=== PATIENT | female | born 1935 | race Caucasian/White ===

== ENCOUNTER → 2019-03-06 08:31 | Outpatient (CLI) | payer MEDICARE, SELFPAY ==
[2019-03-06 09:47] LABS: Hematocrit 42.3 % (36-46); Hemoglobin 13.9 g/dL (12.0-16.0); Mean Corpuscular HGB Conc 32.8 % (30-36); Mean Corpuscular Hemoglobin 27.7 PG (26-34); Mean Corpuscular Volume 84.5 fL (80-100); Platelet Count 193 X10^3/uL (150-400); Red Cell Distribution Width 14.2 % (11.6-14.8); White Blood Cell Count 5.6 X10^3/uL (4.5-11.0)
[2019-03-06 10:36] LABS: Alanine Aminotransferase 23 IU/L (9-52); Albumin 3.7 g/dL (3.5-5.0); Albumin Globulin Ratio 1.3 (1.0-2.8); Alkaline Phosphatase 67 U/L (38-126); Aspartate Aminotransferase 25 IU/L (14-36); BUN Creatinine Ratio 27.1 (6-22); Bilirubin Total 0.9 mg/dL (0.2-1.3); Blood Urea Nitrogen 19 mg/dL (7-17); Calcium 9.6 mg/dL (8.4-10.2); Carbon Dioxide 29 mmol/L (22-32); Chloride 108 mmol/L (98-107); Cholesterol 139 mg/dL (140-199); Estimated Glomerular Filt Rate > 60.0 mL/min (>60); Globulin 2.9 g/dL (1.7-4.1); Glucose 102 mg/dL (80-110); HDL Cholesterol 53 mg/dL (40-60); HEMOLYSIS < 15 (0-50); LDL Cholesterol Calculated 71 mg/dL (<100); Potassium 3.8 mmol/L (3.4-5.1); Sodium 144 mmol/L (137-145); Total Protein 6.6 g/dL (6.3-8.2); Triglycerides 74 mg/dL (35-150)
[2019-03-06 11:14] LABS: TSH w/ Reflex to FT4 < 0.02 uIU/mL (0.47-4.68)
[2019-03-06 11:40] LABS: Free T4, Direct Thyroxine 2.08 ng/dL (0.78-2.19)
[2019-03-06 13:49] LABS: Neutrophils Absolute Manual 3696 /uL (3000-5900); Total Cells Counted 100
[2019-03-06 13:51] LABS: RBC Morphology Normal Morphology
== END ==
PROVIDERS: PCP Family Medicine; Visit Provider Family Medicine
DX: E78.5 Hyperlipidemia, unspecified (principal); I10 Essential (primary) hypertension
CPT/HCPCS: 36415; 80053; 80061; 84439; 84443; 84481; 85025

== ENCOUNTER → 2019-03-18 09:17 | Outpatient (CLI) | payer MEDICARE, SELFPAY ==
--- NOTE | 2019-03-18 | DI.NM.S_ITS ---
PROCEDURE: LA UPTAKE AND SCAN RADIOPHARMACEUTICAL: 370 ?Ci I-123 sodium iodide by mouth. INDICATIONS: ABNORMAL THYROID LABS,OSTEOPENIA TECHNIQUE: I-123 sodium iodide was administered orally. Anterior neck images were obtained, and iodine uptake by the thyroid gland calculated using tipple repairer's software. COMPARISON: [facility], CT, CHEST ABDOMEN PELVIS WITH CONTRAST, 10/06/2010, 9:34. [facility], [place], PET/CT SKULL BASE TO MID THIGH, 10/15/2010, 8:32. [facility], US THYROID, 03/18/2019, 14:04. FINDINGS: Morphology: The thyroid gland has a bilobed configuration. The right thyroid lobe is more pronounced uptake in the left thyroid lobe. No definitive hot or cold' thyroid nodules are identified. Uptake: The 6-hour thyroid uptake is 16.1%; normal ranges are from 6-18%. The 24 hour thyroid uptake is 31.2%; normal ranges are from 10-30%. IMPRESSION: 1. More prominent uptake in the right thyroid lobe compared to left thyroid lobe. This asymmetry may be a normal variant due to congenital size difference of the thyroid lobes. No definitive hot or cold thyroid nodules. 2. Mildly elevated 24-hour radioactive uptake. Please correlate with thyroid function tests. Dictated by: Ehsan Ontiveros M.D. on 03/19/2019 at 11:42 Approved by: Ehsan Ontiveros M.D. on 03/19/2019 at 11:51
--- NOTE | 2019-03-18 | DI.US.S_ITS ---
PROCEDURE: US THYROID INDICATIONS: ABNORMAL THYROID LABS TECHNIQUE: Real-time scanning was performed of the thyroid gland, with image documentation. COMPARISON: None. FINDINGS: Right: Thyroid lobe measures 3.7 x 2.3 x 1.5 cm, and is homogeneous in echotexture. Left: Thyroid lobe measures 3.2 x 1.8 x 1 cm, and is homogenous in echotexture. Isthmus: 3 mm thick. Nodule number: #1 Location: Isthmus Size: 6 x 6 x 4 mm. Composition: Predominantly solid Echogenicity: Hypoechoic Shape: Wider than tall Margins: Irregular Echogenic foci: Peripheral calcifications are seen Total points: 8 ACR TI-RADS category: 5 Nodule number: #2 Location: Upper pole right thyroid lobe Size: 6 x 5 x 4 mm. Composition: Predominantly solid Echogenicity: Hypoechoic Shape: Wider than tall Margins: Smooth Echogenic foci: None Total points: 4 ACR TI-RADS category: 4 Nodule number: #3 Location: Mid to lower pole right thyroid lobe Size: 5 x 6 x 5 mm Composition: Solid Echogenicity: Isoechoic Shape: Wider than tall Margins: Smooth Echogenic foci: Peripheral calcifications Total points: 5 ACR TI-RADS category: 4 IMPRESSION: Subcentimeter nodules in isthmus and right thyroid lobe as described above. Followup ultrasound is recommended. ACR TI-RADS definitions and recommendations: TI-RADS 1 (benign): 0 points. FNA not needed. TI-RADS 2 (not suspicious): 2 points. FNA not needed. TI-RADS 3 (mildly suspicious): 3 points. * FNA if 2.5 cm or larger, follow up if 1.5 cm or larger (at 1, 3, and 5 years). TI-RADS 4 (moderately suspicious): 4-6 points. * FNA if 1.5 cm or larger, follow up if 1 cm or larger (at 1, 2, 3, and 5 years). TI-RADS 5 (highly suspicious): 7 points or more. * FNA if 1 cm or larger, follow up if 0.5 cm or larger (every year for 5 years). Dictated by: Fidel Campos M.D. on 03/18/2019 at 15:53 Approved by: Fidel Campos M.D. on 03/18/2019 at 15:58
== END ==
PROVIDERS: PCP Family Medicine; Visit Provider Family Medicine
DX: M81.0 Age-related osteoporosis without current pathological fracture (principal); Z78.0 Asymptomatic menopausal state; E04.2 Nontoxic multinodular goiter; R89.9 Unspecified abnormal finding in specimens from other organs, systems and tissues
CPT/HCPCS: 36415; 76536; 77080; 77081; 78014; 83519; A9516

== ENCOUNTER 2019-04-09 23:34 | Inpatient (IN) | payer MEDICARE, SELFPAY ==
[2019-04-10] VITALS (14 sets, daily range): BP systolic 121–209; BP diastolic 65–107; PULSE 72–93; RESP 14–95; TEMP 36.4–37.1; O2SAT 91–95; BMI 23.2; BMI 24.0
--- NOTE | 2019-04-10 00:33 | DI.CT.S_ITS ---
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 For radiation dose reduction, the following was used: automated exposure control, adjustment of mA and/or kV according to patient size. COMPARISON: [facility], CT, HEAD WITHOUT CONTRAST, 11/29/2013, 9:03. FINDINGS: Image quality: Excellent. CSF spaces: Basal cisterns are patent. No extra-axial fluid collections. The ventricles are symmetric in size and shape. Brain: No intracranial bleeds or masses. There is cerebral volume loss for age, with resultant ventricular and sulcal prominence. There are moderate progressive periventricular and deep white matter chronic small vessel ischemic changes. There is intracranial internal carotid artery atherosclerosis. Skull and face: Calvarium and visualized facial bones appear intact, without suspicious lesions. Sinuses: Visualized sinuses and mastoids are clear. IMPRESSION: 1. Age related volume loss and moderate, progressive small vessel ischemic change. 2. No evidence acute stroke, hemorrhage, or mass. Comment: Final report is concordant with preliminary interpretation provided by [facility]. Dictated by: Jose Elias Lopez M.D. on 04/10/2019 at 8:22 Approved by: Jose Elias Lopez M.D. on 04/10/2019 at 8:26
[2019-04-10 00:40] LABS: Add Manual Diff / Slide Review NO; Basophils Absolute Auto 0 /uL (0-100); Basophils Percent Auto 0.2 % (0-2); Eosinophils Absolute Auto 0 /uL (0-450); Eosinophils Percent Auto 0.1 % (2-4); Hematocrit 44.4 % (36-46); Hemoglobin 14.7 g/dL (12.0-16.0); Lymphocytes Absolute Auto 1300 /uL (1100-4500); Mean Corpuscular Hemoglobin 27.8 PG (26-34); Mean Corpuscular Volume 84.2 fL (80-100); Monocytes Absolute Auto 400 /uL (0-900); Monocytes Percent Auto 4.6 % (3-14); Neutrophils Absolute Auto 7100 /uL (1500-7000); Neutrophils Percent Auto 80.1 % (50-75); Platelet Count 219 X10^3/uL (150-400); Red Blood Cell Count 5.28 X10^6/uL (4.0-5.2); Red Cell Distribution Width 13.7 % (11.6-14.8); White Blood Cell Count 8.9 X10^3/uL (4.5-11.0)
[2019-04-10 00:42] LABS: Prothrombin Time 11.7 SECONDS (10.1-12.7)
[2019-04-10 00:45] LABS: PTT Partial Thromboplastin Tim 33 SECONDS (26.4-36.2)
[2019-04-10 00:47] LABS: Alanine Aminotransferase 20 IU/L (9-52); Albumin Globulin Ratio 1.3 (1.0-2.8); Alkaline Phosphatase 73 U/L (38-126); Aspartate Aminotransferase 23 IU/L (14-36); BUN Creatinine Ratio 24.3 (6-22); Bilirubin Total 1.5 mg/dL (0.2-1.3); Blood Urea Nitrogen 17 mg/dL (7-17); Calcium 9.4 mg/dL (8.4-10.2); Carbon Dioxide 25 mmol/L (22-32); Chloride 105 mmol/L (98-107); Estimated Glomerular Filt Rate > 60.0 mL/min (>60); Globulin 3.2 g/dL (1.7-4.1); Glucose 130 mg/dL (80-110); HEMOLYSIS < 15 (0-50); Potassium 3.5 mmol/L (3.4-5.1); Sodium 138 mmol/L (137-145); Total Protein 7.2 g/dL (6.3-8.2)
[2019-04-10 00:59] LABS: Troponin I < 0.012 ng/mL (0.01-0.034)
[2019-04-10] MEDS: SODIUM CHLORIDE 0.9% 1,000 ML 150 ML IV (01:06)
--- NOTE | 2019-04-10 02:02 | ED_ITS ---
HPI - Headache General Chief Complaint: Headache Stated Complaint: migraines blurred vision dehydration Time Seen by Provider: 04/10/19 00:32 Source: patient Mode of arrival: Ambulatory Limitations: no limitations History of Present Illness HPI Narrative: Patient is an 83-year-old female who presents with it and left hand weakness. She states she has had migraines for her entire life. She said this 1 started this morning. However this morning she went to get the dog food from the refrigerator she was unable to grab the dog food. She consents keep it out. It lasted for about 10 minutes or less. It went away however she persisted to have his headache throughout the day. She then later again will feeding the dog in the evening was unable to grab anything with her all left hand. 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 She continue to have headaches throughout the day and finally her son brought her to the emergency department. Her weakness in her left hand has completely resolved however she continues to have a mild headache. She has no chest pain no facial drooping or slurring of speech. She also states that she has hypertension. Her medication was changed she says about 2 weeks ago she had an additional medication she took it 1 time and had a significant amount of diarrhea she has never taken again. She initially is noted to have a significant elevation of systolic blood pressure over 200. MD Complaint: headache Onset description: sudden Severity: moderate Quality: aching Treatments prior to arrival: none Related Data Home Medications Medication Instructions Recorded Confirmed ibuprofen 200 mg PO PRN #0 02/21/12 03/04/19 Previous Rx's Medication Instructions Recorded Disabled Parking Permit ea #1 04/11/17 hydrochlorothiazide 25 mg tablet 25 mg PO DAILY #90 tab 03/04/19 losartan 50 mg tablet 50 mg PO QDAY #90 tab 03/04/19 Allergies Allergy/AdvReac Type Severity Reaction Status Date / Time aspirin [ASPIRIN] Allergy Mild Flu like Verified 04/10/19 00:18 symptoms Review of Systems Review of Systems ROS Unobtainable: All systems reviewed & are unremarkable except as noted in HPI and below Constitutional Constitutional: Denies chills, Denies fever(s), Reports headache(s), Denies lethargy and Reports weakness Eyes Eyes: Denies change in vision, Denies eye discharge, Denies irritation and Denies loss of vision ENT Ears, Nose, Mouth, and Throat: Denies change in voice, Reports headache(s), Denies neck pain and Denies sore throat Cardiovascular Cardiovascular: Denies chest pain, Denies irregular heart rhythm, Denies lightheadedness, Denies palpitations, Denies dyspnea, Denies dyspnea on exertion and Denies orthopnea Respiratory Respiratory: Denies cough, Denies dyspnea, Denies dyspnea on exertion and Denies wheezing Gastrointestinal Gastrointestinal: Denies abdominal pain, Denies change in bowel habits, Denies diarrhea, Denies nausea and Denies vomiting Genitourinary Genitourinary: Denies hematuria, Denies flank pain, Denies urinary incontinence and Denies urinary urgency Musculoskeletal Musculoskeletal: Denies neck pain and Reports numbness Integumentary/Breasts Skin/Breast: Denies pruritus, Denies erythema, Denies rash and Denies wounds Neurologic Neurologic: Reports as per HPI, Reports headache(s), Denies loss of vision, Reports numbness and Reports weakness Endocrine Endocrine: Denies palpitations Allergic/Immunologic Allergic/Immunologic: Denies wheezing Patient History Medical History Cataracts, bilateral (Resolved) Chicken pox (Resolved) Chronic back pain (Chronic) Foot pain (Chronic) Fractures (Resolved) Headache (Chronic) Hearing loss (Chronic ~2016) Hearing loss (Acute) History of allergy (Chronic) Hyperlipidemia (Chronic) Hypertension (Chronic) Irregular menstrual cycle (Inactive) Measles (Resolved) Mumps (Resolved) Ovarian cyst (Chronic ~1950) Plantar warts (Chronic ~1950) Rubella (Resolved) Tinnitus (Chronic) Vision disorder (Chronic) Surgical History Anesthesia (Resolved) History of cataract removal with insertion of prosthetic lens (~2009) History of foot surgery (Resolved ~2000) Status post appendectomy (~194) Status post tubal ligation Family History Brother Age: 80 Cancer Brother Age: 76 Diabetes mellitus Father Diabetes mellitus Grandmother Diabetes mellitus Grandmother Cancer Mother Cancer Social History marital status: Smoking Status: Never smoker alcohol intake: never substance use type: does not use Family History Brother Age: 80 Cancer Brother Age: 76 Diabetes mellitus Father Diabetes mellitus Grandmother Diabetes mellitus Grandmother Cancer Mother Cancer Social History marital status: Smoking Status: Never smoker alcohol intake: never substance use type: does not use Substance Use Type: does not use Exam Initial Vital Signs Initial Vital Signs: Vital Signs Temperature 98.7 F 04/10/19 00:15 Pulse Rate 93 H 04/10/19 00:15 Respiratory Rate 20 04/10/19 00:15 Blood Pressure 209/77 H 04/10/19 00:15 Pulse Oximetry 92 04/10/19 00:15 GENERAL: Alert pleasant elderly female no acute distress HEENT: Head atraumatic,EOMI, pupils reactive, face symmetric, severe halitosis CARDIOVASCULAR: Regular rate and rhythm without murmurs, rubs or gallops. RESPIRATORY: Breath sounds equal bilaterally, no wheezes rales or rhonchi. ABDOMEN: Soft, nontender. Normoactive bowel sounds all 4 quadrants. No guarding or rebound. EXTREMITIES: Normal range of motion, no clubbing or edema. Neurovascularly intact NEUROLOGICAL: Alert and oriented x4.Normal gait and speech. Cranial nerves II through XII grossly intact. Good [id number], good [id number]-[id number], strength equal bilaterally, no dysarthria or aphasia, sensation in tact to soft touch bilaterally, no visual changes, no facial droop SKIN: Warm, dry, no laceration, no petechiae, no rashes or lesions. Scores NIH Stroke Scale Level of Conciousness: Alert, keenly responsive Ask month/age: Answers both questions correctly. Open/close eyes, close hand: Performs both tasks correctly Best gaze horizontal: Normal Visual saunders: No visual loss Facial palsy: Normal symetrical movement Left arm drift: No drift for full 10 sec Right arm drift: No drift for full 10 sec Left leg drift: No drift for full 10 sec Right leg drift: No drift for full 10 sec Limb ataxia: Absent Sensory on face/arms/legs: Normal, no sensory loss Best language: No aphasia, normal Dysarthria: Normal Extinction or inattention: No abnormality Total NIH Stroke scale score: 0 Course Orders Ordered: ED Orders 04/10/19 00:25 Complete Blood Count AUTO DIFF Stat Comprehensive Metabolic Panel Stat Partial Thromboplastin Time Stat Prothrombin Time INR Stat Troponin I Stat Urine Culture Stat Urine Microscopic Stat 04/10/19 00:33 CT head/brain wo con Stat EKG-12 Lead Stat 04/10/19 02:28 CT cervical spine wo con Stat CT head/brain wo con Stat 04/10/19 04:21 MR stroke Routine Acetaminophen (Tylenol) 650 mg PO Q6HR PRN PRN Reason: As Needed for Fever/Mild Pain Discontinued Medications Aspirin (Aspirin Chew) 324 mg PO NOW ONE Stop: 04/10/19 04:05 Last Admin: 04/10/19 04:07 Dose: 324 mg Documented by: JORDONFARRonna Sodium Chloride (Normal Saline 0.9%) 1,000 mls @ 150 mls/hr IV CONT MARISOL Last Infusion: 04/10/19 01:45 Dose: 150 mls/hr Documented by: Admin: 04/10/19 01:06 Dose: 150 mls/hr Documented by: JULIANA Vital Signs Vital signs: Vital Signs - 8 hr 04/10/19 00:15 04/10/19 01:13 04/10/19 01:57 Temperature 98.7 F Pulse Rate 93 H 85 90 Respiratory Rate 20 Blood Pressure 209/77 H Blood Pressure [Left Arm] 202/87 H 164/107 H Pulse Oximetry 92 94 95 04/10/19 02:04 04/10/19 03:32 Temperature Pulse Rate 93 H 83 Respiratory Rate 95 H Blood Pressure Blood Pressure [Left Arm] 121/92 H 167/65 H Pulse Oximetry 95 91 MDM - Headache Lab Data Attestation: I reviewed the patient's lab results. Result diagrams: 04/10/19 00:25 04/10/19 00:25 Labs: Lab Results 04/10/19 04/10/19 04/10/19 Range/Units 00:25 00:25 00:25 WBC 8.9 (4.5-11.0) X10^3/uL RBC 5.28 H (4.0-5.2) X10^6/uL Hgb 14.7 (12.0-16.0) g/dL Hct 44.4 (36-46) % MCV 84.2 (80-100) fL MCH 27.8 (26-34) PG MCHC 33.0 (30-36) % RDW 13.7 (11.6-14.8) % Plt Count 219 (150-400) X10^3/uL Neut % (Auto) 80.1 H (50-75) % Lymph % (Auto) 15.0 L (25-40) % [place] % (Auto) 4.6 (3-14) % Eos % (Auto) 0.1 L (2-4) % Baso % (Auto) 0.2 (0-2) % Neut # (Auto) 7100 H (4439-4403) /uL Lymph # (Auto) 1300 (8962-3187) /uL [place] # (Auto) 400 (0-900) /uL Eos # (Auto) 0 (0-450) /uL Baso # (Auto) 0 (0-100) /uL PT 11.7 (10.1-12.7) SECONDS INR 1.0 (0.9-1.3) APTT 33 (26.4-36.2) SECONDS Sodium 138 (137-145) mmol/L Potassium 3.5 (3.4-5.1) mmol/L Chloride 105 (98-107) mmol/L Carbon Dioxide 25 (22-32) mmol/L BUN 17 (7-17) mg/dL Creatinine 0.70 (0.52-1.04) mg/dL Estimated GFR > 60.0 (>60) mL/min BUN/Creatinine Ratio 24.3 H (6-22) Glucose 130 H (80-110) mg/dL Calcium 9.4 (8.4-10.2) mg/dL Total Bilirubin 1.5 H (0.2-1.3) mg/dL AST 23 (14-36) IU/L ALT 20 (9-52) IU/L Alkaline Phosphatase 73 (38-126) U/L Troponin I < 0.012 (0.01-0.034) ng/mL Total Protein 7.2 (6.3-8.2) g/dL Albumin 4.0 (3.5-5.0) g/dL Globulin 3.2 (1.7-4.1) g/dL Albumin/Globulin Ratio 1.3 (1.0-2.8) Urine RBC (0-5/HPF) Urine WBC (0-5/HPF) Ur Squamous Epith Cells (0-5/HPF) Urine Bacteria (None) Ur Culture Indicated? 04/10/19 Range/Units 00:25 WBC (4.5-11.0) X10^3/uL RBC (4.0-5.2) X10^6/uL Hgb (12.0-16.0) g/dL Hct (36-46) % MCV (80-100) fL MCH (26-34) PG MCHC (30-36) % RDW (11.6-14.8) % Plt Count (150-400) X10^3/uL Neut % (Auto) (50-75) % Lymph % (Auto) (25-40) % [place] % (Auto) (3-14) % Eos % (Auto) (2-4) % Baso % (Auto) (0-2) % Neut # (Auto) (1299-7329) /uL Lymph # (Auto) (3468-0944) /uL [place] # (Auto) (0-900) /uL Eos # (Auto) (0-450) /uL Baso # (Auto) (0-100) /uL PT (10.1-12.7) SECONDS INR (0.9-1.3) APTT (26.4-36.2) SECONDS Sodium (137-145) mmol/L Potassium (3.4-5.1) mmol/L Chloride (98-107) mmol/L Carbon Dioxide (22-32) mmol/L BUN (7-17) mg/dL Creatinine (0.52-1.04) mg/dL Estimated GFR (>60) mL/min BUN/Creatinine Ratio (6-22) Glucose (80-110) mg/dL Calcium (8.4-10.2) mg/dL Total Bilirubin (0.2-1.3) mg/dL AST (14-36) IU/L ALT (9-52) IU/L Alkaline Phosphatase (38-126) U/L Troponin I (0.01-0.034) ng/mL Total Protein (6.3-8.2) g/dL Albumin (3.5-5.0) g/dL Globulin (1.7-4.1) g/dL Albumin/Globulin Ratio (1.0-2.8) Urine RBC 0-1/hpf (0-5/HPF) Urine WBC 1-5/hpf (0-5/HPF) Ur Squamous Epith Cells 1-5 /hpf (0-5/HPF) Urine Bacteria Few (2-10) H (None) Ur Culture Indicated? Specimen cultured Urine Dip Bedside Urine Glucose Negative Bedside Urine Bilirubin - Negative Bedside Urine Ketone ++ 40 Urine Specific [place] 1.015 Bedside Urine Occult Blood +/- Bedside Urine pH 6.0 Bedside Urine Protein - Negative Bedside Urine Urobilinogen +/- 1mg Bedside Urine Nitrite - Negative Bedside Urine Leukocytes + [address] scan - head: Radiologist's impression: shift mechanic report: No acute findings advanced cerebral atrophy. Chronic white matter ischemic changes. ECG Data Attestation: I personally reviewed and interpreted this ECG as follows: Prior ECG tracings: not available for review Interpretation: Sinus rhythm rate 92 p.r. interval [address] changes no T-wave inversions no priors to compare MDM Narrative Medical decision making narrative: Patient is noncompliant with her hypertension medication. She had 2 episodes today of left hand weakness. Concern for TIA. Patient was ambulatory to the restroom she was sitting on the toilet when she f ell forward hitting her head. It was immediately heard by the ER staff and help was immediately rendered. She does have contusion all on her forehead left side there LOC. She is now also complaining of some neck pain. No weakness numbness or tingling in her extremities. Repeat imaging of head CT and new imaging of neck CT are both negative. I spoke with Dr. Levy, updated patient's symptoms test results agrees with observation Patient is willing to take aspirin, previous reaction to it was vomiting, she was told ever since that she was allergic. Discharge Plan Departure Patient Disposition: Admitted as Observation Clinical Impression: Brain TIA Admit Date/Time: 04/10/19 03:54 Admit Provider: Dahiana Levy
--- NOTE | 2019-04-10 02:22 | PC.NURSE ---
PT was assisted by Aleida LENZ to bathroom, GRACIA Serrato heard pt fall in bathroom. Pt was on floor and assisted to WC by DELFIN Shin, DELFIN Fitzgerald and GRACIA Serrato and returned to stretcher in room with son at bedside. Dr. Ny aware. PT has hematoma to left forehead with icepack applied.
--- NOTE | 2019-04-10 02:28 | DI.CT.S_ITS ---
PROCEDURE: CT HEAD/BRAIN WO CON INDICATIONS: fall in bathroom contusion TECHNIQUE: Noncontrast 4.5 mm thick angled axial sections acquired from the foramen magnum to the vertex, with coronal and sagittal reformats. For radiation dose reduction, the following was used: automated exposure control, adjustment of mA and/or kV according to patient size. COMPARISON: [facility], CT, CT HEAD/BRAIN WO CON, 04/10/2019, 1:23. FINDINGS: Image quality: Excellent. CSF spaces: Basal cisterns are patent. No extra-axial fluid collections. Ventricles are normal in size and shape. Brain: No midline shift. No intracranial masses or hemorrhage. Periventricular hypodensity most compatible with chronic microvascular ischemic change and which has progressed since 2014. The distal intracranial ICA atherosclerotic calcification. Basal ganglia calcification. Age related volume loss. Skull and face: Calvarium and visualized facial bones are intact, without suspicious lesions. Mild swelling over the left forehead which is new compared to the CT one hour prior. Sinuses: Visualized sinuses and mastoids are clear. IMPRESSION: No acute intracranial abnormality. Mild swelling at the left forehead. This report is concordant with the overnight preliminary interpretation. Dictated by: Kalen Hopkins M.D. on 04/10/2019 at 7:50 Approved by: Kalen Hopkins M.D. on 04/10/2019 at 7:58
--- NOTE | 2019-04-10 02:28 | DI.CT.S_ITS ---
PROCEDURE: CT CERVICAL SPINE WO CON INDICATIONS: fall in bathroom, pain TECHNIQUE: Noncontrast 3 mm thick sections acquired from the skull base to the T4 level. Sagittal and coronal reformats were then constructed. For radiation dose reduction, the following was used: automated exposure control, adjustment of mA and/or kV according to patient size. COMPARISON: None. FINDINGS: Image quality: Excellent. Bones: No fractures or dislocations. Visualized superior ribs are intact. Severe degenerative change at C5-C6. Minimal (4 mm) anterolisthesis of C4 on C5. Soft tissues: Prevertebral soft tissues are normal in thickness. No paravertebral hematomas. No apical pneumothoraces. Right ICA at the calcifications. Tonsillar calcifications. IMPRESSION: No acute fracture or dislocation. This report is concordant with the overnight preliminary interpretation. Dictated by: Kalen Hopkins M.D. on 04/10/2019 at 7:58 Approved by: Kalen Hopkins M.D. on 04/10/2019 at 8:03
[2019-04-10 02:55] LABS: Bacteria Urine Few (2-10); Culture Indicated Urine Specimen Cultured; RBC Urine 0-1/HPF (0-5/HPF); Squamous Epithelial Cell Urine 1-5 /HPF (0-5/HPF); WBC Urine 1-5/HPF (0-5/HPF)
[2019-04-10] MEDS: ASPIRIN 81 MG CHEW TAB 324 MG PO (04:07)
--- NOTE | 2019-04-10 04:21 | DI.MRI.S_ITS ---
PROCEDURE: MR STROKE Pre- and post-contrast brain MRI, non-contrast brain MR angiogram, pre- and postcontrast neck MR angiogram INDICATIONS: left hand weaknesss, tia TECHNIQUE: Brain: Noncontrast axial T1 spin echo, axial T2 fast spin echo, sagittal and axial FLAIR, coronal T2 fast spin echo, axial gradient echo, axial diffusion and ADC through the brain. After the administration of contrast, axial 3D VIBE of the cranial vasculature and brain. Brain MRA: Non-contrast 3-D time of flight MR angiogram, with multiple jhlrbxt-fwdszumgr-udhwucvhij (MIP) reformats performed. Neck MRA: Axial and sagittal TruFISP through the neck. Coronal dynamic MR angiogram during administration of contrast in the arterial and venous phases, with 3-dimenstional ydkwidq-pbnorboiu-tblbmlnfkl (MIP) reformats constructed from subtraction images. COMPARISON: [facility], CT, CT HEAD/BRAIN WO CON, 04/10/2019, 2:36. FINDINGS: Image quality: Excellent. BRAIN: CSF spaces: Ventricles are normal in size and shape. Basal cisterns are patent. No extra-axial fluid collections. Brain: No intracranial bleeds or mass effects. Moderate diffuse cerebral volume loss. Moderate degree of patchy high FLAIR signal within the periventricular and subcortical white matter. Rodriguez-white matter interface is normal. Small chronic infarct versus prominent perivascular space within the right inferior basal ganglia. Diffusion weighted images show no acute ischemic insults. Brainstem appears normal. Normal intravascular flow voids are present. No abnormal intracranial enhancement. Skull and face: Calvarial marrow signal is normal. Orbits appear normal. Sinuses: Sinuses and mastoids are clear. BRAIN MR ANGIOGRAM: Anterior circulation: There is a 4 mm diameter region of flow at the anterior aspect of the left proximal supraclinoid internal carotid artery, in the expected vicinity of the ophthalmic artery origin. Intracranial internal carotid arteries are otherwise normal in size and enhancement. The flow within the paired anterior cerebral arteries is normal and symmetric. The flow within the middle cerebral arteries is normal and symmetric. The anterior communicating artery is seen. No stenoses nor occlusions. Posterior circulation: The visualized portions of the vertebral arteries demonstrate normal caliber, and join to form a normal appearing basilar artery. Near origins of the bilateral posterior cerebral arteries. The flow within the posterior cerebral arteries is normal and symmetric. No stenoses, occlusions, or aneurysms. NECK MR ANGIOGRAM: Carotids: Great vessels demonstrate a conventional anatomy as they arise from the aortic arch. The origins of the common carotid arteries appear patent. The calibers and courses of both common carotid arteries are normal. The bifurcation regions appear normal bilaterally. There is a possible 4 mm diameter aneurysm involving the left clinoid internal carotid artery at, or adjacent to the ophthalmic artery origin. The internal carotid arteries demonstrate otherwise normal course and caliber. Posterior circulation: The origins of the vertebral arteries appear patent. More superior portions of both vertebral arteries demonstrate normal course and caliber, and join to form a normal appearing basilar artery. Miscellaneous: Subclavian arteries appear patent. Pre-contrast images through the neck show no soft tissue abnormalities. IMPRESSION: BRAIN MRI: 1. No acute process. No recent infarct. 2. Volume loss and small vessel ischemic disease. BRAIN MR ANGIOGRAM: 1. 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 This could be further assessed via CT angiography of the head, if clinically indicated. 2. Otherwise negative cerebral MR angiography. NECK MR ANGIOGRAM: 1. 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 2. No significant internal carotid artery stenosis. 3. Patent bilateral vertebral arteries. Dictated by: Martin Peterson M.D. on 04/10/2019 at 11:18 Approved by: Martin Peterson M.D. on 04/10/2019 at 11:29
--- NOTE | 2019-04-10 07:49 | DI.ECHO.S_ITS ---
[facility] +---------+ : : [address] : : : : [id number] : : : : Phone: [phone]+ Echocardiogram Report + + :Name: SUZANNE GAUTHIER Study Date: 04/10/2019 Height: 62 in : :[facility] Weight: 131 lb : : Gender: Female BSA: 1.6 m2 : :: 1935 Age: 83 yrs BP: 199/87 mmHg: :Reason For Study: WEAKNESS, CVA : : Performed By: Wyatt Matthews : :Referring: JERROD KRAFT : + + Interpretation Summary Patient was in normal sinus rhythm during the exam but had occasional PVCs. Left ventricular wall thickness is mildly increased. The left ventricular ejection fraction is normal. There are no focal wall motion abnormalities. The right ventricle is normal in size and function. The right ventricular systolic pressure is estimated to be at least 28 mmHg based on an estimated right atrial pressure of 3 mm Hg. The left atrium is moderately dilated. There is mild mitral regurgitation. -Overall this echo shows changes related to hypertensive heart disease without identifiable cardiac source of emboli. Procedure: A two-dimensional transthoracic echocardiogram with color flow and Doppler was performed. The study quality was technically good. There is no prior echocardiogram noted for this patient. The patient was in normal sinus rhythm during the exam. The patient had occasional PVCs during the exam. Left Ventricle: The left ventricle is normal in size. Left ventricular wall thickness is mildly increased. The ejection fraction is estimated to be 60- 65%. The left ventricular ejection fraction is normal. There are no focal wall motion abnormalities. Diastolic parameters suggest a relaxation abnormality of the left ventricle, consistent with probable normal filling pressures. Right Ventricle: The right ventricle is normal in size and function. Atria: The left atrium is moderately dilated. Right atrial size is normal. There is no Doppler evidence for an interatrial shunt. Mitral Valve: The mitral valve leaflets appear mildly thickened, but open well. There is mild mitral regurgitation. Aortic Valve: The aortic valve is trileaflet. The aortic valve is mildly calcified. The aortic valve opens well. There is no aortic valve stenosis. There is trace aortic regurgitation. Tricuspid Valve: The tricuspid valve is normal in structure and function. There is mild tricuspid regurgitation. The right ventricular systolic pressure is estimated to be at least 28 mmHg based on an estimated right atrial pressure of 3 mm Hg. Pulmonic Valve: The pulmonic valve is not well visualized. There is trace pulmonic regurgitation. Great Vessels: The aortic root is normal size. The dimensions of the ascending aorta are normal. The pulmonary artery is normal size. The IVC is of normal diameter and collapses greater than 50% with a sniff. This suggests a low right atrial pressure of 3 mm Hg. Pericardium/ Pleura There is no pericardial effusion. There is no pleural effusion. MMode/2D Measurements & Calculations LVIDd: 4.1 cm LVOT diam: 2.0 cm LVIDs: 2.9 cm Ao root diam: 2.9 cm FS: 29.1 % Aortic Jxn: 2.2 cm EPSS: 0.75 cm asc Aorta Diam: 3.3 cm IVSd: 1.2 cm Ao Arch Diam (Prox Trans): 2.5 cm LVPWd: 1.1 cm LV curtis. diameter/BSA (cm/m^2): 2.6 LV sys. diameter/BSA (cm/m^2): 1.8 LA dimension: 3.9 cm RA long axis: 4.7 cm LA A2 area: 21.4 cm2 RA area: 16.4 cm2 LA A4 area: 21.3 cm2 RA vol: 48.9 ml LA length (vol): 5.2 cm RA : 30.6 ml/m2 LA vol: 73.5 ml IVC diam: 1.9 cm LA vol index: 46.0 ml/m2 RVD1 (basal): 4.0 cm RVD2 (mid): 3.4 cm TAPSE: 2.2 cm Doppler Measurements & Calculations Ao V2 max: 116.6 cm/sec LVOT Max Armando: 95.2 cm/sec Ao V2 mean: 83.8 cm/sec LV V1 max P.6 mmHg Ao max P.4 mmHg LV V1 VTI: 25.1 cm Ao mean P.0 mmHg SONU(I,D): 3.4 cm2 Ao V2 VTI: 24.2 cm SONU(V,D): 2.6 cm2 sev ratio: 1.0 SONU indexed to BSA (cm^2/m^2): 2.1 MV E max armando: 50.6 cm/sec TR max armando: 247.3 cm/sec MV A max armando: 82.6 cm/sec TR max P.5 mmHg MV E/A: 0.61 PA V2 max: 87.6 cm/sec Med Peak E' Armanod: 3.9 cm/sec PA V2 mean: 59.9 cm/sec E/E' med: 12.9 PA mean P.6 mmHg Lat Peak E' Armando: 6.9 cm/sec PA pr(Accel): 56.5 mmHg E/E' lat: 7.3 PA Accel Time: 0.06 sec E/e' average: 10.1 MV dec time: 0.18 sec SV(LVOT): 81.1 ml Electronically signed by: Ernesto Robbins M.D. on Reading Physician:04/10/2019 07:27 PM
[2019-04-10] MEDS: LOSARTAN 50 MG TABLET PO (08:53)
[2019-04-10] MEDS: hydroCHLOROthiazide 25 MG TABLET PO (08:53)
[2019-04-10] MEDS: ASPIRIN 325 MG TABLET PO (08:53)
[2019-04-10] MEDS: ENOXAPARIN 40 MG/0.4 ML SYRINGE SUBCUT (08:54)
--- NOTE | 2019-04-10 08:55 | P.HP_ITS ---
History of Present Illness History of Present Illness Date Patient Seen: 04/10/19 Time Patient Seen: 08:00 Chief complaint: migraines blurred vision dehydration Narrative: 83-year-old female admitted to the hospital with left hand weakness and headache. Patient states she has a long standing history of migraine headaches which she gets a few times a month. She has a prodrome of visual disturbances. Says he had and then gets a headache which last for 24 hours. Patient had a headache 2 days ago. She woke up yesterday morning. Her headache was still present. She went to feed her dog noticed her left hand was not working. She could not reach and grab things. She had do things with her right hand and use right hand move her left hand. This happened for non specified duration yesterday morning. In the gradually improved. It then happened in the afternoon when she was going to feed the dog again and the hand was weak. She called her family who came over noticed that she had left hand weakness and encouraged her to go to the emergency department. Patient has never had these symptoms before. There was no associated leg weakness difficulty with speech. The patient states at that time she had a headache. She also noticed over the last few weeks her blood pressure was elevated but she attributed that to not taking her hydrochlorothiazide that we recently prescribed. Before this episode he was not having any difficulty with chest pain pa lpitations shortness of breath no lower extremity edema. She did have a low- grade headache which is not unusual for her. She was not dizzy. In was not currently having any visual disturbances. She has had normal bowel movement in urination. In the emergency room patient had evaluation including a CT scan EKG and blood work. Those are reviewed further down in the chart. During the hospital stay she was leaving a urine sample and patient then fell in the bathroom sustaining a bruise to her left forehead left hand. Which she has pain and then had a repeat CT scan which showed hematoma in her frontal area from the fall with no acute bleed. Due to her left hand weakness. And symptomatology she was admitted to hospital for further evaluation and workup. On my evaluation this morning. She has bruising to her head. She has a concise historian she is not complaining of headache. She is moving all extremities and has no obvious facial weakness. She has mild complaints of hand and for head pain do the bruise. She also ask questions about her recent testing on her thyroid that we had been working up as an outpatient. Patient History Medical History Cataracts, bilateral (Resolved) Chicken pox (Resolved) Chronic back pain (Chronic) Foot pain (Chronic) Fractures (Resolved) Headache (Chronic) Hearing loss (Chronic ~2016) Hearing loss (Acute) History of allergy (Chronic) Hyperlipidemia (Chronic) Hypertension (Chronic) Irregular menstrual cycle (Inactive) Measles (Resolved) Mumps (Resolved) Ovarian cyst (Chronic ~1949) Plantar warts (Chronic ~1949) Rubella (Resolved) Tinnitus (Chronic) Vision disorder (Chronic) Surgical History Anesthesia (Resolved) History of cataract removal with insertion of prosthetic lens (~2009) History of foot surgery (Resolved ~2000) Status post appendectomy (~1948) Status post tubal ligation Family History Brother Age: 80 Cancer Brother Age: 76 Diabetes mellitus Father Diabetes mellitus Grandmother Diabetes mellitus Grandmother Cancer Mother Cancer Social History marital status: Smoking Status: Never smoker alcohol intake: never substance use type: does not use Family & Social History Family History Brother Age: 80 Cancer Brother Age: 76 Diabetes mellitus Father Diabetes mellitus Grandmother Diabetes mellitus Grandmother Cancer Mother Cancer Social History: household members significant other Prior Living Arrangements House Safety & Behavioral: Feels Safe in Current Yes Environment Been Physically Hurt or No Threatened By a Person Suicidal Ideation Description None Tobacco & Substance use: Smoking Status Never smoker alcohol intake never Substance Use Type does not use Meds Home Medications and Allergies Home Medications Medication Instructions Recorded Confirmed Type ibuprofen 200 mg PO PRN #0 02/21/12 03/04/19 History Disabled Parking Permit ea #1 04/11/17 03/04/19 Rx hydrochlorothiazide 25 mg tablet 25 mg PO DAILY #90 tab 03/04/19 03/04/19 Rx losartan 50 mg tablet 50 mg PO QDAY #90 tab 03/04/19 03/04/19 Rx Allergies Allergy/AdvReac Type Severity Reaction Status Date / Time aspirin [ASPIRIN] Allergy Mild Flu like Verified 04/10/19 00:18 symptoms Exam Vital Signs (past 8 hours): - 04/10/19 01:13 04/10/19 01:57 04/10/19 02:04 Temperature Pulse Rate 85 90 93 H Respiratory Rate 95 H Blood Pressure Blood Pressure [Left Arm] 202/87 H 164/107 H 121/92 H Pulse Oximetry 94 95 95 04/10/19 03:32 04/10/19 04:20 04/10/19 08:00 Temperature 98.7 F 97.9 F Pulse Rate 83 83 72 Respiratory Rate 16 15 Blood Pressure 155/89 H 133/71 Blood Pressure [Left Arm] 167/65 H Pulse Oximetry 91 95 93 Oxygen Delivery Method Room Air Oxygen Flow Rate 0 Narrative Exam Narrative: Gen.: Alert good historian HEENT: Bruising to left frontal area. Pupils equal round and reactive to light. Tympanic membranes are clear nares are patent oral mucosa is moist neck is supple. Cardio: Regular rate and rhythm slight systolic heart murmur heard. Respiratory: Lungs are clear to auscultation no wheezes or crackles normal respiratory effort. Abdomen: Soft nontender no rebound or guarding no liver spleen enlargement no appreciable hernias Extremities: Full range of motion in upper and lower extremities. Mild bruising to her left hand. Good patternmaker plaster strength. Normal reflexes. Neurologic: Grossly intact. Objective Labs Result Diagrams: 04/10/19 00:25 04/10/19 00:25 Labs: Laboratory Results - last 24 hr 04/10/19 04/10/19 04/10/19 00:25 00:25 00:25 WBC 8.9 RBC 5.28 H Hgb 14.7 Hct 44.4 MCV 84.2 MCH 27.8 MCHC 33.0 RDW 13.7 Plt Count 219 Neut % (Auto) 80.1 H Lymph % (Auto) 15.0 L [place] % (Auto) 4.6 Eos % (Auto) 0.1 L Baso % (Auto) 0.2 Neut # (Auto) 7100 H Lymph # (Auto) 1300 [place] # (Auto) 400 Eos # (Auto) 0 Baso # (Auto) 0 PT 11.7 INR 1.0 APTT 33 Sodium 138 Potassium 3.5 Chloride 105 Carbon Dioxide 25 BUN 17 Creatinine 0.70 Estimated GFR > 60.0 BUN/Creatinine Ratio 24.3 H Glucose 130 H Calcium 9.4 Total Bilirubin 1.5 H AST 23 ALT 20 Alkaline Phosphatase 73 Troponin I < 0.012 Total Protein 7.2 Albumin 4.0 Globulin 3.2 Albumin/Globulin Ratio 1.3 Urine RBC Urine WBC Ur Squamous Epith Cells Urine Bacteria Ur Culture Indicated? 04/10/19 00:25 WBC RBC Hgb Hct MCV MCH MCHC RDW Plt Count Neut % (Auto) Lymph % (Auto) [place] % (Auto) Eos % (Auto) Baso % (Auto) Neut # (Auto) Lymph # (Auto) [place] # (Auto) Eos # (Auto) Baso # (Auto) PT INR APTT Sodium Potassium Chloride Carbon Dioxide BUN Creatinine Estimated GFR BUN/Creatinine Ratio Glucose Calcium Total Bilirubin AST ALT Alkaline Phosphatase Troponin I Total Protein Albumin Globulin Albumin/Globulin Ratio Urine RBC 0-1/hpf Urine WBC 1-5/hpf Ur Squamous Epith Cells 1-5 /hpf Urine Bacteria Few (2-10) H Ur Culture Indicated? Specimen cultured Assessment & Plan Assessment & Plan narrative: Transient left hand weakness x2. TIA versus cerebrovascular accident. We will proceed with further workup and evaluation. Initial laboratory testing in the emergency department is fairly unremarkable. Patient had a CT scan in the emergency room which showed no acute cerebral injury such as bleeding or stroke. Patient was given an aspirin although she previously had some stomach upset she has tolerated that well. Her blood pressure was initially quite high on presentation to the emergency room we have added in Cozaar which she was on at home. Will continue to monitor blood pressure and bring that down if need be will add a calcium channel anu. In addition to her aspirin she will be placed on telemetry monitoring. She will have an MRI of her brain today. Will proceed with an echocardiogram as she does have a heart murmur. Her EKG shows she is in normal sinus rhythm. Fall. Patient fell while in the emergency department upon giving a urine sample. She has bruising to her left frontal area of her head as well as her left hand. Repeat CT scan afterwards shows subcutaneous swelling. No acute bleed. She is doing well. Will have her evaluation by physical and occupational therapy. Hypertension. Patient's blood pressure is quite high on initial presentation to the emergency room. Which would be consistent with this intercranial process. Will gradually lower her blood pressure over the ensuing day or 2 restart her Cozaar. If need be start a calcium channel anu. Hyperlipidemia her LDL cholesterol is a little bit elevated. Not significantly but if this is a stroke she will need to be on a statin until we have further i nformation will place her on 1 today. Hyperthyroidism. Patient has autoimmune hyperthyroid disease. Previous has had an outpatient workup. Her TSH is low. She will be need this started on methima zole 5 mg once daily and will continue to track as an outpatient. Quality VTE Deep Vein Thrombosis/Pulmonary Embolism Present on Admission: No
[2019-04-10] MEDS: ATORVASTATIN 20 MG TABLET PO (08:59)
[2019-04-10] MEDS: ACETAMINOPHEN 325 MG TABLET 650 MG PO ×2 (09:00→13:19)
--- NOTE | 2019-04-10 12:15 | CM.DANOTE ---
DCP Assessment: EMR reviewed: patient is an 83 yr old female who was having migraine and blurred vision and fell while in the bathroom in the ED. PCP is Kavita Perez. CM met with patient at bedside and explained CM/ RN role. patient was alert and oriented during visit. Patient lives with her significant other Judit # [phone]. patient also has three sons who live here in [place] who help her as well. Patient does live in a two story house with 12 steps. Patient at base line is I with ADL's. PT/OT evaluations pending. Insurance: 1st: medicare 2nd: AARP Plan: depending on PT/OT evaluations D/C plan is home with help from Significance other and adult children when medically stable. CM to F/U once PT/OT notes placed. Merissa Orellana RN Discharge Planning/Care Management CM Discharge Assessment Start: 04/10/19 12:12 Freq: Status: Active Protocol: Document 04/10/19 12:12 HS (Rec: 04/10/19 12:15 HS [id number]) Discharge Planning Assessment Assigned Consultant Internship Merissa Orellana RN DPOA/Assigned Designee Name Judit (significant other) Contact Information [phone] Advance Directives? No History Provided By Patient,Medical Record Has Patient been admitted in last 30 No days? Prior Living Arrangements RV Household Members significant other Type of transporation used prior to Drives own vehicle admit Independent with ADL's Yes Is patient alert and oriented? Yes Caregiver for Another No Discharge Plan Home Transportation Arrangement Significate other will provide transportation Whiteboard Updated in Patient Room with Yes name and ext. # of Consultant Internship Review Status In Process Next Review Type Continued Stay Review
--- NOTE | 2019-04-10 15:43 | PT.IPTN ---
Physical Therapy Treatment Note M3 PT-IP Subjective Start: 04/10/19 16:07 Freq: NEEDED Status: Active Protocol: Document 04/10/19 15:43 AB (Rec: 04/10/19 16:21 AB [id number]) Subjective Physical Therapy Visit Type Notes obtained home set-up and PLOF. checked pt's BP 3x: first BP 144/90; 2nd: 193/95 3rd: 199/ 87. informed nurse regarding high BP. PT eval not completed due to high BP.
--- NOTE | 2019-04-10 16:23 | OT.IP.TRT ---
Occupational Therapy Treatment Note M3 OT- IP Subjective and Pain Start: 04/10/19 16:20 Freq: Status: Active Protocol: Document 04/10/19 16:20 [facility] (Rec: 04/10/19 16:23 [facility] [id number]) OT- Subjective Occupational Therapy Visit Type Type Administrative Note Notes Pt just admitted this morning. PT informed OT that pt have a high BP of 199/87, therefore to check on pt tomorrow for OT eval.
--- NOTE | 2019-04-10 16:59 | PM.DS.1 ---
History of Present Illness History of Present Illness Chief complaint: migraines blurred vision dehydration Narrative: 83-year-old female admitted to the hospital with left hand weakness and headache. Patient states she has a long standing history of migraine headaches which she gets a few times a month. She has a prodrome of visual disturbances. Says he had and then gets a headache which last for 24 hours. Patient had a headache 2 days ago. She woke up yesterday morning. Her headache was still present. She went to feed her dog noticed her left hand was not working. She could not reach and grab things. She had do things with her right hand and use right hand move her left hand. This happened for non specified duration yesterday morning. In the gradually improved. It then happened in the afternoon when she was going to feed the dog again and the hand was weak. She called her family who came over noticed that she had left hand weakness and encouraged her to go to the emergency department. Patient has never had these symptoms before. There was no associated leg weakness difficulty with speech. The patient states at that time she had a headache. She also noticed over the last few weeks her blood pressure was elevated but she attributed that to not taking her hydrochlorothiazide that we recently prescribed. Before this episode he was not having any difficulty with chest pain palpitations shortness of breath no lower extremity edema. She did have a low-grade headache which is not unusual for her. She was not dizzy. In was not currently having any visual disturbances. She has had normal bowel movement in urination. In the emergency room patient had evaluation including a CT scan EKG and blood work. Those are reviewed further down in the chart. During the hospital stay she was leaving a urine sample and patient then fell in the bathroom sustaining a bruise to her left forehead left hand. Which she has pain and then had a repeat CT scan which showed hematoma in her frontal area from the fall with no acute bleed. Due to her left hand weakness. And symptomatology she was admitted to hospital for further evaluation and workup. On my evaluation this morning. She has bruising to her head. She has a concise historian she is not complaining of headache. She is moving all extremities and has no obvious facial weakness. She has mild complaints of hand and for head pain do the bruise. She also ask questions about her recent testing on her thyroid that we had been working up as an outpatient. Discharge Providers Provider Date of admission: 04/10/19 03:54 Discharge Date: 04/10/19 Primary care physician: Emmanuel Walls MD Consults: 04/10/19 07:45 Consult to Discharge Planning Routine Comment: Consult to Occupational Therapy Evaluate & Treat Comment: Physician Instructions: Evaluate and treat Consult to Physical Therapy Evaluate & Treat Comment: Physician Instructions: Evaluate and Treat Discharge provider: Emmanuel Walls MD Summary Hospital Course Discharge Diagnosis: Transient ischemic attack Essential hypertension Hyperthyroidism autoimmune Hyperlipidemia Migraine headaches Fall with contusion to forehead and left wrist Hospital Course: Patient was admitted the hospital for further workup and evaluation of left hand weakness. During her hospital stay patient did well she was seated. Worked with speech therapy physical therapy. Patient tolerated her diet. During her hospital stay she had no further episodes of left hand weakness. Patient did not have slurring his speech. She did have some visual changes which were consistent with her previous dated migraine condition. During her hospital stay she did fell while in the emergency room. MRI scan showed no acute cerebrovascular disease. MRA shows an abnormal blood vessel versus a variant abnormal artery. They recommended a CT angiogram which will follow up with as an outpatient. During hospital stay patient had some labile blood pressure is normally well controlled than sometimes elevated. She is was previously on hydrochlorothiazide which she says she did not tolerate so she was started on Norvasc. During her hospital stay she was started on an aspirin which she previous that cause stomach upset but she tolerated it well here she is also started on amlodipine and statin. After review of MRI and echocardiogram patient was be to be discharged and follow up with Dr. Walls in 7-10 days. Exam Vital Signs (past 8 hours): - 04/10/19 09:27 04/10/19 14:00 04/10/19 15:20 Temperature 97.5 F L 98.4 F Pulse Rate 75 74 Respiratory Rate 14 18 Blood Pressure 152/81 H 148/80 H Pulse Oximetry 95 95 04/10/19 16:45 Temperature 98.4 F Pulse Rate Respiratory Rate Blood Pressure Pulse Oximetry Oxygen Delivery Method Room Air Oxygen Flow Rate 0 Objective Labs Result Diagrams: 04/10/19 00:25 04/10/19 00:25 Labs: Laboratory Results - last 24 hr 04/10/19 04/10/19 04/10/19 00:25 00:25 00:25 WBC 8.9 RBC 5.28 H Hgb 14.7 Hct 44.4 MCV 84.2 MCH 27.8 MCHC 33.0 RDW 13.7 Plt Count 219 Neut % (Auto) 80.1 H Lymph % (Auto) 15.0 L [place] % (Auto) 4.6 Eos % (Auto) 0.1 L Baso % (Auto) 0.2 Neut # (Auto) 7100 H Lymph # (Auto) 1300 [place] # (Auto) 400 Eos # (Auto) 0 Baso # (Auto) 0 PT 11.7 INR 1.0 APTT 33 Sodium 138 Potassium 3.5 Chloride 105 Carbon Dioxide 25 BUN 17 Creatinine 0.70 Estimated GFR > 60.0 BUN/Creatinine Ratio 24.3 H Glucose 130 H Calcium 9.4 Total Bilirubin 1.5 H AST 23 ALT 20 Alkaline Phosphatase 73 Troponin I < 0.012 Total Protein 7.2 Albumin 4.0 Globulin 3.2 Albumin/Globulin Ratio 1.3 Urine RBC Urine WBC Ur Squamous Epith Cells Urine Bacteria Ur Culture Indicated? 04/10/19 00:25 WBC RBC Hgb Hct MCV MCH MCHC RDW Plt Count Neut % (Auto) Lymph % (Auto) [place] % (Auto) Eos % (Auto) Baso % (Auto) Neut # (Auto) Lymph # (Auto) [place] # (Auto) Eos # (Auto) Baso # (Auto) PT INR APTT Sodium Potassium Chloride Carbon Dioxide BUN Creatinine Estimated GFR BUN/Creatinine Ratio Glucose Calcium Total Bilirubin AST ALT Alkaline Phosphatase Troponin I Total Protein Albumin Globulin Albumin/Globulin Ratio Urine RBC 0-1/hpf Urine WBC 1-5/hpf Ur Squamous Epith Cells 1-5 /hpf Urine Bacteria Few (2-10) H Ur Culture Indicated? Specimen cultured Discharge Plan Discharge Plan Discharge Problem: Brain TIA Patient Disposition: Home Discharge comment: Follow-up. 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 Follow-up will be in Dr. Walls office in 10 days. Would like patient to do blood pressure checks daily call me if blood pressure is consistently greater than 140 systolic Discharge Med Rec/Prescriptions Prescriptions: New amlodipine [Norvasc] 5 mg tablet 5 mg PO DAILY Qty: 90 RF: 3 methimazole 5 mg tablet 5 mg PO DAILY Qty: 30 RF: 3 simvastatin 10 mg tablet 10 mg PO BEDTIME Qty: 30 RF: 3 aspirin 325 mg tablet 325 mg PO DAILY Qty: 30 RF: 3 Continued losartan [Cozaar] 50 mg tablet 50 mg PO QDAY Qty: 90 RF: 3 Disabled Parking Permit Qty: 1 RF: 0 Discontinued hydrochlorothiazide 25 mg tablet 25 mg PO DAILY Qty: 90 RF: 3 ibuprofen 200 MG tablet 200 mg PO PRN Qty: 0 RF: 0 Follow up/Referrals: Emmanuel Walls MD [Primary Care Provider] - Visit Report/Discharge Packet Visit Report Forms: Patient Portal/API, Stroke Signs & Symptoms Discharge Data Primary Care Provider: Emmanuel Walls Attending Provider: Emmanuel Walls Admit Date/Time: 04/10/19 03:54 Quality VTE Deep Vein Thrombosis/Pulmonary Embolism Present on Admission: No
[2019-04-10] MEDS: AMLODIPINE 5 MG TABLET PO (17:01)
--- NOTE | 2019-04-10 17:42 | PC.NURSE ---
Addendum entered by Maryan Fang R.N. 04/10/19 18:15: Pt escorted via W/C by staff to waiting vehicle. Original Note: Pt had ECHO completed. here, Discharge orders received. Tele discontinued. HL discontinued intact. B/P @1640 = 188/101, aware, Amlodipine given as per orders. B/P @ 1740 156/101. Will monitor again before D/C. Home instructions given w/apparent understanding. Awaiting B/P recjeck.
[2019-04-11] VITALS (13 sets, daily range): BP systolic 154–201; BP diastolic 63–96; PULSE 61–115; RESP 15–37; TEMP 36.8–38.8; O2SAT 90–100; BMI 24.5
--- NOTE | 2019-04-11 10:29 | DI.CT.S_ITS ---
PROCEDURE: CT HEAD/BRAIN WO CON INDICATIONS: aloc TECHNIQUE: Noncontrast 4.5 mm thick angled axial sections acquired from the foramen magnum to the vertex, with coronal and sagittal reformats. For radiation dose reduction, the following was used: automated exposure control, adjustment of mA and/or kV according to patient size. COMPARISON: [facility], CT, HEAD WITHOUT CONTRAST, 11/29/2013, 9:03. [facility], MR, MR STROKE, 04/10/2019, 10:18. [facility], CT, CT HEAD/BRAIN WO CON, 04/10/2019, 1:23. [facility], CT, CT HEAD/BRAIN WO CON, 04/10/2019, 2:36. FINDINGS: Image quality: This examination is limited by involuntary motion artifact. Images are repeated, with some improvement. CSF spaces: Basal cisterns are patent. No extra-axial fluid collections. The ventricles are symmetric in size and shape. Brain: No intracranial bleeds or masses. There is cerebral volume loss for age, with resultant ventricular and sulcal prominence. There are periventricular and deep white matter chronic small vessel ischemic changes. There is intracranial internal carotid artery atherosclerosis. Skull and face: Calvarium and visualized facial bones appear intact, without suspicious lesions. Sinuses: Visualized sinuses and mastoids are clear. IMPRESSION: Limited intracranial examination demonstrating no acute abnormality. No acute intracranial hemorrhage is detected. Note is made of age-appropriate brain parenchymal volume loss and chronic small vessel ischemic changes. Dictated by: Sunday Fowler M.D. on 04/11/2019 at 9:59 Approved by: Sunday Fowler M.D. on 04/11/2019 at 10:01
[2019-04-11 10:39] LABS: Add Manual Diff / Slide Review NO; Basophils Absolute Auto 100 /uL (0-100); Basophils Percent Auto 0.7 % (0-2); Eosinophils Absolute Auto 100 /uL (0-450); Eosinophils Percent Auto 0.7 % (2-4); Hematocrit 44.9 % (36-46); Hemoglobin 14.8 g/dL (12.0-16.0); Lymphocytes Absolute Auto 2100 /uL (1100-4500); Lymphocytes Percent Auto 24.9 % (25-40); Mean Corpuscular Hemoglobin 27.8 PG (26-34); Mean Corpuscular Volume 84.3 fL (80-100); Monocytes Absolute Auto 800 /uL (0-900); Monocytes Percent Auto 9.1 % (3-14); Neutrophils Absolute Auto 5600 /uL (1500-7000); Neutrophils Percent Auto 64.6 % (50-75); Platelet Count 203 X10^3/uL (150-400); Red Blood Cell Count 5.33 X10^6/uL (4.0-5.2); Red Cell Distribution Width 13.7 % (11.6-14.8); White Blood Cell Count 8.6 X10^3/uL (4.5-11.0)
[2019-04-11 10:53] LABS: Alanine Aminotransferase 17 IU/L (9-52); Albumin 4.3 g/dL (3.5-5.0); Albumin Globulin Ratio 1.3 (1.0-2.8); Alkaline Phosphatase 71 U/L (38-126); Aspartate Aminotransferase 29 IU/L (14-36); BUN Creatinine Ratio 25.6 (6-22); Bilirubin Total 2.3 mg/dL (0.2-1.3); Blood Urea Nitrogen 23 mg/dL (7-17); Calcium 9.9 mg/dL (8.4-10.2); Carbon Dioxide 27 mmol/L (22-32); Chloride 103 mmol/L (98-107); Estimated Glomerular Filt Rate 59.9 mL/min (>60); Globulin 3.4 g/dL (1.7-4.1); Glucose 118 mg/dL (80-110); HEMOLYSIS 18 (0-50); Potassium 3.8 mmol/L (3.4-5.1); Sodium 139 mmol/L (137-145); Total Protein 7.7 g/dL (6.3-8.2)
[2019-04-11] MEDS: SODIUM CHLORIDE 0.9% 1,000 ML 1000 ML IV (11:06)
[2019-04-11 12:02] LABS: Ethanol (ETOH) < 10 mg/dL
[2019-04-11 12:10] LABS: Lactate (Lactic Acid) 1.3 mmol/L (0.7-2.1)
[2019-04-11] MEDS: HALOPERIDOL 5 MG/ML VIAL 2.5 MG IV ×2 (12:10→12:28)
--- NOTE | 2019-04-11 12:35 | DI.CT.S_ITS ---
PROCEDURE: CT ANGIO HEAD AND NECK INDICATIONS: confusion TECHNIQUE: Pre-contrast 4.5 mm thick sections acquired from the foramen magnum to the vertex. After the administration of intravenous contrast, 1 mm thick sections acquired from the aortic arch through the [place]. Post-contrast 4.5 mm thick sections then re-acquired from the foramen magnum to the vertex. 3-dimensional tamvqse-bydxdbomm-ledwlzuize (MIP) and/or volume rendering reformats were acquired of the central intracranial vasculature and neck separately. COMPARISON: [facility], MR, MR STROKE, 04/10/2019, 10:18. [facility], CT, CT HEAD/BRAIN WO CON, 04/11/2019, 10:43. FINDINGS: Image quality: Limited by patient motion. BRAIN: CSF spaces: Ventricles are normal in size and shape. Basal cisterns are patent. No extra-axial fluid collections. Brain: No midline shift. No intracranial bleeds or masses. There is moderate diffuse cerebral volume loss. There are moderate periventricular and subcortical white matter chronic microvascular ischemic changes. Rodriguez-white matter interface appears intact. Chronic left basal ganglia lacunar infarct versus prominent perivascular space. Skull and face: Calvarium and facial bones appear intact, without suspicious lesions. Orbits appear normal. The small left frontal scalp hematoma. Sinuses: Sinuses and mastoids are clear. HEAD CT ANGIOGRAPHY: Anterior circulation: Intracranial internal carotid arteries are normal in flow. Atherosclerotic calcifications are noted in the cavernous and clinoid segments of the internal carotid arteries bilaterally which caused mild stenosis. The flow within the paired anterior cerebral arteries is normal and symmetric. The flow within the middle cerebral arteries is normal and symmetric. The anterior communicating artery is seen. There is a small, approximately 2 mm in aneurysm involving the superior and anterior margin of the supraclinoid left internal carotid artery. The left internal carotid artery supraclinoid segment true aneurysm has anterior orientation. Posterior circulation: Visualized portions of the vertebral arteries demonstrate normal caliber, and join to form a normal appearing basilar artery. Flow within the posterior cerebral arteries is normal and symmetric. No aneurysms are seen. Dural sinuses demonstrate normal postcontrast enhancement. NECK CT ANGIOGRAPHY: Carotid system: The great vessels demonstrate a conventional anatomy as they arise from the aortic arch. The origins of the common carotid arteries appear patent. The common carotid arteries demonstrate normal caliber and courses. Atherosclerotic calcification is noted in the origin of the right internal carotid artery which causes less than 50% stenosis of the vessel. The left internal carotid artery origin is fully patent. Posterior circulation: The origins of the vertebral arteries both appear widely patent. The more superior extracranial portions of both vertebral arteries also demonstrate normal courses and calibers. They join to form a normal appearing basilar artery. Soft tissues: Visualized neck soft tissues demonstrate no suspicious abnormalities. Bones: No suspicious bony lesions. Spine degenerative disc disease and facet arthropathy. Visualized cervical spine appears normally aligned. IMPRESSION: 1. Image quality degraded by patient motion artifact. 2. No acute intracranial disease process within limitations related to motion artifact. 3. No large vessel occlusion, hemodynamically significant stenosis or vascular dissection. 4. 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 Any quantitative measurements of stenosis were performed using NASCET criteria. Dictated by: Joaquina Sutherland MD, PhD on 04/11/2019 at 12:41 Approved by: Joaquina Sutherland MD, PhD on 04/11/2019 at 12:55
--- NOTE | 2019-04-11 12:35 | DI.US.S_ITS ---
PROCEDURE: US ABDOMEN LIMITED INDICATIONS: INCREASING BILIRUBIN TECHNIQUE: Real-time focused scanning was performed of the abdomen, with image documentation. COMPARISON: PET/CT 10/15/10. FINDINGS: Severely suboptimal exam due to imaging artifact and patient movement. The pancreas is not well seen on this exam, and appears obscured by overlying bowel gas. Right hepatic lobe measures 13.4 cm in sagittal diameter. There is diffuse increased echogenicity of the hepatic parenchyma. Gallbladder is partially imaged on this exam. There is no gallbladder wall thickening, pericholecystic fluid, or cholelithiasis identified. Negative sonographic Okeefe's sign per medical transcriber. Common bile duct is mildly dilated at 8 mm. IMPRESSION: Severely suboptimal exam secondary to imaging artifact and patient movement. Within this context: 1. Diffusely increased echogenicity of the hepatic parenchyma, which is a nonspecific finding that can be seen with hepatic diseases including hepatic steatosis, hepatic fibrosis/cirrhosis, and hepatitis. Clinical correlation recommended. 2. Mildly dilated common bile duct measuring up to 8 mm in diameter. Consider MRCP if there is continued clinical concern. 3. Partially imaged gallbladder demonstrates no findings suggestive of acute cholecystitis at this time. Dictated by: Dilshad Edgar M.D. on 04/11/2019 at 14:07 Approved by: Dilshad Edgar M.D. on 04/11/2019 at 14:16
--- NOTE | 2019-04-11 12:54 | PC.NURSE ---
1210 Patient has been restless but suddenly became extremely agitated and began crawling out of bed. GRACIA Logan at bedside along with two family members when I was called to bedside. Patient was standing at bedside, pulling at lines being held up by three people. She was fighting strongly and we were unable to get her back in the bed. The four of us sat her on a commode as a safe place to keep her from falling and stood around her as she urinated supporting her and she continued to push us away. We then medicated her and as she calmed down we were able to get her back into bed. This took about 20 minutes and two doses of medication. At 1230 patient was back in bed with monitors on, IV still in place. She is calming down at this time and family is around her.
[2019-04-11 12:59] LABS: Bacteria Urine None Seen
[2019-04-11 13:01] LABS: Appearance Urine UA CLEAR; Bilirubin Urine UA NEGATIVE (NEGATIVE); Color Urine UA YELLOW; Glucose Urine UA NEGATIVE (Negative); Ketones Urine UA NEGATIVE (NEGATIVE); Leukocyte Esterase Urine UA TRACE (NEGATIVE); Nitrite Urine UA NEGATIVE (Negative); Occult Blood Urine UA TRACE-LYSED (Negative); Protein Urine UA NEGATIVE (Negative); Urobilinogen Urine UA 0.2 E.U./dL (0.2)
[2019-04-11 13:07] LABS: UR Morphine/Opiate cutoff 300 Negative (Negative); Ur Creatinine Normal (Normal); Ur Specific Gravity Normal (Normal); Urine Amphetamines Negative (Negative); Urine Barbiturates Negative (Negative); Urine Benzodiazepines Negative (Negative); Urine Cocaine Negative (Negative); Urine MDMA Negative (Negative); Urine Methadone Negative (Negative); Urine Methamphetamines Negative (Negative); Urine Oxycodone Negative (Negative); Urine Phencyclidine Negative (Negative); Urine Tetrahydrocannabinol Negative (Negative); Urine Tricyclic Antidepressant Negative (Negative); Urine pH Normal (Normal)
[2019-04-11 13:10] LABS: RBC Urine 1-5/HPF (0-5/HPF)
[2019-04-11 13:11] LABS: Culture Indicated Urine Cult Not Indicated; Hyaline Casts Urine 5-10/LPF; Mucus Urine 1+ (Negative); Squamous Epithelial Cell Urine 5-10 /HPF (0-5/HPF); WBC Urine 1-5/HPF (0-5/HPF)
[2019-04-11 13:27] LABS: Thyroid Stimulating Hormone < 0.02 uIU/mL (0.47-4.68)
--- NOTE | 2019-04-11 14:31 | P.PN_ITS ---
Subjective Subjective Date Patient Seen: 04/11/19 Time Patient Seen: 14:31 Interval history: Patient left last evening from the hospital doing well. Family visit her this morning. Patient was a little bit confused and disoriented. They also stated that she had difficulty with speech. And was not communicating well. They brought her back into the emergency department. In the emergency department as she is not really providing a good history. She seems to be a little bit confused. Not recognizing people. And not talking as well as normal. She seems to be a little bit difficulty with the cognition following words. They did a complete evaluation and workup in the emergency room including repeat CT scan and CT angiogram laboratory testing including a lcohol and urine toxicology. She did not really have any focal neurological deficits such as weakness. Difficulty with hand or foot movement. No difficulty with eye tracking. She has difficulty with word finding. But this was thought to be more due to confusion. Did not see any acute new changes on her CT scan and or angiogram. There has been a definite change in her cognition and function since discharge last night. Laboratory tests were done which were also normal. Family is at the bedside with her and help provide the communication. On my evaluation in the emergency department. Patient was given 2 doses of Haldol a guess before her CT scan. She is sleeping although restless and jittery. Family provides most of the history. Exam Vital Signs (past 8 hours): - 04/11/19 10:00 04/11/19 10:07 04/11/19 10:18 Temperature 98.2 F 98.2 F Pulse Rate 81 66 81 Respiratory Rate 23 17 23 Blood Pressure [Left Arm] 166/87 H Pulse Oximetry 95 98 95 04/11/19 11:00 04/11/19 11:53 04/11/19 12:45 Temperature Pulse Rate 61 90 66 Respiratory Rate 17 15 16 Blood Pressure [Left Arm] 155/77 H 156/96 H 165/71 H Pulse Oximetry 99 100 97 04/11/19 13:16 04/11/19 13:40 Temperature Pulse Rate 62 Respiratory Rate 15 Blood Pressure [Left Arm] 154/63 H 201/80 H Pulse Oximetry 97 Oxygen Delivery Method Room Air Narrative Exam Narrative: Gen.: Sleeping restless and jittery. Does not arouse to my command. HEENT: Patient has bruising to her left temporal area. Oral mucosa is moist. Neck is supple. Cardio: S1-S2 regular rate do not appreciate is systolic murmur. Respiratory: Lungs are clear to auscultation no wheezes or crackles normal respiratory effort. Abdomen: Soft nontender no appreciable liver enlargement. Extremities: Patient moving all extremities she is restless and jittery Neurologic: Unable to assess due to patient's sleepiness and unwilling to arouse. Objective Labs Result Diagrams: 04/12/19 08:10 04/12/19 08:10 Labs: Laboratory Results - last 24 hr 04/11/19 04/11/19 04/11/19 10:30 10:30 10:30 WBC 8.6 RBC 5.33 H Hgb 14.8 Hct 44.9 MCV 84.3 MCH 27.8 MCHC 33.0 RDW 13.7 Plt Count 203 Neut % (Auto) 64.6 Lymph % (Auto) 24.9 L [place] % (Auto) 9.1 Eos % (Auto) 0.7 L Baso % (Auto) 0.7 Neut # (Auto) 5600 Lymph # (Auto) 2100 [place] # (Auto) 800 Eos # (Auto) 100 Baso # (Auto) 100 Sodium 139 Potassium 3.8 Chloride 103 Carbon Dioxide 27 BUN 23 H Creatinine 0.90 Estimated GFR 59.9 L BUN/Creatinine Ratio 25.6 H Glucose 118 H Lactate Calcium 9.9 Total Bilirubin 2.3 H AST 29 ALT 17 Alkaline Phosphatase 71 Total Protein 7.7 Albumin 4.3 Globulin 3.4 Albumin/Globulin Ratio 1.3 TSH Urine Color Urine Appearance Urine pH Ur Specific [place] Urine Protein Urine Glucose (UA) Urine Ketones Urine Occult Blood Urine Nitrate Urine Bilirubin Urine Urobilinogen Ur Leukocyte Esterase Urine RBC Urine WBC Ur Squamous Epith Cells Urine Bacteria Hyaline Casts Urine Mucus Ur Culture Indicated? U Morph 300 ng/mL cutoff Ur Oxycodone Screen Urine Methadone Screen Ur Barbiturates Screen U Tricyclic Antidepress Ur Phencyclidine Scrn Ur Amphetamines Screen U Methamphetamines Scrn Ur MDMA Scrn (Ecstasy) U Benzodiazepines Scrn Urine Cocaine Screen U Marijuana (THC) Screen Ethyl Alcohol < 10 04/11/19 04/11/19 04/11/19 10:30 11:52 12:20 WBC RBC Hgb Hct MCV MCH MCHC RDW Plt Count Neut % (Auto) Lymph % (Auto) [place] % (Auto) Eos % (Auto) Baso % (Auto) Neut # (Auto) Lymph # (Auto) [place] # (Auto) Eos # (Auto) Baso # (Auto) Sodium Potassium Chloride Carbon Dioxide BUN Creatinine Estimated GFR BUN/Creatinine Ratio Glucose Lactate 1.3 Calcium Total Bilirubin AST ALT Alkaline Phosphatase Total Protein Albumin Globulin Albumin/Globulin Ratio TSH < 0.02 L Urine Color Yellow Urine Appearance Clear Urine pH 6.0 Ur Specific [place] 1.010 Urine Protein Negative Urine Glucose (UA) Negative Urine Ketones Negative Urine Occult Blood Trace-lysed Urine Nitrate Negative Urine Bilirubin Negative Urine Urobilinogen 0.2 Ur Leukocyte Esterase Trace H Urine RBC 1-5/hpf Urine WBC 1-5/hpf Ur Squamous Epith Cells 5-10 /hpf H Urine Bacteria None seen Hyaline Casts 5-10/lpf Urine Mucus 1+ H Ur Culture Indicated? Cult not indicated U Morph 300 ng/mL cutoff Ur Oxycodone Screen Urine Methadone Screen Ur Barbiturates Screen U Tricyclic Antidepress Ur Phencyclidine Scrn Ur Amphetamines Screen U Methamphetamines Scrn Ur MDMA Scrn (Ecstasy) U Benzodiazepines Scrn Urine Cocaine Screen U Marijuana (THC) Screen Ethyl Alcohol 04/11/19 12:20 WBC RBC Hgb Hct MCV MCH MCHC RDW Plt Count Neut % (Auto) Lymph % (Auto) [place] % (Auto) Eos % (Auto) Baso % (Auto) Neut # (Auto) Lymph # (Auto) [place] # (Auto) Eos # (Auto) Baso # (Auto) Sodium Potassium Chloride Carbon Dioxide BUN Creatinine Estimated GFR BUN/Creatinine Ratio Glucose Lactate Calcium Total Bilirubin AST ALT Alkaline Phosphatase Total Protein Albumin Globulin Albumin/Globulin Ratio TSH Urine Color Urine Appearance Urine pH Ur Specific [place] Urine Protein Urine Glucose (UA) Urine Ketones Urine Occult Blood Urine Nitrate Urine Bilirubin Urine Urobilinogen Ur Leukocyte Esterase Urine RBC Urine WBC Ur Squamous Epith Cells Urine Bacteria Hyaline Casts Urine Mucus Ur Culture Indicated? U Morph 300 ng/mL cutoff Negative Ur Oxycodone Screen Negative Urine Methadone Screen Negative Ur Barbiturates Screen Negative U Tricyclic Antidepress Negative Ur Phencyclidine Scrn Negative Ur Amphetamines Screen Negative U Methamphetamines Scrn Negative Ur MDMA Scrn (Ecstasy) Negative U Benzodiazepines Scrn Negative Urine Cocaine Screen Negative U Marijuana (THC) Screen Negative Ethyl Alcohol Assessment & Plan Assessment & Plan narrative: Altered level of mental status and difficulty with speech. Patient admitted yesterday with the left hand weakness and concern for TIA symptoms. On discharge last evening. Patient was ambulating doing well. Today does not have clear speech and is confused and delirious. Repeat CT scan shows no acute neurological findings. CT angiogram was done. Which shows a small aneurysm without rupture. Patient's laboratory testing is normal. Patient's alcohol level is normal. Urine toxicology is pending. EKG is normal. There is no acute findings as far as underlying etiology of her symptomatic change in mental status. She will be admitted the hospital for further evaluation and workup for intercranial pathology versus other etiologies. Does not look to be infectious as she has a normal lactate. Has a mildly unclean urine but I do not think that is the source. She has no previous signs of infection or fever. 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 Starting on methimazole 5 mg a day. Do not think this is the recent cause or change of her condition I do not think it is thyroid storm. S she has a started methimazole. Does not have any other clinical picture consistent with that. Hypertension intermittent fluctuation of very high blood pressure. Will restart her Cozaar and continue with amlodipine 5 mg daily. Hyperlipidemia. She will be continued on his simvastatin 10 mg a day. As well as aspirin 325 mg a day. Disposition and plan altered level of mental status. With recent TIA symptoms with left hand weakness. Repeat CT scan and CT angiogram shows nothing new remarkable. Acute confusional state with delirium. Unsure etiology. Could be toxic encephalopathy. Could be status post cerebrovascular. Less likely infectious. Does not appear to be thyroid storm. 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 Patient will in all likelihood be inpatient.
[2019-04-11 14:44] LABS: Free T4, Direct Thyroxine 3.03 ng/dL (0.78-2.19)
--- NOTE | 2019-04-11 17:13 | ED_ITS ---
HPI - Altered Mental Status General Chief Complaint: Altered Mental Status Stated Complaint: confused since last night Time Seen by Provider: 04/11/19 10:07 Source: family Mode of arrival: Ambulatory Limitations: no limitations History of Present Illness HPI narrative: Patient is brought to the emergency department by her family for altered mental status that began this morning and has been progressive throughout morning. Patient was seen yesterday the very early hours morning for what sounded like a TIA was as an observation. She was kept throughout the day and worked up with CT of the head without contrast, MRI, and echocardiogram and ultimately, was sent home. Patient seemed to be doing well yesterday and seemed normal when she got up this morning. However, patient's daughter noticed the patient seemed somewhat confused, but seemed to be without focal neurologic deficits. The daughter left for a bit, and when she came back, the patient seemed to be somnolent. Patient was arousable, but still confused. Patient has remained somnolent throughout the day since. Family denies new head injury. They deny focal neurologic deficits. No fevers, cough, or complaints of dysuria. No complaints of pain. The patient is on a couple of new medications, but nothing that would be sedating. Patient has a history of hyperthyroidism and takes methimazole for this. Nobody at home has been sick. No other complaints at this time. Related Data Home Medications Medication Instructions Recorded Confirmed Disabled Parking Permit 1 ea MISCELLANEOUS DIRECTED 04/11/19 04/11/19 hydrochlorothiazide 25 mg PO DAILY 04/11/19 04/11/19 losartan [Cozaar] 50 mg PO DAILY 04/11/19 04/11/19 methimazole 5 mg PO BEDTIME 04/11/19 04/11/19 Previous Rx's Medication Instructions Recorded amlodipine [Norvasc] 5 mg PO DAILY #90 tab 04/10/19 aspirin 325 mg PO DAILY #30 tab 04/10/19 simvastatin 10 mg PO BEDTIME #30 tab 04/10/19 Allergies Allergy/AdvReac Type Severity Reaction Status Date / Time aspirin [ASPIRIN] Allergy Mild Flu like Verified 04/10/19 00:18 symptoms Review of Systems Review of Systems ROS Unobtainable: Unobtainable due to mental status/LOC Patient History Medical History Cataracts, bilateral (Resolved) Chicken pox (Resolved) Chronic back pain (Chronic) Foot pain (Chronic) Fractures (Resolved) Headache (Chronic) Hearing loss (Chronic ~2016) Hearing loss (Acute) History of allergy (Chronic) Hyperlipidemia (Chronic) Hypertension (Chronic) Irregular menstrual cycle (Inactive) Measles (Resolved) Mumps (Resolved) Ovarian cyst (Chronic ~1949) Plantar warts (Chronic ~1950) Rubella (Resolved) Tinnitus (Chronic) Vision disorder (Chronic) Surgical History Anesthesia (Resolved) History of cataract removal with insertion of prosthetic lens (~2009) History of foot surgery (Resolved ~2000) Status post appendectomy (~1948) Status post tubal ligation Family History Brother Age: 80 Cancer Brother Age: 76 Diabetes mellitus Father Diabetes mellitus Grandmother Diabetes mellitus Grandmother Cancer Mother Cancer Social History marital status: household members: significant other Smoking Status: Never smoker alcohol intake: never substance use type: does not use Family History Brother Age: 80 Cancer Brother Age: 76 Diabetes mellitus Father Diabetes mellitus Grandmother Diabetes mellitus Grandmother Cancer Mother Cancer Social History marital status: household members: significant other Smoking Status: Never smoker alcohol intake: never substance use type: does not use Substance Use Type: does not use Exam Initial Vital Signs Initial Vital Signs: Vital Signs Temperature 98.2 F 04/11/19 10:00 Pulse Rate 81 04/11/19 10:00 Respiratory Rate 23 04/11/19 10:00 Pulse Oximetry 95 04/11/19 10:00 Const General: well developed Nutritional Appearance: well nourished Limitations: altered mental status Other: Patient is somnolent and sits with her eyes closed. She opens her eyes to voice, but is unable to answer questions coherently. HENMT Head: normocephalic and atraumatic Ears: external ears normal Nose: external nose normal and No nasal discharge Face and sinus: face symmetric and No dry mucous membranes Mouth: oral mucosae normal and moist mucous membranes Teeth and gingiva: dentition normal Eyes General: appearance normal, both eyes and all related structures Eyelids: eyelids normal Conjunctivae: conjunctivae normal Sclera: sclerae normal Pupils: PERRL EOM: EOM intact bilaterally Neck Neck: normal visual inspection, trachea midline, No lymphadenopathy, No midline deformity and No JVD Lymphatic: No lymphedema Chest Chest: normal inspection of the chest Resp Effort & Inspection: normal respiratory effort, able to speak in complete sentences, no respiratory distress and no use of accessory muscles Auscultation: clear to auscultation bilaterally, no rales, no rhonchi and no wheezes Cardio Rate: regular rate Rhythm: regular rhythm Heart Sounds: no click, no gallops, no murmurs and no rubs Pulses: normal peripheral pulses GI Inspection: non-distended Palpation: soft, no hepatosplenomegaly, No guarding, No pulsatile mass and No tender Auscultation: normal bowel sounds Back/Spine/Pelvis Back: No CVA tenderness Cervical Spine: cervical ROM normal and No pain with cervical ROM Thoracic/Lumbar Spine: thoracic and lumbar spine normal to inspection Skin General: no rashes or lesions noted, No jaundice and No petechiae Neuro General: no focal motor deficits Cranial Nerves: CN's II-XI intact bilaterally Motor: strength 5/5 throughout Other: The patient is somnolent, as noted above. Extrem General: full ROM, no clubbing, cyanosis or edema, no pedal edema and no calf tenderness Psych Appearance: well kempt Course Course Course Narrative: Patient was evaluated broadly in the emergency department with consideration of her altered mental status. She was also given IV fluids and Haldol after becoming agitated during blood draw. The patient was sent for a noncontrast head CT, which was found to be negative. I reviewed her radiology results from yesterday, including the CT and the MRI, which were found to be unremarkable. Patient had not had CT angiogram of head and neck yesterday, so this was done today, and found to be unremarkable, other than a very tiny aneurysm which is not ruptured. The patient was also worked up with laboratory studies, including a CBC which showed a white blood cell count normal at 8.6 and slightly lower than yesterday. Urinalysis was negative in the emergency department as well. Extensive workup was negative, except for the patient's thyroid studies, which showed an undetectable TSH, as well as elevations in the thyroxine is. The patient has had this problem previously, though thyroxine levels were higher today than they had been previously. The patient is currently on methimazole. She did remain somnolent and confused throughout her stay, but did not deteriorate in the emergency department; however, she did not improve either. She was extremely combative and agitated with noxious stimuli, including blood draw and IV placement, and was somewhat agitated for CT scans, as well. I spoke with Dr. Walls, who was the patient's primary care physician, and he agreed to admit the patient to his service for further evaluation of her altered mental status. He did see the patient in the emergency department. Just prior to departure to the floor, the patient's temperature was retaken and found to be 101. I did consider the possibility of meningitis, though I do feel that if this is the case, it is most likely a viral etiology, as the patient's white blood cell count is not worsened since yesterday, and patient's lactic acid level is normal. Additionally, the patient has not been febrile prior to this. It is also possible that this could have a connection to the patient's hyperthyroidism, or that she has a viral illness that is not meningitic in nature. Given the patient's elderly age, as well as her agitation with any n oxious stimuli, as well as her uncooperative behavior with repositioning, I did feel that she would need sedation in order to attempt a lumbar puncture. However, given the patient's already altered mental status, as well as the sedation she has already had to be given in the emergency department, I did not feel that this was an ideal option. Without sedation, however, it is unlikely the patient would be able to be cooperative, making what would most likely be an already difficult procedure due to the patient's age and certain DJD even more difficult. The option of an imaging guided tap was not available at this time, so I did call and talk to Dr. Méndez, who is now land acquisition analyst for [facility] instead of Dr. Walls. I advised him of the fever and altered mental status, so that he could consider whether he felt it appropriate to start empiric antibiotics tonight and plan for an imaging guided LP tomorrow with sedation by anesthesiologist. Orders Ordered: ED Orders 04/11/19 10:29 CT head/brain wo con Stat 04/11/19 10:30 Complete Blood Count AUTO DIFF Stat Comprehensive Metabolic Panel Stat Ethanol (ETOH) Stat Thyroid Stimulating Hormone Stat 04/11/19 11:52 Lactate (Lactic Acid) Stat 04/11/19 12:20 Urinalysis and Microscopic Stat Urine Drug Screen, Rapid Stat 04/11/19 12:35 CT angio head and neck Stat US abdomen limited Stat 04/11/19 13:44 Blood Culture Stat Free T4 Free Thyroxine Stat T4 Total Thyroxine Stat Triiodothyronine T3 Free Stat 04/11/19 17:36 Education, smoking cessation ONGOING 04/12/19 07:00 Basic Metabolic Panel Routine Complete Blood Count AUTO DIFF Routine EKG-12 Lead Routine Acetaminophen (Tylenol) 650 mg PO Q6HR PRN PRN Reason: As Needed for Fever/Mild Pain Amlodipine Besylate (Norvasc) 5 mg PO DAILY MARISOL Aspirin (Aspirin) 325 mg PO DAILY MARISOL Sodium Chloride (Normal Saline 0.9%) 1,000 mls @ 100 mls/hr IV CONT MARISOL Last Admin: 04/11/19 18:08 Dose: 100 mls/hr Documented by: LILI Losartan Potassium (Cozaar) 50 mg PO DAILY MARISOL Methimazole (Methimazole) 5 mg PO BID MARISOL Ondansetron HCl (Zofran) 4 mg IV Q8HR PRN PRN Reason: Nausea And Vomiting Simvastatin (Zocor) 10 mg PO BEDTIME MARISOL Discontinued Medications Haloperidol (Haldol) 2.5 mg IV NOW ONE Stop: 04/11/19 12:19 Last Admin: 04/11/19 12:10 Dose: 2.5 mg Documented by: DEVIN Haloperidol (Haldol) 2.5 mg IV NOW ONE Stop: 04/11/19 12:26 Last Admin: 04/11/19 12:28 Dose: 2.5 mg Documented by: DEVIN Sodium Chloride (Normal Saline 0.9%) 1,000 mls @ 1,000 mls/hr IV BOLUS ONE Stop: 04/11/19 11:07 Last Infusion: 04/11/19 15:05 Dose: 0 mls/hr Documented by: Admin: 04/11/19 11:06 Dose: 1,000 mls/hr Documented by: DEVIN Sodium Chloride (Normal Saline 0.9%) 1,000 mls @ 1,000 mls/hr IV BOLUS ONE Stop: 04/11/19 17:06 Ceftriaxone Sodium/Dextrose (Rocephin) 2 gm in 50 mls @ 100 mls/hr IV NOW ONE Stop: 04/11/19 18:05 Last Admin: 04/11/19 18:07 Dose: 100 mls/hr Documented by: LILI Ketorolac Tromethamine (Toradol) 15 mg IV NOW ONE Stop: 04/11/19 16:08 Vital Signs Vital signs: Vital Signs - 8 hr 04/11/19 11:00 04/11/19 11:53 04/11/19 12:45 Pulse Rate 61 90 66 Respiratory Rate 17 15 16 Blood Pressure [Left Arm] 155/77 H 156/96 H 165/71 H Pulse Oximetry 99 100 97 04/11/19 13:16 04/11/19 13:40 Pulse Rate 62 Respiratory Rate 15 Blood Pressure [Left Arm] 154/63 H 201/80 H Pulse Oximetry 97 MDM - Altered Mental Status Medical Records Attestation: I reviewed the patient's medical records. Lab Data Attestation: I reviewed the patient's lab results. Result diagrams: 04/11/19 10:30 04/11/19 10:30 Labs: Lab Results 04/11/19 04/11/19 04/11/19 Range/Units 10:30 10:30 10:30 WBC 8.6 (4.5-11.0) X10^3/uL RBC 5.33 H (4.0-5.2) X10^6/uL Hgb 14.8 (12.0-16.0) g/dL Hct 44.9 (36-46) % MCV 84.3 (80-100) fL MCH 27.8 (26-34) PG MCHC 33.0 (30-36) % RDW 13.7 (11.6-14.8) % Plt Count 203 (150-400) X10^3/uL Neut % (Auto) 64.6 (50-75) % Lymph % (Auto) 24.9 L (25-40) % Nobles % (Auto) 9.1 (3-14) % Eos % (Auto) 0.7 L (2-4) % Baso % (Auto) 0.7 (0-2) % Neut # (Auto) 5600 (7183-1705) /uL Lymph # (Auto) 2100 (0082-9467) /uL Nobles # (Auto) 800 (0-900) /uL Eos # (Auto) 100 (0-450) /uL Baso # (Auto) 100 (0-100) /uL Sodium 139 (137-145) mmol/L Potassium 3.8 (3.4-5.1) mmol/L Chloride 103 (98-107) mmol/L Carbon Dioxide 27 (22-32) mmol/L BUN 23 H (7-17) mg/dL Creatinine 0.90 (0.52-1.04) mg/dL Estimated GFR 59.9 L (>60) mL/min BUN/Creatinine Ratio 25.6 H (6-22) Glucose 118 H (80-110) mg/dL Lactate (0.7-2.1) mmol/L Calcium 9.9 (8.4-10.2) mg/dL Total Bilirubin 2.3 H (0.2-1.3) mg/dL AST 29 (14-36) IU/L ALT 17 (9-52) IU/L Alkaline Phosphatase 71 (38-126) U/L Total Protein 7.7 (6.3-8.2) g/dL Albumin 4.3 (3.5-5.0) g/dL Globulin 3.4 (1.7-4.1) g/dL Albumin/Globulin Ratio 1.3 (1.0-2.8) TSH (0.47-4.68) uIU/mL Free T4 (0.78-2.19) ng/dL Thyroxine (T4) (5.5-11.0) ug/dL Free T3 (2.77-5.27) pg/mL Urine Color Urine Appearance Urine pH (4.5-8.0) Ur Specific Warden (1.000-1.035) Urine Protein (Negative) Urine Glucose (UA) (Negative) g/dL Urine Ketones (NEGATIVE) Urine Occult Blood (Negative) Urine Nitrate (Negative) Urine Bilirubin (NEGATIVE) Urine Urobilinogen (0.2) E.U./dL Ur Leukocyte Esterase (NEGATIVE) Urine RBC (0-5/HPF) Urine WBC (0-5/HPF) Ur Squamous Epith Cells (0-5/HPF) Urine Bacteria (None) Hyaline Casts (None) Urine Mucus (Negative) Ur Culture Indicated? U Morph 300 ng/mL cutoff (Negative) Ur Oxycodone Screen (Negative) Urine Methadone Screen (Negative) Ur Barbiturates Screen (Negative) U Tricyclic Antidepress (Negative) Ur Phencyclidine Scrn (Negative) Ur Amphetamines Screen (Negative) U Methamphetamines Scrn (Negative) Ur MDMA Scrn (Ecstasy) (Negative) U Benzodiazepines Scrn (Negative) Urine Cocaine Screen (Negative) U Marijuana (THC) Screen (Negative) Ethyl Alcohol < 10 ( - 10) mg/dL 04/11/19 04/11/19 04/11/19 Range/Units 10:30 11:52 12:20 WBC (4.5-11.0) X10^3/uL RBC (4.0-5.2) X10^6/uL Hgb (12.0-16.0) g/dL Hct (36-46) % MCV (80-100) fL MCH (26-34) PG MCHC (30-36) % RDW (11.6-14.8) % Plt Count (150-400) X10^3/uL Neut % (Auto) (50-75) % Lymph % (Auto) (25-40) % Nobles % (Auto) (3-14) % Eos % (Auto) (2-4) % Baso % (Auto) (0-2) % Neut # (Auto) (3009-1724) /uL Lymph # (Auto) (5119-7442) /uL Nobles # (Auto) (0-900) /uL Eos # (Auto) (0-450) /uL Baso # (Auto) (0-100) /uL Sodium (137-145) mmol/L Potassium (3.4-5.1) mmol/L Chloride (98-107) mmol/L Carbon Dioxide (22-32) mmol/L BUN (7-17) mg/dL Creatinine (0.52-1.04) mg/dL Estimated GFR (>60) mL/min BUN/Creatinine Ratio (6-22) Glucose (80-110) mg/dL Lactate 1.3 (0.7-2.1) mmol/L Calcium (8.4-10.2) mg/dL Total Bilirubin (0.2-1.3) mg/dL AST (14-36) IU/L ALT (9-52) IU/L Alkaline Phosphatase (38-126) U/L Total Protein (6.3-8.2) g/dL Albumin (3.5-5.0) g/dL Globulin (1.7-4.1) g/dL Albumin/Globulin Ratio (1.0-2.8) TSH < 0.02 L (0.47-4.68) uIU/mL Free T4 (0.78-2.19) ng/dL Thyroxine (T4) (5.5-11.0) ug/dL Free T3 (2.77-5.27) pg/mL Urine Color Yellow Urine Appearance Clear Urine pH 6.0 (4.5-8.0) Ur Specific Warden 1.010 (1.000-1.035) Urine Protein Negative (Negative) Urine Glucose (UA) Negative (Negative) g/dL Urine Ketones Negative (NEGATIVE) Urine Occult Blood Trace-lysed (Negative) Urine Nitrate Negative (Negative) Urine Bilirubin Negative (NEGATIVE) Urine Urobilinogen 0.2 (0.2) E.U./dL Ur Leukocyte Esterase Trace H (NEGATIVE) Urine RBC 1-5/hpf (0-5/HPF) Urine WBC 1-5/hpf (0-5/HPF) Ur Squamous Epith Cells 5-10 /hpf H (0-5/HPF) Urine Bacteria None seen (None) Hyaline Casts 5-10/lpf (None) Urine Mucus 1+ H (Negative) Ur Culture Indicated? Cult not indicated U Morph 300 ng/mL cutoff (Negative) Ur Oxycodone Screen (Negative) Urine Methadone Screen (Negative) Ur Barbiturates Screen (Negative) U Tricyclic Antidepress (Negative) Ur Phencyclidine Scrn (Negative) Ur Amphetamines Screen (Negative) U Methamphetamines Scrn (Negative) Ur MDMA Scrn (Ecstasy) (Negative) U Benzodiazepines Scrn (Negative) Urine Cocaine Screen (Negative) U Marijuana (THC) Screen (Negative) Ethyl Alcohol ( - 10) mg/dL 04/11/19 04/11/19 Range/Units 12:20 13:44 WBC (4.5-11.0) X10^3/uL RBC (4.0-5.2) X10^6/uL Hgb (12.0-16.0) g/dL Hct (36-46) % MCV (80-100) fL MCH (26-34) PG MCHC (30-36) % RDW (11.6-14.8) % Plt Count (150-400) X10^3/uL Neut % (Auto) (50-75) % Lymph % (Auto) (25-40) % Nobles % (Auto) (3-14) % Eos % (Auto) (2-4) % Baso % (Auto) (0-2) % Neut # (Auto) (0360-6961) /uL Lymph # (Auto) (4311-2931) /uL Nobles # (Auto) (0-900) /uL Eos # (Auto) (0-450) /uL Baso # (Auto) (0-100) /uL Sodium (137-145) mmol/L Potassium (3.4-5.1) mmol/L Chloride (98-107) mmol/L Carbon Dioxide (22-32) mmol/L BUN (7-17) mg/dL Creatinine (0.52-1.04) mg/dL Estimated GFR (>60) mL/min BUN/Creatinine Ratio (6-22) Glucose (80-110) mg/dL Lactate (0.7-2.1) mmol/L Calcium (8.4-10.2) mg/dL Total Bilirubin (0.2-1.3) mg/dL AST (14-36) IU/L ALT (9-52) IU/L Alkaline Phosphatase (38-126) U/L Total Protein (6.3-8.2) g/dL Albumin (3.5-5.0) g/dL Globulin (1.7-4.1) g/dL Albumin/Globulin Ratio (1.0-2.8) TSH (0.47-4.68) uIU/mL Free T4 3.03 H (0.78-2.19) ng/dL Thyroxine (T4) 15.10 H (5.5-11.0) ug/dL Free T3 8.30 H (2.77-5.27) pg/mL Urine Color Urine Appearance Urine pH (4.5-8.0) Ur Specific Warden (1.000-1.035) Urine Protein (Negative) Urine Glucose (UA) (Negative) g/dL Urine Ketones (NEGATIVE) Urine Occult Blood (Negative) Urine Nitrate (Negative) Urine Bilirubin (NEGATIVE) Urine Urobilinogen (0.2) E.U./dL Ur Leukocyte Esterase (NEGATIVE) Urine RBC (0-5/HPF) Urine WBC (0-5/HPF) Ur Squamous Epith Cells (0-5/HPF) Urine Bacteria (None) Hyaline Casts (None) Urine Mucus (Negative) Ur Culture Indicated? U Morph 300 ng/mL cutoff Negative (Negative) Ur Oxycodone Screen Negative (Negative) Urine Methadone Screen Negative (Negative) Ur Barbiturates Screen Negative (Negative) U Tricyclic Antidepress Negative (Negative) Ur Phencyclidine Scrn Negative (Negative) Ur Amphetamines Screen Negative (Negative) U Methamphetamines Scrn Negative (Negative) Ur MDMA Scrn (Ecstasy) Negative (Negative) U Benzodiazepines Scrn Negative (Negative) Urine Cocaine Screen Negative (Negative) U Marijuana (THC) Screen Negative (Negative) Ethyl Alcohol ( - 10) mg/dL Imaging Data CT scan - head: Radiologist's impression: PROCEDURE: CT HEAD/BRAIN WO CON INDICATIONS: aloc TECHNIQUE: Noncontrast 4.5 mm thick angled axial sections acquired from the foramen magnum to the vertex, with coronal and sagittal reformats. For radiation dose reduction, the following was used: automated exposure control, adjustment of mA and/or kV according to patient size. COMPARISON: [facility], CT, HEAD WITHOUT CONTRAST, 11/29/2013, 9:03. [facility], MR, MR STROKE, 04/10/2019, 10:18. [facility], CT, CT HEAD/BRAIN WO CON, 04/10/2019, 1:23. [facility], CT, CT HEAD/BRAIN WO CON, 04/10/2019, 2:36. FINDINGS: Image quality: This examination is limited by involuntary motion artifact. Images are repeated, with some improvement. CSF spaces: Basal cisterns are patent. No extra-axial fluid collections. The ventricles are symmetric in size and shape. Brain: No intracranial bleeds or masses. There is cerebral volume loss for age, with resultant ventricular and sulcal prominence. There are periventricular and deep white matter chronic small vessel ischemic changes. There is intracranial internal carotid artery atherosclerosis. Skull and face: Calvarium and visualized facial bones appear intact, without suspicious lesions. Sinuses: Visualized sinuses and mastoids are clear. IMPRESSION: Limited intracranial examination demonstrating no acute abnormality. No acute intracranial hemorrhage is detected. Note is made of age-appropriate brain parenchymal volume loss and chronic small vessel ischemic changes. Dictated by: Sunday Fowler M.D. on 04/11/2019 at 9:59 Approved by: Sunday Fowler M.D. on 04/11/2019 at 10:01 CTA head and neck: Radiologist's impression: PROCEDURE: CT ANGIO HEAD AND NECK INDICATIONS: confusion TECHNIQUE: Pre-contrast 4.5 mm thick sections acquired from the foramen magnum to the vertex. After the administration of intravenous contrast, 1 mm thick sections acquired from the aortic arch through the [employer]. Post-contrast 4.5 mm thick sections then re- acquired from the foramen magnum to the vertex. 3-dimensional maximum-intensity- projection (MIP) and/or volume rendering reformats were acquired of the central intracranial vasculature and neck separately. COMPARISON: [facility], MR, MR STROKE, 04/10/2019, 10:18. [facility], CT, CT HEAD/BRAIN WO CON, 04/11/2019, 10:43. FINDINGS: Image quality: Limited by patient motion. BRAIN: CSF spaces: Ventricles are normal in size and shape. Basal cisterns are patent. No extra-axial fluid collections. Brain: No midline shift. No intracranial bleeds or masses. There is moderate diffuse cerebral volume loss. There are moderate periventricular and subcortical white matter chronic microvascular ischemic changes. Rodriguez-white matter interface appears intact. Chronic left basal ganglia lacunar infarct versus prominent perivascular space. Skull and face: Calvarium and facial bones appear intact, without suspicious lesions. Orbits appear normal. The small left frontal scalp hematoma. Sinuses: Sinuses and mastoids are clear. HEAD CT ANGIOGRAPHY: Anterior circulation: Intracranial internal carotid arteries are normal in kelsey w. Atherosclerotic calcifications are noted in the cavernous and clinoid segments of the internal carotid arteries bilaterally which caused mild stenosis. The flow within the paired anterior cerebral arteries is normal and symmetric. The flow within the middle cerebral arteries is normal and symmetric. The anterior communicating artery is seen. There is a small, approximately 2 mm in aneurysm involving the superior and anterior margin of the supraclinoid left internal carotid artery. The left internal carotid artery supraclinoid segment true aneurysm has anterior orientation. Posterior circulation: Visualized portions of the vertebral arteries demonstrate normal caliber, and join to form a normal appearing basilar artery. Flow within the posterior cerebral arteries is normal and symmetric. No aneurysms are seen. Dural sinuses demonstrate normal postcontrast enhancement. NECK CT ANGIOGRAPHY: Carotid system: The great vessels demonstrate a conventional anatomy as they arise from the aortic arch. The origins of the common carotid arteries appear patent. The common carotid arteries demonstrate normal caliber and courses. Atherosclerotic calcification is noted in the origin of the right internal carotid artery which causes less than 50% stenosis of the vessel. The left internal carotid artery origin is fully patent. Posterior circulation: The origins of the vertebral arteries both appear widely patent. The more superior extracranial portions of both vertebral arteries also demonstrate normal courses and calibers. They join to form a normal appearing basilar artery. Soft tissues: Visualized neck soft tissues demonstrate no suspicious a bnormalities. Bones: No suspicious bony lesions. Spine degenerative disc disease and facet arthropathy. Visualized cervical spine appears normally aligned. IMPRESSION: 1. Image quality degraded by patient motion artifact. 2. No acute intracranial disease process within limitations related to motion artifact. 3. No large vessel occlusion, hemodynamically significant stenosis or vascular dissection. 4. 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 Any quantitative measurements of stenosis were performed using NASCET criteria. Dictated by: Joaquina Sutherland MD, PhD on 04/11/2019 at 12:41 Approved by: Joaquina Sutherland MD, PhD on 04/11/2019 at 12:55 US - abdomen: Radiologist's impression: PROCEDURE: US ABDOMEN LIMITED INDICATIONS: INCREASING BILIRUBIN TECHNIQUE: Real-time focused scanning was performed of the abdomen, with image documenta tion. COMPARISON: PET/CT 10/15/10. FINDINGS: Severely suboptimal exam due to imaging artifact and patient movement. The pancreas is not well seen on this exam, and appears obscured by overlying bowel gas. Right hepatic lobe measures 13.4 cm in sagittal diameter. There is diffuse increased echogenicity of the hepatic parenchyma. Gallbladder is partially imaged on this exam. There is no gallbladder wall thickening, pericholecystic fluid, or cholelithiasis identified. Negative sonographic Okeefe's sign per equipment processor. Common bile duct is mildly dilated at 8 mm. IMPRESSION: Severely suboptimal exam secondary to imaging artifact and patient movement. Within this context: 1. Diffusely increased echogenicity of the hepatic parenchyma, which is a nonspecific finding that can be seen with hepatic diseases including hepatic steatosis, hepatic fibrosis/cirrhosis, and hepatitis. Clinical correlation recommended. 2. Mildly dilated common bile duct measuring up to 8 mm in diameter. Consider MRCP if there is continued clinical concern. 3. Partially imaged gallbladder demonstrates no findings suggestive of acute cholecystitis at this time. Dictated by: Dilshad Edgar M.D. on 04/11/2019 at 14:07 Approved by: Dilshad Edgar M.D. on 04/11/2019 at 14:16 Discharge Plan Departure Patient Disposition: Admitted As Inpatient Clinical Impression: Altered mental status Qualifiers: Altered mental status type: delirium Qualified Code(s): R41.0 - Disorientation, unspecified Discharge Date/Time: 04/11/19 16:53 Admit Date/Time: 04/11/19 14:07 Admit Provider: Emmanuel Walls
[2019-04-11] MEDS: CEFTRIAXONE 2 GM/50 ML FROZ.PIGGY IV (18:07)
[2019-04-11] MEDS: SODIUM CHLORIDE 0.9% 1,000 ML 100 ML IV (18:08)
[2019-04-11] MEDS: methIMAzole 5 MG TABLET PO (19:07)
[2019-04-11] MEDS: SIMVASTATIN 10 MG TABLET PO (21:18)
--- NOTE | 2019-04-11 22:42 | PC.NURSE ---
Admit/Evening Shift Note- Patient arrived to room to ER via stretcher. Slider board used to transfer to bed. Patient tolerated. Bed alarm set. Patient mostly sleeping and minimally arrousible. Patient becomes restless and aggitated when having to void. Patient requires 2-3person assist with getting to BSC due to unsteadiness and weakness. patient unable to follow directions. family in room. alarm set. safety measures in place. will continue to monitor.
[2019-04-12] VITALS (11 sets, daily range): BP systolic 139–183; BP diastolic 56–89; PULSE 69–94; RESP 14–22; TEMP 36.4–37.9; O2SAT 91–96
--- NOTE | 2019-04-12 01:22 | PC.NURSE ---
Addendum entered by Irina Burris R.N. 04/12/19 06:41: Pt is more alert this am but has no recall of yesterdays events, legs remain restless and fidgeting while awake. Addendum entered by Irina Burris R.N. 04/12/19 02:03: Pt up to BSC, 1PA with transfers, Pt unable to follow directions and is impulsive. Original Note: NOC NOTE: Pt is moslty non-verbal and smiles at staff and family when awake, pt fidgets whiles asleep and legs are very restless while awake. Pt pulls off Tele and pulse ox, have been unable to get SCD's on patient due to restlessness at this time.
[2019-04-12] MEDS: SODIUM CHLORIDE 0.9% 1,000 ML 100 ML IV (04:37)
[2019-04-12 08:33] LABS: Add Manual Diff / Slide Review NO; Basophils Absolute Auto 0 /uL (0-100); Basophils Percent Auto 0.3 % (0-2); Eosinophils Absolute Auto 0 /uL (0-450); Eosinophils Percent Auto 0.4 % (2-4); Hematocrit 39.5 % (36-46); Hemoglobin 13.2 g/dL (12.0-16.0); Lymphocytes Absolute Auto 2600 /uL (1100-4500); Mean Corpuscular HGB Conc 33.5 % (30-36); Mean Corpuscular Hemoglobin 27.7 PG (26-34); Mean Corpuscular Volume 82.8 fL (80-100); Monocytes Absolute Auto 1200 /uL (0-900); Monocytes Percent Auto 11.8 % (3-14); Neutrophils Absolute Auto 6600 /uL (1500-7000); Neutrophils Percent Auto 62.5 % (50-75); Platelet Count 180 X10^3/uL (150-400); Red Blood Cell Count 4.77 X10^6/uL (4.0-5.2); Red Cell Distribution Width 13.9 % (11.6-14.8); White Blood Cell Count 10.5 X10^3/uL (4.5-11.0)
[2019-04-12 08:42] LABS: BUN Creatinine Ratio 26.7 (6-22); Blood Urea Nitrogen 16 mg/dL (7-17); Calcium 9.3 mg/dL (8.4-10.2); Carbon Dioxide 27 mmol/L (22-32); Chloride 106 mmol/L (98-107); Estimated Glomerular Filt Rate > 60.0 mL/min (>60); Glucose 103 mg/dL (80-110); HEMOLYSIS < 15 (0-50); Potassium 3.1 mmol/L (3.4-5.1); Sodium 140 mmol/L (137-145)
--- NOTE | 2019-04-12 09:05 | P.PN_ITS ---
Subjective Subjective Date Patient Seen: 04/12/19 Time Patient Seen: 09:06 Interval history: Patient seen and evaluated this morning. Patient is doing much better this morning. Patient had somewhat a difficult evening. She was confused delirious. Not making sense. Agitated trying to get out of bed pull out her IV. Patient's family was at bedside last evening. This morning she is doing much better. She is talking. She says she is hungry. She does not horace lly remember yesterday at all. Patient is not hot having any difficulty with walking she has helped herself up to the bathroom this morning. She is swallowing and eating well. She has clear speech. In has no difficulty with recognizing people in the room. She knows the date and time. She remembers coming to the hospital yesterday but does not remember much after that. Do not appreciate any neurological defects she is not complaining of any pain. Exam Vital Signs (past 8 hours): - 04/12/19 01:13 04/12/19 05:15 04/12/19 07:59 Temperature 98.6 F 97.9 F Pulse Rate 79 70 Respiratory Rate 20 16 Blood Pressure 166/76 H 139/56 L Pulse Oximetry 91 96 93 04/12/19 08:00 Temperature Pulse Rate Respiratory Rate Blood Pressure Pulse Oximetry 94 Oxygen Delivery Method Room Air Oxygen Flow Rate 0 Narrative Exam Narrative: Gen.: Alert and oriented to person place and time HEENT: Bruising to left frontal temporal area. Pupils equal round and reactive or mucosa is moist thyroid is not enlarged. Cardio: S1-S2 regular rate and rhythm. Respiratory: Lungs are clear Abdomen: Abdomen soft nontender Extremities: Full range of motion Neurologic: Intact with no focal neurological deficits. Objective Labs Result Diagrams: 04/12/19 08:10 04/12/19 08:10 Labs: Laboratory Results - last 24 hr 04/11/19 04/11/19 04/11/19 10:30 10:30 10:30 WBC 8.6 RBC 5.33 H Hgb 14.8 Hct 44.9 MCV 84.3 MCH 27.8 MCHC 33.0 RDW 13.7 Plt Count 203 Neut % (Auto) 64.6 Lymph % (Auto) 24.9 L [place] % (Auto) 9.1 Eos % (Auto) 0.7 L Baso % (Auto) 0.7 Neut # (Auto) 5600 Lymph # (Auto) 2100 [place] # (Auto) 800 Eos # (Auto) 100 Baso # (Auto) 100 Sodium 139 Potassium 3.8 Chloride 103 Carbon Dioxide 27 BUN 23 H Creatinine 0.90 Estimated GFR 59.9 L BUN/Creatinine Ratio 25.6 H Glucose 118 H Lactate Calcium 9.9 Total Bilirubin 2.3 H AST 29 ALT 17 Alkaline Phosphatase 71 Total Protein 7.7 Albumin 4.3 Globulin 3.4 Albumin/Globulin Ratio 1.3 TSH Free T4 Thyroxine (T4) Free T3 Urine Color Urine Appearance Urine pH Ur Specific [place] Urine Protein Urine Glucose (UA) Urine Ketones Urine Occult Blood Urine Nitrate Urine Bilirubin Urine Urobilinogen Ur Leukocyte Esterase Urine RBC Urine WBC Ur Squamous Epith Cells Urine Bacteria Hyaline Casts Urine Mucus Ur Culture Indicated? U Morph 300 ng/mL cutoff Ur Oxycodone Screen Urine Methadone Screen Ur Barbiturates Screen U Tricyclic Antidepress Ur Phencyclidine Scrn Ur Amphetamines Screen U Methamphetamines Scrn Ur MDMA Scrn (Ecstasy) U Benzodiazepines Scrn Urine Cocaine Screen U Marijuana (THC) Screen Ethyl Alcohol < 10 04/11/19 04/11/19 04/11/19 10:30 11:52 12:20 WBC RBC Hgb Hct MCV MCH MCHC RDW Plt Count Neut % (Auto) Lymph % (Auto) [place] % (Auto) Eos % (Auto) Baso % (Auto) Neut # (Auto) Lymph # (Auto) [place] # (Auto) Eos # (Auto) Baso # (Auto) Sodium Potassium Chloride Carbon Dioxide BUN Creatinine Estimated GFR BUN/Creatinine Ratio Glucose Lactate 1.3 Calcium Total Bilirubin AST ALT Alkaline Phosphatase Total Protein Albumin Globulin Albumin/Globulin Ratio TSH < 0.02 L Free T4 Thyroxine (T4) Free T3 Urine Color Yellow Urine Appearance Clear Urine pH 6.0 Ur Specific [place] 1.010 Urine Protein Negative Urine Glucose (UA) Negative Urine Ketones Negative Urine Occult Blood Trace-lysed Urine Nitrate Negative Urine Bilirubin Negative Urine Urobilinogen 0.2 Ur Leukocyte Esterase Trace H Urine RBC 1-5/hpf Urine WBC 1-5/hpf Ur Squamous Epith Cells 5-10 /hpf H Urine Bacteria None seen Hyaline Casts 5-10/lpf Urine Mucus 1+ H Ur Culture Indicated? Cult not indicated U Morph 300 ng/mL cutoff Ur Oxycodone Screen Urine Methadone Screen Ur Barbiturates Screen U Tricyclic Antidepress Ur Phencyclidine Scrn Ur Amphetamines Screen U Methamphetamines Scrn Ur MDMA Scrn (Ecstasy) U Benzodiazepines Scrn Urine Cocaine Screen U Marijuana (THC) Screen Ethyl Alcohol 04/11/19 04/11/19 04/12/19 12:20 13:44 08:10 WBC 10.5 RBC 4.77 Hgb 13.2 Hct 39.5 MCV 82.8 MCH 27.7 MCHC 33.5 RDW 13.9 Plt Count 180 Neut % (Auto) 62.5 Lymph % (Auto) 25.0 [place] % (Auto) 11.8 Eos % (Auto) 0.4 L Baso % (Auto) 0.3 Neut # (Auto) 6600 Lymph # (Auto) 2600 [place] # (Auto) 1200 H Eos # (Auto) 0 Baso # (Auto) 0 Sodium Potassium Chloride Carbon Dioxide BUN Creatinine Estimated GFR BUN/Creatinine Ratio Glucose Lactate Calcium Total Bilirubin AST ALT Alkaline Phosphatase Total Protein Albumin Globulin Albumin/Globulin Ratio TSH Free T4 3.03 H Thyroxine (T4) 15.10 H Free T3 8.30 H Urine Color Urine Appearance Urine pH Ur Specific [place] Urine Protein Urine Glucose (UA) Urine Ketones Urine Occult Blood Urine Nitrate Urine Bilirubin Urine Urobilinogen Ur Leukocyte Esterase Urine RBC Urine WBC Ur Squamous Epith Cells Urine Bacteria Hyaline Casts Urine Mucus Ur Culture Indicated? U Morph 300 ng/mL cutoff Negative Ur Oxycodone Screen Negative Urine Methadone Screen Negative Ur Barbiturates Screen Negative U Tricyclic Antidepress Negative Ur Phencyclidine Scrn Negative Ur Amphetamines Screen Negative U Methamphetamines Scrn Negative Ur MDMA Scrn (Ecstasy) Negative U Benzodiazepines Scrn Negative Urine Cocaine Screen Negative U Marijuana (THC) Screen Negative Ethyl Alcohol 04/12/19 08:10 WBC RBC Hgb Hct MCV MCH MCHC RDW Plt Count Neut % (Auto) Lymph % (Auto) [place] % (Auto) Eos % (Auto) Baso % (Auto) Neut # (Auto) Lymph # (Auto) [place] # (Auto) Eos # (Auto) Baso # (Auto) Sodium 140 Potassium 3.1 L Chloride 106 Carbon Dioxide 27 BUN 16 Creatinine 0.60 Estimated GFR > 60.0 BUN/Creatinine Ratio 26.7 H Glucose 103 Lactate Calcium 9.3 Total Bilirubin AST ALT Alkaline Phosphatase Total Protein Albumin Globulin Albumin/Globulin Ratio TSH Free T4 Thyroxine (T4) Free T3 Urine Color Urine Appearance Urine pH Ur Specific [place] Urine Protein Urine Glucose (UA) Urine Ketones Urine Occult Blood Urine Nitrate Urine Bilirubin Urine Urobilinogen Ur Leukocyte Esterase Urine RBC Urine WBC Ur Squamous Epith Cells Urine Bacteria Hyaline Casts Urine Mucus Ur Culture Indicated? U Morph 300 ng/mL cutoff Ur Oxycodone Screen Urine Methadone Screen Ur Barbiturates Screen U Tricyclic Antidepress Ur Phencyclidine Scrn Ur Amphetamines Screen U Methamphetamines Scrn Ur MDMA Scrn (Ecstasy) U Benzodiazepines Scrn Urine Cocaine Screen U Marijuana (THC) Screen Ethyl Alcohol Assessment & Plan Assessment & Plan narrative: Acute confusional state with delirium resolving. Possible etiologies include toxic metabolic encephalopathy cerebrovascular related. Less likely infectious. Patient is headed back to her baseline mentation. She did not get any further sedation after her CT scan yesterday with her Spirit all. She is eating this morning ambulating and has no new focal neurological deficits. Unsure etiology of the state today. Will continue monitoring the next day or 2. Consider repeating CT scan tomorrow. She did receive 1 dose of antibiotics methimazole last evening. Do not think this is a urinary tract infection as it was not a clean-catch urine. 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 Starting on methimazole 5 mg a day. We will continue with this. Hypokalemia. Patient will be given potassium replacement today to improve her potassium levels. Hypertension intermittent fluctuation of very high blood pressure. Will restart her Cozaar and continue with amlodipine 5 mg daily. Hyperlipidemia. She will be continued on his simvastatin 10 mg a day. As well as aspirin 325 mg a day. Acute confusional state with delirium. Unsure etiology. Could be toxic encephalopathy. Could be status post cerebrovascular. Less likely infectious. I do not think this is seizures. Does not appear to be thyroid storm. Continue her close monitoring quality assurance monitor body. Patient will in all likelihood be inpatient. Consider repeating MRI tomorrow. Continue up monitoring for fluctuation in mental status. Quality VTE Deep Vein Thrombosis/Pulmonary Embolism Present on Admission: No
[2019-04-12] MEDS: LOSARTAN 50 MG TABLET PO (09:54)
[2019-04-12] MEDS: POTASSIUM CHLORIDE 20 MEQ TAB PO ×2 (09:54→17:29)
[2019-04-12] MEDS: AMLODIPINE 5 MG TABLET PO (09:54)
[2019-04-12] MEDS: ASPIRIN 325 MG TABLET PO (09:54)
--- NOTE | 2019-04-12 13:34 | OT.IP.TRT ---
Occupational Therapy Treatment Note M3 OT- IP Subjective and Pain Start: 04/12/19 13:33 Freq: Status: Active Protocol: Document 04/12/19 13:33 CGR (Rec: 04/12/19 13:34 CGR [id number]) OT- Subjective Occupational Therapy Visit Type Type Patient Refusal Notes Pt sitting up in chair with a large number of family members present. Pt declined activity at this time stating that she would like to visit with family. Will hold and continue to follow.
--- NOTE | 2019-04-12 14:52 | DI.MRI.S_ITS ---
PROCEDURE: MR HEAD/BRAIN WO CON INDICATIONS: RECURRENT MENTAL STATUS CHANGES TECHNIQUE: This is a highly limited study, as the patient is only able to hold still for one set of images. Axial diffusion weighted images with ADC maps were acquired. COMPARISON: [facility], MR, MR STROKE, 04/10/2019, 10:18. [facility], CT, CT ANGIO HEAD AND NECK, 04/11/2019, 13:12. FINDINGS: On these diffusion-weighted images, no abnormal diffusion weighted signal can be seen. No abnormal foci can be seen on the ADC maps. IMPRESSION: Highly limited study demonstrating no acute or subacute infarction. Dictated by: Sunday Fowler M.D. on 04/12/2019 at 14:44 Approved by: Sunday Fowler M.D. on 04/12/2019 at 14:46
--- NOTE | 2019-04-12 14:59 | PT-IP ANOTE ---
Attempted PT eval at 1445. DELFIN Costello recommend to hold for PT at this point due to increased weakness and BP 183/81. Will attempt PT eval again tomorrow.
[2019-04-12] MEDS: methIMAzole 5 MG TABLET PO ×2 (15:10→20:33)
--- NOTE | 2019-04-12 15:49 | PC.NURSE ---
SHIFT NOTE;/LATE ENTRY: PATIENT HAD BEEN IMPROVED THIS AM, SEE SHIFT ASSESSMENT AND MD DICTATION. DID WELL ALL SHIFT UNTIL 1430 WHEN FAMILY NOTED INCREASED CONFUSION, DOES NOT RECOGNIZE THAT FAMILY MEMBERS KNOW EACH OTHER AND TRIES TO INTRODUCE THEM TO EACHOTHER, NO LONGER ORIENTED TO PLACE, THINKS SHE IS IN A SCHOOL. CAN NOT TELL ME MONTH OR YEAR. MOVES ALL EXTREMITIES, 1P ASSIST TO TRANSF BACK TO CHAIR. ALL EXTREMITIES EQUAL, STRONG. HER RESPONSE TO MANY QUESTIONS DON'T QUITE LINE UP; SUCH HAS HOW MANY FINGERS AM I HOLDING UP? RESPONSE WAS 3 MINUTES. 3 FINGERS WERE HELD UP. PATIENT HAS MORE DAZED LOOK BUT WILL MAKE EYE CONTACT UPON REQUEST. DOES GRAB AT HER HEAD AND ADMIT TO [facility]. VSS. DR. WEST NOTIFIED OF ABOVE. ORDERED MRI STAT AND 1 MORE DOSE OF HER THYROID MEDICATION. (DR. KRAFT HAD CHANGED THAT TO ONLY ONCE A DAY EARLIER THIS AM AFTER CLARIFICATION BY MD VERY SPECIFICALLY) SUGGESTED TO MD POSSIBLE NEUROLOGY CONSULT. THAT WILL BE CONSIDERED AFTER DATA COLLECTION. PATIENT BACK FROM MRI. REPORT GIVEN TO ANGI. SONG CALLED DR. WEST TO SUGGEST POSSIBILITY OF MIGRAINE INDUCED SYMPTOMS. PATIENT DOES HAVE HX OF SAME WITH [facility] AND HAS FAMILY MEMBERS WHO GET MIGRAINS ALSO. FAMILY STATES PATIENT HAS NEVER DISCUSSED MIGRAINES WITH HER DR. DR WEST AWAITING RESULTS FIRST. DELFIN SONG TO FOLLOW.
[2019-04-12] MEDS: KETOROLAC 15 MG/ML VIAL IV ×2 (17:20→20:33)
--- NOTE | 2019-04-12 18:29 | P.PN_ITS ---
Subjective Subjective Date Patient Seen: 04/12/19 Time Patient Seen: 18:30 Interval history: Confusion Seen this evening for evaluation. Has received several phone calls from nursing staff. Initially patient seemed to have increase in cleared as and less confused this morning. Later during the afternoon she became more confused and more disoriented. She also complaining of severe headache. Patient underwent MRI of the head that showed no acute changes. She apparently has history of migraine headaches that are very since presentation some nausea only vomited once. Has severe headaches. Has visual aura that comes and goes. She apparently has not been treated is specifically for migraines as apparently has not been issue with her and her physician. Currently she denies any major is symptoms but is very have quieted somnolent does appear to be awake and alert otherwise. Family rate how that she is much worse today than normal and that she is not back to her ?normal?. Patient herself interested in going home tomorrow. Exam Vital Signs (past 8 hours): - 04/12/19 11:00 04/12/19 14:55 04/12/19 16:00 Temperature 97.6 F 99.2 F Pulse Rate 69 88 85 Respiratory Rate 16 16 16 Blood Pressure 144/76 H 183/81 H 156/89 H Pulse Oximetry 95 96 95 Oxygen Delivery Method Room Air Oxygen Flow Rate 0 Narrative Exam Narrative: Patient is resting quietly in her bed with multiple family members around the bed. She has a bruise over left eye. She is conversant but slow to respond. Seems to have appropriate memory and recall of things in the past unsure about the medication that she received for her headache. Headache apparently is gone. Objective Labs Result Diagrams: 04/12/19 08:10 04/12/19 08:10 Labs: Laboratory Results - last 24 hr 04/12/19 04/12/19 08:10 08:10 WBC 10.5 RBC 4.77 Hgb 13.2 Hct 39.5 MCV 82.8 MCH 27.7 MCHC 33.5 RDW 13.9 Plt Count 180 Neut % (Auto) 62.5 Lymph % (Auto) 25.0 [place] % (Auto) 11.8 Eos % (Auto) 0.4 L Baso % (Auto) 0.3 Neut # (Auto) 6600 Lymph # (Auto) 2600 [place] # (Auto) 1200 H Eos # (Auto) 0 Baso # (Auto) 0 Sodium 140 Potassium 3.1 L Chloride 106 Carbon Dioxide 27 BUN 16 Creatinine 0.60 Estimated GFR > 60.0 BUN/Creatinine Ratio 26.7 H Glucose 103 Calcium 9.3 MRI is reviewed and is unremarkable. Concern being possible occult urinary tract infection. A follow-up urine Kelly urine cultures obtained via catheterization specimen. MRI result is reviewed Assessment & Plan Assessment & Plan narrative: Patient has mental status changes as still quite unclear exactly the etiology. May well be related migraines. Concern also has raise may well be related to urinary tract infection free. No evidence for any acute neurologic event. Question was raised whether not this is a type of seizure disorder about a appears to be unlikely. Will continue with current program will give her some Toradol as needed. Get updated lab. Urine culture pending. Expect least another day of observation perhaps be discharged with some daughter on Monday pending Quality VTE Deep Vein Thrombosis/Pulmonary Embolism Present on Admission: No
[2019-04-12] MEDS: SIMVASTATIN 10 MG TABLET PO (20:33)
[2019-04-13] VITALS (10 sets, daily range): BP systolic 147–188; BP diastolic 48–98; PULSE 66–83; RESP 16–20; TEMP 36.3–37.1; O2SAT 81–97
[2019-04-13] MEDS: KETOROLAC 15 MG/ML VIAL IV (02:42)
--- NOTE | 2019-04-13 05:39 | PC.NURSE ---
Pt is AxOx3 and sleeping soundly this night. VSS, lung sounds clear bilaterally. Toradol given at 0230. Pt had no complaints this shift about migraine pain. Pt on Tele 1st degree AV BBB. SCD's applied, Call light within reach. Pt daughter and granddaughter roomed in.
[2019-04-13 06:29] LABS: Add Manual Diff / Slide Review NO; Basophils Absolute Auto 0 /uL (0-100); Basophils Percent Auto 0.6 % (0-2); Eosinophils Absolute Auto 100 /uL (0-450); Eosinophils Percent Auto 1.4 % (2-4); Hemoglobin 12.9 g/dL (12.0-16.0); Lymphocytes Absolute Auto 2500 /uL (1100-4500); Mean Corpuscular HGB Conc 33.2 % (30-36); Mean Corpuscular Hemoglobin 27.6 PG (26-34); Mean Corpuscular Volume 83.3 fL (80-100); Monocytes Absolute Auto 800 /uL (0-900); Neutrophils Absolute Auto 3900 /uL (1500-7000); Platelet Count 161 X10^3/uL (150-400); Red Blood Cell Count 4.67 X10^6/uL (4.0-5.2); Red Cell Distribution Width 13.6 % (11.6-14.8); White Blood Cell Count 7.3 X10^3/uL (4.5-11.0)
[2019-04-13 06:40] LABS: BUN Creatinine Ratio 21.7 (6-22); Blood Urea Nitrogen 13 mg/dL (7-17); Calcium 9.2 mg/dL (8.4-10.2); Carbon Dioxide 26 mmol/L (22-32); Chloride 110 mmol/L (98-107); Estimated Glomerular Filt Rate > 60.0 mL/min (>60); Glucose 103 mg/dL (80-110); HEMOLYSIS < 15 (0-50); Potassium 3.2 mmol/L (3.4-5.1); Sodium 142 mmol/L (137-145)
[2019-04-13] MEDS: SODIUM CHLORIDE 0.9% 1,000 ML 100 ML IV (07:02)
[2019-04-13] MEDS: AMLODIPINE 5 MG TABLET PO ×2 (09:08→12:48)
[2019-04-13] MEDS: LOSARTAN 50 MG TABLET PO (09:08)
[2019-04-13] MEDS: ASPIRIN 325 MG TABLET PO (09:09)
--- NOTE | 2019-04-13 10:09 | CM.DANOTE ---
Patient is an 83 year old female who is a READMIT on 04/11/19 for confusion. Pt was recently discharged home on 04/10/19 for similar. PT/OT ordered and pending. SW met bedside with pt and Dtr and granddtr and explained role and updated white board and pt much more alert and oriented today and confirms she had been in and out of confusion during her stay seeming to be related to headaches/migraines. Pt confirms she lives at home in [place] with Sig Other Judit and is very active and independent at baseline, no hx of HH or SNF. Pt has 5 children mostly local and many grandchildren and they are all very supportive. Pt and Dtr confirm that plan is to d/c home with Sig other and Dtr to stay for about a month for additional assist. SW discussed the importance of PT/OT CG training with family and sig other present and all are very agreeable to this to determine what is needed at d/c. Pt aware of [facility] if DME needed. Plan: SW to follow for PT/OT eval and recommendations to determine d/c planning needs. Pt with very supportive family and sig other. ASHLEY Ching Discharge Planning/Care Management CM Discharge Assessment Start: 04/13/19 10:07 Freq: Status: Active Protocol: Document 04/13/19 10:07 (Rec: 04/13/19 10:09 [id number]) Discharge Planning Assessment Assigned Beck Operator ASHLEY Irwin Advance Directives? No History Provided By Patient,Family Member,Medical Record Has Patient been admitted in last 30 Yes days? Comment readmit from d/c 04/10/19 to home Prior Living Arrangements House Household Members significant other Type of transporation used prior to Drives own vehicle admit Independent with ADL's Yes Is patient alert and oriented? Yes Caregiver for Another No Patient/Family Preference Home with Home Health Comment Pending PT/OT eval Barriers to Discharge No Discharge Plan Home Transportation Arrangement Significate other or Dtr will provide transportation Additional Comment Waiting for PT/OT eval for d/c recommendations Whiteboard Updated in Patient Room with Yes name and ext. # of Beck Operator Review Status In Process Please Provide Date Initial DC 04/13/19 Assessment Was Performed Next Review Type Continued Stay Review
--- NOTE | 2019-04-13 10:21 | P.PN_ITS ---
Subjective Subjective Date Patient Seen: 04/13/19 Time Patient Seen: 10:21 Interval history: Confusion. Feeling much better apparently had uneventful night. Unclear whether not she had a migraine during the night but was given 1 dose of Toradol. No nausea. Appetite seems reasonable. She still pretty unsteady when she gets out of bed requires assistance from f amily members. She does get a lightheaded when she stands up. But able to ambulate to the bathroom with assistance. She has no pain. She has minimal recollection of the events yesterday. Family questions whether not there is a persistent urinary tract infection may be causing this. Currently the urine culture is negative. Patient does not require supplemental oxygen. Exam Vital Signs (past 8 hours): - 04/13/19 05:00 04/13/19 07:40 Temperature 97.9 F 97.6 F Pulse Rate 66 69 Respiratory Rate 16 18 Blood Pressure 148/48 H 188/78 H Pulse Oximetry 94 81 L Oxygen Delivery Method Room Air Oxygen Flow Rate 0 Narrative Exam Narrative: Patient is sitting up in her bed appears in no distress much more alert than she was yesterday conversant joking with family. Her general exam is unremarkable. Neurologic exam cranial nerves 2-12 intact says he extremities are symmetric. Lungs are entirely clear. Heart regular rhythm no murmur gallop. Carotids 1+ no bruits. Abdominal exam normal bowel sounds no SI no masses no tenderness Objective Labs Result Diagrams: 04/13/19 06:12 04/13/19 06:12 Labs: Laboratory Results - last 24 hr 04/13/19 04/13/19 06:12 06:12 WBC 7.3 RBC 4.67 Hgb 12.9 Hct 39.0 MCV 83.3 MCH 27.6 MCHC 33.2 RDW 13.6 Plt Count 161 Neut % (Auto) 53.0 Lymph % (Auto) 34.0 [place] % (Auto) 11.0 Eos % (Auto) 1.4 L Baso % (Auto) 0.6 Neut # (Auto) 3900 Lymph # (Auto) 2500 [place] # (Auto) 800 Eos # (Auto) 100 Baso # (Auto) 0 Sodium 142 Potassium 3.2 L Chloride 110 H Carbon Dioxide 26 BUN 13 Creatinine 0.60 Estimated GFR > 60.0 BUN/Creatinine Ratio 21.7 Glucose 103 Calcium 9.2 Labs from this morning normal CBC. Potassium 3.4 correction 3.2 this be replaced. BUN is 13 creatinine 0.60 patient has been rehydrated. Stated preliminary urine culture is negative. Patient had MRI and last evening that was unremarkable Assessment & Plan Assessment & Plan narrative: Still no obvious explanation for patient's a confused state. She may indeed have had a urinary tract infection that resolved with 1 dose of antibiotics. She was a bit high dehydrated when she came in the hospital so common in these may explain things. Still bit unclear. She also is having migraines resulting in some neuro deficit at the time that resolved. Potassium is low. Blood pressure still elevated will add increased dose of amlodipine. Today able get out of bed discontinue as telemetry. Hopefully with cyst and she can be discharged tomorrow currently no evidence for urinary tract infection so no more antibiotics will be given Quality VTE Deep Vein Thrombosis/Pulmonary Embolism Present on Admission: No
--- NOTE | 2019-04-13 10:53 | PT.IIE ---
Surgical History (Last Reviewed 04/11/19 @ 17:19 by Leti Alex MD) Anesthesia (Resolved) History of cataract removal with insertion of prosthetic lens (~2009) History of foot surgery (Resolved ~2000) Status post appendectomy (~1948) Status post tubal ligation Medical History (Last Reviewed 04/11/19 @ 17:19 by Leti Alex MD) Cataracts, bilateral (Resolved) Chicken pox (Resolved) Chronic back pain (Chronic) Foot pain (Chronic) Fractures (Resolved) Headache (Chronic) Hearing loss (Chronic ~2016) Hearing loss (Acute) History of allergy (Chronic) Hyperlipidemia (Chronic) Hypertension (Chronic) Irregular menstrual cycle (Inactive) Measles (Resolved) Mumps (Resolved) Ovarian cyst (Chronic ~1949) Plantar warts (Chronic ~1949) Rubella (Resolved) Tinnitus (Chronic) Vision disorder (Chronic) Physical Therapy Inpatient Evaluation/Re-Eval M1 PT/OT-IP Prior Functional Status Start: 04/12/19 13:50 Freq: NEEDED Status: Active Protocol: Document 04/13/19 10:53 AB (Rec: 04/13/19 15:27 AB [id number]) Medical Review Prior Functional Status Medical History Reviewed Yes Communication able to make needs known Mobility and Gait per family: pt is modified independent with all mobilities and ambulation without AD; uses an electric scooter for long distance mobility Social History Household Members significant other Living Arrangements House Number of Floors (Floors) Two Floors Number of Stairs To Enter/Railing? has 2 steps with bilateral wide rails (can only hold on to one at a time) has 12 steps to get to the basement where pt sews. has no rail; pt leans on the wall on one side to get down and usually crawls/on hher hands and knees to get up the steps Home Environment High Toilet,Tub/Shower Home Equipment Straight Cane,Hand Held Shower ,Grab Bars Near Toilet,Grab Bars In Shower Employment Status Retired Additional Social History Comment grand daughter stated that pt' s daughter will be staying with pt to assist her and if daughter is out, other family members can be with pt. stated that pt will have 24/7 assist M2 PT-IP Current Condition Start: 04/12/19 13:50 Freq: NEEDED Status: Active Protocol: Document 04/13/19 10:53 AB (Rec: 04/13/19 15:27 AB [id number]) Physical Therapy Current Condition Current Condition Evaluation Date 04/13/19 Treatment Diagnosis altered mental status; difficulty in walking Onset Date 04/11/19 Precautions Other Precautions falls M3 PT-IP Subjective Start: 04/12/19 13:50 Freq: NEEDED Status: Active Protocol: Document 04/13/19 10:53 AB (Rec: 04/13/19 15:27 AB [id number]) Subjective Physical Therapy Visit Type Type Initial Evaluation Visit Start Time 10:53 Visit Stop Time 11:19 Total Visit Minutes 26 Number of PALM GATHERER Visits 0 Physical Therapy Visit Comments Patient Comments pt agreeable to do PT; seems to have some confusion but able to answer questions Patient Goals to go home M4 PT-IP Mobility and Gait Start: 04/12/19 13:50 Freq: NEEDED Status: Active Protocol: Document 04/13/19 10:53 AB (Rec: 04/13/19 15:27 AB [id number]) PT-Bed Mobility Assessment Supine to Sit Supine to Sit Standby Assistance Scooting Scooting to Edge of Bed Standby Assistance PT-Transfer Assessment Sit to and From Stand Sit to and from Stand Contact Guard Assistance,1 Person Assistance,Use of Upper Extremities Equipment Transfer Assistive Device None,Gait Belt Orthotic/Prosthetic Devices or Brace: No Transfers Transfer Destination Chair,Toilet Transfer Technique pt ambulated without AD Transfer Ability Level of Assist Contact Guard Assistance, Minimal Assistance,1 Person Assistance,Use of Upper Extremities Comments Mobility Comments pt requested to use the toilet . ambulated from bedside to the toilet without AD CGA to min A and cues. presents with unsteady gait and a few LOB requiring min A for steadiness . pt sat on the toilet and was sitting way too forward on the seat and cued to scoot back. required repeated cues to follow and was able to scoot SBA. pt ambulated out of the toilet to the sink and completed handwashing requiring min A for standing balance. pt ambulated in room ~ 25 ft without AD min A and cues. pt with decrease safety awareness and maneuvered self to walked a narrow space in between a chair and the wall. pt can be impulsive. pt agreed to sit up on the chair. call light and table placed within reach. left pt with family in room. Gait Assessment Gait Gait Assistance Required: Contact Guard Assist,Minimum Assistance Distance (Feet) 25 Able to Maintain Weight Bearing Status Yes During Gait Assistive Devices Assistive Device None,Gait Belt Orthotic/Prosthetic Devices or Brace: No Gait Deviations General Gait Pattern Antalgic,Decreased Stride Length,Decreased Feet Clearance,Lateral Trunk Lean, Step-to Gait Factors Limiting Gait Function Factors Limiting Gait Function Decreased Activity Tolerance, Decreased Strength,Difficulty Following Directions,Poor Balance,Poor Safety Awareness Comments Gait Comments pls refer to mobility section. pt presents with unsteady gait with (+) LOB requirig min A for steadiness. PT-Balance Assessment Sitting Balance and Reactions Static Sitting Balance Ability Good Dynamic Sitting Balance Ability Good Standing Balance and Reactions Static Standing Balance Ability Fair Dynamic Standing Balance Ability Fair M5 PT-IP Objective Assessments Start: 04/12/19 13:50 Freq: NEEDED Status: Active Protocol: Document 04/13/19 10:53 AB (Rec: 04/13/19 15:27 AB [id number]) Orientation Orientation/Cognition Level of Alertness Alert Orientation Name,Age,Birthday,Place, Situation Language Function Ability No Deficits Noted Safety Awareness Decreased Safety Awareness Memory Description Short Term Impaired,Naval Architect Impaired Gross Range of Motion Lower Extremity ROM Assessment Within Functional Limits Strength Lower Extremity Strength Assessment Bilaterally Impaired Hip 4-/5 Knee 4-/5 Coordination Assessment Gross Coordination Gross Coordination Impaired M6 PT-IP Treatment Start: 04/12/19 13:50 Freq: NEEDED Status: Active Protocol: Document 04/13/19 10:53 AB (Rec: 04/13/19 15:27 AB [id number]) Physical Therapy Treatment Education Education Provided Safety M7 PT-IP Assessment and Plan Start: 04/12/19 13:50 Freq: NEEDED Status: Active Protocol: Document 04/13/19 10:53 AB (Rec: 04/13/19 15:27 AB [id number]) PT Summary Assessment and Plan Potential Rehabilitation Potential Good Status of Condition at Evaluation Evolving Summary Impairments Strength,Balance,Coordination, Cognition,Bed Mobility, Transfers,Gait,Activity Tolerance Assessment Summary pt presents with unsteady gait without AD. will assess ambulation using FWW/SPC next tx session for safer ambulation. pt agreed. pt also seems to have decrease cognitive level/safety awareness and requires repeated cues for safety. will continue to assess progress. family stated that pt will have 24/7 assist at home. Goals Bed Mobility Goal Independent Transfer Goal Independent,Cane,Front Wheeled Walker Gait Goal Independent,Cane,Front Wheel Walker Gait Distance 150 Other Goals ambulation without AD ~ 200 ft SBA up/down 2 steps with 1 rail SBA up/down 12 steps without rails CGA Days to Meet Goals 10 Frequency of Treatment Frequency Of Treatment Once a Day Treatment Plan Physical Therapy Treatment Plan Bed Mobility Training,Transfer Training,Gait Training, Therapeutic Exercise,Balance Retraining,Discharge Planning, Neuromuscular Re-ed, Coordination Retraining,Manual Therapy Other Recommendations and Next Treatment ambulation using FWW/SPC; Focus stair climbing Recommendations To Nursing Amount of Assist Needed 1 Person Assist Discharge Recommendations PT Discharge Recommendations Home with 24/7 Assist,Home Health Equipment Needed for Home Before FWW if not safe without AD/SPC Discharge
--- NOTE | 2019-04-13 11:55 | PC.NURSE ---
Day Shift- per Dr. Vazquez at 1000, verbal order to leave PIV out, discontinue telemetry monitoring, discontinue NIH scale, aware of Potassium of 3.2.
--- NOTE | 2019-04-13 12:36 | OT.IP.EVAL ---
Past Medical History (Last Reviewed 04/11/19 @ 17:19 by Leti Alex MD) Cataracts, bilateral (Resolved) Chicken pox (Resolved) Chronic back pain (Chronic) Foot pain (Chronic) Fractures (Resolved) Headache (Chronic) Hearing loss (Chronic ~2016) Hearing loss (Acute) History of allergy (Chronic) Hyperlipidemia (Chronic) Hypertension (Chronic) Irregular menstrual cycle (Inactive) Measles (Resolved) Mumps (Resolved) Ovarian cyst (Chronic ~1949) Plantar warts (Chronic ~1949) Rubella (Resolved) Tinnitus (Chronic) Vision disorder (Chronic) Surgical History (Last Reviewed 04/11/19 @ 17:19 by Leti Alex MD) Anesthesia (Resolved) History of cataract removal with insertion of prosthetic lens (~2009) History of foot surgery (Resolved ~2000) Status post appendectomy (~1948) Status post tubal ligation Occupational Therapy Inpatient Evaluation/Re-Eval M1 PT/OT-IP Prior Functional Status Start: 04/12/19 13:50 Freq: NEEDED Status: Active Protocol: Document 04/13/19 15:44 CGR (Rec: 04/13/19 16:00 CGR [id number]) Medical Review Prior Functional Status Medical History Reviewed Yes Communication able to make needs known Mobility and Gait per family: pt is modified independent with all mobilities and ambulation without AD; uses an electric scooter for long distance mobility Activities of Daily Living and IADL's Pt was IND in all ADLs. Prior Functional Level (Other details) Pt has her youngest son who lives on the property and is very helpful. Social History Household Members significant other Living Arrangements House Number of Floors (Floors) Two Floors Number of Stairs To Enter/Railing? has 2 steps with bilateral wide rails (can only hold on to one at a time) has 12 steps to get to the basement where pt sews. has no rail; pt leans on the wall on one side to get down and usually crawls/on hher hands and knees to get up the steps Home Environment High Toilet,Tub/Shower Home Equipment Straight Cane,Hand Held Shower ,Grab Bars Near Toilet,Grab Bars In Shower Employment Status Retired Additional Social History Comment grand daughter stated that pt' s daughter will be staying with pt to assist her and if daughter is out, other family members can be with pt. stated that pt will have 24 assist M2 OT-IP Current Condition Start: 04/12/19 13:33 Freq: Status: Active Protocol: Document 04/13/19 15:44 CGR (Rec: 04/13/19 16:00 CGR [id number]) Occupational Therapy Current Condition Current Condition Evaluation Date 04/13/19 Treatment Diagnosis AMS, toxic encephalopathy Diagnosis Onset Date 04/10/19 M3 OT- IP Subjective and Pain Start: 04/12/19 13:33 Freq: Status: Active Protocol: Document 04/13/19 15:44 CGR (Rec: 04/13/19 16:00 CGR [id number]) OT- Subjective Occupational Therapy Visit Type Type Initial Evaluation Visit Start Time 12:09 Visit Stop Time 12:36 Total Visit Minutes 27 Occupational Therapy Visit Comments Patient Comments I feel fine. OT Pain Assessment Pain When Pain Assessed At Rest Pain Present Pain Present Denied Pain M4 OT- IP ADL's Start: 04/12/19 13:33 Freq: Status: Active Protocol: Document 04/13/19 15:44 CGR (Rec: 04/13/19 16:00 CGR [id number]) OT [id number] General Evaluation Self-Feeding Ability Independent Comments OT Self-Feeding Comments Lunch using silverware. OT ADL-Grooming General Evaluation Grooming Ability Independent Areas Needing Assistance Combing/Brushing Hair,Face Washing Comments OT Grooming Comments standing at sink OT ADL-Oral Care General Eval Oral Care Ability Independent Areas of Assistance Brushing Teeth Comments Oral Care Comments standing at sink OT ADL-Dressing General Eval Lower Body Dressing Ability Independent Areas Needing Assistance Socks Comments OT Dressing Comments seated in chair OT ADL-Toileting General Evaluation Toileting Ability Independent Comments OT Toileting Comments pt ambulated to bathroom and toileted without assist. OT ADL-Bathing Comments OT Bathing Comments Not performed on this date. M5 OT- IP IADL's Start: 04/12/19 13:33 Freq: Status: Active Protocol: Document 04/13/19 15:44 CGR (Rec: 04/13/19 16:00 CGR [id number]) OT-Instrumental Activities of Daily Living Deficits IADL Deficits Identified No Deficits Home Safety Awareness Awareness of Need for Assistance at Home Decreased Awareness Ability to Problem Solve Emergency Able to Problem Solve Situations Home Safety Comments Pt does not think she needs as much assist as she does but she has good family support to assist. 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 Suggested to pt and family that pt should not drive till these episodes have stopped. Pt and family agreed. M6 OT- IP Functional Cognition Start: 04/12/19 13:33 Freq: Status: Active Protocol: Document 04/13/19 15:44 CGR (Rec: 04/13/19 16:00 CGR [id number]) Cognitive Factors Limiting Selfcare Function Cognitive Ability Level of Alertness Alert Patient Orientation Name,Age,Birthday,Month,Date, Year,Day of Week,Place, Situation Attention Span Ability Capable of Focused Attention, Capable of Sustained Attention Ability to Follow Commands Able to Follow One Step Commands Memory Description No Deficits Noted Safety Awareness Underestimates Need for Assistance Problem Solving Ability No deficits Noted Cognitive Comments Cognitive Assessment Comments Per P.T., pt with poor problem solving and unsafe with mobility. Pt appears to do better at times and will likely benefit from a formal cognitive assessment. OT- Vision and Hearing OT- Hearing Assessment OT- Hearing Assessment Hearing Impaired,Use of Hearing Aids OT- Vision Assessment Visual Acuity WFL,Glasses For Reading Visual Attentiveness WFL Occular Pursuits WFL Visual Convergence WFL Visual [place] WFL M7 OT- IP Mobility and Balance Start: 04/12/19 13:33 Freq: Status: Active Protocol: Document 04/13/19 15:44 CGR (Rec: 04/13/19 16:00 CGR [id number]) OT-Transfer Assessment Sit to and From Stand Sit to and from Stand Standby Assistance Transfers Transfer Ability Standby Assistance Technique Transfer Destination Chair,Toilet Transfer Technique Stand Step Pivot Devices Transfer Assistive Devices Gait Belt Comments Mobility Comments mobility around to room for ADLs. OT- Balance Assessment Sitting Balance and Reactions Static Sitting Balance Ability Good Dynamic Sitting Balance Ability Fair M8 OT- IP Objective Assessments Start: 04/12/19 13:33 Freq: Status: Active Protocol: Document 04/13/19 15:44 CGR (Rec: 04/13/19 16:00 CGR [id number]) OT Gross Range of Motion Upper Extremity Range of Motion Assessment Within Functional Limits OT Strength Upper Extremity Strength Assessment Within Functional Limits Comments Strength Comments 4+/5 throughout OT- Coordination Assessment Upper Extremity Finger to Nose Test Within Functional Limits Finger Tapping Test Within Functional Limits OT-Muscle Tone Assessment Muscle Tone WNL Yes OT Sensation Assessment Comments Summary Comments No sensation deficits per pt. Edema Edema Absent M9 OT- IP Assessment and Plan Start: 04/12/19 13:33 Freq: Status: Active Protocol: Document 04/13/19 15:44 CGR (Rec: 04/13/19 16:00 CGR [id number]) OT Summary Assessment and Plan Potential Rehabilitation Potential Good Analytic Complexity at Evaluation Low Summary OT Impairments Functional Cognition, Functional Mobility,Bathing, Shower Transfers Progress Towards Goals Progressing Toward Goals Assessment Summary Pt presents as a low complexity evaluation displaying a very functional 83 yo woman, however, pts abilities appear to be changing throughout the day. Per p.t., pt would benefit from a cognitive assessment. Will keep pt on OT schedule for formal cog assessment and review of her ADLs. At this time the recommendation is to discharge home with good family support. Goals Bathing Goal Independent Shower Transfer Goal Independent OT-Other Goals complete formal cog assessment . Days to Meet Goals 2 Frequency of Treatment Frequency Of Treatment Once a Day Treatment Plan OT Treatment Plan ADL Training,Functional Cognition Training,Functional Mobility,Patient/Family Education,Discharge Planning Other Treatment Recommendations and Next formal cog assessment. Treatment Focus Discharge Recommendations OT Discharge Recommendations Home with Assistance Home Equipment Needs None at this time
[2019-04-13] MEDS: POTASSIUM CHLORIDE 20 MEQ TAB 40 MEQ PO (12:48)
[2019-04-13 18:37] LABS: Add Manual Diff / Slide Review NO; Basophils Absolute Auto 0 /uL (0-100); Basophils Percent Auto 0.5 % (0-2); Eosinophils Absolute Auto 200 /uL (0-450); Eosinophils Percent Auto 1.9 % (2-4); Hematocrit 42.9 % (36-46); Hemoglobin 14.2 g/dL (12.0-16.0); Lymphocytes Absolute Auto 2300 /uL (1100-4500); Lymphocytes Percent Auto 26.9 % (25-40); Mean Corpuscular HGB Conc 33.1 % (30-36); Mean Corpuscular Hemoglobin 27.7 PG (26-34); Mean Corpuscular Volume 83.7 fL (80-100); Monocytes Absolute Auto 800 /uL (0-900); Monocytes Percent Auto 9.2 % (3-14); Neutrophils Absolute Auto 5300 /uL (1500-7000); Neutrophils Percent Auto 61.5 % (50-75); Platelet Count 178 X10^3/uL (150-400); Red Blood Cell Count 5.13 X10^6/uL (4.0-5.2); Red Cell Distribution Width 13.7 % (11.6-14.8); White Blood Cell Count 8.6 X10^3/uL (4.5-11.0)
[2019-04-13 18:49] LABS: Blood Urea Nitrogen 16 mg/dL (7-17); Calcium 9.4 mg/dL (8.4-10.2); Carbon Dioxide 28 mmol/L (22-32); Chloride 108 mmol/L (98-107); Estimated Glomerular Filt Rate > 60.0 mL/min (>60); Glucose 174 mg/dL (80-110); HEMOLYSIS < 15 (0-50); Potassium 3.4 mmol/L (3.4-5.1); Sodium 141 mmol/L (137-145)
[2019-04-13] MEDS: methIMAzole 5 MG TABLET PO (20:40)
[2019-04-13] MEDS: SIMVASTATIN 10 MG TABLET PO (20:40)
[2019-04-14] VITALS (7 sets, daily range): BP systolic 132–152; BP diastolic 69–82; PULSE 70–98; RESP 18–20; TEMP 36.3–37.2; O2SAT 95–97
--- NOTE | 2019-04-14 06:55 | PC.NURSE ---
Pt denied pain/nausea for this shift. Pt VSS, lung sounds clear. She still tries to get up w/ bed alarm on and is a little bit impulsive.
[2019-04-14] MEDS: POTASSIUM CHLORIDE 20 MEQ TAB 40 MEQ PO (09:26)
[2019-04-14] MEDS: ASPIRIN 325 MG TABLET PO (09:27)
[2019-04-14] MEDS: AMLODIPINE 5 MG TABLET 10 MG PO (09:28)
[2019-04-14] MEDS: LOSARTAN 50 MG TABLET PO (09:29)
--- NOTE | 2019-04-14 10:41 | P.PN_ITS ---
Subjective Subjective Date Patient Seen: 04/14/19 Time Patient Seen: 09:41 Interval history: Weakness. Patient basically had uneventful night. Apparently got up during the night. Still requires fair amount assistance is unsteady when she walks apparently she walked in the white yesterday with son and needed fair amount of assistance. Normally does not require much assistance at home. She does have a cane at home but does use. Main issue now is her weakness and unsteadiness. When she gets out of bed. She has had no migraines or. No other neurologic issues. Appetite seem to be adequate Exam Vital Signs (past 8 hours): - 04/14/19 03:40 04/14/19 09:29 Temperature 97.7 F Pulse Rate 70 90 Respiratory Rate 20 Blood Pressure 152/72 H 132/74 Pulse Oximetry 95 97 Oxygen Delivery Method Room Air Oxygen Flow Rate 0 Narrative Exam Narrative: Patient is resting quietly in hospital bed appears in no distress she is alert. And conversant has no particular issues. Neurologic exam cranial nerve 2-12 intact. Lungs are clear heart regular rhythm no murmur gallop Abdominal exam benign. Bruising rather left eye is improving Objective Labs Result Diagrams: 04/13/19 17:30 04/13/19 17:30 Labs: Laboratory Results - last 24 hr 04/13/19 04/13/19 17:30 17:30 WBC 8.6 RBC 5.13 Hgb 14.2 Hct 42.9 MCV 83.7 MCH 27.7 MCHC 33.1 RDW 13.7 Plt Count 178 Neut % (Auto) 61.5 Lymph % (Auto) 26.9 [place] % (Auto) 9.2 Eos % (Auto) 1.9 L Baso % (Auto) 0.5 Neut # (Auto) 5300 Lymph # (Auto) 2300 [place] # (Auto) 800 Eos # (Auto) 200 Baso # (Auto) 0 Sodium 141 Potassium 3.4 Chloride 108 H Carbon Dioxide 28 BUN 16 Creatinine 0.50 L Estimated GFR > 60.0 BUN/Creatinine Ratio 32.0 H Glucose 174 H Calcium 9.4 labs unremarkable as noted she had a slightly low potassium. Assessment & Plan Assessment & Plan narrative: 1. Migraine issues have stabilize out she will probably benefit some sort medication for migraines on discharge. 2. Current explanation for of the phenomenon yet to be determined. Some of this may are all this may all will be related migraines. 3. Blood pressure is better. The neurologic deficit may in fact been related to blood pressure but again is unclear. Physical therapy to reassess today discharge planning forthcoming anticipate being discharged home tomorrow daughter is going to be able stay with her what does require fair amount of assistance yet to be determined Quality VTE Deep Vein Thrombosis/Pulmonary Embolism Present on Admission: No
--- NOTE | 2019-04-14 11:50 | PT.IPTN ---
Physical Therapy Treatment Note M2 PT-IP Current Condition Start: 04/12/19 13:50 Freq: NEEDED Status: Active Protocol: Document 04/13/19 10:53 AB (Rec: 04/13/19 15:27 AB [id number]) Physical Therapy Current Condition Current Condition Evaluation Date 04/13/19 Treatment Diagnosis altered mental status; difficulty in walking Onset Date 04/11/19 Precautions Other Precautions falls M3 PT-IP Subjective Start: 04/12/19 13:50 Freq: NEEDED Status: Active Protocol: Document 04/14/19 10:46 LRN (Rec: 04/14/19 11:49 LRN [id number]) Subjective Physical Therapy Visit Type Type Treatment Note Visit Start Time 10:47 Visit Stop Time 11:20 Total Visit Minutes 33 Number of ROVING CARRIER Visits 0 Physical Therapy Visit Comments Patient Comments Prefers use of walker over cane. M4 PT-IP Mobility and Gait Start: 04/12/19 13:50 Freq: NEEDED Status: Active Protocol: Document 04/14/19 10:46 LRN (Rec: 04/14/19 11:49 LRN [id number]) PT-Bed Mobility Assessment Supine to Sit Supine to Sit Independent Sit to Supine Sit to Supine Independent PT-Transfer Assessment Sit to and From Stand Sit to and from Stand Independent,Standby Assistance ,1 Person Assistance,Use of Upper Extremities Equipment Transfer Assistive Device None,Gait Belt Orthotic/Prosthetic Devices or Brace: No Transfers Transfer Destination Bed Transfer Ability Level of Assist Independent,Standby Assistance ,1 Person Assistance,Use of Upper Extremities Comments Mobility Comments Pt feels more comfortable with use of FWWs vs SPC. Pt preferred SPC on R side when using. Gait Assessment Gait Gait Assistance Required: Contact Guard Assist,1 Person Assist Distance (Feet) 180 Able to Maintain Weight Bearing Status Yes During Gait Assistive Devices Assistive Device Gait Belt,Straight Cane, Standard Walker Orthotic/Prosthetic Devices or Brace: No Factors Limiting Gait Function Factors Limiting Gait Function Poor Balance,Poor Safety Awareness Comments Gait Comments Pt looks at her feet when walking with a cane and almost ran into nursing COW. Pt unsteady with SPC and without AD, but was steady with FWW. Stair Climbing Assessment Evaluation Level of Assist On Stairs Standby Assistance,Contact Guard Assistance Devices Stair Climbing Assistive Devices Left Railing,Right Railing Technique/Endurance Stair Climbing Direction Ascend and Descend Stair Climbing Technique Step Over Step Number of Steps Climbed 4 Stair Climbing Set # Repetitions (reps) 2 Comments Stair Climbing Comments Pt used railing one at a time. She demonstrated leaning against railing for stair ambulation inside the home, but also indicated that she crawls up the stairs. She ambs with a normal gait with railing on L side going up. Using the railing on the right she rotated her body towards the stairs going down. M5 PT-IP Objective Assessments Start: 04/12/19 13:50 Freq: NEEDED Status: Active Protocol: Document 04/13/19 10:53 AB (Rec: 04/13/19 15:27 AB [id number]) Orientation Orientation/Cognition Level of Alertness Alert Orientation Name,Age,Birthday,Place, Situation Language Function Ability No Deficits Noted Safety Awareness Decreased Safety Awareness Memory Description Short Term Impaired,Inspector Filter Tip Impaired Gross Range of Motion Lower Extremity ROM Assessment Within Functional Limits Strength Lower Extremity Strength Assessment Bilaterally Impaired Hip 4-/5 Knee 4-/5 Coordination Assessment Gross Coordination Gross Coordination Impaired M6 PT-IP Treatment Start: 04/12/19 13:50 Freq: NEEDED Status: Active Protocol: Document 04/14/19 10:46 LRN (Rec: 04/14/19 11:49 LRN [id number]) Physical Therapy Treatment Equipment Issued Equipment Type and Company Gait training with cane on the right and with FWW. Stair training for ambulation with railing on 1 side, bilaterally. Other Treatments Other Treatment Performed Blood Pressure after gait 50' with short rest: 138/73. HR 90. Safety with transfers into bed , not crawling into bed. Sitting dynamic balance training: reaching high and low to one side at a time with each hand. M7 PT-IP Assessment and Plan Start: 04/12/19 13:50 Freq: NEEDED Status: Active Protocol: Document 04/14/19 10:46 LRN (Rec: 04/14/19 11:49 LRN [id number]) PT Summary Assessment and Plan Potential Rehabilitation Potential Good Status of Condition at Evaluation Evolving Summary Impairments Balance,Coordination,Cognition ,Transfers,Gait,Activity Tolerance Progress Towards Goals Progressing Toward Goals Assessment Summary Pt needs training with use of walker for independence, stair training, and balance training. Blood pressure was WNL for therapy. Goals Bed Mobility Goal Independent Transfer Goal Independent,Cane,Front Wheeled Walker Gait Goal Independent,Cane,Front Wheel Walker Gait Distance 150 Other Goals ambulation without AD ~ 200 ft SBA up/down 2 steps with 1 rail SBA up/down 12 steps without rails CGA Days to Meet Goals 10 Frequency of Treatment Frequency Of Treatment Once a Day Treatment Plan Physical Therapy Treatment Plan Transfer Training,Gait Training,Balance Retraining, Discharge Planning, Neuromuscular Re-ed, Coordination Retraining Other Recommendations and Next Treatment Improving activity tolerance Focus with independent gait using FWW and safety with stair ambulation. Monitor blood pressure as needed. Recommendations To Nursing Amount of Assist Needed 1 Person Assist Discharge Recommendations PT Discharge Recommendations Home with 24/ Assist,Home Health Other Discharge Recommendations Pt to avoid stair ambulation in the home unless supervised. Pt will need FWW for home use. Equipment Needed for Home Before FWW Discharge
--- NOTE | 2019-04-14 13:51 | PC.NURSE ---
Day Shift- Pt A&OX4, but did not know year. Is forgetful is waiting for assistance to get OOB. Is unsteady and goes to hold onto furniture for assist OOB. Had pt use walker when OOB and does need cues on usage. Left facial bruising from previous fall noted, pt states has intermittent sharp pain to left forehead. Non distressing, otherwise denies pain, discomfort, headache, migraine. Pt's daughter reported that this AM while pt was sleeping, pt was holding her right side of forehead which the daughter states is a sign of a headache. When pt awoke, she denied headache. Around 1245, pt oriented to year stating 2019. Pt visiting with several family members in/out of room throughout shift, at least one family member is with pt at all times. Bed alarm used throughout shift, family asks for staff assist if pt needs OOB or chair ambulation. Enc po fluids, urine yellow to mary.
--- NOTE | 2019-04-14 16:05 | CM.DANOTE ---
Addendum entered by Ana Laura Orellana 04/15/19 11:39: Spoke with Dr. Walls re: d/c plan. Therapy evaluated patient this AM and recommendation continues to be for patient to go home with HH. Received call from Sharif at [facility] and they can accept referral. Asked STATISTICAL MACHINE SERVICER/[place] to fax referral to and provide patient/family with brochure. P: Expect d/c later this afternoon. KJS Original Note: DCP/Continued: Received verbal referral from Dr. Vazquez that patient will most likely be medically stable for discharge home tomorrow 04-15-19. PCP is Dr. Walls and he will be rounding tomorrow. Current recommendation is for patient to d/c home with HH and family support. Met with patient and son Johnny and granddaughter Génesis explained role. Patient alert and oriented participating in planning. Patient agreeable to return home with support and HH. Son provided with agency choices for HH. First choice is [facility]. Dr. Vazquez in agreement to and F2F signed. Will need HH order from Dr. Walls at time of d/c. MANAGER FIELD placed call to [facility] ph# [phone] left requesting call back in AM for potential referral. P: Anticipate home with family support and HH if PCP in agreement. ASHLEY Thomas
--- NOTE | 2019-04-14 17:57 | PC.NURSE ---
Addendum entered by Maryan Fang R.N. 04/14/19 21:32: Pt visiting w/family. Denies any discomfort. Condition remains essentially unchanged. Pt hopeful for D/C in a.m. Call light w/in reach, bed alarm on for pt safety. Continue w/plan of care. Original Note: Pt visiting family. Ambulated in hallway w/ family member w/o incidence. SpO2 96% RA HL RAC intact/patent. Denies any dizziness or H/A. Call light w/in reach, bed alarm on for pt safety.
[2019-04-14 18:29] LABS: Add Manual Diff / Slide Review NO; Basophils Absolute Auto 100 /uL (0-100); Basophils Percent Auto 0.6 % (0-2); Eosinophils Absolute Auto 200 /uL (0-450); Eosinophils Percent Auto 2.3 % (2-4); Hematocrit 44.6 % (36-46); Hemoglobin 14.7 g/dL (12.0-16.0); Lymphocytes Absolute Auto 2600 /uL (1100-4500); Lymphocytes Percent Auto 28.4 % (25-40); Mean Corpuscular HGB Conc 32.9 % (30-36); Mean Corpuscular Hemoglobin 27.8 PG (26-34); Mean Corpuscular Volume 84.4 fL (80-100); Monocytes Absolute Auto 700 /uL (0-900); Monocytes Percent Auto 8.1 % (3-14); Neutrophils Absolute Auto 5500 /uL (1500-7000); Neutrophils Percent Auto 60.6 % (50-75); Platelet Count 199 X10^3/uL (150-400); Red Blood Cell Count 5.29 X10^6/uL (4.0-5.2); Red Cell Distribution Width 13.8 % (11.6-14.8)
[2019-04-14 18:40] LABS: BUN Creatinine Ratio 31.7 (6-22); Blood Urea Nitrogen 19 mg/dL (7-17); Calcium 9.8 mg/dL (8.4-10.2); Carbon Dioxide 28 mmol/L (22-32); Chloride 104 mmol/L (98-107); Estimated Glomerular Filt Rate > 60.0 mL/min (>60); Glucose 122 mg/dL (80-110); HEMOLYSIS < 15 (0-50); Potassium 3.7 mmol/L (3.4-5.1); Sodium 141 mmol/L (137-145)
[2019-04-14] MEDS: SIMVASTATIN 10 MG TABLET PO (20:29)
[2019-04-14] MEDS: methIMAzole 5 MG TABLET PO (20:29)
[2019-04-15 01:00] VITALS: BP 155/90; PULSE 80; RESP 18; TEMP 36.5; O2SAT 98
[2019-04-15 06:00] VITALS: BP 146/86; PULSE 76; RESP 16; TEMP 36.8; O2SAT 95
[2019-04-15 08:00] VITALS: BP 149/73; PULSE 78; RESP 16; TEMP 36.6; O2SAT 95
[2019-04-15 08:30] VITALS: O2SAT 95
[2019-04-15] MEDS: ASPIRIN 325 MG TABLET PO (09:29)
[2019-04-15] MEDS: POTASSIUM CHLORIDE 20 MEQ TAB 40 MEQ PO (09:29)
[2019-04-15] MEDS: LOSARTAN 50 MG TABLET PO (09:30)
[2019-04-15] MEDS: AMLODIPINE 5 MG TABLET 10 MG PO (09:31)
--- NOTE | 2019-04-15 11:11 | PT.IPTN ---
Physical Therapy Treatment Note M2 PT-IP Current Condition Start: 04/12/19 13:50 Freq: NEEDED Status: Active Protocol: Document 04/13/19 10:53 AB (Rec: 04/13/19 15:27 AB [id number]) Physical Therapy Current Condition Current Condition Evaluation Date 04/13/19 Treatment Diagnosis altered mental status; difficulty in walking Onset Date 04/11/19 Precautions Other Precautions falls M3 PT-IP Subjective Start: 04/12/19 13:50 Freq: NEEDED Status: Active Protocol: Document 04/15/19 10:46 CLB (Rec: 04/15/19 11:22 CLB [id number]) Subjective Physical Therapy Visit Type Type Treatment Note Visit Start Time 10:46 Visit Stop Time 11:11 Total Visit Minutes 25 Number of SCALE EXPERT Visits 1 Physical Therapy Visit Comments Patient Comments Pt willing to work with therapy. Patient Goals to go home M4 PT-IP Mobility and Gait Start: 04/12/19 13:50 Freq: NEEDED Status: Active Protocol: Document 04/15/19 10:46 CLB (Rec: 04/15/19 11:22 CLB [id number]) PT-Bed Mobility Assessment Supine to Sit Supine to Sit Independent Sit to Supine Sit to Supine Independent PT-Transfer Assessment Sit to and From Stand Sit to and from Stand Independent,Standby Assistance ,1 Person Assistance,Use of Upper Extremities Equipment Transfer Assistive Device Gait Belt,Front Wheeled Walker Orthotic/Prosthetic Devices or Brace: No Transfers Transfer Destination Bed Transfer Ability Level of Assist Independent,Standby Assistance ,1 Person Assistance,Use of Upper Extremities Gait Assessment Gait Gait Assistance Required: Standby Assistance,1 Person Assist Distance (Feet) 220 Able to Maintain Weight Bearing Status Yes During Gait Assistive Devices Assistive Device Gait Belt,Front Wheeled Walker Orthotic/Prosthetic Devices or Brace: No Gait Deviations General Gait Pattern Antalgic,Decreased Stride Length,Decreased Feet Clearance,Lateral Trunk Lean, Step-to Gait Factors Limiting Gait Function Factors Limiting Gait Function Poor Balance,Poor Safety Awareness Comments Gait Comments Pt required cues to slow pace and not look at her feet during gait. Stair Climbing Assessment Evaluation Level of Assist On Stairs Standby Assistance,Contact Guard Assistance Devices Stair Climbing Assistive Devices Left Railing,Right Railing Technique/Endurance Stair Climbing Direction Ascend and Descend Stair Climbing Technique Step Over Step Number of Steps Climbed 3 Stair Climbing Set # Repetitions (reps) 4 Comments Stair Climbing Comments Pt also demonstrated how she goes down on her bottom and uses four points to climb up steps due to no rails. Pt family will be putting in rail . Pt agreed to have supervision for a while when she goes down stairs to sew. M5 PT-IP Objective Assessments Start: 04/12/19 13:50 Freq: NEEDED Status: Active Protocol: Document 04/13/19 10:53 AB (Rec: 04/13/19 15:27 AB [id number]) Orientation Orientation/Cognition Level of Alertness Alert Orientation Name,Age,Birthday,Place, Situation Language Function Ability No Deficits Noted Safety Awareness Decreased Safety Awareness Memory Description Short Term Impaired,Group Home Impaired Gross Range of Motion Lower Extremity ROM Assessment Within Functional Limits Strength Lower Extremity Strength Assessment Bilaterally Impaired Hip 4-/5 Knee 4-/5 Coordination Assessment Gross Coordination Gross Coordination Impaired M6 PT-IP Treatment Start: 04/12/19 13:50 Freq: NEEDED Status: Active Protocol: Document 04/14/19 10:46 LRN (Rec: 04/14/19 11:49 LRN [id number]) Physical Therapy Treatment Equipment Issued Equipment Type and Company Gait training with cane on the right and with FWW. Stair training for ambulation with railing on 1 side, bilaterally. Other Treatments Other Treatment Performed Blood Pressure after gait 50' with short rest: 138/73. HR 90. Safety with transfers into bed , not crawling into bed. Sitting dynamic balance training: reaching high and low to one side at a time with each hand. M7 PT-IP Assessment and Plan Start: 04/12/19 13:50 Freq: NEEDED Status: Active Protocol: Document 04/15/19 10:46 CLB (Rec: 04/15/19 11:22 CLB [id number]) PT Summary Assessment and Plan Potential Rehabilitation Potential Good Status of Condition at Evaluation Evolving Summary Impairments Balance,Coordination,Cognition ,Transfers,Gait,Activity Tolerance Assessment Summary Pt did well with walker use and was SBA during mobility. Pt needs to slow down while she is ambulating and climbing stairs. Daughter will be able to stay with pt for a month and is willing to take pt to OP PT for balance and strength training. Goals Bed Mobility Goal Independent Transfer Goal Independent,Cane,Front Wheeled Walker Gait Goal Independent,Cane,Front Wheel Walker Gait Distance 150 Other Goals ambulation without AD ~ 200 ft SBA up/down 2 steps with 1 rail SBA up/down 12 steps without rails CGA Days to Meet Goals 10 Frequency of Treatment Frequency Of Treatment Once a Day Treatment Plan Physical Therapy Treatment Plan Transfer Training,Gait Training,Balance Retraining, Discharge Planning, Neuromuscular Re-ed, Coordination Retraining Recommendations To Nursing Amount of Assist Needed 1 Person Assist Discharge Recommendations PT Discharge Recommendations Home with / Assist,Home Health Other Discharge Recommendations Pt to avoid stair ambulation in the home unless supervised. Equipment Needed for Home Before Has walker now per family Discharge
--- NOTE | 2019-04-15 11:29 | OT.IP.TRT ---
Occupational Therapy Treatment Note M2 OT-IP Current Condition Start: 04/12/19 13:33 Freq: Status: Active Protocol: Document 04/13/19 15:44 CGR (Rec: 04/13/19 16:00 CGR [id number]) Occupational Therapy Current Condition Current Condition Evaluation Date 04/13/19 Treatment Diagnosis AMS, toxic encephalopathy Diagnosis Onset Date 04/10/19 M3 OT- IP Subjective and Pain Start: 04/12/19 13:33 Freq: Status: Active Protocol: Document 04/15/19 11:30 CGR (Rec: 04/15/19 11:57 CGR [id number]) OT- Subjective Occupational Therapy Visit Type Type Treatment Note Visit Start Time 11:13 Visit Stop Time 11:29 Total Visit Minutes 16 Notes Family in room at start of session. Requested family to exit for cog assessment. OT Pain Assessment Pain When Pain Assessed At Rest Pain Present Pain Present Denied Pain M4 OT- IP ADL's Start: 04/12/19 13:33 Freq: Status: Active Protocol: Document 04/15/19 11:30 CGR (Rec: 04/15/19 11:57 CGR [id number]) OT [id number] Comments OT Self-Feeding Comments Not meal time OT ADL-Grooming Comments OT Grooming Comments Not performed in this session. OT ADL-Oral Care Comments Oral Care Comments Not performed in this session. OT ADL-Dressing General Eval Lower Body Dressing Ability Independent Areas Needing Assistance Socks Comments OT Dressing Comments Pt donned socks seated in bed OT ADL-Toileting Comments OT Toileting Comments Pt declined need OT ADL-Bathing Comments OT Bathing Comments Not performed in this session. M5 OT- IP IADL's Start: 04/12/19 13:33 Freq: Status: Active Protocol: Document 04/13/19 15:44 CGR (Rec: 04/13/19 16:00 CGR [id number]) OT-Instrumental Activities of Daily Living Deficits IADL Deficits Identified No Deficits Home Safety Awareness Awareness of Need for Assistance at Home Decreased Awareness Ability to Problem Solve Emergency Able to Problem Solve Situations Home Safety Comments Pt does not think she needs as much assist as she does but she has good family support to assist. 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 Suggested to pt and family that pt should not drive till these episodes have stopped. Pt and family agreed. M6 OT- IP Functional Cognition Start: 04/12/19 13:33 Freq: Status: Active Protocol: Document 04/15/19 11:30 CGR (Rec: 04/15/19 11:57 CGR [id number]) Cognitive Factors Limiting Selfcare Function Cognitive Ability Level of Alertness Alert Patient Orientation Name,Age,Birthday,Month,Date, Year,Day of Week,Place, Situation Attention Span Ability Capable of Focused Attention, Capable of Sustained Attention Ability to Follow Commands Able to Follow One Step Commands Memory Description Working Impaired Safety Awareness Underestimates Need for Assistance Cognitive Tests SLUMS Pt participated in SLUMS in quiet room after family had left. Pt scored a 21/30. Noted deficits to the simple math question, able to name 13 animals, delayed recall 4/5 but pt had difficulty with immediate recall of the items, difficulty reciting numbers backwards, reading comprehension. Cognitive Comments Cognitive Assessment Comments Pt appears to have the most difficulty with working memory . OT- Vision and Hearing OT- Hearing Assessment OT- Hearing Assessment Hearing Impaired,Use of Hearing Aids OT- Vision Assessment Visual Acuity WFL,Glasses For Reading Visual Attentiveness WFL Occular Pursuits WFL Visual Convergence WFL Visual [place] WFL M7 OT- IP Mobility and Balance Start: 04/12/19 13:33 Freq: Status: Active Protocol: Document 04/15/19 11:30 CGR (Rec: 04/15/19 11:57 CGR [id number]) OT- Bed Mobility Assessment Supine to Sit Supine to Sit Assist Independent Scooting Scooting to Edge of Bed Independent OT-Transfer Assessment Sit to and From Stand Sit to and from Stand Standby Assistance Transfers Transfer Ability Standby Assistance Technique Transfer Destination Bed,Chair Transfer Technique Stand Step Pivot Devices Transfer Assistive Devices Gait Belt,Front Wheeled Walker Comments Mobility Comments Pt ambualted from bed to chair for testing. SBA with 2ww. OT- Balance Assessment Sitting Balance and Reactions Static Sitting Balance Ability Good Dynamic Sitting Balance Ability Fair Standing Balance and Reactions Static Standing Balance Ability Good Dynamic Standing Balance Ability Fair M8 OT- IP Objective Assessments Start: 04/12/19 13:33 Freq: Status: Active Protocol: Document 04/13/19 15:44 CGR (Rec: 04/13/19 16:00 CGR [id number]) OT Gross Range of Motion Upper Extremity Range of Motion Assessment Within Functional Limits OT Strength Upper Extremity Strength Assessment Within Functional Limits Comments Strength Comments 4+/5 throughout OT- Coordination Assessment Upper Extremity Finger to Nose Test Within Functional Limits Finger Tapping Test Within Functional Limits OT-Muscle Tone Assessment Muscle Tone WNL Yes OT Sensation Assessment Comments Summary Comments No sensation deficits per pt. Edema Edema Absent M9 OT- IP Assessment and Plan Start: 04/12/19 13:33 Freq: Status: Active Protocol: Document 04/15/19 11:30 CGR (Rec: 04/15/19 11:57 CGR [id number]) OT Summary Assessment and Plan Potential Rehabilitation Potential Good Analytic Complexity at Evaluation Low Summary OT Impairments Functional Cognition, Functional Mobility,Bathing, Shower Transfers Progress Towards Goals Progressing Toward Goals Assessment Summary Pt presents as a low complexity evaluation displaying a very functional 83 yo woman, however, pts abilities appear to be changing throughout the day. Per p.t., pt would benefit from a cognitive assessment. Will keep pt on OT schedule for formal cog assessment and review of her ADLs. At this time the recommendation is to discharge home with good family support. Goals Bathing Goal Independent Shower Transfer Goal Independent OT-Other Goals complete formal cog assessment . Days to Meet Goals 1 Frequency of Treatment Frequency Of Treatment Once a Day Treatment Plan OT Treatment Plan ADL Training,Functional Cognition Training,Functional Mobility,Patient/Family Education,Discharge Planning Other Treatment Recommendations and Next shower. Treatment Focus Discharge Recommendations OT Discharge Recommendations Home with Assistance Home Equipment Needs 2ww
--- NOTE | 2019-04-15 12:49 | P.DS_ITS ---
History of Present Illness History of Present Illness Chief complaint: confused since last night Discharge Providers Provider Date of admission: 04/11/19 14:07 Discharge Date: 04/15/19 Primary care physician: Emmanuel Walls MD Consults: 04/12/19 09:19 Consult to Physical Therapy Evaluate & Treat Comment: Physician Instructions: Evaluate and Treat 04/12/19 09:20 Consult to Occupational Therapy Evaluate & Treat Comment: Physician Instructions: Evaluate and treat 04/15/19 09:55 Consult to Physical Therapy Evaluate & Treat Comment: Physician Instructions: Evaluate and Treat Discharge provider: Emmanuel Walls MD Summary Hospital Course Discharge Diagnosis: Delirium possibly metabolic encephalopathy. Less likely cerebrovascular or toxic due to a thyroid condition. Migraine headaches Hypertension Hyperthyroidism the hypokalemia Hospital Course: Patient was admitted to the hospital after left hand weakness. She had an MRI CT scan echocardiogram done. Patient was discharged home and 8 hours later came back in with altered level consciousness which resolved over the next 12 hours. These happened a couple of episodes in the hospital as well. She did not have the decreased level of cognition. There are times where she was not speaking clearly. A little bit dazed. They were associated with headaches. She had a complete evaluation with a CT angiogram repeat CT scan and MRI. 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 During her hospital stay she monitoring of her heart. She had work with physical therapy and occupational therapy. If closely at her bedside. Her blood pressure was monitored and blood pressure medication was started. Her hyperthyroidism was treated with methimazole. The on the day of discharge. Patient was mentating well talking well family was at bedside and discussed about discharging patient home to follow up as an outpatient with me as well as Neurology. Medications will reviewed be reviewed with the patient and patient's family. Exam Vital Signs (past 8 hours): - 04/15/19 06:00 04/15/19 08:00 04/15/19 08:30 Temperature 98.3 F 97.8 F Pulse Rate 76 78 Respiratory Rate 16 16 Blood Pressure 146/86 H 149/73 H Pulse Oximetry 95 95 95 Oxygen Delivery Method Room Air Oxygen Flow Rate 0 Narrative Exam Narrative: Gen.: Alert oriented to person place and time HEENT: Pupils equal round and reactive or mucosa is moist Cardio: Regular rate and rhythm Respiratory: Lungs are clear to auscultation no wheezes or crackles normal respiratory effort. Abdomen: Soft nontender no rebound or guarding no liver spleen enlargement no appreciable hernias Extremities: Full range of motion no appreciable weakness no cyanosis or edema. Neurologic: Grossly intact. Objective Labs Result Diagrams: 04/14/19 18:21 04/14/19 18:21 Labs: Laboratory Results - last 24 hr 04/14/19 04/14/19 18:21 18:21 WBC 9.0 RBC 5.29 H Hgb 14.7 Hct 44.6 MCV 84.4 MCH 27.8 MCHC 32.9 RDW 13.8 Plt Count 199 Neut % (Auto) 60.6 Lymph % (Auto) 28.4 Ralls % (Auto) 8.1 Eos % (Auto) 2.3 Baso % (Auto) 0.6 Neut # (Auto) 5500 Lymph # (Auto) 2600 Ralls # (Auto) 700 Eos # (Auto) 200 Baso # (Auto) 100 Sodium 141 Potassium 3.7 Chloride 104 Carbon Dioxide 28 BUN 19 H Creatinine 0.60 Estimated GFR > 60.0 BUN/Creatinine Ratio 31.7 H Glucose 122 H Calcium 9.8 Discharge Plan Discharge Plan Patient Disposition: Home Discharge comment: Follow-up Dr. Walls in 1 week with home health home physical therapy and occupational therapy. Discharge Med Rec/Prescriptions Prescriptions: New indomethacin 50 mg capsule 50 mg PO BID PRN (Reason: headache) Qty: 20 RF: 0 Continued amlodipine [Norvasc] 5 mg tablet 5 mg PO DAILY Qty: 90 RF: 3 simvastatin 10 mg tablet 10 mg PO BEDTIME Qty: 30 RF: 3 aspirin 325 mg tablet 325 mg PO DAILY Qty: 30 RF: 3 losartan [Cozaar] 50 mg tablet 50 mg PO DAILY RF: 0 methimazole 5 mg tablet 5 mg PO BEDTIME RF: 0 Disabled Parking Permit 1 ea miscellaneous DIRECTED RF: 0 Discontinued hydrochlorothiazide 25 mg tablet 25 mg PO DAILY RF: 0 Follow up/Referrals: Emmanuel Walls MD [Primary Care Provider] - Visit Report/Discharge Packet Instructions: Migraine Headaches (Alternative Therapy), Tension Headache, Migraine -- Adult, Cluster Headache, DI for Migraine, DI for Headache, Ketorolac Injection Visit Report Forms: Patient Portal/API, Stroke Signs & Symptoms Discharge Data Primary Care Provider: Emmanuel Walls Quality VTE Deep Vein Thrombosis/Pulmonary Embolism Present on Admission: No
--- NOTE | 2019-04-15 14:07 | PC.NURSE ---
Day shift: Pt left unit via WC with her family taken by student RN. Paperwork signed. Home help set up per Ana Laura. All questions answered. MD script faxed to pharmacy by . Pt has all personal belongings. Pt has great support system from friends and family. F/U set up by LAZARUS and writen on d/c paperwork.
== END 2019-04-15 14:09 | disposition home health service (06) | DRG 71 ==
LOC: ED 04-10 02:09 → AC 04-10 07:22
PROVIDERS: Emergency Medicine; Family Medicine; Admitting Provider Family Medicine; Emergency Provider Emergency Medicine; PCP Family Medicine; Visit Provider Family Medicine
DX: G93.41 Metabolic encephalopathy (principal); G45.9 Transient cerebral ischemic attack, unspecified; G43.909 Migraine, unspecified, not intractable, without status migrainosus; E86.0 Dehydration; I10 Essential (primary) hypertension; W18.12XA Fall from or off toilet with subsequent striking against object, initial encounter; Y92.231 Patient bathroom in hospital as the place of occurrence of the external cause; E05.90 Thyrotoxicosis, unspecified without thyrotoxic crisis or storm; E78.5 Hyperlipidemia, unspecified; S00.83XA Contusion of other part of head, initial encounter; S60.212A Contusion of left wrist, initial encounter; E87.6 Hypokalemia
CPT/HCPCS: 36415; 70450; 70496; 70498; 70548; 70551; 70553; 72125; 76705; 80048; 80053; 80305; 80320; 81001; 81003; 81015; 83605; 84436; 84439; 84443; 84481; 84484; 85025; 85610; 85730; 87040; 87086; 93005; 93306; 94760; 96360; 96372; 96374; 96376; 97116; 97127; 97161; 97165; 97535; 99220; 99225; 99233; 99238; 99283; 99284; 99285; G0378; A9579; J0696; J1630; J1650; J1885; Q9967

== ENCOUNTER → 2019-06-11 13:51 | Outpatient (CLI) | payer MEDICARE, SELFPAY ==
[2019-04-11 14:11] VITALS: BMI 24.5
[2019-06-11 15:43] LABS: TSH w/ Reflex to FT4 < 0.02 uIU/mL (0.47-4.68)
== END ==
PROVIDERS: PCP Family Medicine; Visit Provider Family Medicine
DX: E05.90 Thyrotoxicosis, unspecified without thyrotoxic crisis or storm (principal)
CPT/HCPCS: 36415; 84439; 84443

== ENCOUNTER → 2019-08-08 11:05 | Outpatient (CLI) | payer MEDICARE, SELFPAY ==
[2019-04-11 14:11] VITALS: BMI 24.5
[2019-08-08 12:49] LABS: Free T4, Direct Thyroxine 0.52 ng/dL (0.78-2.19)
[2019-08-08 13:03] LABS: Thyroid Stimulating Hormone 7.44 uIU/mL (0.47-4.68)
== END ==
PROVIDERS: PCP Family Medicine; Referring Provider Family Medicine; Visit Provider Family Medicine
DX: E05.90 Thyrotoxicosis, unspecified without thyrotoxic crisis or storm (principal)
CPT/HCPCS: 36415; 84439; 84443

== ENCOUNTER → 2020-01-10 10:02 | Outpatient (CLI) | payer MEDICARE, SELFPAY ==
[2019-04-11 14:11] VITALS: BMI 24.5
--- NOTE | 2020-01-10 | DI.US.S_ITS ---
PROCEDURE: US THYROID INDICATIONS: HYPERTHYROIDISM TECHNIQUE: Real-time scanning was performed of the thyroid gland, with image documentation. COMPARISON: [facility], US, US THYROID, 03/18/2019, 14:04. FINDINGS: Right: Thyroid lobe measures 4.1 x 1.7 x 1.9 cm, and is homogeneous in echotexture. Left: Thyroid lobe measures 3.1 x 1.1 x 1.0 cm, and is homogenous in echotexture. Isthmus: 2.0 mm thick. Nodule number: 1 Location: Isthmus Size: Unchanged at 0.6 x 0.5 x 0.7 cm. Composition: Solid Echogenicity: Hyperechoic Shape: wider than tall. Margins: Irregular Echogenic foci: Peripheral calcification Total points: 6 ACR TI-RADS category: Moderately suspicious Nodule number: 2 Location: Right mid Size: 0.9 x 0.6 x 0.9 cm. Composition: Solid Echogenicity: Isoechoic Shape: wider than tall. Margins: Smooth Echogenic foci: None Total points: 3 ACR TI-RADS category: Mildly suspicious Nodule number: 3 Location: Right mid inferior Size: Unchanged at 0.6 x 0.5 x 0.5 cm. Composition: Solid Echogenicity: Isoechoic Shape: wider than tall. Margins: Smooth Echogenic foci: Peripheral calcification Total points: 5 ACR TI-RADS category: Moderately suspicious IMPRESSION: Stable appearance of isthmus and right thyroid nodules. Recommend continued followup ultrasound as detailed below. ACR TI-RADS definitions and recommendations: TI-RADS 1 (benign): 0 points. FNA not needed. TI-RADS 2 (not suspicious): 2 points. FNA not needed. TI-RADS 3 (mildly suspicious): 3 points. * FNA if 2.5 cm or larger, follow up if 1.5 cm or larger (at 1, 3, and 5 years). TI-RADS 4 (moderately suspicious): 4-6 points. * FNA if 1.5 cm or larger, follow up if 1 cm or larger (at 1, 2, 3, and 5 years). TI-RADS 5 (highly suspicious): 7 points or more. * FNA if 1 cm or larger, follow up if 0.5 cm or larger (every year for 5 years). Dictated by: Gustavo BRASHER Interpreted: Jennifer Anand MD on 01/10/2020 at 12:36 Approved by: Jennifer Anand M.D. on 01/10/2020 at 15:16
== END ==
PROVIDERS: PCP Family Medicine; Referring Provider Family Medicine; Visit Provider Family Medicine
DX: E05.90 Thyrotoxicosis, unspecified without thyrotoxic crisis or storm (principal); E04.2 Nontoxic multinodular goiter
CPT/HCPCS: 76536

== ENCOUNTER → 2020-05-15 09:49 | Outpatient (CLI) | payer MEDICARE, SELFPAY ==
[2019-04-11 14:11] VITALS: BMI 24.5
[2020-05-15 11:22] LABS: Free T4, Direct Thyroxine 1.34 ng/dL (0.78-2.19)
[2020-05-15 11:36] LABS: Thyroid Stimulating Hormone < 0.015 uIU/mL (0.47-4.68)
== END ==
PROVIDERS: PCP Family Medicine; Referring Provider Family Medicine; Visit Provider Family Medicine
DX: E05.90 Thyrotoxicosis, unspecified without thyrotoxic crisis or storm (principal); R89.9 Unspecified abnormal finding in specimens from other organs, systems and tissues
CPT/HCPCS: 36415; 84439; 84443

== ENCOUNTER → 2020-11-04 09:08 | Outpatient (CLI) | payer MEDICARE, SELFPAY ==
[2019-04-11 14:11] VITALS: BMI 24.5
[2020-11-04 10:51] LABS: Free T4, Direct Thyroxine 1.35 ng/dL (0.78-2.19)
[2020-11-04 11:33] LABS: Thyroid Stimulating Hormone < 0.015 uIU/mL (0.47-4.68)
== END ==
PROVIDERS: PCP Family Medicine; Referring Provider Family Medicine; Visit Provider Family Medicine
DX: E05.90 Thyrotoxicosis, unspecified without thyrotoxic crisis or storm (principal)
CPT/HCPCS: 36415; 84439; 84443

== ENCOUNTER → 2021-12-02 12:22 | Outpatient (CLI) | payer MEDICARE, SELFPAY ==
[2021-09-20 11:48] VITALS: BMI 24.5
[2021-12-02 14:14] LABS: Free T3, Triiodothyronine Free 2.44 pg/mL (2.77-5.27); Free T4, Direct Thyroxine 0.92 ng/dL (0.78-2.19)
[2021-12-02 14:28] LABS: Thyroid Stimulating Hormone 2.45 uIU/mL (0.47-4.68)
[2021-12-03 18:37] LABS: Anti Thyroglobulin Antibody <1.0 IU/mL (0.0-0.9); Thyroid Peroxidase Antibodies 20 IU/mL (0-34)
== END ==
PROVIDERS: PCP Family Medicine; Referring Provider Family Medicine; Visit Provider Family Medicine
DX: E05.90 Thyrotoxicosis, unspecified without thyrotoxic crisis or storm (principal)
CPT/HCPCS: 36415; 84439; 84443; 84481; 86376; 86800

== ENCOUNTER → 2021-12-06 10:20 | Outpatient (CLI) | payer MEDICARE, SELFPAY ==
[2021-09-20 11:48] VITALS: BMI 24.5
--- NOTE | 2021-12-06 | DI.ECHO.S_ITS ---
[facility]---------+ [facility] +---------+ : : [address] [place] : : : : [phone] : : : : Phone: [phone] Echocardiogram Report + + :Name: SUZANNE GAUTHIER Study Date: 12/06/2021 Height: 59 in : :[facility] ReadingLocation: Weight: 134 lb : : Gender: Female BSA: 1.6 m2 : :: 1935 Age: 86 yrs BP: 143/82 mmHg: :Reason For Study: HYPERTENSION : :Ordering Physician: ROYER, : :JOSE ALBERTO Performed By: Cyndy Gasca : :Referring: JOSE ALBERTO MANDUJANO : + + Interpretation Summary 1) Normal left ventricular size, and systolic function (EF 60-65%). 2) Normal right ventricular size and function. 3) No significant valvular abnormalities. 4) Compared to the Echo done 04/10/2019, no significant change. Procedure: A two-dimensional transthoracic echocardiogram with color flow and Doppler was performed. The study quality was technically adequate. Comparison is made with the echocardiogram of 04/10/2019. The patient was in sinus rhythm with heart rates between 68-79 bpm during the exam. Left Ventricle: The left ventricle is normal in size. Left ventricular wall thickness is at the upper limits of normal. The ejection fraction is estimated to be 60-65%. Left ventricular systolic function is normal. septal bounce present. Right Ventricle: The right ventricle is normal in size and function. Atria: The left atrium is mildly dilated. Right atrial size is normal. There is no Doppler evidence for an interatrial shunt. Mitral Valve: The mitral valve is normal in structure and function. There is mild mitral regurgitation. Aortic Valve: The aortic valve is trileaflet. The aortic valve opens well. There is no aortic valve stenosis. There is mild aortic regurgitation. Tricuspid Valve: The tricuspid valve is normal in structure and function. There is mild tricuspid regurgitation. The right ventricular systolic pressure is estimated to be at least 31 mmHg based on an estimated right atrial pressure of 3 mm Hg. Pulmonic Valve: The pulmonic valve leaflets are thin and pliable; valve motion is normal. There is trace pulmonic regurgitation. Great Vessels: The aortic root is normal size. The dimensions of the ascending aorta are normal. The IVC is of normal diameter and collapses greater than 50% with a sniff. This suggests a low right atrial pressure of 3 mm Hg. Pericardium/ Pleura There is no pericardial effusion. There is no pleural effusion. MMode/2D Measurements & Calculations LVIDd: 4.1 cm LVOT diam: 1.9 cm LVIDs: 2.8 cm Ao root diam: 3.2 cm FS: 33.4 % asc Aorta Diam: 3.4 cm IVSd: 1.3 cm Ao Arch Diam (Prox Trans): 2.0 cm LVPWd: 0.98 cm LV curtis. diameter/BSA (cm/m^2): 2.7 LV sys. diameter/BSA (cm/m^2): 1.8 LA A2 area: 18.8 cm2 RA long axis: 5.6 cm LA A4 area: 16.4 cm2 RA area: 17.0 cm2 LA length (vol): 5.1 cm RA vol: 43.8 ml LA vol: 51.6 ml RA : 28.2 ml/m2 LA vol index: 33.2 ml/m2 IVC diam: 2.6 cm RVD1 (basal): 3.6 cm RVD2 (mid): 3.1 cm TAPSE: 2.2 cm Doppler Measurements & Calculations Ao V2 max: 113.2 cm/sec LVOT Max Armando: 81.4 cm/sec Ao V2 mean: 80.9 cm/sec LV V1 max P.7 mmHg Ao max P.1 mmHg LV V1 VTI: 17.1 cm Ao mean P.9 mmHg SONU(I,D): 2.2 cm2 Ao V2 VTI: 22.8 cm SONU(V,D): 2.1 cm2 sev ratio: 0.75 SONU indexed to BSA (cm^2/m^2): 1.4 MV E max armando: 41.9 cm/sec TR max armando: 262.5 cm/sec MV A max armando: 70.2 cm/sec TR max P.6 mmHg MV E/A: 0.60 PA V2 max: 99.3 cm/sec Med Peak E' Armando: 9.4 cm/sec PA V2 mean: 66.6 cm/sec E/E' med: 4.5 PA mean P.0 mmHg Lat Peak E' Armando: 7.9 cm/sec PA pr(Accel): 43.0 mmHg E/E' lat: 5.3 E/e' average: 4.9 MV dec time: 0.30 sec SVLVOT): 49.1 ml Reading Physician:12:44 PM
== END ==
PROVIDERS: PCP Family Medicine; Referring Provider Internal Medicine Cardiovascular Disease; Visit Provider Internal Medicine Cardiovascular Disease
DX: I10 Essential (primary) hypertension (principal); I08.3 Combined rheumatic disorders of mitral, aortic and tricuspid valves
CPT/HCPCS: 93306

== ENCOUNTER 2022-10-03 20:38 | Emergency (ER) | payer MEDICARE, SELFPAY ==
[2021-09-20 11:48] VITALS: BMI 24.5
[2022-10-03 20:53] VITALS: BP 182/85; PULSE 95; RESP 16; TEMP 37.1; O2SAT 97; BMI 27.4
--- NOTE | 2022-10-03 20:58 | DI.RAD.S_ITS ---
PROCEDURE: XR FOOT RT MIN 3V INDICATIONS: felt pop in heal and now can hardly bare weight TECHNIQUE: 3 views of the foot were acquired. COMPARISON: None. FINDINGS: Bones: No hardware fracture. Prior calcaneal plate and screw fixation. No acute fractures or dislocations. No suspicious bony lesions. Soft tissues: No tibiotalar joint effusion. Achilles tendon appears normal. IMPRESSION: No acute osseous abnormality. No hardware fracture demonstrated. Dictated by: Kalen Hopkins M.D. on 10/03/2022 at 22:21 Approved by: Kalen Hopkins M.D. on 10/03/2022 at 22:22
--- NOTE | 2022-10-03 22:46 | ED.LOWEXIN ---
HPI - Extremity Injury (Lower) General Chief Complaint: Extremity Injury, Lower Stated Complaint: Rt. foot/heel pain surgery 2000 Time Seen by Provider: 10/03/22 21:41 Source: patient Mode of arrival: Wheelchair History of Present Illness HPI Narrative: Patient is an 86-year-old female who is here for evaluation of a right foot/heel pain. She states that it hurt when she was trying to sit down. States she normally puts her feet up on the chair and then sits on her feet and when she did so earlier this evening she had pain in her right heel on the bottom of her foot. She is had surgery in this area in the past and was concerned about the hardware. She states she normally walks around barefoot. She is wearing sandals. She states that the sandals do help her symptoms somewhat. Related Data Home Medications Medication Instructions Recorded Confirmed amlodipine 10 mg tablet 10 mg PO DAILY 10/14/21 06/24/22 losartan 100 mg tablet 100 mg PO DAILY 10/14/21 06/24/22 simvastatin 20 mg tablet 20 mg PO BEDTIME 10/14/21 06/24/22 cholecalciferol (vitamin D3) 1,250 1,250 mcg PO QWEEK 12/02/21 06/24/22 mcg (50,000 unit) capsule Previous Rx's Medication Instructions Recorded alendronate 70 mg tablet 70 mg PO QWEEK #12 tabs 12/02/21 methimazole 5 mg tablet 5 mg PO DAILY #90 tabs 04/27/22 indomethacin 50 mg capsule See Rx Instructions .Route 05/05/22 .COMPLEX #20 caps Disabled Parking Permit #1 ea 06/24/22 Allergies Allergy/AdvReac Type Severity Reaction Status Date / Time No Known Drug Allergies Allergy Verified 06/24/22 13:26 Review of Systems Constitutional Constitutional: Reports system reviewed and no additional complaints, except as documented Musculoskeletal Musculoskeletal: Reports system reviewed and no additional complaints, except as documented Integumentary/Breasts Skin/Breast: Reports system reviewed and no additional complaints, except as documented Neurologic Neurologic: Reports system reviewed and no additional complaints, except as documented Patient History Medical History Altered mental status Cataracts, bilateral Chicken pox Chronic back pain Foot pain Fractures Functional fecal incontinence Headache Hearing loss (~2015) Hearing loss History of allergy Hyperlipidemia Hypertension Irregular menstrual cycle Measles Mumps Osteoporosis Ovarian cyst (~1950) Plantar warts (~1949) Rubella Tinnitus Vision disorder Surgical History Anesthesia History of cataract removal with insertion of prosthetic lens (~2009) History of foot surgery (~2000) Status post appendectomy (~1949) Status post tubal ligation Family History Brother Age: 83 Cancer Brother Age: 79 Diabetes mellitus Father Diabetes mellitus Grandmother Diabetes mellitus Grandmother Cancer Mother Cancer Social History marital status: household members: significant other Smoking Status: Never smoker alcohol intake: never substance use type: does not use Smoking Status: Never smoker Substance Use Type: does not use Exam Initial Vital Signs Initial Vital Signs: Vital Signs Temperature 98.7 F 10/03/22 20:53 Pulse Rate 95 H 10/03/22 20:53 Respiratory Rate 16 10/03/22 20:53 Blood Pressure 182/85 H 10/03/22 20:53 Pulse Oximetry 97 10/03/22 20:53 Oxygen Delivery Method Room Air 10/03/22 20:53 Const General: cooperative, comfortable and No ill appearing Skin General: no rashes or lesions noted Neuro General: patient alert and patient awake Sensory Exam: no sensory deficits noted Extrem Other: Patient with discomfort at the insertion of the Achilles on the calcaneus. She also has discomfort the base of the foot along the plantar fascia at the calcaneus as well. She is able to flex and extend the ankle. Her Achilles is intact. She is no tenderness along the mediolateral malleolus nor on the midfoot or forefoot. Course Orders Ordered: ED Orders 10/03/22 20:58 XR foot RT min 3V Stat Vital Signs Vital signs: Vital Signs - 8 hr 10/03/22 22:56 Pulse Rate 82 Blood Pressure 197/81 H Pulse Oximetry 96 Oxygen Delivery Method Room Air MDM - Extremity Injury (Lower) Imaging Data Extremity x-ray #1: Radiologist's Impression: PROCEDURE:? XR FOOT RT MIN 3V ? INDICATIONS:? felt pop in heal and now can hardly bare weight ? TECHNIQUE:? 3 views of the foot were acquired.? ? COMPARISON:? None. ? FINDINGS:? ? Bones:? No hardware fracture.? Prior calcaneal plate and screw fixation.? No acute fractures or dislocations.? No suspicious bony lesions.? ? Soft tissues:? No tibiotalar joint effusion.? Achilles tendon appears normal.? ? ? IMPRESSION:? No acute osseous abnormality.? No hardware fracture demonstrated MDM Narrative Medical decision making narrative: The x-ray does not show any signs of fractures nor displacement of the hardware. I have low suspicion for an Achilles injury. I suspect that she just pulled the area at the insertion site here. No indication for orthopedic consultation. She is ambulatory. Conservative measures at home. She was given return precautions. She expressed understanding and agreement. Discharge Plan Departure Patient Disposition: Home Clinical Impression: Acute pain of right foot Instructions: How To Perform RICE (Rest, Ice, Compress, Elevate) Activity Restrictions/Additional Instructions: I do recommend that tomorrow morning before you get out of bed you do some stretching of your right ankle and calf muscle. Wear your sandal if this does make your symptoms better. It can also put ice over the area. Return to the emergency department for new symptoms. Prescriptions: No Action methimazole 5 mg tablet 5 mg PO DAILY Qty: 90 0RF indomethacin 50 mg capsule See Rx Instructions .ROUTE .COMPLEX Qty: 20 0RF Dose Instruction: TAKE ONE CAPSULE BY MOUTH TWICE DAILY NEEDED FOR HEADACHE; TAKE WITH FOOD OR MILK Rx Instructions: TAKE ONE CAPSULE BY MOUTH TWICE DAILY NEEDED FOR HEADACHE; TAKE WITH FOOD OR MILK losartan 100 mg tablet 100 mg PO DAILY simvastatin 20 mg tablet 20 mg PO BEDTIME amlodipine 10 mg tablet 10 mg PO DAILY cholecalciferol (vitamin D3) 1,250 mcg (50,000 unit) capsule 1,250 mcg PO QWEEK alendronate 70 mg tablet 70 mg PO QWEEK Qty: 12 3RF (DME) Disabled Parking Permit See Rx Instructions .Route .MEDSUPPLY Qty: 1 0RF Rx Instructions: I find this patient to be medically disabled and qualified for Disabled Parking as indicated, and signed, on the Accompanying Disabled Parking Application for Individuals. Referrals: Anuj Cochran DO [Primary Care Provider] - Stand Alone Forms: Patient Portal/API
[2022-10-03 22:56] VITALS: BP 197/81; PULSE 82; O2SAT 96
== END 2022-10-03 22:58 | disposition home or self-care (01) ==
PROVIDERS: Emergency Provider Emergency Medicine; PCP Family Medicine
DX: M79.671 Pain in right foot (principal)
CPT/HCPCS: 73630; 99283

== ENCOUNTER → 2023-07-11 12:04 | Outpatient (CLI) | payer MEDICARE, SELFPAY ==
[2021-09-20 11:48] VITALS: BMI 24.5
--- NOTE | 2023-07-11 12:05 | DI.RAD.S_ITS ---
PROCEDURE: XR CHEST 2V INDICATIONS: Cough x 4 weeks TECHNIQUE: 2 views of the chest were acquired. COMPARISON: None. FINDINGS: Surgical changes and devices: None. Lungs and pleura: Horizontal linear opacities in the lingula. Lungs are otherwise clear. No pleural effusions or pneumothorax. Mediastinum: Mediastinal contours are normal. Heart size is normal. Bones and chest wall: No suspicious bony abnormalities. Soft tissues appear unremarkable. IMPRESSION: No acute cardiopulmonary abnormality is seen. Scar formation at the lingula. Dictated by: Jennifer Anand M.D. on 07/11/2023 at 13:39 Approved by: Jennifer Anand M.D. on 07/11/2023 at 13:40
== END ==
PROVIDERS: PCP Family Medicine; Referring Provider Physician Assistant; Visit Provider Physician Assistant
DX: R05.9 Cough, unspecified (principal)
CPT/HCPCS: 71046

== ENCOUNTER → 2023-07-26 10:26 | Outpatient (CLI) | payer MEDICARE, SELFPAY ==
[2021-09-20 11:48] VITALS: BMI 24.5
[2023-07-26 11:26] LABS: Alanine Aminotransferase 19 IU/L (<35); Albumin 3.8 g/dL (3.5-5.0); Albumin Globulin Ratio 1.2 (1.0-2.8); Alkaline Phosphatase 50 U/L (38-126); Aspartate Aminotransferase 26 IU/L (14-36); BUN Creatinine Ratio 17.2 (6-22); Bilirubin Total 1.5 mg/dL (0.2-1.3); Blood Urea Nitrogen 15 mg/dL (7-17); Carbon Dioxide 28 mmol/L (22-32); Chloride 104 mmol/L (98-107); Estimated Glomerular Filt Rate > 60 mL/min (>60); Globulin 3.3 g/dL (1.7-4.1); Glucose 140 mg/dL (80-110); HEMOLYSIS < 15 (0-50); Potassium 4.3 mmol/L (3.4-5.1); Sodium 140 mmol/L (137-145); Total Protein 7.1 g/dL (6.3-8.2)
== END ==
PROVIDERS: PCP Family Medicine; Referring Provider Nurse Practitioner; Visit Provider Nurse Practitioner
DX: E87.6 Hypokalemia (principal)
CPT/HCPCS: 36415; 80053; 83735

== ENCOUNTER → 2025-03-13 09:24 | Outpatient (CLI) | payer MEDICARE, SELFPAY ==
[2021-09-20 11:48] VITALS: BMI 24.5
[2025-03-13 10:17] LABS: Add Manual Diff / Slide Review NO; Hematocrit 42.2 % (36-46); Hemoglobin 14.1 g/dL (12.0-16.0); Lymphocytes Absolute Auto 1800 /uL (1100-4500); Mean Corpuscular HGB Conc 33.4 % (30-36); Mean Corpuscular Hemoglobin 29.4 PG (26-34); Mean Corpuscular Volume 87.9 fL (80-100); Platelet Count 226 X10^3/uL (150-400)
[2025-03-13 10:41] LABS: Alanine Aminotransferase 14 IU/L (<35); Albumin 4.2 g/dL (3.5-5.0); Albumin Globulin Ratio 1.4 (1.0-2.8); Alkaline Phosphatase 58 U/L (38-126); Blood Urea Nitrogen 21 mg/dL (7-17); Calcium 9.4 mg/dL (8.4-10.2); Carbon Dioxide 26 mmol/L (22-32); Chloride 106 mmol/L (98-107); Cholesterol 216 mg/dL (140-199); Estimated Glomerular Filt Rate 53 mL/min (>60); Globulin 3.1 g/dL (1.7-4.1); Glucose 103 mg/dL (70-99); HDL Cholesterol 91 mg/dL (40-60); HEMOLYSIS < 15 (0-50); Potassium 4.3 mmol/L (3.4-5.1); Sodium 141 mmol/L (137-145); Total Protein 7.3 g/dL (6.3-8.2); Triglycerides 78 mg/dL (35-150)
[2025-03-13 11:08] LABS: TSH w/ Reflex to FT4 1.09 uIU/mL (0.47-4.68)
== END ==
PROVIDERS: PCP Family Medicine; Referring Provider Family Medicine; Visit Provider Family Medicine
DX: I10 Essential (primary) hypertension (principal); E78.5 Hyperlipidemia, unspecified; E05.90 Thyrotoxicosis, unspecified without thyrotoxic crisis or storm
CPT/HCPCS: 36415; 80053; 80061; 84443; 85025

== ENCOUNTER → 2025-04-22 14:10 | Outpatient (CLI) | payer MEDICARE, SELFPAY ==
[2021-09-20 11:48] VITALS: BMI 24.5
== END ==
PROVIDERS: PCP Family Medicine; Visit Provider Family Medicine
DX: R39.9 Unspecified symptoms and signs involving the genitourinary system (principal)
CPT/HCPCS: 87077; 87086

== ENCOUNTER → 2025-05-17 16:29 | Outpatient (CLI) | payer MEDICARE, SELFPAY ==
[2021-09-20 11:48] VITALS: BMI 24.5
== END ==
PROVIDERS: PCP Family Medicine; Visit Provider Nurse Practitioner Family
DX: R30.0 Dysuria (principal)
CPT/HCPCS: 87086

== ENCOUNTER 2025-05-18 13:57 | Observation (INO) | payer MEDICARE, SELFPAY ==
[2021-09-20 11:48] VITALS: BMI 24.5
[2025-05-18] VITALS (20 sets, daily range): BP systolic 153–243; BP diastolic 83–111; PULSE 58–93; RESP 15–35; TEMP 36.4–37.1; O2SAT 95–97; BMI 26.4
--- NOTE | 2025-05-18 14:09 | DI.CT.S_ITS ---
PROCEDURE: CT HEAD/BRAIN WO CON INDICATIONS: altered mental status TECHNIQUE: Noncontrast 4.5 mm thick angled axial sections acquired from the foramen magnum to the vertex, with coronal and sagittal reformats. For radiation dose reduction, the following was used: automated exposure control, adjustment of mA and/or kV according to patient size. COMPARISON: [facility], CT, CT HEAD/BRAIN WO CON, 04/11/2019, 10:43. FINDINGS: CSF spaces: Basal cisterns are patent. No extra-axial fluid collections. Ventricles are normal in size and shape. Brain: No midline shift. No intracranial mass effect or hemorrhage. Rodriguez- white matter interface is normal. Skull and face: Calvarium and visualized facial bones are intact, without suspicious lesions. Sinuses: Visualized sinuses and mastoids are clear. IMPRESSION: Moderate atrophy and ischemic change without intracranial hemorrhage or mass effect. No change from prior exam Approved by: Pro Angel M.D. on 05/18/2025 at 15:23
--- NOTE | 2025-05-18 14:09 | DI.CT.S_ITS ---
PROCEDURE: CT ANGIO HEAD AND NECK INDICATIONS: altered confused difficulty with words TECHNIQUE: After the administration of intravenous contrast, 1 mm thick sections acquired from the aortic arch through the [place]. MIP reformats of the arterial vasculature were utilized. For radiation dose reduction, the following was used: automated exposure control, adjustment of mA and/or kV according to patient size. COMPARISON: [facility], CT, CT ANGIO HEAD AND NECK, 04/11/2019, 13:12. FINDINGS: Cerebral CT Angiogram: Internal carotid arteries: Atherosclerotic calcification noted involving both ICA cavernous segments. There is and anteriorly orientated small 2 mm aneurysm arising from the left supraclinoid ICA unchanged from the Anterior cerebral arteries: Unremarkable. No significant stenosis. No occlusion. No aneurysm. Middle cerebral arteries: Unremarkable. No significant stenosis. No occlusion. No aneurysm. Posterior cerebral arteries: Unremarkable. No significant stenosis. No occlusion. No aneurysm. Basilar artery: Unremarkable. No significant stenosis. No occlusion. No aneurysm. Vertebral arteries: Unremarkable as visualized. Dural venous sinuses: Unremarkable given phase of enhancement. Other: Arterial phase appearance of the brain parenchyma is unremarkable. Neck CT Angiogram: Internal carotid arteries: Atherosclerotic plaque in both proximal ICA without stenosis utilizing NASCET criteria. Common carotid arteries: Unremarkable. No significant stenosis. No dissection or occlusion. External carotid arteries: Unremarkable. No occlusion. Vertebral arteries: Unremarkable. No significant stenosis. No dissection or occlusion. Aortic Arch and Mediastinum: Partially visualized aortic arch unremarkable without evidence of aneurysm. Origins of the great vessels unremarkable. 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 Grade 1 anterior spondylolisthesis degenerative C4-5 IMPRESSION: No acute findings. No significant change from the prior exam. 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 on 05/18/2025 at 15:40
--- NOTE | 2025-05-18 14:10 | DI.RAD.S_ITS ---
PROCEDURE: XR CHEST 1V INDICATIONS: ams TECHNIQUE: One view of the chest was acquired. COMPARISON: [facility], CR, XR CHEST 2V, 07/11/2023, 12:16. FINDINGS: Surgical changes and devices: None. Lungs and pleura: Left basilar platelike atelectasis or scarring, stable from the prior Mediastinum: Mediastinal contours appear normal. Heart size is normal. Atherosclerotic vascular calcification noted in the aortic arch. Bones and chest wall: No suspicious bony lesions. Overlying soft tissues appear unremarkable. IMPRESSION: No acute cardiopulmonary abnormality is seen. Approved by: Pro Angel M.D. on 05/18/2025 at 13:51
--- NOTE | 2025-05-18 14:42 | EKG_ITS ---
[facility] [address] [place] [address] Test Date: 2025-05-18 Pat Name: Jeannie Dick Department: [facility] Room: Gender: Female Manager Unit: [facility] : 1935 Requested By: Order Number: [id number] Reading MD: Florin Paul Measurements Intervals [place] Rate: 78 P: 55 [place]: 200 QRS: 3 QRSD: 74 T: 54 QT: 386 QTc: 440 Interpretive Statements Sinus rhythm with frequent premature ventricular complexes Nonspecific ST abnormality Electronically Signed On 05-19-2025 7:51:21 PST by Florin Paul
--- NOTE | 2025-05-18 14:42 | ED_ITS ---
HPI - Altered Mental Status General Chief Complaint: Altered Mental Status Stated Complaint: High BP 198/95; confused Time Seen by Provider: 05/18/25 14:02 Source: patient and family Mode of arrival: Ambulatory History of Present Illness HPI narrative: Patient is an 89-year-old female history of hypertension, memory impairment, presenting today with altered mental status. She is here with her daughter who just started taking care for a couple of days ago said that she was in her normal state of health yesterday and last night however this morning she woke up and was not acting right. She had some trouble with word finding seemed a little confused. She is currently on amoxicillin for recurrent UTI. No facial droop no slurring of speech no numbness tingling or weakness. However also noticed that she was quite hypertensive despite taking her blood pressure medications. She notes any chest pain or shortness of breath. He had a little bit better now but daughter says it is not quite right Related Data Home Medications ?Medication ?Instructions ?Recorded ?Confirmed cholecalciferol (vitamin D3) 1,250 1,250 mcg PO QWEEK 12/02/21 05/17/25 mcg (50,000 unit) capsule Previous Rx's ?Medication ?Instructions ?Recorded Disabled Parking Permit #1 ea 06/24/22 losartan 100 mg tablet 100 mg PO DAILY #90 tabs 08/20 doxazosin 1 mg tablet 1 mg PO BEDTIME #90 tabs 05/20 amoxicillin 875 mg-potassium 1 tab PO BID #14 tabs clavulanate 125 mg tablet Allergies Allergy/AdvReac Type Severity Reaction Status Date / Time No Known Drug Allergies Allergy Verified 05/06/25 14:42 Patient History Medical History Elevated BUN Balance problem Migraine Osteoporosis Functional fecal incontinence Altered mental status Hearing loss Vision disorder Hypertension Hyperlipidemia History of allergy Headache Fractures Foot pain Chronic back pain Plantar warts (~1949) Rubella Mumps Measles Chicken pox Tinnitus Hearing loss (~2015) Cataracts, bilateral Ovarian cyst (~1949) Irregular menstrual cycle Surgical History Anesthesia History of foot surgery (~2000) History of cataract removal with insertion of prosthetic lens (~2009) Status post tubal ligation Status post appendectomy (~194) Family History Brother Age: 86 Cancer Brother Age: 82 Diabetes mellitus Father Diabetes mellitus Grandmother Diabetes mellitus Grandmother Cancer Mother Cancer Social History marital status: household members: significant other Smoking Status: Never smoker alcohol intake: never substance use type: does not use Smoking Status: Never smoker Exam Initial Vital Signs Initial Vital Signs: Vital Signs Temperature 98.7 F 05/18/25 14:04 Pulse Rate 88 05/18/25 14:04 Respiratory Rate 15 05/18/25 14:04 Blood Pressure 153/90 H 05/18/25 14:04 Pulse Oximetry 96 05/18/25 14:04 Oxygen Delivery Method Room Air 05/18/25 14:04 GENERAL: Alert pleasant well-appearing 81-year-old female and in no acute distress. HEENT: Head atraumatic,EOMI, pupils reactive, face symmetric, moist mucous membranes CARDIOVASCULAR: Regular rate and rhythm without murmurs, rubs or gallops. RESPIRATORY: Breath sounds equal bilaterally, no wheezes rales or rhonchi. ABDOMEN: Soft, nontender. Normoactive bowel sounds all 4 quadrants. No guarding or rebound. EXTREMITIES: Normal range of motion, no clubbing or edema. Neurovascularly intact NEUROLOGICAL: Alert and oriented x3.Normal gait and speech. Cranial nerves II through XII grossly intact. Good [id number], good [id number], strength equal bilaterally, no dysarthria or aphasia, sensation in tact to soft touch bilaterally, no visual changes, no facial droop SKIN: Warm, dry, no laceration, no petechiae, no rashes or lesions. Scores NIH Stroke Scale Level of Conciousness: Alert, keenly responsive Ask month/age: Answers both questions correctly. Open/close eyes, close hand: Performs both tasks correctly Best gaze horizontal: Normal Visual saunders: No visual loss Facial palsy: Normal symetrical movement Left arm drift: No drift for full 10 sec Right arm drift: No drift for full 10 sec Left leg drift: No drift for full 5 sec Right leg drift: No drift for full 5 sec Limb ataxia: Absent Sensory on face/arms/legs: Normal, no sensory loss Best language: No aphasia, normal Dysarthria: Normal Extinction or inattention: No abnormality Total NIH Stroke scale score: 0 Course Orders Ordered: ED Orders 05/18/25 14:09 CT angio head and neck Stat CT head/brain wo con Stat 05/18/25 14:10 XR chest 1V Stat EKG-12 Lead Stat 05/18/25 14:30 Complete Blood Count AUTO DIFF Stat Comprehensive Metabolic Panel Stat Lactate (Lactic Acid) Stat Lipase Stat Magnesium Stat NT-proBNP (BNP-Adult 18+) Stat Troponin I Stat 05/18/25 14:40 Blood Culture Stat Acetaminophen (Acetaminophen 325 Mg Tablet) 650 mg PO Q6H PRN PRN Reason: Fever/Mild Pain (1-3) Aspirin (Aspirin Ec 81 Mg Tablet) 81 mg PO DAILY MARISOL Atorvastatin Calcium (Atorvastatin 20 Mg Tablet) 20 mg PO BEDTIME MARISOL Heparin Sodium (Porcine) (Heparin 5,000 Unit/Ml Vial) 5,000 unit SUBCUT BID MARISOL Sodium Chloride (Normal Saline 0.9%) 1,000 mls @ 100 mls/hr IV CONT MARISOL Naloxone HCl (Naloxone 0.4 Mg/Ml Vial) 0.2 mg IV Q2MIN PRN PRN Reason: Opiate Reversal Discontinued Medications Aspirin (Aspirin 81 Mg Chew Tab) 324 mg PO NOW ONE Stop: 05/18/25 17:17 Vital Signs Vital signs: Vital Signs - 8 hr 05/18/25 14:04 05/18/25 14:16 05/18/25 14:26 Temperature 98.7 F Pulse Rate 88 84 80 Respiratory Rate 15 Blood Pressure 153/90 H Pulse Oximetry 96 96 96 Oxygen Delivery Method Room Air 05/18/25 14:31 05/18/25 14:34 05/18/25 14:40 Temperature Pulse Rate 78 Respiratory Rate Blood Pressure 243/109 H 222/94 H Pulse Oximetry 95 Oxygen Delivery Method 05/18/25 15:00 05/18/25 15:01 05/18/25 15:01 Temperature Pulse Rate 75 73 Respiratory Rate 28 H 30 H Blood Pressure 230/95 H Pulse Oximetry 97 97 Oxygen Delivery Method 05/18/25 16:00 05/18/25 16:00 Temperature Pulse Rate 61 Respiratory Rate 19 Blood Pressure 187/86 H Pulse Oximetry 97 Oxygen Delivery Method MDM - Altered Mental Status Lab Data 05/18/25 14:30 05/18/25 14:30 Labs: Lab Results 05/18/25 Range/Units 14:30 WBC 6.3 (4.5-11.0) X10^3/uL RBC 4.63 (4.0-5.2) X10^6/uL Hgb 13.5 (12.0-16.0) g/dL Hct 41.1 (36-46) % MCV 88.8 (80-100) fL MCH 29.2 (26-34) PG MCHC 32.9 (30-36) % RDW 14.7 (11.6-14.8) % Plt Count 180 (150-400) X10^3/uL Neut % (Auto) 61.2 (50-75) % Lymph % (Auto) 27.5 (25-40) % [place] % (Auto) 9.1 (3-14) % Eos % (Auto) 1.5 L (2-4) % Baso % (Auto) 0.7 (0-2) % Neut # (Auto) 3900 (7228-8028) /uL Lymph # (Auto) 1700 (9954-7706) /uL [place] # (Auto) 600 (0-900) /uL Eos # (Auto) 100 (0-450) /uL Baso # (Auto) 0 (0-100) /uL Sodium 142 (137-145) mmol/L Potassium 3.8 (3.4-5.1) mmol/L Chloride 109 H (98-107) mmol/L Carbon Dioxide 25 (22-32) mmol/L BUN 16 (7-17) mg/dL Creatinine 1.03 (0.52-1.04) mg/dL Estimated GFR 52 L (>60) mL/min BUN/Creatinine Ratio 15.5 (6-22) Glucose 103 H (70-99) mg/dL Lactate 1.0 (0.7-2.1) mmol/L Calcium 9.1 (8.4-10.2) mg/dL Magnesium 2.0 (1.6-2.3) mg/dL Total Bilirubin 1.8 H (0.2-1.3) mg/dL AST 22 (14-36) IU/L ALT 13 (<35) IU/L Alkaline Phosphatase 56 (38-126) U/L Troponin I < 0.012 (0.01-0.034) ng/mL NT-Pro-B Natriuret Pep 1080 H (<450) pg/mL Total Protein 7.4 (6.3-8.2) g/dL Albumin 4.2 (3.5-5.0) g/dL Globulin 3.2 (1.7-4.1) g/dL Albumin/Globulin Ratio 1.3 (1.0-2.8) Lipase 84 (23-300) U/L Urine Dip Bedside Urine Glucose Negative Bedside Urine Bilirubin - Negative Bedside Urine Ketone - Negative Urine Specific [place] 1.015 Bedside Urine Occult Blood - Negative Bedside Urine pH 7.0 Bedside Urine Protein - Negative Bedside Urine Urobilinogen - Negative Bedside Urine Nitrite - Negative Bedside Urine Leukocytes - Negative Esterase Imaging Data Chest x-ray: Radiologist's Impression: PROCEDURE: XR CHEST 1V INDICATIONS: ams TECHNIQUE: One view of the chest was acquired. COMPARISON: [facility], CR, XR CHEST 2V, 07/11/2023, 12:16. FINDINGS: Surgical changes and devices: None. Lungs and pleura: Left basilar platelike atelectasis or scarring, stable from the prior Mediastinum: Mediastinal contours appear normal. Heart size is normal. Atherosclerotic vascular calcification noted in the aortic arch. Bones and chest wall: No suspicious bony lesions. Overlying soft tissues appear unremarkable. IMPRESSION: No acute cardiopulmonary abnormality is seen. Approved by: Pro Angel M.D. on 05/18/2025 at 13:51 CT scan - head: Radiologist's Impression: PROCEDURE: CT HEAD/BRAIN WO CON INDICATIONS: altered mental status TECHNIQUE: Noncontrast 4.5 mm thick angled axial sections acquired from the foramen magnum to the vertex, with coronal and sagittal reformats. For radiation dose reduction, the following was used: automated exposure control, adjustment of mA and/or kV according to patient size. COMPARISON: [facility], CT, CT HEAD/BRAIN WO CON, 04/11/2019, 10:43. FINDINGS: CSF spaces: Basal cisterns are patent. No extra-axial fluid collections. Ventricles are normal in size and shape. Brain: No midline shift. No intracranial mass effect or hemorrhage. Rodriguez- white matter interface is normal. Skull and face: Calvarium and visualized facial bones are intact, without suspicious lesions. Sinuses: Visualized sinuses and mastoids are clear. IMPRESSION: Moderate atrophy and ischemic change without intracranial hemorrhage or mass effect. No change from prior exam Approved by: Pro Angel M.D. on 05/18/2025 at 15:23 CTA - brain/neck: Radiologist's Impression: PROCEDURE: CT ANGIO HEAD AND NECK INDICATIONS: altered confused difficulty with words TECHNIQUE: After the administration of intravenous contrast, 1 mm thick sections acquired from the aortic arch through the [place]. MIP reformats of the arterial vasculature were utilized. For radiation dose reduction, the following was used: automated exposure control, adjustment of mA and/or kV according to patient size. COMPARISON: [facility], CT, CT ANGIO HEAD AND NECK, 04/11/2019, 13:12. FINDINGS: Cerebral CT Angiogram: Internal carotid arteries: Atherosclerotic calcification noted involving both ICA cavernous segments. There is and anteriorly orientated small 2 mm aneurysm arising from the left supraclinoid ICA unchanged from the Anterior cerebral arteries: Unremarkable. No significant stenosis. No occlusion. No aneurysm. Middle cerebral arteries: Unremarkable. No significant stenosis. No occlusion. No aneurysm. Posterior cerebral arteries: Unremarkable. No significant stenosis. No occlusion. No aneurysm. Basilar artery: Unremarkable. No significant stenosis. No occlusion. No aneurysm. Vertebral arteries: Unremarkable as visualized. Dural venous sinuses: Unremarkable given phase of enhancement. Other: Arterial phase appearance of the brain parenchyma is unremarkable. Neck CT Angiogram: Internal carotid arteries: Atherosclerotic plaque in both proximal ICA without stenosis utilizing NASCET criteria. Common carotid arteries: Unremarkable. No significant stenosis. No dissection or occlusion. External carotid arteries: Unremarkable. No occlusion. Vertebral arteries: Unremarkable. No significant stenosis. No dissection or occlusion. Aortic Arch and Mediastinum: Partially visualized aortic arch unremarkable without evidence of aneurysm. Origins of the great vessels unremarkable. 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 Grade 1 anterior spondylolisthesis degenerative C4-5 IMPRESSION: No acute findings. No significant change from the prior exam. 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 on 05/18/2025 at 15:40 ECG Data Attestation: I personally reviewed and interpreted this ECG as follows: Interpretation: Sinus rhythm rate 78 MA interval 200 QRS 74 QTC 440 PVC noted no acute ischemia MDM Narrative Medical decision making narrative: [facility] CC: Altered mental status Complicating co-morbidities: Cognitive decline frequent UTI Data collected from: Patient and daughter Medical records reviewed: Seen at walk-in clinic on 05/17/2025 for UTI urinalysis positive for leukocytes however growth is too early 05/17/25 urine culture shows very early growth 04/22/25 urine culture positive for Proteus vulgaris Differential considered: CVA, hypertensive encephalopathy hypertensive urgency/emergency sepsis Exam documented above, pertinent findings include: Alert 81-year-old female NIH stroke scale is 0 Lab Test results independently reviewed as above. Pertinent findings: CBC no leukocytosis or anemia or abnormality CMP no electrolyte abnormality no GEORGE Lactate 1.0 Troponin negative, BNP 1080 Independently reviewed EKG as above Sinus rhythm without ischemia Imaging studies independently reviewed: Head CT no contrast moderate atrophy and ischemic changes CT angio head and neck no large vessel occlusion Chest x-ray no acute cardiopulmonary process Consultations: Dr. Paul updated patient's symptoms test results and accepts patient observation Treatments: Aspirin Re-evaluations: Patient is a ambulatory to the restroom however family states that she is not quite back to her baseline. She has had a couple of blood pressures with systolics greater than 200 however blood pressure has come down on its own without any kind of intervention. Would keep some permissive hypertension for CVA Discussion: Patient 81-year-old female presenting today with increased confusion but seems to be back at her baseline now. She is noted to be very hypertensive, however she has no evidence of sepsis or infection. She is NIH stroke scale of 0. Patient has not yet quite back to her normal self per family but she seems to be awake alert and oriented able to walk to the bathroom. Blood work overall reassuring. No evidence of intracranial hemorrhage or large vessel occlusion however she is quite hypertensive at times. She has no evidence of infection or sepsis. Urine culture from a couple days ago did not grow anything. Possible TIA with episodes of inability to find correct word along with hypertension. Discharge Plan Departure Patient Disposition: Admitted as Observation Clinical Impression: Brain TIA Admit Date/Time: 05/18/25 17:16 Admit Provider: Florin Paul
[2025-05-18 14:50] LABS: Add Manual Diff / Slide Review NO; Hematocrit 41.1 % (36-46); Hemoglobin 13.5 g/dL (12.0-16.0); Lymphocytes Absolute Auto 1700 /uL (1100-4500); Mean Corpuscular HGB Conc 32.9 % (30-36); Mean Corpuscular Hemoglobin 29.2 PG (26-34); Mean Corpuscular Volume 88.8 fL (80-100); Platelet Count 180 X10^3/uL (150-400)
[2025-05-18 14:59] LABS: Lactate (Lactic Acid) 1.0 mmol/L (0.7-2.1)
[2025-05-18 15:00] LABS: Alanine Aminotransferase 13 IU/L (<35); Albumin 4.2 g/dL (3.5-5.0); Albumin Globulin Ratio 1.3 (1.0-2.8); Alkaline Phosphatase 56 U/L (38-126); Blood Urea Nitrogen 16 mg/dL (7-17); Calcium 9.1 mg/dL (8.4-10.2); Carbon Dioxide 25 mmol/L (22-32); Chloride 109 mmol/L (98-107); Estimated Glomerular Filt Rate 52 mL/min (>60); Globulin 3.2 g/dL (1.7-4.1); Glucose 103 mg/dL (70-99); HEMOLYSIS < 15 (0-50); Lipase 84 U/L (23-300); Magnesium 2.0 mg/dL (1.6-2.3); Potassium 3.8 mmol/L (3.4-5.1); Sodium 142 mmol/L (137-145); Total Protein 7.4 g/dL (6.3-8.2)
[2025-05-18 15:11] LABS: NT-proBNP (BNP-Adult 18+) 1080 pg/mL (<450); Troponin I < 0.012 ng/mL (0.01-0.034)
--- NOTE | 2025-05-18 17:30 | PM.HP.1 ---
History of Present Illness History of Present Illness Date Patient Seen: 05/18/25 Time Patient Seen: 18:48 Chief complaint: High BP 198/95; confused Narrative: The patient he was a pleasant 81-year-old female with a history of hypertension, cognitive impairment, and recent bladder infection. She has been on amoxicillin. She lives outside of [place], and has family members nearby. She was living independently. She was found today be confused compared to her baseline and brought to the hospital. Her son informs me that she might be dehydrated and her bladder infection sometimes causes these types of symptoms. She denies headache, recent recent falls, trauma to the head. She also denies difficulty with speech, numbness or weakness fentanyl arm or a leg. ED course: CT head and a CTA unremarkable. She was given aspirin. The patient was described as improved but not quite at baseline by family members. She was full resuscitation. A UA was negative, she has been on recent antibiotics however. She was also hypertensive, this is not treated in case this did represent cerebral hypoperfusion. [facility] Medical History Elevated BUN Balance problem Migraine Osteoporosis Functional fecal incontinence Altered mental status Hearing loss Vision disorder Hypertension Hyperlipidemia History of allergy Headache Fractures Foot pain Chronic back pain Plantar warts (~1949) Rubella Mumps Measles Chicken pox Tinnitus Hearing loss (~2015) Cataracts, bilateral Ovarian cyst (~1949) Irregular menstrual cycle Surgical History Anesthesia History of foot surgery (~2000) History of cataract removal with insertion of prosthetic lens (~2009) Status post tubal ligation Status post appendectomy (~194) Family History Brother Age: 86 Cancer Brother Age: 82 Diabetes mellitus Father Diabetes mellitus Grandmother Diabetes mellitus Grandmother Cancer Mother Cancer Social History marital status: household members: significant other Smoking Status: Never smoker alcohol intake: never substance use type: does not use Meds Home Medications and Allergies Home Medications ?Medication ?Instructions ?Recorded ?Confirmed ?Type cholecalciferol (vitamin D3) 1,250 1,250 mcg PO QWEEK 12/02/21 05/17/25 History mcg (50,000 unit) capsule Disabled Parking Permit #1 ea 06/24/22 05/17/25 Rx losartan 100 mg tablet 100 mg PO DAILY #90 tabs 03/27/25 05/17/25 Rx doxazosin 1 mg tablet 1 mg PO BEDTIME #90 tabs 05/06/25 05/17/25 Rx amoxicillin 875 mg-potassium 1 tab PO BID #14 tabs 05/17/25 05/17/25 Rx clavulanate 125 mg tablet Allergies Allergy/AdvReac Type Severity Reaction Status Date / Time gluten AdvReac Abdominal Verified 05/18/25 18:39 Pain Review of Systems Review of Systems Narrative: All else reviewed and otherwise unremarkable except as noted in the history and physical. Exam Vital Signs (past 8 hours): - 05/18/25 14:04 05/18/25 14:16 05/18/25 14:26 Temperature 98.7 F Pulse Rate 88 84 80 Respiratory Rate 15 Blood Pressure 153/90 H Pulse Oximetry 96 96 96 Oxygen Delivery Method Room Air 05/18/25 14:31 05/18/25 14:34 05/18/25 14:40 Temperature Pulse Rate 78 Respiratory Rate Blood Pressure 243/109 H 222/94 H Pulse Oximetry 95 Oxygen Delivery Method 05/18/25 15:00 05/18/25 15:01 05/18/25 15:01 Temperature Pulse Rate 75 73 Respiratory Rate 28 H 30 H Blood Pressure 230/95 H Pulse Oximetry 97 97 Oxygen Delivery Method 05/18/25 16:00 05/18/25 16:00 Temperature Pulse Rate 61 Respiratory Rate 19 Blood Pressure 187/86 H Pulse Oximetry 97 Oxygen Delivery Method Oxygen Delivery Method Room Air Narrative Exam Narrative: NAD, alert and oriented, fluent speech, calm. Some hearing loss. Normocephalic skull, EOMI, anicteric sclera, symmetric pupils. Oropharynx unremarkable, no droop. Neck supple, midline trachea, no adenopathy. Lungs clear, normal rate and effort. Heart regular, no murmur gallop or rub. Abdomen is soft, non distended and non tender. Extremities are free of edema. Skin is free of rash or lesions. Joints are not swollen or deformed. Judgment appears to be fairly normal. Objective ECG Impression: ntervals [place] Rate: 78 P: 55 WI: 200 QRS: 3 QRSD: 74 T: 54 QT: 386 QTc: 440 Interpretive Statements Sinus rhythm with frequent premature ventricular complexes Nonspecific ST abnormality Imaging Multiple studies:: Radiologist's impression: Chest x-ray: No acute cardiopulmonary abnormality is seen. Head CT: Moderate atrophy and ischemic change without intracranial hemorrhage or mass effect. No change from prior exam Head and neck CTA: No acute findings. No significant change from the prior exam. 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 Labs 05/18/25 14:30 05/18/25 14:30 Labs: Laboratory Results - last 24 hr 05/18/25 14:30 WBC 6.3 RBC 4.63 Hgb 13.5 Hct 41.1 MCV 88.8 MCH 29.2 MCHC 32.9 RDW 14.7 Plt Count 180 Neut % (Auto) 61.2 Lymph % (Auto) 27.5 [place] % (Auto) 9.1 Eos % (Auto) 1.5 L Baso % (Auto) 0.7 Neut # (Auto) 3900 Lymph # (Auto) 1700 [place] # (Auto) 600 Eos # (Auto) 100 Baso # (Auto) 0 Sodium 142 Potassium 3.8 Chloride 109 H Carbon Dioxide 25 BUN 16 Creatinine 1.03 Estimated GFR 52 L BUN/Creatinine Ratio 15.5 Glucose 103 H Lactate 1.0 Calcium 9.1 Magnesium 2.0 Total Bilirubin 1.8 H AST 22 ALT 13 Alkaline Phosphatase 56 Troponin I < 0.012 NT-Pro-B Natriuret Pep 1080 H Total Protein 7.4 Albumin 4.2 Globulin 3.2 Albumin/Globulin Ratio 1.3 Lipase 84 Assessment & Plan Assessment & Plan narrative: 1. Transient confusion, possibly related to recent bladder infection and volume depletion. 2. Possible partially treated urinary tract infection, active. 3. Volume depletion, active. 4. Uncontrolled hypertension, active. 5. Mild cognitive impairment, active. PLAN: -IV ceftriaxone and follow cultures. -IV fluids overnight with saline at 100 an hour. -monitor mental status. -monitor blood pressure, hold blood pressure medications for permissive hypertension. -re-evaluate mental status with family in the morning. We will defer any further diagnostics pending her response to IV fluids and antibiotics tonight. Full resuscitation Lives locally Anticipate 1 midnight in the hospital, supports observation status. PILI is May 19. Time-Based Coding :: 35 min spent with patient and on the chart (including review of chart, obtaining history, exam, reviewing outside data, placing orders, documenting exam and treatment plan, and counseling patient) on 05/18. Quality MIPS - Admit I confirm the patient?s Advance Care Plan is present, Code status is documented, Surrogate decision maker is in patient?s record [If Yes, STOP here]: Yes MIPS - Meds 'Current medications' to include all prescriptions, [id number] products, herbals, cannabis/cannabidiol products, and vitamin/mineral/dietary (nutritional) supplements. I have utilized all available resources to obtain, update, or review the patient?s current medications. [If Yes, STOP here]: Yes
[2025-05-18 17:50] LABS: Cholesterol 179 mg/dL (140-199); HDL Cholesterol 74 mg/dL (40-60); Triglycerides 135 mg/dL (35-150)
[2025-05-18 17:53] LABS: Hemoglobin A1C% w Est Avg Glu 5.6 % (4.0-6.0)
[2025-05-18] MEDS: ASPIRIN 81 MG CHEW TAB 324 MG PO (17:59)
[2025-05-18] MEDS: SODIUM CHLORIDE 0.9% 1,000 ML 100 ML IV (18:41)
[2025-05-18] MEDS: ATORVASTATIN 20 MG TABLET PO (20:43)
[2025-05-18] MEDS: HEPARIN 5,000 UNIT/ML VIAL 5000 UNIT SUBCUT (20:43)
[2025-05-19 03:00] VITALS: BP 190/87; PULSE 63; RESP 20; TEMP 36.4; O2SAT 97
[2025-05-19 08:00] VITALS: BP 191/88; PULSE 56; RESP 16; TEMP 36.3; O2SAT 95
[2025-05-19] MEDS: ASPIRIN EC 81 MG TABLET PO (09:03)
[2025-05-19] MEDS: HEPARIN 5,000 UNIT/ML VIAL 5000 UNIT SUBCUT (09:03)
--- NOTE | 2025-05-19 10:34 | OT.IP.EVAL ---
Past Medical History (Last Reviewed 05/18/25 @ 18:49 by Florin Paul MD) Altered mental status Balance problem Cataracts, bilateral Chicken pox Chronic back pain Elevated BUN Foot pain Fractures Functional fecal incontinence Headache Hearing loss (~2015) Hearing loss History of allergy Hyperlipidemia Hypertension Irregular menstrual cycle Measles Migraine Mumps Osteoporosis Ovarian cyst (~1949) Plantar warts (~1949) Rubella Tinnitus Vision disorder Surgical History (Last Reviewed 05/18/25 @ 18:49 by Florin Paul MD) Anesthesia History of cataract removal with insertion of prosthetic lens (~2009) History of foot surgery (~2000) Status post appendectomy (~194) Status post tubal ligation Occupational Therapy Inpatient Evaluation/Re-Eval M1 OT IP Prior Functional Status Start: 05/19/25 10:24 Freq: Status: Active Protocol: Document 05/19/25 10:25 HARISH (Rec: 05/19/25 10:34 UMERMOABIDA Desktop) Medical Review Prior Functional Status Medical History Yes Reviewed Communication Pt able to make needs known. Pt is [place] and needs you to speak loudly to her and occasionally repeat questions. Mobility and Gait Pt amb with a cane. Activities of Daily Pt was I with BADLs, has assist for meals, performed Living and IADL's her own housework, plays with her 7 year old grandchild , and drives. Social History Household Members none Living Arrangements House Number of Floors ( Two Floors Floors) Number of Stairs To Pt has 14 steps with B rails, stairs are necessary for Enter/Railing? laundry room and sewing room. Pts son and his family live on the same property. Home Environment High Toilet,Tub/Shower Home Equipment Straight Cane,Shower Seat without Backrest,Lift Recliner,Grab Bars Near Toilet,Grab Bars In Shower Additional Social Pt sleeps in her lift recliner but doesn't use the lift History Comment function M2 OT-IP Current Condition Start: 05/19/25 10:24 Freq: Status: Active Protocol: Document 05/19/25 10:25 HARISH (Rec: 05/19/25 10:34 UMERMOABIDA Desktop) Occupational Therapy Current Condition Current Condition Evaluation Date 05/19/25 Treatment Diagnosis TIA, decreased self care Diagnosis Onset Date 05/18/25 M3 OT- IP Subjective and Pain Start: 05/19/25 10:24 Freq: Status: Active Protocol: Document 05/19/25 10:25 HARISH (Rec: 05/19/25 10:[address] [facility]- Subjective Occupational Therapy Visit Type Type Initial Evaluation Visit Start Time 09:10 Visit Stop Time 09:40 Occupational Therapy Visit Comments Patient Comments Pt was reclined in bed on entrance of OT. Pt was agreeable to participating in OT eval. Pt states that she is functioning the same as she does at home with respect to BADLs performed during eval. Patient/Caregiver To return home Goals OT Pain Assessment Pain Present Pain Present Denied Pain M4 OT- IP ADL's Start: 05/19/25 10:24 Freq: Status: Active Protocol: Document 05/19/25 10:25 HARISH (Rec: 05/19/25 10:[address] [facility] OT [id number] Comments OT Self-Feeding not a meal time Comments OT ADL-Grooming General Evaluation Grooming Ability Independent OT ADL-Oral Care Comments Oral Care Comments pt declined OT ADL-Dressing General Eval Upper Body Dressing Standby Assistance Ability Lower Body Dressing Standby Assistance Ability Areas Needing Retrieving/Set-up of Clothing Assistance Comments OT Dressing Comments Pt required OT to gather supplies. Pt needs assistance with UB dressing due to heart rate monitor. OT ADL-Toileting General Evaluation Toileting Ability Standby Assistance Comments OT Toileting Pt manages clothing and hygiene Comments OT ADL-Bathing Comments OT Bathing Comments pt declines M5 OT- IP IADL's Start: 05/19/25 10:24 Freq: Status: Active Protocol: Document 05/19/25 10:25 HARISH (Rec: 05/19/25 10:[address] [facility]) OT-Instrumental Activities of Daily Living Deficits IADL Deficits No Deficits Identified Home Safety Awareness Awareness of Need Good Awareness for Assistance at Home Ability to Problem Able to Problem Solve Solve Emergency Situations Medication Management Medication No Deficits Identified Management Money Management Money Management No Deficits Identified Meal Preparation Meal Preparation Caregiver Provides Assist Mail Censor Mail Censor No Deficits Identified M6 OT- IP Functional Cognition Start: 05/19/25 10:24 Freq: Status: Active Protocol: Document 05/19/25 10:25 HARISH (Rec: 05/19/25 10:34 [facility] Cognitive Factors Limiting Selfcare Function Cognitive Ability Level of Alertness Alert Patient Orientation Name,Age,Birthday,Month,Year,Day of Week,Place, Situation Attention Span Capable of Focused Attention,Capable of Sustained Ability Attention Ability to Follow Able to Follow One Step Commands,Able to Follow Multi- Commands Step Commands Memory Description No Deficits Noted Safety Awareness No Deficits Noted Problem Solving No deficits Noted Ability Executive Function No Deficits Noted Ability Abstract Thinking No Deficits Noted Ability OT- Vision and Hearing OT- Hearing Assessment OT- Hearing Hearing Impaired,Use of Hearing Aids Assessment OT- Vision Assessment Visual Acuity WFL,Glasses All The Time M7 OT- IP Mobility and Balance Start: 05/19/25 10:24 Freq: Status: Active Protocol: Document 05/19/25 10:25 HARISH (Rec: 05/19/25 10:[address] [facility]) OT- Bed Mobility Assessment Supine to Sit Supine to Sit Assist Independent Scooting Scooting to Edge of Independent Bed OT-Transfer Assessment Sit to and From Stand Sit to and from Standby Assistance Stand Transfers Transfer Ability Standby Assistance Technique Transfer Destination Chair,Toilet Transfer Technique Stand Step Pivot Devices Transfer Assistive Gait Belt,Straight Cane Devices OT- Gait Assessment Gait Gait Assistance Standby Assistance Required: Distance (Feet) 15 Assistive Devices Assistive Device Gait Belt,Straight Cane OT- Balance Assessment Sitting Balance and Reactions Static Sitting Normal Balance Ability Dynamic Sitting Normal Balance Ability Standing Balance and Reactions Static Standing Normal Balance Ability Dynamic Standing Good Balance Ability M8 OT- IP Objective Assessments Start: 05/19/25 10:24 Freq: Status: Active Protocol: Document 05/19/25 10:25 HARISH (Rec: 05/19/25 10:34 [facility] Desktop) OT Gross Range of Motion Upper Extremity Range of Motion Assessment Within Functional Limits OT Strength Upper Extremity Strength Assessment Within Functional Limits Shoulder 4 Elbow 5 Hand 5 Hand Conveyor Tender Strength Hand Dominance Right OT- Coordination Assessment Upper Extremity Finger to Nose Test Within Functional Limits Finger Tapping Test Within Functional Limits OT-Muscle Tone Assessment Muscle Tone WNL Yes OT Sensation Assessment Comments Summary Comments no deficits noted Edema Edema Absent M9 OT- IP Assessment and Plan Start: 05/19/25 10:24 Freq: Status: Active Protocol: Document 05/19/25 10:25 HARISH (Rec: 05/19/25 10:34 UMERMOABIDA [facility]) OT Summary Assessment and Plan Potential Analytic Complexity Low at Evaluation Summary Progress Towards Safe For Discharge Goals Assessment Summary Pt is an 89 yo F who was admitted due to confusion and recent falls. Pts CT was negative. Pt has support of her sons and their families. Pt was A&Ox4 during eval. Pt demonstrated BADLs at S to I during eval, functional mobility with S to I, good to normal balance, and no other notable deficits. Pt is functioning at or near baseline for OT scope of practice. Skilled OT services are not indicated at this time. D/C OT order. Frequency of Treatment Frequency Of Discharge Treatment Discharge Recommendations OT Discharge Home with Assistance Recommendations Transportation Needs Private Vehicle at Discharge
--- NOTE | 2025-05-19 11:57 | ST.IPIE ---
Visit Care Team Role Provider Type Anuj Cochran DO Primary Care Provider Physician Specialty: Family Practice Address: [address] [place] [address], [facility] Email: Micheline Ny DO Emergency Provider Physician Referring Provider Specialty: Emergency Medicine Address: [address] [place] [address], [facility] Email: [email or web address] Florin Paul MD Admit Provider Physician Attending Provider Specialty: Internal Medicine Address: [address] [place] [address], [facility] Email: [email or web address] Past Medical History (Last Reviewed 05/18/25 @ 18:49 by Florin Paul MD) Altered mental status (Medical) Balance problem (Medical) Cataracts, bilateral (Medical) Chicken pox (Medical) Chronic back pain (Medical) Elevated BUN (Medical) Foot pain (Medical) Fractures (Medical) Functional fecal incontinence (Medical) Headache (Medical) Hearing loss (Medical ~2015) Hearing aids Hearing loss (Medical) History of allergy (Medical) Sometimes Hyperlipidemia (Medical) Hypertension (Medical) Irregular menstrual cycle (Medical) Always Measles (Medical) Migraine (Medical) Mumps (Medical) Osteoporosis (Medical) Ovarian cyst (Medical ~1949) Plantar warts (Medical ~1949) Rubella (Medical) Tinnitus (Medical) Vision disorder (Medical) ST IP 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 Florin Paul Reason for Referral Cognitive deficits Setting Assessment Location Acute Care Visit Type Note Type Initial evaluation Patient Information Identification Type Name,Wristband Patient History Per H&P: The patient he was a pleasant 81-year-old female with a history of hypertension, cognitive impairment, and recent bladder infection. She has been on amoxicillin. She lives outside of [place], and has family members nearby. She was living independently. She was found today be confused compared to her baseline and brought to the hospital. Her son informs me that she might be dehydrated and her bladder infection sometimes causes these types of symptoms. She denies headache, recent recent falls, trauma to the head. She also denies difficulty with speech, numbness or weakness fentanyl arm or a leg. ED course: CT head and a CTA unremarkable. She was given aspirin. The patient was described as improved but not quite at baseline by family members. She was full resuscitation. A UA was negative, she has been on recent antibiotics however. She was also hypertensive , this is not treated in case this did represent cerebral hypoperfusion. PMHx: Elevated BUN Balance problem Migraine Osteoporosis Functional fecal incontinence Altered mental status Hearing loss Vision disorder Hypertension Hyperlipidemia History of allergy Headache Fractures Foot pain Chronic back pain Plantar warts (~1949) Rubella Mumps Measles Chicken pox Tinnitus Hearing loss (~2015) Cataracts, bilateral Ovarian cyst (~1949) Irregular menstrual cycle Pt was referred for a speech therapy evaluation due to reported cognitive deficits and the need for formal assessment of cognitive functioning. Hearing Hearing Level Hearing Aids Auditory History Pt with bilateral hearing aids, however Pt son reported they both had batteries. Subjective Patient Report Pt awake, alert and compliant with ST evaluation. Pt sitting upright in chair in room. Pt oldest son present during evaluation. Mental Status Alert,Responsive,Cooperative,Confused Informal Assessment Receptive Language Yes Normal Expressive Language Yes Normal Pragmatic Language Yes Normal Speech Normal Yes Cognition Normal No Cognitive Impairment Short-term memory (s) Formal Assessment Standardized Test/ [facility] Mental Status (UMS) Screener Type Administration Complete Results ST administered the SLUMS, with Pt scoring 14/30, indicating a severity rating of ?dementia? per the screener. Pt demonstrated the most significant deficits in short-term memory and executive functioning. Pt reported awareness of these difficulties, noting that her memory ?is not always the greatest,? particularly with numbers. Findings/Results Language Function Within functional limits Cognitive Function Moderately impaired Findings Pt presents with a moderate cognitive-communication deficit. ST educated Pt and her son on SLUMS results as well as the use of external memory aids and supports. Pt reports she currently uses a pillbox at home and independently manages her medications. She notes she occasionally forgets to take her evening blood pressure medication. Pt also reports using a calendar for reminders. Pt?s son reports that Pt has a smartwatch capable of providing reminders and that he can set an alarm on her phone to cue evening medication administration, as Pt frequently uses her phone. ST additionally recommended that the family consider a lifeline device for safety. Pt?s son stated that the family?s goal is for Pt to remain in her home independently. He reports that Pt?s brother resides on the property and checks in regularly , and additional family members also provide support. He states Pt?s sister will be staying with her temporarily following hospital discharge. ST recommended that the family implement external memory aids and environmental supports and that Pt receive supervision and assistance with medication management. ST is not warranted at this time due to Pt and family being educated on external memory compensatory strategies, along with Pt?s son reporting that Pt has adequate family support in place. Cognitive Communication Deficits Self-awareness of Situational awareness (recognition of problem in Cognitive- context;in real time) Communication Deficits Prognosis Prognosis Fair Plan of Care Speech-Language No Treatment Patient/Caregiver Described results of evaluation,Patient expressed Education understanding of evaluation,Family/caregivers expressed understanding of evaluation Discharge Home Recommendations
--- NOTE | 2025-05-19 11:58 | P.DS_ITS ---
History of Present Illness History of Present Illness Chief complaint: High BP 198/95; confused Narrative: The patient he was a pleasant 81-year-old female with a history of hypertension, cognitive impairment, and recent bladder infection. She has been on amoxicillin. She lives outside of [place], and has family members nearby. She was living independently. She was found today be confused compared to her baseline and brought to the hospital. Her son informs me that she might be dehydrated and her bladder infection sometimes causes these types of symptoms. She denies headache, recent recent falls, trauma to the head. She also denies difficulty with speech, numbness or weakness fentanyl arm or a leg. ED course: CT head and a CTA unremarkable. She was given aspirin. The patient was described as improved but not quite at baseline by family members. She was full resuscitation. A UA was negative, she has been on recent antibiotics however. She was also hypertensive, this is not treated in case this did represent cerebral hypoperfusion. Discharge Providers Provider Date of admission: 05/18/25 17:16 Discharge Date: 05/19/25 Primary care physician: Anuj Cochran DO Consults: 05/18/25 17:29 Consult to Discharge Planning Routine Comment: Consult to Occupational Therapy Evaluate & Treat Comment: Physician Instructions: Evaluate and treat Consult to Physical Therapy Evaluate & Treat Comment: Physician Instructions: Evaluate and Treat Consult to Speech Therapy Evaluate & Treat Comment: Physician Instructions: Evaluate and treat Discharge provider: Florin Paul MD Summary Hospital Course Discharge Diagnosis: 1. Transient confusion, possibly related to recent bladder infection and volume depletion. Resolved. SLUMS score was 14/30 indicating probable chronic baseline cognitive impairment. One son was in the room and it was results were discussed with him. 2. Possible partially treated urinary tract infection, active. 3. Volume depletion, active. 4. Uncontrolled hypertension, active. 5. Mild cognitive impairment, active. Hospital Course: She was admitted and treated with IV antibiotics as well as IV fluids. Urine culture was not helpful, she has been on recent antibiotics. She was given 7 days of Augmentin starting 1-1/2 days prior to presentation. She was felt to be at baseline and did well PT, OT, it was evaluated for cognitive screening by speech therapy. Slums score was 14/30. Family indicates that it was there desire to keep her in her home which is very close to other family members and she was a great deal of family support. The plan will be to complete the total 7 days of Augmentin that was given the other day. Recent urine culture from April 22 indicates Proteus which is sensitive to Augmentin. The RADHIKA is 8, other possibilities if she was persistent symptoms would include levofloxacin with a RADHIKA of 0.12. Status at Discharge Cognitive/behavioral status at discharge: oriented Functional status at discharge: uses cane/walker Overall status at discharge: patient is back to baseline Time Spent with Patient Time spent: Greater than 30 minutes Exam Vital Signs (past 8 hours): - 05/19/25 08:00 Temperature 97.3 F L Pulse Rate 56 L Respiratory Rate 16 Blood Pressure 191/88 H Pulse Oximetry 95 Oxygen Flow Rate 0 Oxygen Delivery Method Room Air Oxygen Flow Rate 0 Narrative Exam Narrative: NAD, alert and oriented. Fluent speech. Lungs are clear, normal rate and effort. Heart is regular, no murmur gallop or rub. Abdomen is soft, non distended. Extremities are free of edema. Objective ECG Impression: Intervals [place] Rate: 78 P: 55 [place]: 200 QRS: 3 QRSD: 74 T: 54 QT: 386 QTc: 440 Interpretive Statements Sinus rhythm with frequent premature ventricular complexes Nonspecific ST abnormality Imaging Multiple studies:: Radiologist's impression: Chest x-ray: No acute cardiopulmonary abnormality is seen. Head CT: Moderate atrophy and ischemic change without intracranial hemorrhage or mass effect. No change from prior exam Head and neck CTA: No acute findings. No significant change from the prior exam. 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 Labs 05/18/25 14:30 05/18/25 14:30 Labs: Laboratory Results - last 24 hr 05/18/25 14:30 WBC 6.3 RBC 4.63 Hgb 13.5 Hct 41.1 MCV 88.8 MCH 29.2 MCHC 32.9 RDW 14.7 Plt Count 180 Neut % (Auto) 61.2 Lymph % (Auto) 27.5 [place] % (Auto) 9.1 Eos % (Auto) 1.5 L Baso % (Auto) 0.7 Neut # (Auto) 3900 Lymph # (Auto) 1700 [place] # (Auto) 600 Eos # (Auto) 100 Baso # (Auto) 0 Sodium 142 Potassium 3.8 Chloride 109 H Carbon Dioxide 25 BUN 16 Creatinine 1.03 Estimated GFR 52 L BUN/Creatinine Ratio 15.5 Glucose 103 H Hemoglobin A1c 5.6 Lactate 1.0 Calcium 9.1 Magnesium 2.0 Total Bilirubin 1.8 H AST 22 ALT 13 Alkaline Phosphatase 56 Troponin I < 0.012 NT-Pro-B Natriuret Pep 1080 H Total Protein 7.4 Albumin 4.2 Globulin 3.2 Albumin/Globulin Ratio 1.3 Triglycerides 135 Cholesterol 179 LDL Cholesterol, Calc 78 HDL Cholesterol 74 H Lipase 84 PFSH Medical History Elevated BUN Balance problem Migraine Osteoporosis Functional fecal incontinence Altered mental status Hearing loss Vision disorder Hypertension Hyperlipidemia History of allergy Headache Fractures Foot pain Chronic back pain Plantar warts (~1949) Rubella Mumps Measles Chicken pox Tinnitus Hearing loss (~2015) Cataracts, bilateral Ovarian cyst (~1949) Irregular menstrual cycle Surgical History Anesthesia History of foot surgery (~2000) History of cataract removal with insertion of prosthetic lens (~2009) Status post tubal ligation Status post appendectomy (~194) Family History Brother Age: 86 Cancer Brother Age: 82 Diabetes mellitus Father Diabetes mellitus Grandmother Diabetes mellitus Grandmother Cancer Mother Cancer Social History marital status: household members: none alcohol intake: never substance use type: does not use Discharge Assessment & Plan Assessment and Plan Assessment: Transient confusion, improved. Possible residual symptoms of urinary tract infection, improved. Possible volume depletion, resolved. Plan of Treatment: She will discharge with instructions to complete her 7 day course of Augmentin with a proximally 5 days pending. She was asked to follow up with Dr. Cochran within the next week for recheck. Discharge Plan Discharge Plan Patient Disposition: Home Provider Discharge Comment: Stable for discharge home, and met with son inpatient. Recommended follow up with PCP, Dr. Cochran within a week. Discharge orders & Medications Prescriptions: Continued amoxicillin-pot clavulanate 875-125 mg tablet 1 tab PO BID Qty: 14 0RF losartan 100 mg tablet 100 mg PO DAILY Qty: 90 1RF doxazosin 1 mg tablet 1 mg PO BEDTIME Qty: 90 3RF cholecalciferol (vitamin D3) 1,250 mcg (50,000 unit) capsule 1,250 mcg PO QWEEK (DME) Disabled Parking Permit See Rx Instructions .Route .MEDSUPPLY Qty: 1 0RF Rx Instructions: I find this patient to be medically disabled and qualified for Disabled Parking as indicated, and signed, on the Accompanying Disabled Parking Application for Individuals. indomethacin 50 mg capsule 50 mg PO BID PRN (Reason: headache) Follow up/Referrals: Anuj Cochran DO [Primary Care Provider, Family Practice] Discharge Health Status Multidrug resistant organism: No MDRO Diet/Activity/Treatments Diet: Regular Visit Report/Discharge Packet Instructions: DI for Urinary Tract Infection (UTI) Stand Alone Forms: Patient Portal/API Discharge Data Primary Care Provider: Anuj Cochran Attending Provider: Florin Paul Admit Date/Time: 05/18/25 17:16 Quality VTE Deep Vein Thrombosis/Pulmonary Embolism Present on Admission: No
== END 2025-05-19 12:50 | disposition home or self-care (01) ==
LOC: ED 17:16 → AC 17:17
PROVIDERS: Admitting Provider Hospitalist; Emergency Provider Emergency Medicine; PCP Family Medicine; Referring Provider Emergency Medicine; Visit Provider Hospitalist
DX: G31.84 Mild cognitive impairment of uncertain or unknown etiology (principal); E86.9 Volume depletion, unspecified; I10 Essential (primary) hypertension; Z86.19 Personal history of other infectious and parasitic diseases
CPT/HCPCS: 36415; 70450; 70496; 70498; 71045; 80053; 80061; 81003; 83036; 83605; 83690; 83735; 83880; 84484; 85025; 87040; 92523; 93005; 96361; 96365; 96372; 97165; 97530; 99283; 99284; G0378; J0696; J1644; J7030; J7050; Q9967

== ENCOUNTER 2025-05-22 21:54 | Emergency (ER) | payer MEDICARE, SELFPAY ==
[2025-05-19 13:25] VITALS: BMI 26.4
[2025-05-22] VITALS (7 sets, daily range): BP systolic 198–244; BP diastolic 85–105; PULSE 58–73; RESP 16; TEMP 36.2; O2SAT 94–96; BMI 28.8
--- NOTE | 2025-05-22 21:59 | PC.NURSE ---
Pt not physically in department to be triaged at this time. Pt pre-registered by family member.
--- NOTE | 2025-05-22 23:11 | PC.NURSE ---
Assumed pt care, pt a/ox4, ABC's intact, pt denies cp,dizziness, SOB, BLACKMAN, vision changes. pt states she does not have any symptoms/pain. Pt states her son took her bp and noticed it was high and decided to come in.
--- NOTE | 2025-05-22 23:20 | EKG_ITS ---
[place] [address] [place] [address] Test Date: 2025-05-22 Pat Name: Jeannie Dick Department: [facility] Room: Gender: Female Mill Order Scheduler: JESSICA : 1935 Requested By: Order Number: [id number] Reading MD: Florin Paul Measurements Intervals [place] Rate: 56 P: MD: QRS: -6 QRSD: 76 T: 22 QT: 448 QTc: 432 Interpretive Statements Junctional rhythm Minimal voltage criteria for LVH, may be normal variant ( R in aVL ) Electronically Signed On 05-23-2025 15:06:50 PST by Florin Paul
--- NOTE | 2025-05-22 23:22 | ED_ITS ---
HPI - General Adult General Chief complaint: Hypertension Stated complaint: high bp Time Seen by Provider: 05/22/25 22:12 Source: patient and family Mode of arrival: Ambulatory History of Present Illness HPI narrative: 89-year-old female here for elevated blood pressure. Reports history of stroke- like symptoms admission here 05/18/2025, also diagnosed with urinary tract infection, taking antibiotics. Elevated blood pressure readings at home. Blood pressure 214/100 at home. No new neuro symptoms. Taking losartan and doxazosin medications. Denies trouble speaking, changes in vision, trouble swallowing, focal weakness to face arm or leg, focal numbness to face arm or leg. Related Data Home Medications ?Medication ?Instructions ?Recorded ?Confirmed indomethacin 50 mg capsule 50 mg PO BID PRN headache 1 07/18/24 05/20/25 Previous Rx's ?Medication ?Instructions ?Recorded Disabled Parking Permit #1 ea 06/24/22 losartan 100 mg tablet 100 mg PO DAILY #90 tabs 08/20 amoxicillin 875 mg-potassium 1 tab PO BID #14 tabs clavulanate 125 mg tablet cholecalciferol (vitamin D3) 1,250 1,250 mcg PO QWEEK #60 caps 05/20/25 mcg (50,000 unit) capsule doxazosin 1 mg tablet 1 mg PO DAILY #90 tabs 05/20 Allergies Allergy/AdvReac Type Severity Reaction Status Date / Time gluten AdvReac Abdominal Verified 05/22/25 22:04 Pain Patient History Medical History Elevated BUN Balance problem Migraine Osteoporosis Functional fecal incontinence Altered mental status Hearing loss Vision disorder Hypertension Hyperlipidemia History of allergy Headache Fractures Foot pain Chronic back pain Plantar warts (~1949) Rubella Mumps Measles Chicken pox Tinnitus Hearing loss (~2015) Cataracts, bilateral Ovarian cyst (~1949) Irregular menstrual cycle Surgical History Anesthesia History of foot surgery (~2000) History of cataract removal with insertion of prosthetic lens (~2009) Status post tubal ligation Status post appendectomy (~194) Family History Brother Age: 86 Cancer Brother Age: 82 Diabetes mellitus Father Diabetes mellitus Grandmother Diabetes mellitus Grandmother Cancer Mother Cancer Social History marital status: household members: none Smoking Status: Never smoker alcohol intake: never substance use type: does not use Smoking Status: Never smoker Exam Narrative Exam Narrative: GENERAL: Well-developed patient, in mild distress. HEAD: Atraumatic. Normocephalic. EYES: Pupils equal round and reactive. Extraocular motions intact. No scleral icterus. No injection or drainage. ENT: Nose without bleeding, purulent drainage. Throat without erythema, tonsillar hypertrophy or exudate. Airway patent. NECK: Trachea midline. Non tender CARDIOVASCULAR: Regular rate and rhythm without murmurs, gallops, or rubs. RESPIRATORY: Clear to auscultation. Breath sounds equal bilaterally. No wheezes, rales, or rhonchi. GASTROINTESTINAL: Abdomen soft, non-tender, nondistended. EXTREMITIES: No edema or joint tenderness. BACK: Nontender without deformity or crepitance. No flank tenderness. NEURO: AOx3. Motor functions grossly nonfocal. SKIN: No rash or erythema of visible areas Initial Vital Signs Initial Vital Signs: Vital Signs Temperature 97.1 F L 05/22/25 22:02 Pulse Rate 64 05/22/25 22:02 Respiratory Rate 16 05/22/25 22:02 Blood Pressure 244/105 H 05/22/25 22:02 Pulse Oximetry 96 05/22/25 22:02 Oxygen Delivery Method Room Air 05/22/25 22:02 Course Orders Ordered: ED Orders 05/22/25 23:20 EKG-12 Lead Stat 05/22/25 23:23 XR chest 1V Stat Complete Blood Count AUTO DIFF Stat Comprehensive Metabolic Panel Stat Lipase Stat Magnesium Stat NT-proBNP (BNP-Adult 18+) Stat Troponin I Stat EKG-12 Lead Stat Discontinued Medications Amlodipine Besylate (Amlodipine 5 Mg Tablet) 5 mg PO NOW ONE Stop: 05/22/25 23:17 Last Admin: 05/22/25 23:25 Dose: 5 mg Documented By: JESSICA Hydralazine HCl (Hydralazine 20 Mg/Ml Vial) 5 mg IV NOW ONE Stop: 05/23/25 00:35 Last Admin: 05/23/25 00:37 Dose: 5 mg Documented By: JESSICA Hydralazine HCl (Hydralazine 20 Mg/Ml Vial) 10 mg IV Q6HR PRN PRN Reason: Hypertension Last Admin: 05/23/25 02:31 Dose: 10 mg Documented By: JESSICA Hydralazine HCl (Hydralazine 20 Mg/Ml Vial) 5 mg IV NOW ONE Stop: 05/23/25 02:12 Last Admin: 05/23/25 03:29 Dose: Not Given Documented By: JESSICA Nicardipine HCl 25 mg/ Sodium (Chloride) 250 mls @ 50 mls/hr IV TITRATE MARISOL; Protocol Lorazepam (Lorazepam 0.5 Mg Tablet) 0.5 mg PO NOW ONE Stop: 05/23/25 03:00 Vital Signs Vital signs: Vital Signs - 8 hr 05/22/25 22:02 05/22/25 22:09 05/22/25 22:10 Temperature 97.1 F L Pulse Rate 64 73 68 Respiratory Rate 16 Blood Pressure 244/105 H Pulse Oximetry 96 94 94 Oxygen Delivery Method Room Air Room Air 05/22/25 22:10 05/22/25 22:30 05/22/25 23:01 Temperature Pulse Rate 60 62 Respiratory Rate 16 Blood Pressure 198/89 H 229/99 H Pulse Oximetry 94 94 Oxygen Delivery Method 05/22/25 23:30 05/22/25 23:56 05/22/25 23:56 Temperature Pulse Rate 58 L 58 L Respiratory Rate 16 Blood Pressure 220/85 H Pulse Oximetry 95 95 Oxygen Delivery Method 05/23/25 00:00 05/23/25 00:00 05/23/25 00:03 Temperature Pulse Rate 60 Respiratory Rate Blood Pressure 214/87 H 207/87 H Pulse Oximetry 94 Oxygen Delivery Method 05/23/25 00:03 05/23/25 00:30 05/23/25 00:30 Temperature Pulse Rate 57 L 58 L Respiratory Rate Blood Pressure 216/85 H Pulse Oximetry 93 94 Oxygen Delivery Method 05/23/25 01:00 05/23/25 01:01 05/23/25 01:01 Temperature Pulse Rate 59 L 57 L Respiratory Rate 16 Blood Pressure 207/83 H 207/83 H Pulse Oximetry 95 95 Oxygen Delivery Method 05/23/25 01:13 05/23/25 01:13 05/23/25 01:15 Temperature Pulse Rate 65 Respiratory Rate Blood Pressure 188/80 H 188/80 H Pulse Oximetry 95 Oxygen Delivery Method 05/23/25 01:30 05/23/25 01:30 05/23/25 02:00 Temperature Pulse Rate 55 L Respiratory Rate Blood Pressure 193/84 H 201/129 H Pulse Oximetry 94 Oxygen Delivery Method 05/23/25 02:00 05/23/25 02:05 05/23/25 02:05 Temperature Pulse Rate 58 L 61 Respiratory Rate Blood Pressure 204/88 H Pulse Oximetry 94 95 Oxygen Delivery Method 05/23/25 02:31 05/23/25 02:33 05/23/25 02:46 Temperature Pulse Rate 60 64 Respiratory Rate Blood Pressure 193/84 H 220/85 H Pulse Oximetry 95 Oxygen Delivery Method 05/23/25 02:46 05/23/25 03:00 05/23/25 03:00 Temperature Pulse Rate 64 67 Respiratory Rate Blood Pressure 180/79 H Pulse Oximetry 96 94 Oxygen Delivery Method 05/23/25 03:15 05/23/25 03:15 Temperature Pulse Rate 55 L Respiratory Rate Blood Pressure 178/77 H Pulse Oximetry 95 Oxygen Delivery Method Medical Decision Making Lab Data Lab results narrative: White blood cell count 6500, hemoglobin 12.7, platelets adequate. Glucose 102. BUN 18 slight increased, normal creatinine, serum CO2, electrolytes. AST slight elevation with other liver functions normal. Lipase normal. BNP 718 mild elevation. Troponin negative/unmeasurable. 05/23/25 00:05 05/23/25 00:05 Labs: Lab Results 05/23/25 Range/Units 00:05 WBC 6.5 (4.5-11.0) X10^3/uL RBC 4.33 (4.0-5.2) X10^6/uL Hgb 12.7 (12.0-16.0) g/dL Hct 38.4 (36-46) % MCV 88.7 (80-100) fL MCH 29.4 (26-34) PG MCHC 33.1 (30-36) % RDW 14.5 (11.6-14.8) % Plt Count 150 (150-400) X10^3/uL Neut % (Auto) 64.7 (50-75) % Lymph % (Auto) 23.7 L (25-40) % Phelps % (Auto) 8.8 (3-14) % Eos % (Auto) 2.1 (2-4) % Baso % (Auto) 0.7 (0-2) % Neut # (Auto) 4200 (7727-0764) /uL Lymph # (Auto) 1500 (4392-6660) /uL Phelps # (Auto) 600 (0-900) /uL Eos # (Auto) 100 (0-450) /uL Baso # (Auto) 0 (0-100) /uL Sodium 140 (137-145) mmol/L Potassium 4.2 (3.4-5.1) mmol/L Chloride 108 H (98-107) mmol/L Carbon Dioxide 25 (22-32) mmol/L BUN 18 H (7-17) mg/dL Creatinine 0.93 (0.52-1.04) mg/dL Estimated GFR 59 L (>60) mL/min BUN/Creatinine Ratio 19.4 (6-22) Glucose 102 H (70-99) mg/dL Calcium 9.0 (8.4-10.2) mg/dL Magnesium 2.1 (1.6-2.3) mg/dL Total Bilirubin 1.1 (0.2-1.3) mg/dL AST 45 H (14-36) IU/L ALT 19 (<35) IU/L Alkaline Phosphatase 52 (38-126) U/L Troponin I < 0.012 (0.01-0.034) ng/mL NT-Pro-B Natriuret Pep 718 H (<450) pg/mL Total Protein 6.9 (6.3-8.2) g/dL Albumin 3.9 (3.5-5.0) g/dL Globulin 3.0 (1.7-4.1) g/dL Albumin/Globulin Ratio 1.3 (1.0-2.8) Lipase 96 (23-300) U/L Urine Dip Bedside Urine Glucose Negative Bedside Urine Bilirubin - Negative Bedside Urine Ketone - Negative Urine Specific [place] 1.005 Bedside Urine Occult Blood - Negative Bedside Urine pH 7.0 Bedside Urine Protein - Negative Bedside Urine Urobilinogen - Negative Bedside Urine Nitrite - Negative Bedside Urine Leukocytes - Negative Esterase Point of care testing: Urine Dip Bedside Urine Glucose Negative Bedside Urine Bilirubin - Negative Bedside Urine Ketone - Negative Urine Specific [place] 1.005 Bedside Urine Occult Blood - Negative Bedside Urine pH 7.0 Bedside Urine Protein - Negative Bedside Urine Urobilinogen - Negative Bedside Urine Nitrite - Negative Bedside Urine Leukocytes - Negative Esterase Imaging Data Chest x-ray: Radiologist's Impression: [place] [id number] [place] [id number] XRay Report Signed Patient: Jeannie Dick MR#: [id number] : 1935 Acct:[id number] Age/Sex: 89 / F Date of Service: 05/22/25 Loc: ED Accession Number: [id number] Procedure: XR chest 1V Ordering Provider: Yuniel Valentin MD PROCEDURE: XR CHEST 1V INDICATIONS: elev BP TECHNIQUE: One view of the chest was acquired. COMPARISON: [facility], CR, XR CHEST 1V, 05/18/2025, 14:17. FINDINGS: Surgical changes and devices: Metallic density overlying the midline. This is new compared to prior exam. Lungs and pleura: Persistent streaky left basilar opacities. Mediastinum: Mediastinal contours appear normal. Heart size is normal. Bones and chest wall: No suspicious bony lesions. Overlying soft tissues appear unremarkable. IMPRESSION: Persistent streaky left basilar opacities likely atelectasis versus scarring. Metallic density overlying the midline suspected to be external to the patient. Recommend direct visualization. Dictated by: Tiffanie Wei M.D. on 05/22/2025 at 23:59 Approved by: Tiffanie Wei M.D. on 05/23/2025 at 0:00 ECG Data Attestation: I personally reviewed and interpreted this ECG as follows: Interpretation: 2332, sinus bradycardia with rate 56. No obvious ST segment elevation or depression changes. Amplitude P waves noted. QRS 76, QTC 432. [facility] Narrative Medical decision making narrative: 81-year-old female with history of recent stroke admission, and antibiotics for urinary tract infection. Elevated blood pressures at home despite regimen of losartan 100 mg daily, and doxazosin which has recently been increased dosage from 1 tablet in the morning to 2 tablets in the morning, with possible plan per family and patient it might be titrated up further as an outpatient. No headache or chest pain or shortness of breath or no neuro symptoms. Blood pressure 214/100 at home. EKG shows sinus bradycardia 58, no obvious ischemic changes. Chest x-ray: Persisting streaky left basilar opacity likely atelectasis versus scarring, per Radiology report. Patient was given amlodipine, not listed as an allergy, after it was given heart rate seemed to stay in the same range, no dizziness symptoms. However we did ask nursing to indicate amlodipine and allergy/intolerance given her dizziness in the past, especially in context of some bradycardia Lab data: White blood cell count 6500, hemoglobin 12.7, platelets adequate. Glucose 102. BUN 18 slight increased, normal creatinine, serum CO2, electrolytes. AST slight elevation with other liver functions normal. Lipase normal. BNP 718 mild elevation. Troponin negative/unmeasurable. Patient had little initial impact reduction with amlodipine for blood pressure control, given IV 5 mg test dose of hydralazine. Watch for awhile with little change, transient improvement and then increased again, IV 10 mg dose of hydralazine was given, and oral Ativan 0.5 mg. Blood pressure seemed to improve some with systolic blood pressure of 180 and then 178 decreasing. Patient and family decided that they would like to leave. They will contact the office of the regular doctor later this morning to discuss further blood pressure control measures. Anticipate this would be in avoidance of classes such as beta-blockers and calcium channel blockers, and also clonidine, which can be associated with bradycardia. Could consider diuretics, could consider oral hydralazine, nitrates, other. Defer further blood pressure management to primary care provider, they are to contact later this morning. Discharged home with family per their request to be discharged home now. Return precautions discussed. Discharge Plan Departure Patient Disposition: Home Clinical Impression: Hypertension Instructions: DI for High Blood Pressure Activity Restrictions/Additional Instructions: Recent admission for stroke, elevated blood pressure readings. Initial oral amlodipine given, which was not marked as an allergy, but apparently has caused dizziness in the past. There was little change in blood pressure however in the 1st couple of hours after amlodipine dosing. Slow heart rate noted. This prompts avoidance of beta anu medications, other calcium channel anu medications, clonidine medication, to help control blood pressure. IV hydralazine vessel dilator was given. There was some reduction of blood pressure to 180 and then 178. Screening labs unremarkable. Plan apparently was to titrate up doxazosin as an outpatient, consider discussing this with your regular doctor, to see if any further dose changes are appropriate 4 doxazosin, versus adding a 3rd agent for blood pressure control. Call the office of your regular doctor later this morning during Monday open office hours. Return earlier to this/nearest emergency department for any change worsening symptoms or any concerns prior. Prescriptions: No Action amoxicillin-pot clavulanate 875-125 mg tablet 1 tab PO BID Qty: 14 0RF losartan 100 mg tablet 100 mg PO DAILY Qty: 90 1RF (DME) Disabled Parking Permit See Rx Instructions .Route .MEDSUPPLY Qty: 1 0RF Rx Instructions: I find this patient to be medically disabled and qualified for Disabled Parking as indicated, and signed, on the Accompanying Disabled Parking Application for Individuals. doxazosin 1 mg tablet 1 mg PO DAILY Qty: 90 3RF Rx Instructions: increase by 1 tab daily each week until BP less than 130/80, (max of 8 tabs daily). cholecalciferol (vitamin D3) 1,250 mcg (50,000 unit) capsule 1,250 mcg PO QWEEK Qty: 60 3RF indomethacin 50 mg capsule 50 mg PO BID PRN (Reason: headache) Referrals: Anuj Cochran DO [Primary Care Provider, Family Practice] Stand Alone Forms: Patient Portal/API
[2025-05-23] VITALS (15 sets, daily range): BP systolic 178–220; BP diastolic 77–129; PULSE 55–67; RESP 16; O2SAT 93–96
[2025-05-23 00:32] LABS: Add Manual Diff / Slide Review NO; Hematocrit 38.4 % (36-46); Hemoglobin 12.7 g/dL (12.0-16.0); Lymphocytes Absolute Auto 1500 /uL (1100-4500); Mean Corpuscular HGB Conc 33.1 % (30-36); Mean Corpuscular Hemoglobin 29.4 PG (26-34); Mean Corpuscular Volume 88.7 fL (80-100); Platelet Count 150 X10^3/uL (150-400)
[2025-05-23] MEDS: hydrALAZINE 20 MG/ML VIAL 5 MG IV (00:37)
[2025-05-23 01:18] LABS: Alanine Aminotransferase 19 IU/L (<35); Albumin 3.9 g/dL (3.5-5.0); Albumin Globulin Ratio 1.3 (1.0-2.8); Alkaline Phosphatase 52 U/L (38-126); Blood Urea Nitrogen 18 mg/dL (7-17); Calcium 9.0 mg/dL (8.4-10.2); Carbon Dioxide 25 mmol/L (22-32); Chloride 108 mmol/L (98-107); Estimated Glomerular Filt Rate 59 mL/min (>60); Globulin 3.0 g/dL (1.7-4.1); Glucose 102 mg/dL (70-99); Lipase 96 U/L (23-300); Magnesium 2.1 mg/dL (1.6-2.3); Potassium 4.2 mmol/L (3.4-5.1); Sodium 140 mmol/L (137-145); Total Protein 6.9 g/dL (6.3-8.2)
[2025-05-23 01:19] LABS: HEMOLYSIS 62 (0-50)
[2025-05-23 01:29] LABS: NT-proBNP (BNP-Adult 18+) 718 pg/mL (<450); Troponin I < 0.012 ng/mL (0.01-0.034)
[2025-05-23] MEDS: hydrALAZINE 20 MG/ML VIAL 10 MG IV (02:31)
--- NOTE | 2025-05-23 02:31 | PC.NURSE ---
Per verbal from Dr. Valentin, give 10mg Hydralazine IV now.
== END 2025-05-23 03:31 | disposition home or self-care (01) ==
PROVIDERS: Emergency Provider Emergency Medicine; PCP Family Medicine
DX: I10 Essential (primary) hypertension (principal); R00.1 Bradycardia, unspecified; Z86.73 Personal history of transient ischemic attack (TIA), and cerebral infarction without residual deficits
CPT/HCPCS: 36415; 71045; 80053; 81003; 83690; 83735; 83880; 84484; 85025; 93005; 96374; 96376; 99284; J0360

== ENCOUNTER 2025-05-31 17:11 | Inpatient (IN) | payer MEDICARE, SELFPAY ==
[2025-05-19 13:25] VITALS: BMI 26.4
[2025-05-31] VITALS (58 sets, daily range): BP systolic 149–234; BP diastolic 55–107; PULSE 63–87; RESP 12–23; TEMP 36.9–37.1; O2SAT 93–98; BMI 29.2
--- NOTE | 2025-05-31 17:19 | DI.RAD.S_ITS ---
PROCEDURE: XR CHEST 1V INDICATIONS: Possible stroke TECHNIQUE: One view of the chest was acquired. COMPARISON: [facility], CR, XR CHEST 1V, 05/22/2025, 23:40. FINDINGS: Surgical changes and devices: None. Lungs and pleura: Linear left basilar opacities. No consolidations. Mediastinum: Mediastinal contours appear normal. Heart size is normal. Bones and chest wall: No suspicious bony lesions. Overlying soft tissues appear unremarkable. IMPRESSION: Left basilar opacities likely atelectasis. Dictated by: Tiffanie Wei M.D. on 05/31/2025 at 17:59 Approved by: Tiffanie Wei M.D. on 05/31/2025 at 18:00
--- NOTE | 2025-05-31 17:19 | DI.CT.S_ITS ---
PROCEDURE: CT ANGIO HEAD AND NECK INDICATIONS: code stroke TECHNIQUE: After the administration of intravenous contrast, 1 mm thick sections acquired from the aortic arch through the Lummi of David. 3-dimensional yzdlbeb-kpsrfkkfo-zhjequopzw (MIP) and/or volume rendering reformats were acquired of the central intracranial vasculature and neck separately. For radiation dose reduction, the following was used: automated exposure control, adjustment of mA and/or kV according to patient size. COMPARISON: [facility], CT, CT ANGIO HEAD AND NECK, 05/18/2025, 14:59. FINDINGS: Image quality: Diagnostic. Cerebral CT Angiogram: Internal carotid arteries: Atherosclerotic calc sick a vanegas is a thin the bilateral internal carotid artery covering a segments. 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 No occlusion. No significant stenosis. Anterior cerebral arteries: Unremarkable. No significant stenosis. No occlusion. No aneurysm. Middle cerebral arteries: Unremarkable. No significant stenosis. No occlusion. No aneurysm. Posterior cerebral arteries: Unremarkable. No significant stenosis. No occlusion. No aneurysm. Basilar artery: Unremarkable. No significant stenosis. No occlusion. No aneurysm. Vertebral arteries: Unremarkable as visualized. Dural venous sinuses: Unremarkable given phase of enhancement. Other: Arterial phase appearance of the brain parenchyma is unremarkable. Neck CT Angiogram: Internal carotid arteries: Unremarkable. No significant stenosis. No dissection or occlusion. Common carotid arteries: Unremarkable. No significant stenosis. No dissection or occlusion. External carotid arteries: Unremarkable. No occlusion. Vertebral arteries: Unremarkable. No significant stenosis. No dissection or occlusion. Aortic Arch and Mediastinum: Partially visualized aortic arch unremarkable without evidence of aneurysm. Origins of the great vessels unremarkable. Other: Again seen degenerative, grade 1, anterolisthesis of C4 on C5. Moderate degenerative disc osteophyte complex at C5-6 and C6-7. IMPRESSION: No acute finding common no significant change from the prior exam on 05/18/2025. 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 No significant abnormality is seen within the arteries of the neck. Any quantitative measurements of stenosis were performed using NASCET criteria. Dictated by: Zackary Ash M.D. on 05/31/2025 at 16:41 Approved by: Zackary Ash M.D. on 05/31/2025 at 16:44
--- NOTE | 2025-05-31 17:20 | DI.CT.S_ITS ---
PROCEDURE: CT STROKE INDICATIONS: Be-FAST Stroke symptoms TECHNIQUE: Noncontrast 4.5 mm thick angled axial sections acquired from the foramen magnum to the vertex, with coronal reformats. For radiation dose reduction, the following was used: automated exposure control, adjustment of mA and/or kV according to patient size. COMPARISON: [facility], CT, CT ANGIO HEAD AND NECK, 05/31/2025, 17:13. FINDINGS: Image quality: Diagnostic. CSF spaces: Basal cisterns are patent. No extra-axial fluid collections. The ventricles are symmetric in size and shape. Brain: No intracranial bleeds or mass effect. There is cerebral volume loss, with resultant ventricular and sulcal prominence. There are periventricular and deep white matter chronic small vessel ischemic changes. There is intracranial internal carotid artery atherosclerosis. Skull and face: Calvarium and visualized facial bones appear intact, without suspicious lesions. Sinuses: Visualized sinuses and mastoids are clear. IMPRESSION: No acute intracranial pathology. Communication: The above findings were discussed with the QUINN Srinivasan of the [facility] ER, by Dr. Ash via telephone on 05/31/2025 at 17:32 pm PST. This study fulfills neurological imaging criteria for inclusion or exclusion of acute stroke therapies based on available published neurological guidelines. Dictated by: Zackary Ash M.D. on 05/31/2025 at 16:28 Approved by: Zackary Ash M.D. on 05/31/2025 at 16:33
[2025-05-31 17:45] LABS: Add Manual Diff / Slide Review NO; Hematocrit 40.9 % (36-46); Hemoglobin 13.6 g/dL (12.0-16.0); Lymphocytes Absolute Auto 1000 /uL (1100-4500); Mean Corpuscular HGB Conc 33.2 % (30-36); Mean Corpuscular Hemoglobin 29.4 PG (26-34); Mean Corpuscular Volume 88.4 fL (80-100); Platelet Count 183 X10^3/uL (150-400)
[2025-05-31] MEDS: LABETALOL 20 MG/4 ML SYRINGE IV (17:46)
--- NOTE | 2025-05-31 17:46 | EKG_ITS ---
[facility] [address] [place] [address] Test Date: 2025-05-31 Pat Name: Jeannie Dick Department: [facility] Room: Gender: Female [employer]: EFFIE : 1935 Requested By: Order Number: [id number] Reading MD: Florin Paul Measurements Intervals [place] Rate: 86 P: 30 UT: 224 QRS: -11 QRSD: 82 T: 61 QT: 426 QTc: 509 Interpretive Statements Sinus rhythm with 1st degree AV block Nonspecific ST and T wave abnormality Prolonged QT Electronically Signed On 06-01-2025 7:22:38 PST by Florin Paul
[2025-05-31 17:53] LABS: INR 1.0 (0.9-1.3); Prothrombin Time 11.2 SECONDS (9.4-12.5)
[2025-05-31 17:56] LABS: PTT Partial Thromboplastin Tim 30 SECONDS (25.1-36.5)
[2025-05-31 17:57] LABS: Alanine Aminotransferase 14 IU/L (<35); Albumin 4.1 g/dL (3.5-5.0); Albumin Globulin Ratio 1.3 (1.0-2.8); Alkaline Phosphatase 54 U/L (38-126); Blood Urea Nitrogen 18 mg/dL (7-17); Calcium 8.9 mg/dL (8.4-10.2); Carbon Dioxide 27 mmol/L (22-32); Chloride 104 mmol/L (98-107); Creatine Kinase 34 U/L (30-135); Estimated Glomerular Filt Rate 58 mL/min (>60); Globulin 3.2 g/dL (1.7-4.1); Glucose 110 mg/dL (70-99); HEMOLYSIS < 15 (0-50); Potassium 3.7 mmol/L (3.4-5.1); Sodium 139 mmol/L (137-145); Total Protein 7.3 g/dL (6.3-8.2)
--- NOTE | 2025-05-31 18:03 | RT ---
code stroke called, pt alert with patent airway, on room air with no distress noted
[2025-05-31 18:08] LABS: Troponin I 0.012 ng/mL (0.01-0.034)
[2025-05-31] MEDS: hydrALAZINE 20 MG/ML VIAL IV (18:08)
[2025-05-31 18:16] LABS: UR Morphine/Opiate cutoff 300 Negative (Negative); Ur Specific Gravity Normal (Normal); Urine MDMA Negative (Negative); Urine Methamphetamines Negative (Negative); Urine Tetrahydrocannabinol Negative (Negative); Urine Tricyclic Antidepressant Negative (Negative)
--- NOTE | 2025-05-31 18:38 | ED.NEUROSD ---
HPI - Neuro Symptoms/Deficit General Chief Complaint: Neuro Symptoms/Deficit Stated Complaint: code stroke Time Seen by Provider: 05/31/25 17:17 Source: EMS Mode of arrival: EMS History of Present Illness HPI Narrative: This is an 89-year-old white female who presents to the emergency room with acute onset of weakness in the right side as well aged right facial droop and difficulty communicating. Her last known normal was a 3:00 p.m. today. When she 1st arrived my NIH score was 6. And a stroke alert was called. It should also be nose 1st arrived her systolic blood pressure was 220. No further history obtainable. On Anticoagulants: No Related Data Home Medications ?Medication ?Instructions ?Recorded ?Confirmed indomethacin 50 mg capsule 50 mg PO BID PRN headache 05/18/25 05/27/25 Previous Rx's ?Medication ?Instructions ?Recorded Disabled Parking Permit #1 ea 06/24/22 losartan 100 mg tablet 100 mg PO DAILY #90 tabs 03/27/25 cholecalciferol (vitamin D3) 1,250 1,250 mcg PO QWEEK #60 caps 05/20/25 mcg (50,000 unit) capsule amlodipine 5 mg tablet 5 mg PO DAILY #30 tabs 05/27/25 Allergies Allergy/AdvReac Type Severity Reaction Status Date / Time gluten AdvReac Abdominal Verified 05/31/25 17:34 Pain Review of Systems Review of Systems ROS Unobtainable: Unobtainable due to medical condition Hematologic/Lymphatic On Anticoagulants: No Patient History Medical History Elevated BUN Balance problem Migraine Osteoporosis Functional fecal incontinence Altered mental status Hearing loss Vision disorder Hypertension Hyperlipidemia History of allergy Headache Fractures Foot pain Chronic back pain Plantar warts (~1949) Rubella Mumps Measles Chicken pox Tinnitus Hearing loss (~2015) Cataracts, bilateral Ovarian cyst (~1949) Irregular menstrual cycle Surgical History Anesthesia History of foot surgery (~2000) History of cataract removal with insertion of prosthetic lens (~2009) Status post tubal ligation Status post appendectomy (~194) Family History Brother Age: 86 Cancer Brother Age: 82 Diabetes mellitus Father Diabetes mellitus Grandmother Diabetes mellitus Grandmother Cancer Mother Cancer Social History marital status: household members: none Smoking Status: Former smoker alcohol intake: never substance use type: does not use Smoking Status: Former smoker Exam Narrative Exam Narrative: GENERAL: [] year old patient appears stated age. Well-developed patient, in mild distress. HEAD: Atraumatic. Normocephalic. EYES: Pupils equal round and reactive. Extraocular motions intact. No scleral icterus. No injection or drainage. ENT: Nose without bleeding, purulent drainage. Throat without erythema, tonsillar hypertrophy or exudate. Airway patent. NECK: Trachea midline. Non tender CARDIOVASCULAR: Regular rate and rhythm without murmurs, gallops, or rubs. RESPIRATORY: Clear to auscultation. Breath sounds equal bilaterally. No wheezes, rales, or rhonchi. GASTROINTESTINAL: Abdomen soft, non-tender, nondistended. EXTREMITIES: No edema or joint tenderness. BACK: Nontender without deformity or crepitance. No flank tenderness. NEURO: NIH month from 6-[address] Cranial nerves remarkable for a right facial droop. Sensory exam was positive per pic x4 motor is a weakness in the right upper right lower extremity. Cerebella patient could not do [id number] on the right. SKIN: No rash or erythema of visible areas Initial Vital Signs Initial Vital Signs: Vital Signs Pulse Rate 82 05/31/25 17:25 Blood Pressure 233/107 H 05/31/25 17:25 Pulse Oximetry 95 05/31/25 17:25 Course Orders Ordered: ED Orders 05/31/25 17:19 CT angio head and neck Stat XR chest 1V Stat EKG-12 Lead Stat 05/31/25 17:20 CT Stroke Stat 05/31/25 17:36 Complete Blood Count AUTO DIFF Stat Comprehensive Metabolic Panel Stat PTT Partial Thromboplastin [place] Stat Prothrombin Time INR Stat Troponin & CK Cardiac Panel Stat 05/31/25 17:57 Urine Drug Screen, Rapid Stat 05/31/25 18:33 Urinalysis and Microscopic Stat Ondansetron HCl (Ondansetron 4 Mg/2 Ml Inj) 4 mg IV NOW PRN PRN Reason: Nausea And Vomiting Ondansetron HCl (Ondansetron 4 Mg Odt) 4 mg PO NOW PRN PRN Reason: Nausea And Vomiting Discontinued Medications Hydralazine HCl (Hydralazine 20 Mg/Ml Vial) 20 mg IV NOW ONE Stop: 05/31/25 18:01 Last Admin: 05/31/25 18:08 Dose: 20 mg Documented By: RB Labetalol HCl (Labetalol 20 Mg/4 Ml Syringe) 20 mg IV NOW ONE Stop: 05/31/25 17:42 Last Admin: 05/31/25 17:46 Dose: 20 mg Documented By: RB Vital Signs Vital signs: Vital Signs - 8 hr 05/31/25 17:25 05/31/25 17:25 05/31/25 17:30 Temperature Pulse Rate 82 78 Respiratory Rate Blood Pressure 233/107 H Pulse Oximetry 95 96 Oxygen Delivery Method 05/31/25 17:31 05/31/25 17:31 05/31/25 17:34 Temperature 98.8 F Pulse Rate 76 81 Respiratory Rate 23 Blood Pressure 211/92 H 213/85 H Pulse Oximetry 96 97 Oxygen Delivery Method Room Air 05/31/25 17:46 05/31/25 17:47 05/31/25 17:47 Temperature Pulse Rate 86 85 Respiratory Rate Blood Pressure 211/96 H 234/105 H Pulse Oximetry 96 Oxygen Delivery Method 05/31/25 17:52 05/31/25 17:52 05/31/25 18:00 Temperature Pulse Rate 73 Respiratory Rate Blood Pressure 211/98 H 217/88 H Pulse Oximetry 95 Oxygen Delivery Method 05/31/25 18:00 05/31/25 18:05 05/31/25 18:05 Temperature Pulse Rate 66 65 Respiratory Rate Blood Pressure 196/69 H Pulse Oximetry 97 97 Oxygen Delivery Method 05/31/25 18:08 05/31/25 18:10 05/31/25 18:10 Temperature Pulse Rate 63 63 Respiratory Rate Blood Pressure 196/69 H 191/84 H Pulse Oximetry 93 Oxygen Delivery Method 05/31/25 18:15 05/31/25 18:15 05/31/25 18:20 Temperature Pulse Rate 68 72 Respiratory Rate Blood Pressure 181/77 H Pulse Oximetry 95 97 Oxygen Delivery Method 05/31/25 18:20 05/31/25 18:25 05/31/25 18:25 Temperature Pulse Rate 79 Respiratory Rate Blood Pressure 187/79 H 170/55 H Pulse Oximetry 97 Oxygen Delivery Method 05/31/25 18:30 05/31/25 18:31 05/31/25 18:31 Temperature Pulse Rate 77 77 Respiratory Rate Blood Pressure 170/55 H 169/72 H Pulse Oximetry 97 Oxygen Delivery Method MDM - Neuro Symptoms/Deficit Lab Data 05/31/25 17:36 05/31/25 17:36 Labs: Lab Results 05/31/25 05/31/25 Range/Units 17:36 17:57 WBC 5.8 (4.5-11.0) X10^3/uL RBC 4.63 (4.0-5.2) X10^6/uL Hgb 13.6 (12.0-16.0) g/dL Hct 40.9 (36-46) % MCV 88.4 (80-100) fL MCH 29.4 (26-34) PG MCHC 33.2 (30-36) % RDW 14.7 (11.6-14.8) % Plt Count 183 (150-400) X10^3/uL Neut % (Auto) 74.5 (50-75) % Lymph % (Auto) 17.2 L (25-40) % [place] % (Auto) 7.5 (3-14) % Eos % (Auto) 0.3 L (2-4) % Baso % (Auto) 0.5 (0-2) % Neut # (Auto) 4400 (6253-6019) /uL Lymph # (Auto) 1000 L (4540-4779) /uL [place] # (Auto) 400 (0-900) /uL Eos # (Auto) 0 (0-450) /uL Baso # (Auto) 0 (0-100) /uL PT 11.2 (9.4-12.5) SECONDS INR 1.0 (0.9-1.3) APTT 30 (25.1-36.5) SECONDS Sodium 139 (137-145) mmol/L Potassium 3.7 (3.4-5.1) mmol/L Chloride 104 (98-107) mmol/L Carbon Dioxide 27 (22-32) mmol/L BUN 18 H (7-17) mg/dL Creatinine 0.94 (0.52-1.04) mg/dL Estimated GFR 58 L (>60) mL/min BUN/Creatinine Ratio 19.1 (6-22) Glucose 110 H (70-99) mg/dL Calcium 8.9 (8.4-10.2) mg/dL Total Bilirubin 1.5 H (0.2-1.3) mg/dL AST 22 (14-36) IU/L ALT 14 (<35) IU/L Alkaline Phosphatase 54 (38-126) U/L Total Creatine Kinase 34 (30-135) U/L Troponin I 0.012 (0.01-0.034) ng/mL Total Protein 7.3 (6.3-8.2) g/dL Albumin 4.1 (3.5-5.0) g/dL Globulin 3.2 (1.7-4.1) g/dL Albumin/Globulin Ratio 1.3 (1.0-2.8) U Opiates 300ng/mL cut Negative (Negative) Ur Oxycodone Screen Negative (Negative) Urine Methadone Screen Negative (Negative) Ur Barbiturates Screen Negative (Negative) U Tricyclic Antidepress Negative (Negative) Ur Phencyclidine Scrn Negative (Negative) Ur Amphetamines Screen Negative (Negative) U Methamphetamines Scrn Negative (Negative) Ur MDMA Scrn (Ecstasy) Negative (Negative) U Benzodiazepines Scrn Negative (Negative) Urine Cocaine Screen Negative (Negative) U Marijuana (THC) Screen Negative (Negative) Urine pH Normal (Normal) Urine Specific [place] Normal (Normal) Ur Creatinine Normal (Normal) Point of Care Testing Glucose POC 112 MDM Narrative Medical decision making narrative: When the patient 1st arrived her symptoms were less than 4-1/2 hours so a stroke alert 1 was called. Patient had a initial NIH of 6 repeat was lasered [address] of the head read by the radiologist as negative patient had a CT of the head and neck read by the radiologist as negative patient was then evaluated by the stroke neurologist from [facility] who felt because of the rapid improvement the patient was not a candidate for TNK he recommended full dose aspirin and follow-up MRI and carotid Dopplers. I did discuss the case with the hospitalist who agreed to admit the patient. Differential diagnosis hypertensive crisis CVA TIA. Should be noted that in the emergency room patient did receive 20 of IV labetalol and 20 of IV hydralazine. Because the patient was in acute stroke she required bicuspid edges the attention for a total of 60 minutes of critical care time excluding any procedures. Discharge Plan Departure Patient Disposition: Admitted As Inpatient Clinical Impression: Acute CVA (cerebrovascular accident), Hypertensive crisis
[2025-05-31 18:54] LABS: Appearance Urine UA CLEAR; Bilirubin Urine UA NEGATIVE (NEGATIVE); Glucose Urine UA NEGATIVE (Negative); Ketones Urine UA NEGATIVE (NEGATIVE); Leukocyte Esterase Urine UA NEGATIVE (NEGATIVE); Nitrite Urine UA NEGATIVE (Negative); Occult Blood Urine UA NEGATIVE (Negative); Protein Urine UA NEGATIVE (Negative); Specific Gravity Urine UA 1.015 (1.000-1.035); Urobilinogen Urine UA 0.2 E.U./dL (0.2)
[2025-05-31] MEDS: ASPIRIN 81 MG CHEW TAB 324 MG PO (18:54)
[2025-05-31 18:57] LABS: pH Urine UA 8.5 (4.5-8.0)
[2025-05-31 18:58] LABS: Color Urine UA Straw
[2025-05-31 19:03] LABS: Culture Indicated Urine Cult Not Indicated
[2025-05-31 19:10] LABS: Hemoglobin A1C% w Est Avg Glu 5.6 % (4.0-6.0)
--- NOTE | 2025-05-31 19:33 | PC.NURSE ---
This RN contacted overnight hospitalist Rupert Ward with statement Good evening, This is Patrick day shift emergency department nurse. I have Jeannie Dick in room 11. Patient was admitted by Dr. Paul for hypertensive crisis and acute CVA. Patient came in with high blood pressure and ED provider ordered 20mg of labetalol given at 1746 with little effect. Then at 1808 20mg of hydrazine was ordered and successfully moved patient in 140-160 systolic that was requested. Patient now has an is now having blood pressures 183/81 and is steadily rising. There are no bridge orders related for blood pressure currently.
--- NOTE | 2025-05-31 19:36 | PC.NURSE ---
This RN informed hospitalist that this RN messaged the new to contact DELFIN Funk for response to this message and left the phone number for this department for them to call if needed.
--- NOTE | 2025-05-31 19:37 | PC.NURSE ---
This RN informed new RN May and Blessing of messages to hospitalist and concerns of patient blood pressure.
[2025-05-31 20:24] LABS: Cholesterol 191 mg/dL (140-199); HDL Cholesterol 90 mg/dL (40-60); Triglycerides 69 mg/dL (35-150)
--- NOTE | 2025-05-31 21:56 | PC.NURSE ---
Pt admitted to hospital and boarding overnight in the ED. Pt placed in hospital bed instead of ED stretcher for comfort. Purewick in place and on monitor. DELFIN porter.
--- NOTE | 2025-05-31 21:58 | PC.NURSE ---
purewick was placed on patient before this techs arrival to work
--- NOTE | 2025-05-31 23:20 | P.HP_ITS ---
History of Present Illness History of Present Illness Date Patient Seen: 05/31/25 Time Patient Seen: 21:30 Chief complaint: Altered mental status and elevated blood pressure. Narrative: 89-year-old female with a history of hypertension, dyslipidemia, hearing loss, migraine, osteoporosis, and other medical issues was brought to the ED after family noted sudden difficulty with communication. She was at her baseline at 3 PM, responsive and conversant. By 4 PM, family found her awake but unable to speak or effectively communicate. On ED arrival, she was unable to answer questions, but cognition has since improved. She is now oriented to location and able to state the month/date of but unable to recall the year. Reports a dull headache. Denies blurred vision, chest pain, shortness of breath, abdominal pain, nausea, vomiting, or urinary/bowel issues. Family reports several recent ED visits for uncontrolled hypertension. Her BP medications were in the process of being adjusted. She was hospitalized in late April for a UTI with associated hypertensive urgency. ED Evaluation: * Initial BP: 233/107, HR 82 * Labs: WBC 5.8, Hgb 13.6, Plts 183; Na 139, K 3.7, BUN 18, Cr 0.94; AST/ALT / * Urine tox: Negative * Imaging: CT head and CTA head/neck negative for acute pathology * Neurology consult: Not a TNK candidate; given full-dose aspirin * Recommended MRI brain and carotid Doppler * Advised gradual BP reduction * Admitted for further evaluation. [facility] Medical History Elevated BUN Balance problem Migraine Osteoporosis Functional fecal incontinence Altered mental status Hearing loss Vision disorder Hypertension Hyperlipidemia History of allergy Headache Fractures Foot pain Chronic back pain Plantar warts (~1949) Rubella Mumps Measles Chicken pox Tinnitus Hearing loss (~2015) Cataracts, bilateral Ovarian cyst (~1949) Irregular menstrual cycle Surgical History Anesthesia History of foot surgery (~2000) History of cataract removal with insertion of prosthetic lens (~2009) Status post tubal ligation Status post appendectomy (~194) Family History Brother Age: 86 Cancer Brother Age: 82 Diabetes mellitus Father Diabetes mellitus Grandmother Diabetes mellitus Grandmother Cancer Mother Cancer Social History marital status: household members: none Smoking Status: Former smoker alcohol intake: never substance use type: does not use Meds Home Medications and Allergies Home Medications ?Medication ?Instructions ?Recorded ?Confirmed ?Type Disabled Parking Permit #1 ea 06/24/22 05/27/25 Rx losartan 100 mg tablet 100 mg PO DAILY #90 tabs 08/2005/27/25 Rx indomethacin 50 mg capsule 50 mg PO BID PRN headache 1 07/18/24 05/27/25 History cholecalciferol (vitamin D3) 1,250 1,250 mcg PO QWEEK #60 caps 05/20/25 05/27/25 Rx mcg (50,000 unit) capsule amlodipine 5 mg tablet 5 mg PO DAILY #30 tabs 05/2705/27/25 Rx Allergies Allergy/AdvReac Type Severity Reaction Status Date / Time gluten AdvReac Abdominal Verified 05/31/25 17:34 Pain Review of Systems Review of Systems Narrative: 12 point review of system is negative unless otherwise stated in HPI Exam Vital Signs (past 8 hours): - 05/31/25 17:25 05/31/25 17:25 05/31/25 17:30 Temperature Pulse Rate 82 78 Respiratory Rate Blood Pressure 233/107 H Pulse Oximetry 95 96 Oxygen Delivery Method 05/31/25 17:31 05/31/25 17:31 05/31/25 17:34 Temperature 98.8 F Pulse Rate 76 81 Respiratory Rate 23 Blood Pressure 211/92 H 213/85 H Pulse Oximetry 96 97 Oxygen Delivery Method Room Air 05/31/25 17:46 05/31/25 17:47 05/31/25 17:47 Temperature Pulse Rate 86 85 Respiratory Rate Blood Pressure 211/96 H 234/105 H Pulse Oximetry 96 Oxygen Delivery Method 05/31/25 17:52 05/31/25 17:52 05/31/25 18:00 Temperature Pulse Rate 73 Respiratory Rate Blood Pressure 211/98 H 217/88 H Pulse Oximetry 95 Oxygen Delivery Method 05/31/25 18:00 05/31/25 18:05 05/31/25 18:05 Temperature Pulse Rate 66 65 Respiratory Rate Blood Pressure 196/69 H Pulse Oximetry 97 97 Oxygen Delivery Method 05/31/25 18:08 05/31/25 18:10 05/31/25 18:10 Temperature Pulse Rate 63 63 Respiratory Rate Blood Pressure 196/69 H 191/84 H Pulse Oximetry 93 Oxygen Delivery Method 05/31/25 18:15 05/31/25 18:15 05/31/25 18:20 Temperature Pulse Rate 68 72 Respiratory Rate Blood Pressure 181/77 H Pulse Oximetry 95 97 Oxygen Delivery Method 05/31/25 18:20 05/31/25 18:25 05/31/25 18:25 Temperature Pulse Rate 79 Respiratory Rate Blood Pressure 187/79 H 170/55 H Pulse Oximetry 97 Oxygen Delivery Method 05/31/25 18:30 05/31/25 18:31 05/31/25 18:31 Temperature Pulse Rate 77 77 Respiratory Rate Blood Pressure 170/55 H 169/72 H Pulse Oximetry 97 Oxygen Delivery Method 05/31/25 18:31 05/31/25 18:35 05/31/25 18:35 Temperature Pulse Rate 77 77 Respiratory Rate Blood Pressure 149/68 H Pulse Oximetry 98 97 Oxygen Delivery Method 05/31/25 18:40 05/31/25 18:40 05/31/25 18:45 Temperature Pulse Rate 76 Respiratory Rate Blood Pressure 169/67 H 149/68 H Pulse Oximetry 98 Oxygen Delivery Method 05/31/25 18:45 05/31/25 18:51 05/31/25 18:51 Temperature Pulse Rate 76 78 Respiratory Rate Blood Pressure 165/72 H Pulse Oximetry 97 96 Oxygen Delivery Method 05/31/25 18:56 05/31/25 18:56 05/31/25 19:00 Temperature Pulse Rate 80 80 Respiratory Rate Blood Pressure 168/73 H Pulse Oximetry 97 98 Oxygen Delivery Method 05/31/25 19:01 05/31/25 19:01 05/31/25 19:05 Temperature Pulse Rate 79 Respiratory Rate Blood Pressure 171/70 H 173/79 H Pulse Oximetry 98 Oxygen Delivery Method 05/31/25 19:05 05/31/25 19:10 05/31/25 19:10 Temperature Pulse Rate 82 87 Respiratory Rate Blood Pressure 164/74 H Pulse Oximetry 98 97 Oxygen Delivery Method 05/31/25 19:15 05/31/25 19:16 05/31/25 19:16 Temperature Pulse Rate 86 81 Respiratory Rate Blood Pressure 164/74 H 183/81 H Pulse Oximetry 95 Oxygen Delivery Method 05/31/25 19:20 05/31/25 19:20 05/31/25 19:25 Temperature Pulse Rate 80 Respiratory Rate Blood Pressure 180/84 H 181/79 H Pulse Oximetry 95 Oxygen Delivery Method 05/31/25 19:25 05/31/25 19:30 05/31/25 19:30 Temperature Pulse Rate 80 80 Respiratory Rate Blood Pressure 182/80 H Pulse Oximetry 95 Oxygen Delivery Method 05/31/25 19:35 05/31/25 19:35 05/31/25 19:40 Temperature Pulse Rate 78 Respiratory Rate Blood Pressure 190/86 H 183/84 H Pulse Oximetry 95 Oxygen Delivery Method 05/31/25 19:40 05/31/25 19:45 05/31/25 19:45 Temperature Pulse Rate 77 76 Respiratory Rate Blood Pressure 179/69 H Pulse Oximetry 96 95 Oxygen Delivery Method 05/31/25 19:50 05/31/25 19:50 05/31/25 19:55 Temperature Pulse Rate 76 73 Respiratory Rate Blood Pressure 174/79 H Pulse Oximetry 97 96 Oxygen Delivery Method 05/31/25 19:55 05/31/25 20:00 05/31/25 20:00 Temperature Pulse Rate 72 Respiratory Rate Blood Pressure 182/85 H 177/79 H Pulse Oximetry 97 Oxygen Delivery Method 05/31/25 20:05 05/31/25 20:05 05/31/25 20:10 Temperature Pulse Rate 71 Respiratory Rate Blood Pressure 192/74 H 198/87 H Pulse Oximetry 97 Oxygen Delivery Method 05/31/25 20:10 05/31/25 20:15 05/31/25 20:15 Temperature Pulse Rate 81 77 Respiratory Rate Blood Pressure 184/80 H Pulse Oximetry 96 95 Oxygen Delivery Method 05/31/25 20:20 05/31/25 20:20 05/31/25 20:25 Temperature Pulse Rate 76 77 Respiratory Rate Blood Pressure 188/81 H Pulse Oximetry 96 95 Oxygen Delivery Method 05/31/25 20:25 05/31/25 20:30 05/31/25 20:30 Temperature Pulse Rate 74 Respiratory Rate Blood Pressure 178/80 H 172/77 H Pulse Oximetry 96 Oxygen Delivery Method 05/31/25 20:35 05/31/25 20:35 05/31/25 20:40 Temperature Pulse Rate 74 75 Respiratory Rate Blood Pressure 168/77 H Pulse Oximetry 96 96 Oxygen Delivery Method 05/31/25 20:40 05/31/25 20:45 05/31/25 20:45 Temperature Pulse Rate 74 Respiratory Rate Blood Pressure 189/85 H 192/81 H Pulse Oximetry 95 Oxygen Delivery Method 05/31/25 20:50 05/31/25 20:50 05/31/25 20:55 Temperature Pulse Rate 72 Respiratory Rate Blood Pressure 192/79 H 176/77 H Pulse Oximetry 95 Oxygen Delivery Method 05/31/25 20:55 05/31/25 21:00 05/31/25 21:00 Temperature Pulse Rate 73 80 Respiratory Rate Blood Pressure 187/81 H Pulse Oximetry 95 96 Oxygen Delivery Method 05/31/25 21:05 05/31/25 21:05 05/31/25 21:10 Temperature Pulse Rate 85 Respiratory Rate Blood Pressure 200/80 H 183/82 H Pulse Oximetry 95 Oxygen Delivery Method 05/31/25 21:10 05/31/25 21:15 05/31/25 21:15 Temperature Pulse Rate 79 81 Respiratory Rate Blood Pressure 187/86 H Pulse Oximetry 95 95 Oxygen Delivery Method 05/31/25 21:30 05/31/25 21:30 05/31/25 22:00 Temperature Pulse Rate 83 81 Respiratory Rate Blood Pressure 185/79 H Pulse Oximetry 96 95 Oxygen Delivery Method 05/31/25 22:30 05/31/25 23:00 05/31/25 23:11 Temperature Pulse Rate 76 74 Respiratory Rate Blood Pressure 160/72 H Pulse Oximetry 95 95 Oxygen Delivery Method 05/31/25 23:11 Temperature Pulse Rate 78 Respiratory Rate 18 Blood Pressure Pulse Oximetry 95 Oxygen Delivery Method Oxygen Delivery Method Room Air Narrative Exam Narrative: General: Awake, cooperative, improving cognition. HEENT: No scleral icterus; mucous membranes moist; hearing impaired at baseline. Cardiac: Regular rate/rhythm; no murmurs. Respiratory: Clear breath sounds; no wheezing or crackles. Abdomen: Soft, nontender, nondistended. Neuro: * Awake and interactive. * Speech improved; mild word-finding difficulty. * Oriented to person and location; not oriented to year. * No facial droop; no motor deficits; strength symmetric. * Follows commands appropriately. Extremities: No edema; pulses palpable. Skin: Warm, dry. Objective Labs 05/31/25 17:36 05/31/25 17:36 Labs: Laboratory Results - last 24 hr 05/31/25 05/31/25 05/31/25 17:36 17:57 17:57 WBC 5.8 RBC 4.63 Hgb 13.6 Hct 40.9 MCV 88.4 MCH 29.4 MCHC 33.2 RDW 14.7 Plt Count 183 Neut % (Auto) 74.5 Lymph % (Auto) 17.2 L [place] % (Auto) 7.5 Eos % (Auto) 0.3 L Baso % (Auto) 0.5 Neut # (Auto) 4400 Lymph # (Auto) 1000 L [place] # (Auto) 400 Eos # (Auto) 0 Baso # (Auto) 0 PT 11.2 INR 1.0 APTT 30 Sodium 139 Potassium 3.7 Chloride 104 Carbon Dioxide 27 BUN 18 H Creatinine 0.94 Estimated GFR 58 L BUN/Creatinine Ratio 19.1 Glucose 110 H Hemoglobin A1c 5.6 Calcium 8.9 Total Bilirubin 1.5 H AST 22 ALT 14 Alkaline Phosphatase 54 Total Creatine Kinase 34 Troponin I 0.012 Total Protein 7.3 Albumin 4.1 Globulin 3.2 Albumin/Globulin Ratio 1.3 Triglycerides 69 Cholesterol 191 LDL Cholesterol, Calc 87 HDL Cholesterol 90 H Urine Color Straw Urine Appearance Clear Urine pH 8.5 H Normal Ur Specific [place] 1.015 Urine Protein Negative Urine Glucose (UA) Negative Urine Ketones Negative Urine Occult Blood Negative Urine Nitrate Negative Urine Bilirubin Negative Urine Urobilinogen 0.2 Ur Leukocyte Esterase Negative Urine RBC None seen Urine WBC None seen Ur Squamous Epith Cells None seen Urine Bacteria Occasional (0-1) Ur Culture Indicated? Cult not indicated Vol Urine Centrifuged 10ml (spun) U Opiates 300ng/mL cut Negative Ur Oxycodone Screen Negative Urine Methadone Screen Negative Ur Barbiturates Screen Negative U Tricyclic Antidepress Negative Ur Phencyclidine Scrn Negative Ur Amphetamines Screen Negative U Methamphetamines Scrn Negative Ur MDMA Scrn (Ecstasy) Negative U Benzodiazepines Scrn Negative Urine Cocaine Screen Negative U Marijuana (THC) Screen Negative Urine Specific [place] Normal Ur Creatinine Normal Assessment & Plan Assessment and plan (1) Hypertensive crisis: Status: Acute Plan * Transient altered mental status?suspected hypertensive encephalopathy vs TIA * Continue gradual BP reduction; target systolic 160?180 initially. * PRN IV hydralazine. * Resume home losartan (Cozaar) and amlodipine. * Follow-up MRI brain, carotid Doppler, and echocardiogram. * Continue aspirin and initiate high-dose statin as per neurology recommendations. * Frequent neuro checks. * Mild cognitive impairment * Supportive care. * Evaluate for reversible contributors: electrolytes, infection, thyroid studies as indicated. * Uncontrolled hypertension * Restart home antihypertensives. * Slow BP control to avoid cerebral hypoperfusion. * Monitor closely on telemetry. * DVT prophylaxis * Heparin. Disposition: Admit under observation status. Code Status: Full code. Telemedicine Encounter Documentation * Evaluation performed via video communication device. * Patient located at [facility]. * Provider located at [facility] remote telemedicine site. * Nurse present at bedside during evaluation. * Total time spent: 30 minutes, including chart review. Time-Based Coding :: [TOTAL MINUTES] spent with patient and on the chart (including review of chart, obtaining history, exam, reviewing outside data, placing orders, documenting exam and treatment plan, and counseling patient) on [DATE].
[2025-06-01] VITALS (16 sets, daily range): BP systolic 158–196; BP diastolic 45–83; PULSE 65–82; RESP 15–20; TEMP 36.7–37.2; O2SAT 92–96
[2025-06-01 00:05] LABS: Troponin I < 0.012 ng/mL (0.01-0.034)
--- NOTE | 2025-06-01 04:54 | DI.MRI.S_ITS ---
PROCEDURE: MR HEAD/BRAIN WO CON INDICATIONS: tia TECHNIQUE: Non-contrast axial T1 spin echo, axial T2 fast spin echo, sagittal and axial FLAIR, coronal T2 fast spin echo, axial gradient echo, axial diffusion and ADC through the brain. COMPARISON: [facility], , MR HEAD/BRAIN WO CON, 04/12/2019, 15:23. FINDINGS: Image quality: Motion degraded. CSF spaces: Ventricles appear symmetric in size and shape. Basal cisterns are patent. No extra-axial fluid collections. Brain: No intracranial bleeds or mass effects. There is cerebral volume loss for age. There are periventricular and deep white matter chronic small vessel ischemic changes. Brainstem appears normal. Diffusion-weighted images show no acute infarct. No chronic ischemic insults. Normal intravascular flow voids are present. Skull and face: Calvarial bone marrow is normal in signal. Bilateral lens replacements. Otherwise, the orbits are unremarkable. Sinuses: Sinuses and mastoids are clear. IMPRESSION: No acute or subacute infarct. No acute intracranial abnormalities. Age-related global volume loss and chronic microvascular ischemic change. Dictated by: Genaro Roberts M.D. on 06/01/2025 at 13:14 Approved by: Genaro Roberts M.D. on 06/01/2025 at 13:15
--- NOTE | 2025-06-01 04:55 | DI.ECHO.S_ITS ---
[facility] : : [address] : : [place] : : [id number] : : Phone: [phone] Echocardiogram Report + + :Name: SUZNANE GAUTHIER Study Date: 06/01/2025 Height: 58 in : :[facility] ReadingLocation: Weight: 140 lb : : Gender: Female BSA: 1.6 m2 : :: 1935 Age: 89 yrs BP: 185/68 mmHg: :Reason For Study: TIA : :Ordering Physician: BEBA, : :PINEDA PARRY Performed By: Emmanuel Ariza : :Referring: UNSPECIFIED : + + Interpretation Summary The left ventricle is normal in size. The left ventricular ejection fraction is normal. The ejection fraction is estimated to be 60-65%. No obvious LV thrombus seen. The right ventricle is normal in size and function. Mild MR and AR There is aortic root sclerosis/calcification. Procedure: A two-dimensional transthoracic echocardiogram with color flow and Doppler was performed. The study quality was technically good. Comparison is made with the echocardiogram of 12/06/2021. The patient was in normal sinus rhythm during the exam. Left Ventricle: The left ventricle is normal in size. Left ventricular wall thickness is mildly increased. There is no thrombus. The ejection fraction is estimated to be 60-65%. The left ventricular ejection fraction is normal. There are no focal wall motion abnormalities. Diastolic parameters suggest a relaxation abnormality of the left ventricle, consistent with probable normal filling pressures. Right Ventricle: The right ventricle is normal in size and function. Atria: The left atrium is moderately dilated. The left atrium has mildly increased in size since the prior echo exam. Right atrial size is normal. There is no Doppler evidence for an interatrial shunt. Mitral Valve: There is mild mitral annular calcification. The mitral valve leaflets appear mildly thickened. There is mild mitral regurgitation. There has been no significant change since the previous study. Aortic Valve: The aortic valve is trileaflet. The aortic valve is mildly calcified. There is no aortic valve stenosis. There is mild aortic regurgitation. Tricuspid Valve: The tricuspid valve leaflets are thin and pliable. There is trace tricuspid regurgitation. Pulmonary artery pressures cannot be estimated because of the lack of a measurable TR jet velocity. Pulmonic Valve: The pulmonic valve is not well seen, but is grossly normal. There is no pulmonic valvular regurgitation. Great Vessels: The aortic root is normal size. There is aortic root sclerosis/calcification. The dimensions of the ascending aorta are normal. Aortic arch not well-visualized. The pulmonary artery is not well visualized, but is probably normal size. The inferior vena cava was not visualized. Pericardium/ Pleura There is no pericardial effusion. There is an anterior echo-free space consistent with a fat pad. There is no pleural effusion. MMode/2D Measurements & Calculations LVIDd: 4.1 cm LVOT diam: 2.0 cm LVIDs: 2.7 cm Ao root diam: 3.0 cm FS: 34.4 % asc Aorta Diam: 3.2 cm EPSS: 0.55 cm IVSd: 1.3 cm LVPWd: 1.1 cm LV curtis. diameter/BSA (cm/m^2): 2.6 LV sys. diameter/BSA (cm/m^2): 1.7 LA A2 area: 20.3 cm2 RA long axis: 5.3 cm LA A4 area: 22.7 cm2 RA area: 16.4 cm2 LA length (vol): 5.8 cm RA vol: 43.0 ml LA vol: 67.1 ml RA : 27.5 ml/m2 LA vol index: 42.9 ml/m2 RVD1 (basal): 3.3 cm RVD2 (mid): 1.8 cm TAPSE: 2.8 cm Doppler Measurements & Calculations Ao V2 max: 129.0 cm/sec LVOT Max Armando: 89.5 cm/sec Ao V2 mean: 87.0 cm/sec LV V1 max P.2 mmHg Ao max P.7 mmHg LV V1 VTI: 18.7 cm Ao mean P.3 mmHg SONU(I,D): 2.2 cm2 Ao V2 VTI: 28.5 cm SONU(V,D): 2.3 cm2 sev ratio: 0.66 SONU indexed to BSA (cm^2/m^2): 1.4 MV E max armando: 46.1 cm/sec PA V2 max: 110.3 cm/sec MV A max armando: 61.7 cm/sec PA V2 mean: 62.1 cm/sec MV E/A: 0.75 PA mean P.8 mmHg Med Peak E' Armando: 4.7 cm/sec PA pr(Accel): 60.2 mmHg E/E' med: 9.9 Lat Peak E' Armando: 4.7 cm/sec E/E' lat: 9.7 E/e' average: 9.8 MV dec time: 0.23 sec SV(LVOT): 61.4 ml Reading Physician:11:49 AM
--- NOTE | 2025-06-01 04:55 | DI.US.S_ITS ---
PROCEDURE: US CAROTID DOPPLER BI INDICATIONS: tia TECHNIQUE: Color and pulse Doppler interrogation was performed of both carotid systems, with image documentation and velocity measurements. COMPARISON: None. FINDINGS: Stenosis calculations are based on SRU (Society of Radiologists in Ultrasound) criteria. Right side: Common carotid artery peak systolic velocity: 52 cm/sec. Internal carotid artery peak systolic velocity: 50 cm/sec. Internal carotid artery end diastolic velocity: 12 cm/sec. External carotid artery peak systolic velocity: 55 cm/sec. ICA/CCA peak systolic ratio: 1.0 . Rodriguez scale imaging description: Mild atherosclerotic plaque at the carotid bulb and proximal ICA Percent internal carotid artery stenosis: Less than 50% . Vertebral artery: Flow direction is antegrade. Left side: Common carotid artery peak systolic velocity: 64 cm/sec. Internal carotid artery peak systolic velocity: 69 cm/sec. Internal carotid artery end diastolic velocity: 15 cm/sec. External carotid artery peak systolic velocity: 95 cm/sec. ICA/CCA peak systolic ratio: 1.1 . Rodriguez scale imaging description: Mild atherosclerotic plaque of the carotid bulb and ICA Percent internal carotid artery stenosis: Less than 50% . Vertebral artery: Flow direction is antegrade. IMPRESSION: 1. In the right carotid artery, there is less than 50% stenosis based on peak systolic velocity criteria. 2. In the left carotid artery, there is less than 50% stenosis based on peak systolic velocity criteria. 3. Antegrade vertebral arteries. Dictated by: Zackary Ash M.D. on 06/01/2025 at 13:09 Approved by: Zackary Ash M.D. on 06/01/2025 at 13:13
[2025-06-01 06:00] LABS: Add Manual Diff / Slide Review NO; Hematocrit 40.5 % (36-46); Hemoglobin 13.8 g/dL (12.0-16.0); Lymphocytes Absolute Auto 1600 /uL (1100-4500); Mean Corpuscular HGB Conc 34.0 % (30-36); Mean Corpuscular Hemoglobin 29.8 PG (26-34); Mean Corpuscular Volume 87.7 fL (80-100); Platelet Count 200 X10^3/uL (150-400)
[2025-06-01 06:45] LABS: Alanine Aminotransferase 13 IU/L (<35); Albumin 3.9 g/dL (3.5-5.0); Albumin Globulin Ratio 1.4 (1.0-2.8); Alkaline Phosphatase 54 U/L (38-126); Blood Urea Nitrogen 17 mg/dL (7-17); Calcium 9.1 mg/dL (8.4-10.2); Carbon Dioxide 23 mmol/L (22-32); Chloride 107 mmol/L (98-107); Cholesterol 189 mg/dL (140-199); Estimated Glomerular Filt Rate > 60 mL/min (>60); Globulin 2.8 g/dL (1.7-4.1); Glucose 112 mg/dL (70-99); HDL Cholesterol 89 mg/dL (40-60); HEMOLYSIS < 15 (0-50); Potassium 3.9 mmol/L (3.4-5.1); Sodium 139 mmol/L (137-145); Total Protein 6.7 g/dL (6.3-8.2); Triglycerides 62 mg/dL (35-150)
[2025-06-01 07:16] LABS: TSH w/ Reflex to FT4 0.75 uIU/mL (0.47-4.68)
--- NOTE | 2025-06-01 08:16 | P.PN_ITS ---
Subjective Subjective Interval history: From night doctor: 89-year-old female with a history of hypertension, dyslipidemia, hearing loss, migraine, osteoporosis, and other medical issues was brought to the ED after family noted sudden difficulty with communication. She was at her baseline at 3 PM, responsive and conversant. By 4 PM, family found her awake but unable to speak or effectively communicate. On ED arrival, she was unable to answer questions, but cognition has since improved. She is now oriented to location and able to state the month/date of but unable to recall the year. Reports a dull headache. Denies blurred vision, chest pain, shortness of breath, abdominal pain, nausea, vomiting, or urinary/bowel issues. Family reports several recent ED visits for uncontrolled hypertension. Her BP medications were in the process of being adjusted. She was hospitalized in late April for a UTI with associated hypertensive urgency. ED Evaluation: * Initial BP: 233/107, HR 82 * Labs: WBC 5.8, Hgb 13.6, Plts 183; Na 139, K 3.7, BUN 18, Cr 0.94; AST/ALT 22/14 * Urine tox: Negative * Imaging: CT head and CTA head/neck negative for acute pathology * Neurology consult: Not a TNK candidate; given full-dose aspirin * Recommended MRI brain and carotid Doppler * Advised gradual BP reduction * Admitted for further evaluation. MRI head negative. S: She was still somewhat confused, but about 80% better as noted by her son he was in the room. MRI is negative. Blood pressure control has been poor for last 3 weeks due to a change in medications. She has been running close to 200 systolic. Her blood pressure was 220 systolic when she became confused and weak yesterday. O: BP 177/63. NAD, alert and oriented to person, place, but not year. Fluent speech. Lethargic. Lungs are clear, normal rate and effort. Heart is regular, no murmur gallop or rub. Abdomen is soft, non distended. Extremities are free of edema. Neuro: Normal speech, lethargic. No facial droop. Motor strength is 5/5 arms and legs, follows commands normally. IMAGING: MR Brain: No acute or subacute infarct. No acute intracranial abnormalities. Age-related global volume loss and chronic microvascular ischemic change. ECHO: The left ventricle is normal in size. The left ventricular ejection fraction is normal. The ejection fraction is estimated to be 60-65%. No obvious LV thrombus seen. The right ventricle is normal in size and function. Mild MR and AR There is aortic root sclerosis/calcification. CTH: No acute intracranial pathology. CTA Head and Neck: No acute finding common no significant change from the prior exam on 05/18/2025. 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 No significant abnormality is seen within the arteries of the neck. A/P: * Transient altered mental status?suspected hypertensive encephalopathy. Improving. * Continue gradual BP reduction; target systolic 160?180 initially. * PRN IV hydralazine. * Resume home losartan (Cozaar) and amlodipine. * Follow-up MRI brain, carotid Doppler, and echocardiogram. * Continue aspirin and initiate high-dose statin as per neurology recommendations. * Frequent neuro checks. * Mild cognitive impairment, improving. * Supportive care. * Evaluate for reversible contributors: electrolytes, infection, thyroid studies as indicated. * Uncontrolled hypertension, improving. * Restart home antihypertensives. * Slow BP control to avoid cerebral hypoperfusion. * Monitor closely on telemetry. * DVT prophylaxis * Heparin. Disposition: Still encephalopathic, needs a 2nd night of observation for blood pressure control and monitor mental status. Code Status: Full code. Exam Vital Signs (past 8 hours): - 06/01/25 03:00 06/01/25 07:00 Temperature 98.6 F Pulse Rate 69 Respiratory Rate 17 Blood Pressure 177/63 H Pulse Oximetry 96 95 Oxygen Delivery Method Room Air Oxygen Flow Rate 0 Oxygen Delivery Method Room Air Oxygen Flow Rate 0 Objective Labs 06/01/25 05:30 06/01/25 05:00 Labs: Laboratory Results - last 24 hr 05/31/25 05/31/25 05/31/25 17:36 17:57 17:57 WBC 5.8 RBC 4.63 Hgb 13.6 Hct 40.9 MCV 88.4 MCH 29.4 MCHC 33.2 RDW 14.7 Plt Count 183 Neut % (Auto) 74.5 Lymph % (Auto) 17.2 L [place] % (Auto) 7.5 Eos % (Auto) 0.3 L Baso % (Auto) 0.5 Neut # (Auto) 4400 Lymph # (Auto) 1000 L [place] # (Auto) 400 Eos # (Auto) 0 Baso # (Auto) 0 PT 11.2 INR 1.0 APTT 30 Sodium 139 Potassium 3.7 Chloride 104 Carbon Dioxide 27 BUN 18 H Creatinine 0.94 Estimated GFR 58 L BUN/Creatinine Ratio 19.1 Glucose 110 H Hemoglobin A1c 5.6 Calcium 8.9 Total Bilirubin 1.5 H AST 22 ALT 14 Alkaline Phosphatase 54 Total Creatine Kinase 34 Troponin I 0.012 Total Protein 7.3 Albumin 4.1 Globulin 3.2 Albumin/Globulin Ratio 1.3 Triglycerides 69 Cholesterol 191 LDL Cholesterol, Calc 87 HDL Cholesterol 90 H TSH Urine Color Straw Urine Appearance Clear Urine pH 8.5 H Normal Ur Specific [place] 1.015 Urine Protein Negative Urine Glucose (UA) Negative Urine Ketones Negative Urine Occult Blood Negative Urine Nitrate Negative Urine Bilirubin Negative Urine Urobilinogen 0.2 Ur Leukocyte Esterase Negative Urine RBC None seen Urine WBC None seen Ur Squamous Epith Cells None seen Urine Bacteria Occasional (0-1) Ur Culture Indicated? Cult not indicated Vol Urine Centrifuged 10ml (spun) U Opiates 300ng/mL cut Negative Ur Oxycodone Screen Negative Urine Methadone Screen Negative Ur Barbiturates Screen Negative U Tricyclic Antidepress Negative Ur Phencyclidine Scrn Negative Ur Amphetamines Screen Negative U Methamphetamines Scrn Negative Ur MDMA Scrn (Ecstasy) Negative U Benzodiazepines Scrn Negative Urine Cocaine Screen Negative U Marijuana (THC) Screen Negative Urine Specific [place] Normal Ur Creatinine Normal 05/31/25 06/01/25 06/01/25 23:10 05:00 05:30 WBC 7.9 RBC 4.62 Hgb 13.8 Hct 40.5 MCV 87.7 MCH 29.8 MCHC 34.0 RDW 14.8 Plt Count 200 Neut % (Auto) 69.9 Lymph % (Auto) 20.0 L [place] % (Auto) 9.3 Eos % (Auto) 0.4 L Baso % (Auto) 0.4 Neut # (Auto) 5500 Lymph # (Auto) 1600 [place] # (Auto) 700 Eos # (Auto) 0 Baso # (Auto) 0 PT INR APTT Sodium 139 Cancelled Potassium 3.9 Cancelled Chloride 107 Cancelled Carbon Dioxide 23 Cancelled BUN 17 Cancelled Creatinine 0.91 Cancelled Estimated GFR > 60 Cancelled BUN/Creatinine Ratio 18.7 Cancelled Glucose 112 H Cancelled Hemoglobin A1c Calcium 9.1 Cancelled Total Bilirubin 1.8 H AST 21 ALT 13 Alkaline Phosphatase 54 Total Creatine Kinase Troponin I < 0.012 Total Protein 6.7 Albumin 3.9 Globulin 2.8 Albumin/Globulin Ratio 1.4 Triglycerides 62 Cholesterol 189 LDL Cholesterol, Calc 88 HDL Cholesterol 89 H TSH 0.75 Urine Color Urine Appearance Urine pH Ur Specific [place] Urine Protein Urine Glucose (UA) Urine Ketones Urine Occult Blood Urine Nitrate Urine Bilirubin Urine Urobilinogen Ur Leukocyte Esterase Urine RBC Urine WBC Ur Squamous Epith Cells Urine Bacteria Ur Culture Indicated? Vol Urine Centrifuged U Opiates 300ng/mL cut Ur Oxycodone Screen Urine Methadone Screen Ur Barbiturates Screen U Tricyclic Antidepress Ur Phencyclidine Scrn Ur Amphetamines Screen U Methamphetamines Scrn Ur MDMA Scrn (Ecstasy) U Benzodiazepines Scrn Urine Cocaine Screen U Marijuana (THC) Screen Urine Specific [place] Ur Creatinine PFSH Medical History Elevated BUN Balance problem Migraine Osteoporosis Functional fecal incontinence Altered mental status Hearing loss Vision disorder Hypertension Hyperlipidemia History of allergy Headache Fractures Foot pain Chronic back pain Plantar warts (~1949) Rubella Mumps Measles Chicken pox Tinnitus Hearing loss (~2015) Cataracts, bilateral Ovarian cyst (~1949) Irregular menstrual cycle Surgical History Anesthesia History of foot surgery (~2000) History of cataract removal with insertion of prosthetic lens (~2009) Status post tubal ligation Status post appendectomy (~194) Family History Brother Age: 86 Cancer Brother Age: 82 Diabetes mellitus Father Diabetes mellitus Grandmother Diabetes mellitus Grandmother Cancer Mother Cancer Social History marital status: household members: none Smoking Status: Former smoker alcohol intake: never substance use type: does not use Assessment & Plan Time-Based Coding :: [TOTAL MINUTES] spent with patient and on the chart (including review of chart, obtaining history, exam, reviewing outside data, placing orders, documenting exam and treatment plan, and counseling patient) on [DATE]. Quality VTE Deep Vein Thrombosis/Pulmonary Embolism Present on Admission: No
[2025-06-01] MEDS: LOSARTAN 50 MG TABLET 100 MG PO (08:25)
[2025-06-01] MEDS: ENOXAPARIN 40 MG/0.4 ML SYRINGE SUBCUT (08:27)
[2025-06-01] MEDS: ASPIRIN EC 325 MG TABLET PO (09:57)
[2025-06-01] MEDS: SODIUM CHLORIDE 0.9% FLUSH 10 ML IV (09:58)
--- NOTE | 2025-06-01 11:14 | PT.IIE ---
Current Diagnoses Hypertensive crisis, unspecified (05/31/25) Surgical History (Last Reviewed 05/18/25 @ 18:49 by Florin Paul MD) Anesthesia History of cataract removal with insertion of prosthetic lens (~2009) History of foot surgery (~2000) Status post appendectomy (~194) Status post tubal ligation Medical History (Last Reviewed 05/18/25 @ 18:49 by Florin Paul MD) Altered mental status Balance problem Cataracts, bilateral Chicken pox Chronic back pain Elevated BUN Foot pain Fractures Functional fecal incontinence Headache Hearing loss (~2015) Hearing loss History of allergy Hyperlipidemia Hypertension Irregular menstrual cycle Measles Migraine Mumps Osteoporosis Ovarian cyst (~1949) Plantar warts (~1949) Rubella Tinnitus Vision disorder Physical Therapy Inpatient Evaluation/Re-Eval M1 PT IP Prior Functional Status Start: 06/01/25 11:21 Freq: NEEDED Status: Active Protocol: Document 06/01/25 11:14 DLM (Rec: 06/01/25 11:45 DLM Desktop) Medical Review Prior Functional Status Medical History Yes Reviewed Diet/Fluid Regular Consistency Communication hard of hearing, has aides, has glasses that she uses mostly for reading. she reports having bifocals Mobility and Gait Independent with cane. Activities of Daily Independent with basic ADL's. Her Son lives on property Living and IADL's and helps with airline radio operator. Prior Functional Her Son lives on the same property in a trailer. He Level (Other details works during the day. When he is home he checks on or ) helps her regularly. Social History Household Members none Living Arrangements House Number of Floors ( Two Floors Floors) Number of Stairs To 2 with rails Enter/Railing? Home Environment High Toilet,Tub/Shower Home Equipment Straight Cane,Hand Held Shower,Grab Bars Near Toilet, Grab Bars In Shower Employment Status Retired Additional Social had an electric scooter in 2019 past but unclear if she History Comment still owns it, she does not have a FWW any more M2 PT-IP Current Condition Start: 06/01/25 11:21 Freq: NEEDED Status: Active Protocol: Document 06/01/25 11:14 DLM (Rec: 06/01/25 11:45 DLM Desktop) Physical Therapy Current Condition Current Condition Evaluation Date 06/01/25 Treatment Diagnosis CVA r/o, impaired balance and coordination Onset Date 05/31/25 M3 PT-IP Subjective Start: 06/01/25 11:21 Freq: NEEDED Status: Active Protocol: Document 06/01/25 11:14 DLM (Rec: 06/01/25 11:45 DLM Desktop) Subjective Physical Therapy Visit Type Type Initial Evaluation Visit Start Time 10:40 Visit Stop Time 11:14 Notes 34 min Number of SKILLED LABORER Visits 0 Physical Therapy Visit Comments Patient Comments She reports feeling shaky when up. Patient Goals did not state Therapy Pain Assessment Pain When Pain Assessed At Rest Pain Present Pain Present Pain Reported Location Low Back Scale Used she did not rate Description Aching,Chronic Pain Management Re-positioning Techniques M4 PT-IP Mobility and Gait Start: 06/01/25 11:21 Freq: NEEDED Status: Active Protocol: Document 06/01/25 11:14 DLM (Rec: 06/01/25 11:45 DLM Desktop) PT-Bed Mobility Assessment Supine to Sit Supine to Sit Standby Assistance Sit to Supine Sit to Supine Standby Assistance Scooting Scooting to Edge of Standby Assistance Bed PT-Transfer Assessment Sit to and From Stand Sit to and from Contact Guard Assistance,Minimal Assistance,Use of Stand Upper Extremities Equipment Transfer Assistive Gait Belt,Straight Cane Device Transfers Transfer Destination Bed,Toilet Transfer Technique Stand Step Pivot Transfer Ability Level of Assist Minimal Assistance Comments Mobility Comments She is unsteady with initial standing with cane and needed min/mod assist to manage her balance. Pt returned to supine to rest after activity. Gait Assessment Gait Gait Assistance Moderate Assistance Required: Distance (Feet) 20 Assistive Devices Assistive Device Gait Belt,Straight Cane Gait Deviations General Gait Pattern Ataxic Factors Limiting Gait Function Factors Limiting Decreased Activity Tolerance,Difficulty Following Gait Function Directions,Poor Balance Comments Gait Comments Gait training initiated with cane which is her baseline device. She needs moderate assist for gait with the cane due to decreased balance and coordination. Gait training also performed with FWW this visit which better managed her balance but she still needs min assist including help to stay inside and move FWW. Pt verbalizes awareness of feeling unsteady during gait this visit. Noted pt has difficulty with initial placement of left hand on the FWW and she needed assist to get it on the handle instead of another area of the FWW. Once placed on the handle she was able to keep it there. Also noted pt keeping her head to right during gait and having difficulty finding things like the toilet on the left. Stair Climbing Assessment Comments Stair Climbing not tested this visit due to decreased balance Comments PT-Balance Assessment Sitting Balance and Reactions Static Sitting Good Balance Ability Dynamic Sitting Fair Balance Ability Standing Balance and Reactions Static Standing Fair Balance Ability Dynamic Standing Poor Balance Ability M5 PT-IP Objective Assessments Start: 06/01/25 11:21 Freq: NEEDED Status: Active Protocol: Document 06/01/25 11:14 DLM (Rec: 06/01/25 11:45 DLM Desktop) Orientation Orientation/Cognition Level of Alertness Alert Orientation Name,Place,Situation Language Function Hard of Hearing Ability Safety Awareness Decreased Safety Awareness Comments Pt does not have glasses nor hearing aides at this time . She has difficulty following verbal instructions but this appears at least in part due to decreased hearing. Mild garbling of speech noted but she can make her thoughts known. Full orientation questions not completed this visit due to limited hearing. Pt is able to recognize family and has some awareness of why she is at the hospital. Gross Range of Motion Upper Extremity ROM Assessment Within Functional Limits Lower Extremity ROM Assessment Within Functional Limits Strength Upper Extremity Strength Assessment Within Functional Limits Lower Extremity Strength Assessment Within Functional Limits Coordination Assessment Gross Coordination Gross Coordination Impaired Assessment Finger to Nose Test Moderate Impairment Foot Tapping Test Moderate Impairment Sensation Assessment Sensation Gross Sensation WNL Muscle Tone Muscle Tone WNL Yes M6 PT-IP Treatment Start: 06/01/25 11:21 Freq: NEEDED Status: Active Protocol: Document 06/01/25 11:14 DLM (Rec: 06/01/25 11:45 DLM Desktop) Physical Therapy Treatment Education Education Provided Safety Other Treatments Other Treatment Her Son and Grandson are present today and observed Performed therapy. They confirm that she is not at her baseline. They are talking to other family members to discuss more help at home vs SNF rehab at discharge. I anticipate she will need a FWW at discharge. M7 PT-IP Assessment and Plan Start: 06/01/25 11:21 Freq: NEEDED Status: Active Protocol: Document 06/01/25 11:14 DLM (Rec: 06/01/25 11:45 DLM Desktop) PT Summary Assessment and Plan Potential Rehabilitation Good Potential Status of Condition Evolving at Evaluation Summary Impairments Balance,Coordination,Cognition,Bed Mobility,Transfers, Gait,Activity Tolerance Assessment Summary Jeannie is alert and resting in bed today. She was admitted with impaired speech and impaired mobility. Her head CT shows and unchanged aneurysm. Her brain MRI is pending. Her family reports her speech is better but not back to baseline. On clinical exam today pt shows impaired coordination and balance. She has a left sided inattention. Further vision assessment needed. She uses a cane at baseline but today is very unsteady with a cane needing moderate assistance. Gait training started with FWW but she still needs min assist for gait. Pt is at high risk for falls at this time. Her family is present and confirms she is not at her baseline. She could benefit from SNF rehab at discharge to help with her functional recovery. Family is unsure if they want to take her home vs SNF. She will need 24 /7 assist with home health therapy if she goes home. She is not safe to go home alone. Goals Bed Mobility Goal Independent Transfer Goal Standby Assistance,Cane,Front Wheeled Walker Gait Goal Standby Assistance,Cane,Front Wheel Walker Gait Distance 150 feet Other Goals Up/down 2 steps with rail and cane with CG assist Up/down 12 steps with rail and cane with CG/min assist. Days to Meet Goals 7 Frequency of Treatment Frequency Of Once a Day Treatment Treatment Plan Physical Therapy Bed Mobility Training,Transfer Training,Gait Training, Treatment Plan Therapeutic Exercise,Balance Retraining,Discharge Planning,Neuromuscular Re-ed,Coordination Retraining Precautions Other Precautions fall risk, possible vision impairment pt does not like to wear socks/shoes but does agree to wear hospital socks for gait Recommendations To Nursing Amount of Assist 1 Person Assist Needed Discharge Recommendations PT Discharge Home with 24/7 Assist Available,Home vs SNF Recommendations Other Discharge Not safe to go home alone. Home health if family can Recommendations provide 24/7 assist at home. Equipment Needed for FWW Home Before Discharge Transportation Needs Private Vehicle,Wheelchair/Cabulance at Discharge - PT assist 1
--- NOTE | 2025-06-01 17:12 | CM.IDA ---
Initial DCP Assessment Note Patient is 89 y/o female who presents to via EMS due to concern for stroke like symptoms. Patient had similar presentation to ED on 05/18/25 resulting in OBS admission and d/c home on 05/19/25. Patient's PCP is Dr. Cochran, patient has [facility] and [facility] insurance. Patient has hx of hypertension, dyslipidemia, hearing loss, mild cognitive impairment and osteoporosis. LUBE ATTENDANT enters room to meet with patient, present in room is patient's son Rolo. Patient presents as somnolent and hard of hearing and proceeds to close her eyes. LUBE ATTENDANT speaks with patient's son. He reports that patient has been tired all day. Patient resides in [place] and patient's son Rolo resides on the property. It is reported that patient is typically independent with ADLs and he assists with card stripper. Patient drives at baseline during the day but can receive rides from family. Patient typically ambulates independently at baseline. It is reported that patient has 5 children, 4 of them live locally and patient's daughter resides in [place]. Patient's son reports concern for patient's hypertension issues, not well controlled at this time but patient's medication dosage was recently increased. Patient has hx of [facility] referral in 2019. PT recommends home with 24/7 assistance vs. SNF rehab. LUBE ATTENDANT discusses plan of care options and patient's son wants to discusses SNF rehab with siblings before deciding on plan of care. LUBE ATTENDANT provides son with medicare choice list. It is reported that patient's daughter is in route to visit patient. Plan: DCP to f/u with family and POC, f/u with PT further. SNF rehab vs. Home with 24/7 assistance and HH. DANY Sosa Discharge Planning/Care Management CM Discharge Assessment Start: 05/31/25 20:08 Freq: Status: Active Protocol: Document 06/01/25 17:02 LN (Rec: 06/01/25 17:10 LN [id number]) Discharge Planning Assessment Assigned Discharge DANY Espinoza Renewable Energy Broker Provider Dr. Anuj Cochran Insurance [facility],Medicare Advance Directives? Yes Advance Directives Yes: POLST & Advanced Directive on File History Provided By Family Member,Medical Record Has Patient been Yes admitted in last 30 days? Comment 05/18/25-05/19/25 for TIA. Prior Living House Arrangements Household Members none Comment Patient's son lives on property Type of Drives own vehicle transporation used prior to admit Independent with ADL Yes 's Is patient alert and Yes: Patient somnolent at the moment oriented? Comment Family to discuss SNF vs. HH, LUBE ATTENDANT provided son with choice list to review with his siblings. Additional Comment PT recommends SNF Rehab Document 06/01/25 17:11 LN (Rec: 06/01/25 17:11 LN [id number]) Discharge Planning Assessment Assigned Discharge DANY Espinoza Renewable Energy Broker Provider Dr. Anuj Cochran Insurance [facility],Medicare Advance Directives? Yes Advance Directives Yes: POLST & Advanced Directive on File History Provided By Family Member,Medical Record Has Patient been Yes admitted in last 30 days? Comment 05/18/25-05/19/25 for TIA. Prior Living House Arrangements Household Members none Comment Patient's son lives on property Type of Drives own vehicle transporation used prior to admit Independent with ADL Yes 's Is patient alert and Yes: Patient somnolent at the moment oriented? Patient/Family Home with Home Health Preference Comment Family to discuss SNF vs. HH, LUBE ATTENDANT provided son with choice list to review with his siblings. Discharge Plan Home Transportation Significate other or Dtr will provide transportation Arrangement Additional Comment PT recommends SNF Rehab
[2025-06-01] MEDS: ATORVASTATIN 20 MG TABLET 80 MG PO (21:52)
[2025-06-02] VITALS (13 sets, daily range): BP systolic 116–181; BP diastolic 40–72; PULSE 54–75; RESP 16–24; TEMP 36.7–37.4; O2SAT 91–95
[2025-06-02] MEDS: OLANZapine 10 MG VIAL 5 MG IM (07:07)
--- NOTE | 2025-06-02 07:58 | P.PN_ITS ---
Subjective Subjective Date Patient Seen: 06/02/25 Interval history: Anticipate increasing amlodipine to 10 mg tomorrow morning. Reassess her mental status, she was still somewhat encephalopathic today. Discharge planning contingent upon her progress. This is an 89-year-old female with a history of hypertension, dyslipidemia, hearing loss, migraine, osteoporosis, and other medical issues was brought to the ED after family noted sudden difficulty with communication. She was at her baseline at 3 PM, responsive and conversant. By 4 PM, family found her awake but unable to speak or effectively communicate. On ED arrival, she was unable to answer questions, but cognition has since improved. She is now oriented to location and able to state the month/date of but unable to recall the year. Reports a dull headache. Denies blurred vision, chest pain, shortness of breath, abdominal pain, nausea, vomiting, or urinary/bowel issues. Family reports several recent ED visits for uncontrolled hypertension. Her BP medications were in the process of being adjusted. She was hospitalized in late April for a UTI with associated hypertensive urgency. ED Evaluation: * Initial BP: 233/107, HR 82 * Labs: WBC 5.8, Hgb 13.6, Plts 183; Na 139, K 3.7, BUN 18, Cr 0.94; AST/ALT 22/14 * Urine tox: Negative * Imaging: CT head and CTA head/neck negative for acute pathology * Neurology consult: Not a TNK candidate; given full-dose aspirin * Recommended MRI brain and carotid Doppler * Advised gradual BP reduction * Admitted for further evaluation. MRI head negative. 06/01: She was still somewhat confused, but about 80% better as noted by her son he was in the room. MRI is negative. Blood pressure control has been poor for last 3 weeks due to a change in medications. She has been running close to 200 systolic. Her blood pressure was 220 systolic when she became confused and weak yesterday. 06/02: Patient had a rough overnight. At some point she received additional sedation and her daughter states that she was not oriented the last time she spoke with her. She is sleeping during my visit. The brain MRI is normal. Echocardiogram is normal. The carotid ultrasound shows less than 50% bilateral stenosis. PT reports that she is also having ataxia and was unbalanced with gait. We continue to treat her for presumptive hypertensive encephalopathy. O: BP 177/63. Sleeping/sedated Lungs are clear, normal rate and effort. Heart is regular, no murmur gallop or rub. Abdomen is soft, non distended. Extremities are free of edema. Neuro: Asleep. Unable to assess accurately IMAGING: MR Brain: No acute or subacute infarct. No acute intracranial abnormalities. Age-related global volume loss and chronic microvascular ischemic change. ECHO: The left ventricle is normal in size. The left ventricular ejection fraction is normal. The ejection fraction is estimated to be 60-65%. No obvious LV thrombus seen. The right ventricle is normal in size and function. Mild MR and AR There is aortic root sclerosis/calcification. CTH: No acute intracranial pathology. CTA Head and Neck: No acute finding common no significant change from the prior exam on 05/18/2025. 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 No significant abnormality is seen within the arteries of the neck. A/P: * Transient altered mental status?suspected hypertensive encephalopathy. Ongoing. * Continue gradual BP reduction; target systolic 160?180 initially. * PRN IV hydralazine. * Resume home losartan (Cozaar) and amlodipine. * Follow-up MRI brain, carotid Doppler, and echocardiogram reviewed * Continue aspirin and initiate high-dose statin as per neurology recommendations. * Frequent neuro checks. * Mild cognitive impairment, improving. * Supportive care. * Evaluate for reversible contributors: electrolytes, infection, thyroid studies as indicated. * Uncontrolled hypertension, improving. * Restart home antihypertensives. * Slow BP control to avoid cerebral hypoperfusion. * Monitor closely on telemetry. * Increased Amlodipine to 10 mg daily * DVT prophylaxis * Heparin. Disposition: Still encephalopathic, needs blood pressure control and monitor mental status. Code Status: Full code. Exam Vital Signs (past 8 hours): - 06/02/25 00:00 06/02/25 03:00 06/02/25 04:00 Temperature 99.2 F 98.7 F Pulse Rate 75 66 Respiratory Rate 16 20 Blood Pressure 161/40 H 181/72 H Pulse Oximetry 93 93 93 Oxygen Delivery Method Room Air Oxygen Flow Rate 0 0 Oxygen Delivery Method Room Air Oxygen Flow Rate 0 Narrative Exam Narrative: Patient is sedated after increased agitation this morning so I am unable to test her neurologically or mentally. Heart is regular rate and rhythm without murmur. Lungs are clear to auscultation bilaterally. Extremities have no ankle edema. Objective Labs 06/02/25 10:28 06/02/25 10:28 Labs: Laboratory Results - last 24 hr 06/02/25 06:02 POC Whole Bld Glucose 94 PFSH Medical History Elevated BUN Balance problem Migraine Osteoporosis Functional fecal incontinence Altered mental status Hearing loss Vision disorder Hypertension Hyperlipidemia History of allergy Headache Fractures Foot pain Chronic back pain Plantar warts (~1949) Rubella Mumps Measles Chicken pox Tinnitus Hearing loss (~2015) Cataracts, bilateral Ovarian cyst (~1949) Irregular menstrual cycle Surgical History Anesthesia History of foot surgery (~2000) History of cataract removal with insertion of prosthetic lens (~2009) Status post tubal ligation Status post appendectomy (~1949) Family History Brother Age: 86 Cancer Brother Age: 82 Diabetes mellitus Father Diabetes mellitus Grandmother Diabetes mellitus Grandmother Cancer Mother Cancer Social History marital status: household members: none Smoking Status: Former smoker alcohol intake: never substance use type: does not use Assessment & Plan Time-Based Coding :: [TOTAL MINUTES] spent with patient and on the chart (including review of chart, obtaining history, exam, reviewing outside data, placing orders, documenting exam and treatment plan, and counseling patient) on [DATE]. Quality VTE Deep Vein Thrombosis/Pulmonary Embolism Present on Admission: No
[2025-06-02 10:38] LABS: Add Manual Diff / Slide Review NO; Hematocrit 39.1 % (36-46); Hemoglobin 12.9 g/dL (12.0-16.0); Lymphocytes Absolute Auto 1800 /uL (1100-4500); Mean Corpuscular HGB Conc 33.1 % (30-36); Mean Corpuscular Hemoglobin 29.2 PG (26-34); Mean Corpuscular Volume 88.4 fL (80-100); Platelet Count 191 X10^3/uL (150-400)
[2025-06-02 10:52] LABS: Blood Urea Nitrogen 22 mg/dL (7-17); Calcium 8.7 mg/dL (8.4-10.2); Carbon Dioxide 25 mmol/L (22-32); Chloride 105 mmol/L (98-107); Estimated Glomerular Filt Rate 50 mL/min (>60); Glucose 101 mg/dL (70-99); HEMOLYSIS < 15 (0-50); Potassium 3.7 mmol/L (3.4-5.1); Sodium 135 mmol/L (137-145)
--- NOTE | 2025-06-02 11:27 | PT-IP ANOTE ---
Pt very sleepy and unable to participate in therapy this morning. Will check back later today as time allows.
--- NOTE | 2025-06-02 11:27 | SLP.IPNOTE ---
Chart reviewed and RN consulted. RN reported pt has been combative/impulsive last night with significant difficulty sleeping. She was given Zyprexa and has been sleeping since. COLLAR SETTER OVERLOCK unable to awake pt despite verbal/tactile cueing. Plan to re-attempt tomorrow and assess swallowing and speech/language function. Family member and RN aware.
--- NOTE | 2025-06-02 11:37 | PC.NURSE ---
Patient received Zyprexa IM by Noc shift RN approx [id number]. Unable to successfully perform NIH. Daughter at bedside providing supportive care.
--- NOTE | 2025-06-02 12:12 | DIET.CONS ---
Dietary Consultation Note Admission Date: 06/01/2025 14:08 Assessment: 89 y F admitted for possible stroke/hypertension. Dietitian consulted for uncontrolled BP. Per team rounds this morning, pt is confused and very sleepy today. EMR reviewed. Pt is on heart healthy diet with limited 2 g Na. Ht: 147.32 cm Wt: 63.503 kg BMI: 29.2 UBW: 60-64 kg within the last year Last BM: 06/01/25 (06/01/25 17:22) MNA: 14 Dameon Score: 16 Diet: 06/01/25 Breakfast Heart Healthy Diet Diet Modifications: Nutrition Percent Meal Consumed 0% 06/01/25 18:28 Labs: RBC 4.42 X10^6/uL (4.0-5.2) 06/02/25 10:28 Hgb 12.9 g/dL (12.0-16.0) 06/02/25 10:28 Hct 39.1 % (36-46) 06/02/25 10:28 Creatinine 1.07 mg/dL (0.52-1.04) H 06/02/25 10:28 Hemoglobin A1c 5.6 % (4.0-6.0) 05/31/25 17:36 Monitoring/Evaluations: monitoring PO intakes Electronically Signed by: Rocio Li 06/02/25 12:12 Clinical Dietitian [address] [id number]
--- NOTE | 2025-06-02 14:50 | OT.IPNOTE ---
OT consult received and chart reviewed. Pt asleep in room with son present on entrance. Pts son reports that his mom was combative last night and that she has been sleeping most of the day. He asked that OT not wake the pt, stating that she really needs her rest right now. He provided home and history information to assist in the eval tomorrow. Will reattempt tomorrow.
[2025-06-02] MEDS: ASPIRIN EC 325 MG TABLET PO (16:13)
[2025-06-02] MEDS: LOSARTAN 50 MG TABLET 100 MG PO (16:13)
--- NOTE | 2025-06-02 16:51 | CM.DPNOTE ---
DCP Note FOOD SERVICE TECHNICIAN reviewed EMR per RN report, needed IM ativan due to agitation overnight. sleeping all day Monday as a result. per provider, unsure if encephalopathy due to high BP or if sudden onset dementia??? MRI neg for stroke. FOOD SERVICE TECHNICIAN met with oldest son Lucho in room. report other FOOD SERVICE TECHNICIAN met with other son Rolo, did not discuss SNF with other siblings. Lucho plans to discuss SNF vs home with family and they will decide, but not much able to be done today for DCP Coordination due to pt being sedated from ativan.. Will f/u Tues but at this point, Lucho reports that if SNF likely [facility] would be their preference due to location P: DCP pending family preference. will continue to fllow closely for DCP Coordination ASHLEY Benedict
[2025-06-02] MEDS: ATORVASTATIN 20 MG TABLET 80 MG PO (20:44)
[2025-06-03] VITALS: BP 142/55; PULSE 59; RESP 18; TEMP 36.6; O2SAT 93; O2SAT 94
[2025-06-03 04:00] VITALS: BP 118/57; PULSE 55; RESP 18; TEMP 36.8; O2SAT 91; O2SAT 96
--- NOTE | 2025-06-03 06:52 | P.PN_ITS ---
Subjective Subjective Date Patient Seen: 06/03/25 Interval history: This is an 89-year-old female with a history of hypertension, dyslipidemia, hearing loss, migraine, osteoporosis, and other medical issues was brought to the ED after family noted sudden difficulty with communication. She was at her baseline at 3 PM, responsive and conversant. By 4 PM, family found her awake but unable to speak or effectively communicate. On ED arrival, she was unable to answer questions, but cognition has since improved. She is now oriented to location and able to state the month/date of but unable to recall the year. Reports a dull headache. Denies blurred vision, chest pain, shortness of breath, abdominal pain, nausea, vomiting, or urinary/bowel issues. Family reports several recent ED visits for uncontrolled hypertension. Her BP medications were in the process of being adjusted. She was hospitalized in late April for a UTI with associated hypertensive urgency. ED Evaluation: * Initial BP: 233/107, HR 82 * Labs: WBC 5.8, Hgb 13.6, Plts 183; Na 139, K 3.7, BUN 18, Cr 0.94; AST/ALT 22/14 * Urine tox: Negative * Imaging: CT head and CTA head/neck negative for acute pathology * Neurology consult: Not a TNK candidate; given full-dose aspirin * Recommended MRI brain and carotid Doppler * Advised gradual BP reduction * Admitted for further evaluation. MRI head negative. 06/01: She was still somewhat confused, but about 80% better as noted by her son he was in the room. MRI is negative. Blood pressure control has been poor for last 3 weeks due to a change in medications. She has been running close to 200 systolic. Her blood pressure was 220 systolic when she became confused and weak yesterday. 06/02: Patient had a rough overnight. At some point she received additional sedation and her daughter states that she was not oriented the last time she spoke with her. She is sleeping during my visit. The brain MRI is normal. Echocardiogram is normal. The carotid ultrasound shows less than 50% bilateral stenosis. PT reports that she is also having ataxia and was unbalanced with gait. We continue to treat her for presumptive hypertensive encephalopathy. O: BP 177/63. Sleeping/sedated Lungs are clear, normal rate and effort. Heart is regular, no murmur gallop or rub. Abdomen is soft, non distended. Extremities are free of edema. Neuro: Asleep. Unable to assess accurately IMAGING: MR Brain: No acute or subacute infarct. No acute intracranial abnormalities. Age-related global volume loss and chronic microvascular ischemic change. ECHO: The left ventricle is normal in size. The left ventricular ejection fraction is normal. The ejection fraction is estimated to be 60-65%. No obvious LV thrombus seen. The right ventricle is normal in size and function. Mild MR and AR There is aortic root sclerosis/calcification. CTH: No acute intracranial pathology. CTA Head and Neck: No acute finding common no significant change from the prior exam on 05/18/2025. 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 No significant abnormality is seen within the arteries of the neck. A/P: * Transient altered mental status?suspected hypertensive encephalopathy. Ongoing. * Continue gradual BP reduction; target systolic 160?180 initially. * PRN IV hydralazine. * Resume home losartan (Cozaar) and amlodipine. * Follow-up MRI brain, carotid Doppler, and echocardiogram reviewed * Continue aspirin and initiate high-dose statin as per neurology recommendations. * Frequent neuro checks. * Mild cognitive impairment, improving. * Supportive care. * Evaluate for reversible contributors: electrolytes, infection, thyroid studies as indicated. * Uncontrolled hypertension, improving. * Restart home antihypertensives. * Slow BP control to avoid cerebral hypoperfusion. * Monitor closely on telemetry. * Increased Amlodipine to 10 mg daily * DVT prophylaxis * Heparin. Disposition: Still encephalopathic, needs blood pressure control and monitor mental status. Code Status: Full code. Exam Vital Signs (past 8 hours): - 06/03/25 00:00 06/03/25 00:00 06/03/25 04:00 Temperature 97.9 F 98.3 F Pulse Rate 59 L 55 L Respiratory Rate 18 18 Blood Pressure 142/55 H 118/57 L Pulse Oximetry 94 93 91 Oxygen Delivery Method Room Air Oxygen Flow Rate 0 0 06/03/25 04:00 Temperature Pulse Rate Respiratory Rate Blood Pressure Pulse Oximetry 96 Oxygen Delivery Method Room Air Oxygen Flow Rate Oxygen Delivery Method Room Air Oxygen Flow Rate 0 Objective Labs 06/02/25 10:28 06/02/25 10:28 Labs: Laboratory Results - last 24 hr 06/02/25 10:28 WBC 7.4 RBC 4.42 Hgb 12.9 Hct 39.1 MCV 88.4 MCH 29.2 MCHC 33.1 RDW 14.6 Plt Count 191 Neut % (Auto) 64.6 Lymph % (Auto) 23.8 L Ponce % (Auto) 9.7 Eos % (Auto) 1.2 L Baso % (Auto) 0.7 Neut # (Auto) 4800 Lymph # (Auto) 1800 Ponce # (Auto) 700 Eos # (Auto) 100 Baso # (Auto) 0 Sodium 135 L Potassium 3.7 Chloride 105 Carbon Dioxide 25 BUN 22 H Creatinine 1.07 H Estimated GFR 50 L BUN/Creatinine Ratio 20.6 Glucose 101 H Calcium 8.7 PFSH Medical History Elevated BUN Balance problem Migraine Osteoporosis Functional fecal incontinence Altered mental status Hearing loss Vision disorder Hypertension Hyperlipidemia History of allergy Headache Fractures Foot pain Chronic back pain Plantar warts (~1949) Rubella Mumps Measles Chicken pox Tinnitus Hearing loss (~2015) Cataracts, bilateral Ovarian cyst (~1949) Irregular menstrual cycle Surgical History Anesthesia History of foot surgery (~2000) History of cataract removal with insertion of prosthetic lens (~2009) Status post tubal ligation Status post appendectomy (~194) Family History Brother Age: 86 Cancer Brother Age: 82 Diabetes mellitus Father Diabetes mellitus Grandmother Diabetes mellitus Grandmother Cancer Mother Cancer Social History marital status: household members: none Smoking Status: Former smoker alcohol intake: never substance use type: does not use Assessment & Plan Time-Based Coding :: [TOTAL MINUTES] spent with patient and on the chart (including review of chart, obtaining history, exam, reviewing outside data, placing orders, documenting exam and treatment plan, and counseling patient) on [DATE]. Quality VTE Deep Vein Thrombosis/Pulmonary Embolism Present on Admission: No
[2025-06-03 08:00] VITALS: BP 142/64; PULSE 68; RESP 16; TEMP 36.9; O2SAT 94
[2025-06-03] MEDS: ENOXAPARIN 40 MG/0.4 ML SYRINGE SUBCUT (10:03)
[2025-06-03] MEDS: LOSARTAN 50 MG TABLET 100 MG PO (10:03)
[2025-06-03] MEDS: ASPIRIN EC 325 MG TABLET PO (10:03)
--- NOTE | 2025-06-03 11:40 | PT.IPTN ---
Current Diagnoses Hypertensive crisis, unspecified (06/01/25) Physical Therapy Treatment Note M2 PT-IP Current Condition Start: 06/01/25 11:21 Freq: NEEDED Status: Active Protocol: Document 06/01/25 11:14 DLM (Rec: 06/01/25 11:45 DLM Desktop) Physical Therapy Current Condition Current Condition Evaluation Date 06/01/25 Treatment Diagnosis CVA r/o, impaired balance and coordination Onset Date 05/31/25 M3 PT-IP Subjective Start: 06/01/25 11:21 Freq: NEEDED Status: Active Protocol: Document 06/03/25 11:40 DLM (Rec: 06/03/25 12:05 DLM Desktop) Subjective Physical Therapy Visit Type Type Treatment Note Visit Start Time 11:05 Visit Stop Time 11:40 Notes 35 min Number of BILL OF LADING CLERK Visits 0 Physical Therapy Visit Comments Patient Comments She will sleep in her lift recliner when she gets home. Family reports she was seeing numbers on the wall last night. Patient Goals Go home Therapy Pain Assessment Pain When Pain Assessed During Mobility Pain Present Pain Present Denied Pain M4 PT-IP Mobility and Gait Start: 06/01/25 11:21 Freq: NEEDED Status: Active Protocol: Document 06/03/25 11:40 DLM (Rec: 06/03/25 12:05 DLM Desktop) PT-Bed Mobility Assessment Supine to Sit Supine to Sit Independent Sit to Supine Sit to Supine Standby Assistance Scooting Scooting to Edge of Independent Bed PT-Transfer Assessment Sit to and From Stand Sit to and from Contact Guard Assistance,Use of Upper Extremities Stand Equipment Transfer Assistive Gait Belt,Front Wheeled Walker Device Transfers Transfer Destination Bed,Toilet Transfer Technique Stand Step Pivot Transfer Ability Level of Assist Contact Guard Assistance,Use of Upper Extremities Comments Mobility Comments Pt leaning to right in bed. Even when assisted to middle of bed during sit to supine she moved herself back to right side of bed. Bed rail up to decrease her risk of falling out of bed. Pt is slow to find the toilet when she enters the bathroom and keeps eyes to right then slowly scans left to find the toilet. Pt urinated on the toilet and able to manage her pants on her own. Gait Assessment Gait Gait Assistance Contact Guard Assist Required: Distance (Feet) 120 Assistive Devices Assistive Device Gait Belt,Front Wheeled Walker Gait Deviations General Gait Pattern Ataxic Factors Limiting Gait Function Factors Limiting Decreased Activity Tolerance,Difficulty Following Gait Function Directions,Poor Balance,Poor Safety Awareness Comments Gait Comments Pt reports wanting to use the FWW today. She has mild ataxia during gait today but better than on eval. She continues to have difficulty finding things with impaired visual scanning. Pt reports no vision changes when asked. She did not run into objects during gait in the white. Decreased safety awareness noted during gait . Stair Climbing Assessment Comments Stair Climbing she reports she will go up the ramp to get into the Comments house PT-Balance Assessment Sitting Balance and Reactions Static Sitting Good Balance Ability Dynamic Sitting Fair Balance Ability Standing Balance and Reactions Static Standing Good Balance Ability Dynamic Standing Good Balance Ability Device Used FWW M5 PT-IP Objective Assessments Start: 06/01/25 11:21 Freq: NEEDED Status: Active Protocol: Document 06/03/25 11:40 DLM (Rec: 06/03/25 12:05 DLM Desktop) Orientation Orientation/Cognition Level of Alertness Alert Orientation Name,Place Language Function Hard of Hearing Ability Safety Awareness Decreased Safety Awareness Memory Description Short Term Impaired Comments She has one hearing aide in today. Speech is clearer today. Pt recognizes family. Coordination Assessment Assessment Finger to Nose Test Minimal Impairment Foot Tapping Test Minimal Impairment Muscle Tone Muscle Tone WNL Yes M6 PT-IP Treatment Start: 06/01/25 11:21 Freq: NEEDED Status: Active Protocol: Document 06/03/25 11:40 DLM (Rec: 06/03/25 12:05 DLM Desktop) Physical Therapy Treatment Education Education Provided Safety Other Treatments Other Treatment Discussed discharge planning with Family. They plant to Performed stay with her at discharge. Recommend pt does not use the stairs at this time to decrease her fall risks. Family can get FWW at [facility] today. Recommend family monitor vision at home. M7 PT-IP Assessment and Plan Start: 06/01/25 11:21 Freq: NEEDED Status: Active Protocol: Document 06/03/25 11:40 DLM (Rec: 06/03/25 12:05 DLM Desktop) PT Summary Assessment and Plan Summary Impairments Balance,Coordination,Cognition,Transfers,Gait,Activity Tolerance Progress Towards Progressing Toward Goals Goals Assessment Summary Jeannie is alert and resting in bed with family visiting. Family reports she is improving but still not at baseline. Pt continues to have difficulty with visual scanning during mobility which makes it challenging for her to find toilet and sink in unfamiliar environment. She requested to use the FWW for gait this visit which better manages her balance and coordination deficits. She shows improvement in her balance and coordination compared to evaluation. Pt has a significant right sided preference including lying on right side of bed. Bed rail used to decrease her risk of falling out of bed. Family reports they can provide 24/7 assist at home. Pt needs 24/7 assist to go home with home health. If she does not have 24/7 assist at home she will need SNF rehab. Goals Bed Mobility Goal Independent Transfer Goal Standby Assistance,Cane,Front Wheeled Walker Gait Goal Standby Assistance,Cane,Front Wheel Walker Gait Distance 150 feet Other Goals Up/down 12 steps with rail and cane with CG/min assist. Days to Meet Goals 7 Frequency of Treatment Frequency Of Once a Day Treatment Treatment Plan Physical Therapy Transfer Training,Gait Training,Therapeutic Exercise, Treatment Plan Balance Retraining,Discharge Planning,Neuromuscular Re- ed Other pt plans to use ramp to get into house at discharge Recommendations and Next Treatment Focus Precautions Other Precautions fall risk, decreased hearing, decreased vision Recommendations To Nursing Amount of Assist 1 Person Assist Needed Discharge Recommendations PT Discharge Home with 24/7 Assist Available,Home Health Recommendations Other Discharge Family will be staying with her at discharge Recommendations Equipment Needed for FWW- family plans to get it at [facility] Home Before Discharge Transportation Needs Private Vehicle at Discharge - PT assist 1
[2025-06-03 12:00] VITALS: BP 137/61; PULSE 68; RESP 17; TEMP 36.7; O2SAT 95
--- NOTE | 2025-06-03 13:07 | P.DS_ITS ---
History of Present Illness History of Present Illness Date Patient Seen: 06/03/25 Chief complaint: Altered mental status and elevated blood pressure. Narrative: 89-year-old female with a history of hypertension, dyslipidemia, hearing loss, migraine, osteoporosis, and other medical issues was brought to the ED after family noted sudden difficulty with communication. She was at her baseline at 3 PM, responsive and conversant. By 4 PM, family found her awake but unable to speak or effectively communicate. On ED arrival, she was unable to answer questions, but cognition has since improved. She is now oriented to location and able to state the month/date of but unable to recall the year. Reports a dull headache. Denies blurred vision, chest pain, shortness of breath, abdominal pain, nausea, vomiting, or urinary/bowel issues. Family reports several recent ED visits for uncontrolled hypertension. Her BP medications were in the process of being adjusted. She was hospitalized in late April for a UTI with associated hypertensive urgency. ED Evaluation: * Initial BP: 233/107, HR 82 * Labs: WBC 5.8, Hgb 13.6, Plts 183; Na 139, K 3.7, BUN 18, Cr 0.94; AST/ALT * Urine tox: Negative * Imaging: CT head and CTA head/neck negative for acute pathology * Neurology consult: Not a TNK candidate; given full-dose aspirin * Recommended MRI brain and carotid Doppler * Advised gradual BP reduction * Admitted for further evaluation. Discharge Providers Provider Date of admission: 06/01/25 14:08 Discharge Date: 06/03/25 Primary care physician: Anuj Cochran DO Consults: 05/31/25 18:49 Consult to Discharge Planning Routine Comment: Consult to Occupational Therapy Evaluate & Treat Comment: Physician Instructions: Evaluate and treat Consult to Physical Therapy Evaluate & Treat Comment: Physician Instructions: Evaluate and Treat Consult to Speech Therapy Evaluate & Treat Comment: Physician Instructions: Evaluate and treat 05/31/25 23:22 Consult to Dietitian, Adult Routine Comment: Reason For Exam: uncontrolled BP 06/03/25 12:31 Consult to Home Health Routine Comment: Reason For Exam: RN/PT/OT/[employer]/ROLL [employer] Discharge provider: Chava Brambila MD Summary Hospital Course Hospital Course: 06/01: She was still somewhat confused, but about 80% better as noted by her son he was in the room. MRI is negative. Blood pressure control has been poor for last 3 weeks due to a change in medications. She has been running close to 200 systolic. Her blood pressure was 220 systolic when she became confused and weak yesterday. 06/02: Patient had a rough overnight. At some point she received additional sedation and her daughter states that she was not oriented the last time she spoke with her. She is sleeping during my visit. The brain MRI is normal. Echocardiogram is normal. The carotid ultrasound shows less than 50% bilateral stenosis. PT reports that she is also having ataxia and was unbalanced with gait. We continue to treat her for presumptive hypertensive encephalopathy. 06/03: Overnight her confusion cleared and she has returned to her baseline. Three of her adult children are in the room, interacting with her and reporting that she seems to be able to be independent again. She was evaluated by PT and OT. She seemed to have some scanning/visual problems but the ataxia had mostly resolved. Her brain MRI did not show any acute stroke. The blood pressure is normal and so is the mental status which again correlates with the impression that this was hypertensive encephalopathy. Her family and myself reminded her that the blood pressure normalized as did the mental status with resumption of the amlodipine which she had been avoiding due to her impression that it was related to her intermittent dizziness. O: BP 177/63. Alert and oriented x3. Lungs are clear, normal rate and effort. Heart is regular, no murmur gallop or rub. Abdomen is soft, non distended. Extremities are free of edema. Neuro: Cranial nerves 2-12 appear intact. Motor function evaluation pending with PT. IMAGING: MR Brain: No acute or subacute infarct. No acute intracranial abnormalities. Age-related global volume loss and chronic microvascular ischemic change. ECHO: The left ventricle is normal in size. The left ventricular ejection fraction is normal. The ejection fraction is estimated to be 60-65%. No obvious LV thrombus seen. The right ventricle is normal in size and function. Mild MR and AR There is aortic root sclerosis/calcification. CTH: No acute intracranial pathology. CTA Head and Neck: No acute finding common no significant change from the prior exam on 05/18/2025. 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 No significant abnormality is seen within the arteries of the neck. * Transient altered mental status?suspected hypertensive encephalopathy. Resolved with blood pressure stabilization. * Resumed home losartan (Cozaar) and amlodipine. * Follow-up MRI brain, carotid Doppler, and echocardiogram reviewed * Continue aspirin and initiate high-dose statin as per neurology recommendations. 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 * Mild cognitive impairment, improving. * Resolved with successful blood pressure control. * Uncontrolled hypertension, improving. * Restarted home antihypertensives. * Slow BP control to avoid cerebral hypoperfusion. * Increased Amlodipine to 10 mg daily Status at Discharge Cognitive/behavioral status at discharge: at baseline, oriented Functional status at discharge: uses cane/walker Overall status at discharge: patient is progressing back to baseline Time Spent with Patient Time spent: Greater than 30 minutes Exam Vital Signs (past 8 hours): - 06/03/25 08:00 Temperature 98.4 F Pulse Rate 68 Respiratory Rate 16 Blood Pressure 142/64 H Pulse Oximetry 94 Oxygen Flow Rate 0 Oxygen Delivery Method Room Air Oxygen Flow Rate 0 Objective Labs 06/02/25 10:28 06/02/25 10:28 [facility] Medical History Elevated BUN Balance problem Migraine Osteoporosis Functional fecal incontinence Altered mental status Hearing loss Vision disorder Hypertension Hyperlipidemia History of allergy Headache Fractures Foot pain Chronic back pain Plantar warts (~1949) Rubella Mumps Measles Chicken pox Tinnitus Hearing loss (~2015) Cataracts, bilateral Ovarian cyst (~1949) Irregular menstrual cycle Surgical History Anesthesia History of foot surgery (~2000) History of cataract removal with insertion of prosthetic lens (~2009) Status post tubal ligation Status post appendectomy (~194) Family History Brother Age: 86 Cancer Brother Age: 82 Diabetes mellitus Father Diabetes mellitus Grandmother Diabetes mellitus Grandmother Cancer Mother Cancer Social History marital status: household members: none Smoking Status: Former smoker alcohol intake: never substance use type: does not use Discharge Plan Discharge Plan Patient Disposition: Home Health Service Transfer to: Home Health, Other Provider Discharge Comment: Follow up with Dr. Cochran in 1 week Discharge orders & Medications Prescriptions: New atorvastatin 20 mg Tablet 80 mg PO BEDTIME Qty: 60 0RF amlodipine 5 mg Tablet 10 mg PO DAILY Qty: 60 0RF aspirin 325 mg Tablet,Delayed Release (Dr/Ec) 325 mg PO DAILY Qty: 30 0RF Continued losartan 100 mg tablet 100 mg PO DAILY Qty: 90 1RF (DME) Disabled Parking Permit See Rx Instructions .Route .MEDSUPPLY Qty: 1 0RF Rx Instructions: I find this patient to be medically disabled and qualified for Disabled Parking as indicated, and signed, on the Accompanying Disabled Parking Application for Individuals. cholecalciferol (vitamin D3) 1,250 mcg (50,000 unit) capsule 1,250 mcg PO QWEEK Qty: 60 3RF Discontinued amlodipine 5 mg tablet 5 mg PO DAILY Qty: 30 1RF Rx Instructions: Take one tablet once daily for high blood pressure Follow up/Referrals: Anuj Cochran DO [Primary Care Provider, Family Practice] Diet/Activity/Treatments Diet: Regular Visit Report/Discharge Packet Stand Alone Forms: Patient Portal/API, Stroke Signs & Symptoms Discharge Data Primary Care Provider: Anuj Cochran Quality VTE Deep Vein Thrombosis/Pulmonary Embolism Present on Admission: No
--- NOTE | 2025-06-03 13:47 | OT.IP.EVAL ---
Current Diagnoses Hypertensive crisis, unspecified (06/01/25) Past Medical History (Last Reviewed 05/18/25 @ 18:49 by Florin Paul MD) Altered mental status Balance problem Cataracts, bilateral Chicken pox Chronic back pain Elevated BUN Foot pain Fractures Functional fecal incontinence Headache Hearing loss (~2015) Hearing loss History of allergy Hyperlipidemia Hypertension Irregular menstrual cycle Measles Migraine Mumps Osteoporosis Ovarian cyst (~1950) Plantar warts (~1950) Rubella Tinnitus Vision disorder Surgical History (Last Reviewed 05/18/25 @ 18:49 by Florin Paul MD) Anesthesia History of cataract removal with insertion of prosthetic lens (~2009) History of foot surgery (~2000) Status post appendectomy (~194) Status post tubal ligation Occupational Therapy Inpatient Evaluation/Re-Eval M1 OT IP Prior Functional Status Start: 06/03/25 13:50 Freq: Status: Active Protocol: Document 06/03/25 13:50 [facility] (Rec: 06/03/25 14:11 [facility] Desktop) Medical Review Prior Functional Status Medical History Yes Reviewed Diet/Fluid Regular Consistency Communication hard of hearing, has aides, has glasses that she uses mostly for reading. she reports having bifocals Mobility and Gait Independent with cane. Activities of Daily Independent with basic ADL's. Her Son lives on property Living and IADL's and helps with registrar museum and bills. Prior Functional Her Son lives on the same property in a trailer. He Level (Other details works during the day. When he is home he checks on or ) helps her regularly. Social History Household Members none Living Arrangements House Number of Floors ( Two Floors Floors) Number of Stairs To 2 with rails Enter/Railing? Home Environment High Toilet,Tub/Shower Home Equipment Straight Cane,Shower Seat with Backrest,Hand Held Shower,Grab Bars Near Toilet,Grab Bars In Shower Employment Status Retired Additional Social had an electric scooter in 2019 past but unclear if she History Comment still owns it, she does not have a FWW any more M2 OT-IP Current Condition Start: 06/03/25 13:50 Freq: Status: Active Protocol: Document 06/03/25 13:50 [facility] (Rec: 06/03/25 14:11 [facility] Desktop) Occupational Therapy Current Condition Current Condition Evaluation Date 06/03/25 Treatment Diagnosis Altered mental status Diagnosis Onset Date 06/01/25 M3 OT- IP Subjective and Pain Start: 06/03/25 13:50 Freq: Status: Active Protocol: Document 06/03/25 13:50 [facility] (Rec: 06/03/25 14:11 [facility] Desktop) OT- Subjective Occupational Therapy Visit Type Type Initial Evaluation Visit Start Time 13:05 Visit Stop Time 13:47 Occupational Therapy Visit Comments Patient Comments Pt agreed to do OT eval and get up to do oral care and grooming needs. Patient/Caregiver TO go home. Goals OT Pain Assessment Pain When Pain Assessed At Rest Pain Present Pain Present Denied Pain M4 OT- IP ADL's Start: 06/03/25 13:50 Freq: Status: Active Protocol: Document 06/03/25 13:50 [facility] (Rec: 06/03/25 14:11 [facility] Desktop) OT [id number]-Hpgkekk Comments OT Self-Feeding Not at meal time. Comments OT ADL-Grooming General Evaluation Grooming Ability Independent Comments OT Grooming Comments While standing with FWW. OT ADL-Oral Care General Eval Oral Care Ability Independent Comments Oral Care Comments WHile standing with FWW. Noted light facial droop with left side of her face. OT ADL-Dressing General Eval Lower Body Dressing Standby Assistance Ability Comments OT Dressing Comments Pt able to jonathon/doff socks while seated on the edge of the bed. OT ADL-Toileting Comments OT Toileting Pt not having to go at this time. Comments OT ADL-Bathing Comments OT Bathing Comments Pt's daughter to be there to assist. M5 OT- IP IADL's Start: 06/03/25 13:50 Freq: Status: Active Protocol: Document 06/03/25 13:50 [facility] (Rec: 06/03/25 14:11 [facility] Desktop) OT-Instrumental Activities of Daily Living Home Safety Awareness Home Safety Comments Pt able to answer most of her home safety questions. Medication Management Medication Pt will benefit from supervision. Management Comments Money Management Money Management Caregiver Provides Assistance Meal Preparation Meal Preparation Pt will benefit from assist. Comments Casino Investigator Casino Investigator Caregiver Provides Assist Driving Driving Concerns Identified Regarding Safety M6 OT- IP Functional Cognition Start: 06/03/25 13:50 Freq: Status: Active Protocol: Document 06/03/25 13:50 [facility] (Rec: 06/03/25 14:11 [facility] Desktop) Cognitive Factors Limiting Selfcare Function Cognitive Ability Level of Alertness Alert Patient Orientation Name,Age,Birthday,Month,Date,Year,Day of Week,Place, Situation Attention Span Capable of Focused Attention,Capable of Sustained Ability Attention Ability to Follow Able to Follow One Step Commands Commands Cognitive Comments Cognitive Assessment Pt able to follow commands for ADL and mobility needs. Comments Pt at times needing increased time to focus on the task , looking for the cup on the sink. Pt having difficulty with [place] [employer] finding numbers on the right and left side of the page and connecting them sequentially. OT- Vision and Hearing OT- Hearing Assessment OT- Hearing Hearing Impaired,Use of Hearing Aids Assessment OT- Vision Assessment Visual Acuity Glasses For Reading Visual Attentiveness WFL Occular Pursuits WFL Visual Convergence WFL Vision Assessment Slight decreased for right peripheral vision. Decreased Comments right side / attention to find items on the sink. M7 OT- IP Mobility and Balance Start: 06/03/25 13:50 Freq: Status: Active Protocol: Document 06/03/25 13:50 [facility] (Rec: 06/03/25 14:11 [facility] Desktop) OT- Bed Mobility Assessment Supine to Sit Supine to Sit Assist Standby Assistance OT-Transfer Assessment Sit to and From Stand Sit to and from Standby Assistance Stand Transfers Transfer Ability Standby Assistance Technique Transfer Destination Bed Transfer Technique Stand Step Pivot Devices Transfer Assistive Gait Belt,Front Wheeled Walker Devices Comments Mobility Comments SBA with bed mobility and up with the FWW. OT- Balance Assessment Sitting Balance and Reactions Static Sitting Normal Balance Ability Dynamic Sitting Good Balance Ability Standing Balance and Reactions Static Standing Good Balance Ability Dynamic Standing Good Balance Ability M8 OT- IP Objective Assessments Start: 06/03/25 13:50 Freq: Status: Active Protocol: Document 06/03/25 13:50 [facility] (Rec: 06/03/25 14:11 [facility] Desktop) OT Gross Range of Motion Upper Extremity Range of Motion Assessment Within Functional Limits OT Strength Upper Extremity Strength Assessment Left Impaired Wrist 4 Hand 4 OT- Coordination Assessment Upper Extremity Finger to Nose Test Within Functional Limits Comments Coordination 23 sec right hand , 34 sec left hand Comments OT Sensation Assessment Comments Summary Comments Intact for light touch. M9 OT- IP Assessment and Plan Start: 06/03/25 13:50 Freq: Status: Active Protocol: Document 06/03/25 13:50 [facility] (Rec: 06/03/25 14:11 [facility] Desktop) OT Summary Assessment and Plan Potential Rehabilitation Excellent Potential Analytic Complexity Low at Evaluation Summary OT Impairments Strength,Balance,Coordination,Functional Mobility, Dressing,Toileting,Bathing,Toilet Transfers,Shower Transfers Progress Towards Progressing Toward Goals Goals Assessment Summary Pt low complexity and main barriers are decreased dynamic balance, decreased LUE strength and coordination, and decreased visual attention right and left sides. Pt will benefit from 24/7 assist at home and home health. Goals Self-Feeding Goal Independent Grooming Goal Independent Dressing Goal Independent Toileting Goal Independent Bathing Goal Standby Assistance Toilet Transfer Goal Independent Shower Transfer Goal Standby Assistance Days to Meet Goals 10 Frequency of Treatment Other frequency 5x/week Treatment Plan OT Treatment Plan ADL Training,Functional Cognition Training,Functional Mobility,Patient/Family Education,Discharge Planning Discharge Recommendations OT Discharge Home with 24/7 Assist Available,Home Health Recommendations Home Equipment Needs FWW Transportation Needs Private Vehicle at Discharge
--- NOTE | 2025-06-03 14:10 | ST.IPIE ---
Visit Care Team Role Provider Type Anuj Cochran DO Primary Care Provider Physician Specialty: Family Practice Address: [address] [place] [address] Email: Yuniel James MD Emergency Provider Physician Referring Provider Specialty: Emergency Medicine Address: [address] [place] [address], [facility] Phone: Fax: Email: [email or web address] Florin Paul MD Attending Provider Physician Other Providers Specialty: Internal Medicine Address: [address] [place] [address] Email: [email or web address] [email or web address] Ward MD Admit Provider Physician Specialty: Internal Medicine Address: [address] [place] [address] Fax: Email: Current Diagnoses Hypertensive crisis, unspecified (06/01/25) Past Medical History (Last Reviewed 05/18/25 @ 18:49 by Florin Paul MD) Altered mental status (Medical) Balance problem (Medical) Cataracts, bilateral (Medical) Chicken pox (Medical) Chronic back pain (Medical) Elevated BUN (Medical) Foot pain (Medical) Fractures (Medical) Functional fecal incontinence (Medical) Headache (Medical) Hearing loss (Medical ~2015) Hearing aids Hearing loss (Medical) History of allergy (Medical) Sometimes Hyperlipidemia (Medical) Hypertension (Medical) Irregular menstrual cycle (Medical) Always Measles (Medical) Migraine (Medical) Mumps (Medical) Osteoporosis (Medical) Ovarian cyst (Medical ~1949) Plantar warts (Medical ~1949) Rubella (Medical) Tinnitus (Medical) Vision disorder (Medical) ST IP Initial Evaluation Report [facility] Adult Cognitive Linguistic Eval Start: 06/03/25 13:38 Freq: Status: Active Protocol: Document 06/03/25 13:38 [facility] (Rec: 06/03/25 14:10 [facility] Desktop) Adult Cognitive Linguistic Evaluation Session Time Visit Start Time 11:40 Visit Stop Time 12:00 Total Visit Minutes [address] Florin Paul Reason for Referral Cognitive deficits Patient Information Identification Type Name,Wristband Patient History Per H&P: 89-year-old female with a history of hypertension, dyslipidemia, hearing loss, migraine, osteoporosis, and other medical issues was brought to the ED after family noted sudden difficulty with communication. She was at her baseline at 3 PM, responsive and conversant. By 4 PM, family found her awake but unable to speak or effectively communicate. On ED arrival, she was unable to answer questions, but cognition has since improved. She is now oriented to location and able to state the month/date of but unable to recall the year. Reports a dull headache. Denies blurred vision, chest pain, shortness of breath, abdominal pain, nausea, vomiting, or urinary/bowel issues. Family reports several recent ED visits for uncontrolled hypertension. Her BP medications were in the process of being adjusted. She was hospitalized in late April for a UTI with associated hypertensive urgency. ST is warranted in order assess cognitive-linguistic abilities. Hearing Hearing Level Hearing Aids Auditory History Pt with bilateral hearing aids. Previous Therapy Previous Speech- Yes Language Therapy History of Therapy Pt was evaluated by ST during her last inpatient stay on 05/19/25, where she scored 14/30 on SLUMS. Subjective Patient Report Pt sitting upright in bed with family present. Pt compliant with cognitive evaluation. Pt family reports they don't think she has any sort of dementia, d/t her being able to knit, play piano and occasionally drive. ST facilitated conversation with Pt family about how when she was admitted last time Pt reported she frequently forgets to take her blood pressure medication at night, which she was admitted both times for high blood pressure. Family report one of her sons lives on the property and will be making sure Pt is taking medications daily and on time. Pt also reported they will be getting more support for Pt in the home. Mental Status Alert,Responsive,Cooperative,Confused Informal Assessment Receptive Language Yes Normal Expressive Language Yes Normal Cognition Normal No Formal Assessment Administration Complete Results ST administered the SLUMS, with Pt scoring 17/30, indicating a severity rating of ?dementia? per the screener. Pt demonstrated the most significant deficits in short-term memory and executive functioning. Pt reported awareness of these difficulties, noting that her memory ?is not always the greatest,? particularly with numbers. Findings/Results Language Function Mildly impaired Cognitive Function Moderately impaired Findings Pt presents with moderate cognitive-communication impairment characterized by deficits in short term memory, working memory, executive functions and problem solving. Cognitive Communication Deficits Self-awareness of Situational awareness (recognition of problem in Cognitive- context;in real time) Communication Deficits Prognosis Prognosis Fair Based on Cognitive status Plan of Care Speech-Language Yes Treatment Frequency 1x f/u Patient/Caregiver Described results of evaluation,Patient expressed Education understanding of evaluation,Patient requires further education/training,Family/caregivers require further education/training Short Term Goals STG 1: Pt will complete simulated medication-management tasks (sorting pills into a weekly organizer) with 75? 80% accuracy with decreasing cues. STG 2: ST will provide Pt and family education on memory compensatory strategies. Chief Digital Media Officer Goals LTG 1: Pt will utilize internal and external memory strategies to recall functional information (daily events, appointments, tasks) with 80?90% accuracy in structured and semi-structured tasks. Discharge Home with Home Health Recommendations
--- NOTE | 2025-06-03 14:15 | CM.DPC ---
DCP note COMPUTER AIDED DRAFTER reviewed EMR per provider report in AM rounds, cleared up overnight, cleared for home. BP WNL. per PT rec home with assistance/HH. ambulating in halls with walker SBA. COMPUTER AIDED DRAFTER met with 3 adult children in waiting room. COMPUTER AIDED DRAFTER answered questions to best of ability. dtr to stay with pt 24/7 for about a week and then reassess from there. family open to HH. preference for [facility] . COMPUTER AIDED DRAFTER provided senior resource information for PP CGs if pt still needs 24/7 or increased assist after dtr has to return home. already has f/u appt with Dr. Cochran scheduled. family to take pt home. COMPUTER AIDED DRAFTER updated RN. COMPUTER AIDED DRAFTER sent ref to Agustin at [facility] , f2f/order done. sent dc summary. P: dc home today with [facility] and family support. CM team will continue to follow as needed for DCP Coordination ASHLEY Benedict
== END 2025-06-03 15:37 | disposition home health service (06) | DRG 71 ==
LOC: ED 18:43 → AC 18:45
PROVIDERS: Admitting Provider Internal Medicine; Emergency Provider Emergency Medicine; PCP Family Medicine; Referring Provider Emergency Medicine; Visit Provider Hospitalist
DX: I67.4 Hypertensive encephalopathy (principal); G81.91 Hemiplegia, unspecified affecting right dominant side; I16.9 Hypertensive crisis, unspecified; I10 Essential (primary) hypertension; R29.810 Facial weakness; R47.89 Other speech disturbances; R26.0 Ataxic gait; Z87.891 Personal history of nicotine dependence
CPT/HCPCS: 36415; 70450; 70496; 70498; 70551; 71045; 80048; 80053; 80061; 80305; 81001; 82550; 82962; 83036; 84443; 84484; 85025; 85610; 85730; 92523; 93005; 93306; 93880; 96374; 96375; 97116; 97162; 97165; 97530; 99284; G0378; J0360; J1650; J2359; Q9967

== ENCOUNTER 2025-06-06 10:51 | Emergency (ER) | payer MEDICARE, SELFPAY ==
[2025-05-31 23:51] VITALS: BMI 29.2
[2025-06-06] VITALS (40 sets, daily range): BP systolic 143–213; BP diastolic 65–88; PULSE 61–141; RESP 14–41; TEMP 36.6; O2SAT 94–98; BMI 26.2
--- NOTE | 2025-06-06 11:02 | DI.RAD.S_ITS ---
PROCEDURE: XR CHEST 1V INDICATIONS: Chest Pain TECHNIQUE: One view of the chest was acquired. COMPARISON: [facility], CR, XR CHEST 1V, 05/31/2025, 17:27. FINDINGS: Surgical changes and devices: None. Lungs and pleura: Lungs are clear. No pleural effusions or pneumothorax. Mediastinum: Mediastinal contours appear normal. Heart size is normal. Bones and chest wall: No suspicious bony lesions. Overlying soft tissues appear unremarkable. IMPRESSION: No acute pulmonary process. Dictated by: Tiffanie Wei M.D. on 06/06/2025 at 11:54 Approved by: Tiffanie Wei M.D. on 06/06/2025 at 11:54
--- NOTE | 2025-06-06 11:02 | EKG_ITS ---
[id number] [address] Test Date: 2025-06-06 Pat Name: Jeannie Dick Department: [facility] Room: Gender: Female Director Of Business Development: anisa : 1935 Requested By: Order Number: [id number] Reading MD: Al Méndez MD Measurements Intervals [place] Rate: 73 P: 72 MN: 208 QRS: 2 QRSD: 76 T: 39 QT: 384 QTc: 423 Interpretive Statements Normal sinus rhythm Electronically Signed On 06-06-2025 11:57:36 PST by Al Méndez MD
--- NOTE | 2025-06-06 11:33 | ED_ITS ---
HPI - General Adult <Deborah Nettles PA-C - Last Filed: 06/06/25 18:52> General Chief complaint: Hypertension Stated complaint: High blood pressure , On blood pressure meds Time Seen by Provider: 06/06/25 11:12 Source: patient Mode of arrival: Family Vehicle History of Present Illness HPI narrative: Ms. Dick is a very pleasant 89-year-old female with a past medical history of hypertension, hyperlipidemia, hearing loss who presents to the emergency department with her daughter for concern of elevated blood pressure today. Patient had stroke-like symptoms on Monday, came to the hospital and was admitted for CVA/hypertensive crisis. She was discharged on Monday. The patient's current blood pressure regimen at discharge was amlodipine 10 mg and losartan 100 mg. She has been compliant with this regimen. Her blood pressure was controlled at discharge and she was advised to monitor the blood pressure daily and her daughter noticed that it has been increasing and today this morning it was 170s despite taking her morning medications. She called her PCP office, Dr. Cochran, who advised she come to the emergency department. At this time the patient states that she has no symptoms, she is not feeling dizzy lightheaded chest pain shortness of breath abdominal pain, vomiting, diarrhea, visual disturbance or any other concerns. However the patient's daughter states that this morning around 4:00 a.m. she got lost going to the bathroom and she has been acting more ?down? and confused than she normally is. She reported tingling in the left hand yesterday that has resolved. BP in triage was 213/88, it is now 172/65 during my exam. Related Data Previous Rx's ?Medication ?Instructions ?Recorded Disabled Parking Permit #1 ea 06/24/22 losartan 100 mg tablet 100 mg PO DAILY #90 tabs 08/20 cholecalciferol (vitamin D3) 1,250 1,250 mcg PO QWEEK #60 caps 05/20/25 mcg (50,000 unit) capsule amlodipine 5 mg tablet 10 mg (2 x 5 mg) PO DAILY #6 0 tabs 06/03/25 aspirin 325 mg tablet,delayed 325 mg PO DAILY #30 tabs 06/03/25 release atorvastatin 20 mg tablet 80 mg (4 x 20 mg) PO BEDTIME #60 06/03/25 tabs hydralazine 25 mg tablet 25 mg PO TID 7 days #21 tabs 06/06/25 Allergies Allergy/AdvReac Type Severity Reaction Status Date / Time gluten AdvReac Abdominal Verified 06/06/25 11:09 Pain Review of Systems <Deborah Nettles PA-C - Last Filed: 06/06/25 18:52> Review of Systems ROS Unobtainable: All systems reviewed & are unremarkable except as noted in HPI and below Patient History <Deborah Nettles PA-C - Last Filed: 06/06/25 18:52> Medical History Elevated BUN Balance problem Migraine Osteoporosis Functional fecal incontinence Altered mental status Hearing loss Vision disorder Hypertension Hyperlipidemia History of allergy Headache Fractures Foot pain Chronic back pain Plantar warts (~1949) Rubella Mumps Measles Chicken pox Tinnitus Hearing loss (~2015) Cataracts, bilateral Ovarian cyst (~1949) Irregular menstrual cycle Surgical History Anesthesia History of foot surgery (~2000) History of cataract removal with insertion of prosthetic lens (~2009) Status post tubal ligation Status post appendectomy (~194) Family History Brother Age: 86 Cancer Brother Age: 82 Diabetes mellitus Father Diabetes mellitus Grandmother Diabetes mellitus Grandmother Cancer Mother Cancer Social History marital status: household members: none alcohol intake: never substance use type: does not use Exam <Deborah Nettles PA-C - Last Filed: 06/06/25 18:52> Narrative Exam Narrative: GENERAL: 89 year old patient appears stated age. Well-developed patient, in no acute distress. HEAD: Atraumatic. Normocephalic. EYES: PERRL. Extraocular motions intact. No scleral icterus. No injection or drainage. ENT: Nose without bleeding, purulent drainage. Airway patent. NECK: Trachea midline. Cervical ROM intact. CARDIOVASCULAR: Regular rate and rhythm. RESPIRATORY: ?Nonlabored respirations. ?Speaking in clear, full sentences. ?Clear to auscultation. Breath sounds equal bilaterally. No wheezes, rales, or rhonchi. ? GASTROINTESTINAL: Abdomen soft, non-tender, nondistended. EXTREMITIES: No LE edema. NEURO: Alert and oriented to person, place, time. Patient is able to state her full name, date of , where she is, the current year, and answer questions appropriately. No facial asymmetry. Sensation intact to light touch on bilateral upper and lower extremities, face. No pronator drift or leg drift. SKIN: No rash or erythema of visible areas Initial Vital Signs Initial Vital Signs: Vital Signs Temperature 97.8 F 06/06/25 10:55 Pulse Rate 76 06/06/25 10:55 Respiratory Rate 18 06/06/25 10:55 Blood Pressure 213/88 H 06/06/25 10:55 Pulse Oximetry 97 06/06/25 10:55 Oxygen Delivery Method Room Air 06/06/25 10:55 <Carmen Ohara DO - Last Filed: 06/09/25 07:19> Initial Vital Signs Initial Vital Signs: Vital Signs Temperature 97.8 F 06/06/25 10:55 Pulse Rate 76 06/06/25 10:55 Respiratory Rate 18 06/06/25 10:55 Blood Pressure 213/88 H 06/06/25 10:55 Pulse Oximetry 97 06/06/25 10:55 Oxygen Delivery Method Room Air 06/06/25 10:55 Course <Deborah Nettles PA-C - Last Filed: 06/06/25 18:52> Orders Ordered: Discontinued Medications Aspirin (Aspirin 81 Mg Chew Tab) 324 mg PO NOW ONE Stop: 06/06/25 11:03 Last Admin: 06/06/25 11:27 Dose: Not Given Documented By: FADI Hydralazine HCl (Hydralazine 25 Mg Tablet) 25 mg PO NOW ONE Stop: 06/06/25 15:47 Last Admin: 06/06/25 15:58 Dose: 25 mg Documented By: FADI Vital Signs Vital signs: Vital Signs - 8 hr 06/06/25 10:55 06/06/25 10:57 06/06/25 11:00 Temperature 97.8 F Pulse Rate 76 76 Respiratory Rate 18 Blood Pressure 213/88 H Pulse Oximetry 97 98 98 Oxygen Delivery Method Room Air 06/06/25 11:00 06/06/25 11:02 06/06/25 11:02 Temperature Pulse Rate 73 Respiratory Rate Blood Pressure 213/88 H 193/80 H Pulse Oximetry 97 Oxygen Delivery Method 06/06/25 11:21 06/06/25 11:21 06/06/25 11:30 Temperature Pulse Rate 69 Respiratory Rate 22 Blood Pressure 168/71 H 174/75 H Pulse Oximetry 96 Oxygen Delivery Method 06/06/25 11:30 06/06/25 11:45 06/06/25 11:45 Temperature Pulse Rate 68 68 Respiratory Rate 22 Blood Pressure 172/65 H Pulse Oximetry 94 Oxygen Delivery Method 06/06/25 12:00 06/06/25 12:00 06/06/25 12:15 Temperature Pulse Rate 68 Respiratory Rate 21 Blood Pressure 157/70 H 176/72 H Pulse Oximetry Oxygen Delivery Method 06/06/25 12:15 06/06/25 12:30 06/06/25 12:31 Temperature Pulse Rate 66 73 Respiratory Rate 22 21 Blood Pressure 159/72 H Pulse Oximetry Oxygen Delivery Method 06/06/25 12:31 06/06/25 12:45 06/06/25 12:45 Temperature Pulse Rate 79 66 Respiratory Rate 14 33 H Blood Pressure 144/69 H Pulse Oximetry Oxygen Delivery Method 06/06/25 13:00 06/06/25 13:02 06/06/25 13:02 Temperature Pulse Rate 141 H 69 Respiratory Rate 20 19 Blood Pressure 189/73 H Pulse Oximetry Oxygen Delivery Method 06/06/25 13:15 06/06/25 13:15 06/06/25 13:30 Temperature Pulse Rate 65 Respiratory Rate Blood Pressure 154/74 H 143/65 H Pulse Oximetry Oxygen Delivery Method 06/06/25 13:30 06/06/25 13:45 06/06/25 13:45 Temperature Pulse Rate 64 62 Respiratory Rate Blood Pressure 147/67 H Pulse Oximetry Oxygen Delivery Method 06/06/25 14:00 06/06/25 14:00 06/06/25 14:15 Temperature Pulse Rate 61 Respiratory Rate 23 Blood Pressure 158/72 H 147/69 H Pulse Oximetry 94 Oxygen Delivery Method 06/06/25 14:15 06/06/25 14:30 06/06/25 14:30 Temperature Pulse Rate 63 62 Respiratory Rate Blood Pressure 155/73 H Pulse Oximetry 96 97 Oxygen Delivery Method 06/06/25 14:45 06/06/25 14:45 06/06/25 14:58 Temperature Pulse Rate 64 Respiratory Rate Blood Pressure 150/75 H 161/79 H Pulse Oximetry 97 Oxygen Delivery Method 06/06/25 14:58 06/06/25 15:00 06/06/25 15:00 Temperature Pulse Rate 66 67 Respiratory Rate 20 Blood Pressure 162/77 H Pulse Oximetry 97 97 Oxygen Delivery Method Room Air 06/06/25 15:15 06/06/25 15:15 06/06/25 15:29 Temperature Pulse Rate 70 Respiratory Rate Blood Pressure 199/86 H 189/78 H Pulse Oximetry 96 Oxygen Delivery Method Room Air 06/06/25 15:29 06/06/25 15:30 06/06/25 15:31 Temperature Pulse Rate 67 66 Respiratory Rate 35 H 41 H Blood Pressure 192/79 H Pulse Oximetry 96 95 Oxygen Delivery Method 06/06/25 15:31 06/06/25 15:33 06/06/25 15:33 Temperature Pulse Rate 69 65 Respiratory Rate 39 H 35 H Blood Pressure 188/80 H Pulse Oximetry 96 95 Oxygen Delivery Method 06/06/25 15:45 06/06/25 15:45 06/06/25 15:58 Temperature Pulse Rate 66 64 Respiratory Rate 33 H Blood Pressure 179/76 H 179/76 H Pulse Oximetry 96 Oxygen Delivery Method 06/06/25 16:00 06/06/25 16:00 06/06/25 16:16 Temperature Pulse Rate 71 63 Respiratory Rate 39 H 35 H Blood Pressure 190/79 H Pulse Oximetry 96 96 Oxygen Delivery Method 06/06/25 16:16 06/06/25 16:30 06/06/25 16:30 Temperature Pulse Rate 67 Respiratory Rate 32 H Blood Pressure 166/70 H 185/66 H Pulse Oximetry 97 Oxygen Delivery Method 06/06/25 16:46 06/06/25 16:46 06/06/25 17:00 Temperature Pulse Rate 66 67 Respiratory Rate 29 H 32 H Blood Pressure 155/65 H Pulse Oximetry 96 95 Oxygen Delivery Method 06/06/25 17:00 06/06/25 17:21 06/06/25 17:21 Temperature Pulse Rate 67 Respiratory Rate 22 Blood Pressure 160/71 H 179/77 H Pulse Oximetry 97 Oxygen Delivery Method 06/06/25 17:29 06/06/25 17:30 06/06/25 17:35 Temperature Pulse Rate 69 70 Respiratory Rate 39 H Blood Pressure 149/82 H 149/87 H Pulse Oximetry 95 Oxygen Delivery Method 06/06/25 17:42 Temperature Pulse Rate Respiratory Rate Blood Pressure 149/82 H Pulse Oximetry Oxygen Delivery Method <Carmen Ohara, - Last Filed: 06/09/25 07:19> Orders Ordered: Discontinued Medications Aspirin (Aspirin 81 Mg Chew Tab) 324 mg PO NOW ONE Stop: 06/06/25 11:03 Last Admin: 06/06/25 11:27 Dose: Not Given Documented By: SB Hydralazine HCl (Hydralazine 25 Mg Tablet) 25 mg PO NOW ONE Stop: 06/06/25 15:47 Last Admin: 06/06/25 15:58 Dose: 25 mg Documented By: FADI Vital Signs Vital signs: Vital Signs - 8 hr 06/06/25 10:55 06/06/25 10:57 06/06/25 11:00 Temperature 97.8 F Pulse Rate 76 76 Respiratory Rate 18 Blood Pressure 213/88 H Pulse Oximetry 97 98 98 Oxygen Delivery Method Room Air 06/06/25 11:00 06/06/25 11:02 06/06/25 11:02 Temperature Pulse Rate 73 Respiratory Rate Blood Pressure 213/88 H 193/80 H Pulse Oximetry 97 Oxygen Delivery Method 06/06/25 11:21 06/06/25 11:21 06/06/25 11:30 Temperature Pulse Rate 69 Respiratory Rate 22 Blood Pressure 168/71 H 174/75 H Pulse Oximetry 96 Oxygen Delivery Method 06/06/25 11:30 06/06/25 11:45 06/06/25 11:45 Temperature Pulse Rate 68 68 Respiratory Rate 22 Blood Pressure 172/65 H Pulse Oximetry 94 Oxygen Delivery Method 06/06/25 12:00 06/06/25 12:00 06/06/25 12:15 Temperature Pulse Rate 68 Respiratory Rate 21 Blood Pressure 157/70 H 176/72 H Pulse Oximetry Oxygen Delivery Method 06/06/25 12:15 06/06/25 12:30 06/06/25 12:31 Temperature Pulse Rate 66 73 Respiratory Rate 22 21 Blood Pressure 159/72 H Pulse Oximetry Oxygen Delivery Method 06/06/25 12:31 06/06/25 12:45 06/06/25 12:45 Temperature Pulse Rate 79 66 Respiratory Rate 14 33 H Blood Pressure 144/69 H Pulse Oximetry Oxygen Delivery Method 06/06/25 13:00 06/06/25 13:02 06/06/25 13:02 Temperature Pulse Rate 141 H 69 Respiratory Rate 20 19 Blood Pressure 189/73 H Pulse Oximetry Oxygen Delivery Method 06/06/25 13:15 06/06/25 13:15 06/06/25 13:30 Temperature Pulse Rate 65 Respiratory Rate Blood Pressure 154/74 H 143/65 H Pulse Oximetry Oxygen Delivery Method 06/06/25 13:30 06/06/25 13:45 06/06/25 13:45 Temperature Pulse Rate 64 62 Respiratory Rate Blood Pressure 147/67 H Pulse Oximetry Oxygen Delivery Method 06/06/25 14:00 06/06/25 14:00 06/06/25 14:15 Temperature Pulse Rate 61 Respiratory Rate 23 Blood Pressure 158/72 H 147/69 H Pulse Oximetry 94 Oxygen Delivery Method 06/06/25 14:15 06/06/25 14:30 06/06/25 14:30 Temperature Pulse Rate 63 62 Respiratory Rate Blood Pressure 155/73 H Pulse Oximetry 96 97 Oxygen Delivery Method 06/06/25 14:45 06/06/25 14:45 06/06/25 14:58 Temperature Pulse Rate 64 Respiratory Rate Blood Pressure 150/75 H 161/79 H Pulse Oximetry 97 Oxygen Delivery Method 06/06/25 14:58 06/06/25 15:00 06/06/25 15:00 Temperature Pulse Rate 66 67 Respiratory Rate 20 Blood Pressure 162/77 H Pulse Oximetry 97 97 Oxygen Delivery Method Room Air 06/06/25 15:15 06/06/25 15:15 06/06/25 15:29 Temperature Pulse Rate 70 Respiratory Rate Blood Pressure 199/86 H 189/78 H Pulse Oximetry 96 Oxygen Delivery Method Room Air 06/06/25 15:29 06/06/25 15:30 06/06/25 15:31 Temperature Pulse Rate 67 66 Respiratory Rate 35 H 41 H Blood Pressure 192/79 H Pulse Oximetry 96 95 Oxygen Delivery Method 06/06/25 15:31 06/06/25 15:33 06/06/25 15:33 Temperature Pulse Rate 69 65 Respiratory Rate 39 H 35 H Blood Pressure 188/80 H Pulse Oximetry 96 95 Oxygen Delivery Method 06/06/25 15:45 06/06/25 15:45 06/06/25 15:58 Temperature Pulse Rate 66 64 Respiratory Rate 33 H Blood Pressure 179/76 H 179/76 H Pulse Oximetry 96 Oxygen Delivery Method 06/06/25 16:00 06/06/25 16:00 06/06/25 16:16 Temperature Pulse Rate 71 63 Respiratory Rate 39 H 35 H Blood Pressure 190/79 H Pulse Oximetry 96 96 Oxygen Delivery Method 06/06/25 16:16 06/06/25 16:30 06/06/25 16:30 Temperature Pulse Rate 67 Respiratory Rate 32 H Blood Pressure 166/70 H 185/66 H Pulse Oximetry 97 Oxygen Delivery Method 06/06/25 16:46 06/06/25 16:46 06/06/25 17:00 Temperature Pulse Rate 66 67 Respiratory Rate 29 H 32 H Blood Pressure 155/65 H Pulse Oximetry 96 95 Oxygen Delivery Method 06/06/25 17:00 06/06/25 17:21 06/06/25 17:21 Temperature Pulse Rate 67 Respiratory Rate 22 Blood Pressure 160/71 H 179/77 H Pulse Oximetry 97 Oxygen Delivery Method 06/06/25 17:29 06/06/25 17:30 06/06/25 17:35 Temperature Pulse Rate 69 70 Respiratory Rate 39 H Blood Pressure 149/82 H 149/87 H Pulse Oximetry 95 Oxygen Delivery Method 06/06/25 17:42 Temperature Pulse Rate Respiratory Rate Blood Pressure 149/82 H Pulse Oximetry Oxygen Delivery Method Medical Decision Making <Deborah Nettles PA-C - Last Filed: 06/06/25 18:52> Medical Records Medical records reviewed: Yes I reviewed the patient's medical records. Medical records narrative: Discharge 06/03/2025 Lab Data 06/06/25 11:30 06/06/25 11:30 Labs: Lab Results 06/06/25 Range/Units 11:30 WBC 6.8 (4.5-11.0) X10^3/uL RBC 4.52 (4.0-5.2) X10^6/uL Hgb 13.3 (12.0-16.0) g/dL Hct 39.9 (36-46) % MCV 88.1 (80-100) fL MCH 29.3 (26-34) PG MCHC 33.3 (30-36) % RDW 14.5 (11.6-14.8) % Plt Count 178 (150-400) X10^3/uL Neut % (Auto) 64.6 (50-75) % Lymph % (Auto) 22.0 L (25-40) % Piatt % (Auto) 10.9 (3-14) % Eos % (Auto) 2.0 (2-4) % Baso % (Auto) 0.5 (0-2) % Neut # (Auto) 4400 (3131-1127) /uL Lymph # (Auto) 1500 (2776-3948) /uL Piatt # (Auto) 700 (0-900) /uL Eos # (Auto) 100 (0-450) /uL Baso # (Auto) 0 (0-100) /uL PT 11.2 (9.4-12.5) SECONDS INR 1.0 (0.9-1.3) APTT 29 (25.1-36.5) SECONDS Sodium 142 (137-145) mmol/L Potassium 4.2 (3.4-5.1) mmol/L Chloride 109 H (98-107) mmol/L Carbon Dioxide 26 (22-32) mmol/L BUN 22 H (7-17) mg/dL Creatinine 0.91 (0.52-1.04) mg/dL Estimated GFR > 60 (>60) mL/min BUN/Creatinine Ratio 24.2 H (6-22) Glucose 103 H (70-99) mg/dL Calcium 9.3 (8.4-10.2) mg/dL Magnesium 1.9 (1.6-2.3) mg/dL Total Bilirubin 1.0 (0.2-1.3) mg/dL AST 21 (14-36) IU/L ALT 13 (<35) IU/L Alkaline Phosphatase 53 (38-126) U/L Total Creatine Kinase 32 (30-135) U/L Troponin I < 0.012 (0.01-0.034) ng/mL NT-Pro-B Natriuret Pep 190 (<450) pg/mL Total Protein 7.0 (6.3-8.2) g/dL Albumin 3.9 (3.5-5.0) g/dL Globulin 3.1 (1.7-4.1) g/dL Albumin/Globulin Ratio 1.3 (1.0-2.8) Lipase 82 (23-300) U/L Urine Dip Bedside Urine Glucose Negative Bedside Urine Bilirubin - Negative Bedside Urine Ketone - Negative Urine Specific [place] 1.010 Bedside Urine Occult Blood - Negative Bedside Urine pH 7.0 Bedside Urine Protein - Negative Bedside Urine Urobilinogen - Negative Bedside Urine Nitrite - Negative Bedside Urine Leukocytes - Negative Esterase Point of care testing: Urine Dip Bedside Urine Glucose Negative Bedside Urine Bilirubin - Negative Bedside Urine Ketone - Negative Urine Specific [place] 1.010 Bedside Urine Occult Blood - Negative Bedside Urine pH 7.0 Bedside Urine Protein - Negative Bedside Urine Urobilinogen - Negative Bedside Urine Nitrite - Negative Bedside Urine Leukocytes - Negative Esterase Imaging Data Chest x-ray: Radiologist's Impression: PROCEDURE: XR CHEST 1V INDICATIONS: Chest Pain TECHNIQUE: One view of the chest was acquired. COMPARISON: [facility], CR, XR CHEST 1V, 05/31/2025, 17:27. FINDINGS: Surgical changes and devices: None. Lungs and pleura: Lungs are clear. No pleural effusions or pneumothorax. Mediastinum: Mediastinal contours appear normal. Heart size is normal. Bones and chest wall: No suspicious bony lesions. Overlying soft tissues appear unremarkable. IMPRESSION: No acute pulmonary process. Dictated by: Tiffanie Wei M.D. on 06/06/2025 at 11:54 Approved by: Tiffanie Wei M.D. on 06/06/2025 at 11:54 CT scan - head: Radiologist's Impression: PROCEDURE: CT HEAD/BRAIN WO CON INDICATIONS: HTN; vague confusion this morning resolved TECHNIQUE: Noncontrast 4.5 mm thick angled axial sections acquired from the foramen magnum to the vertex, with coronal and sagittal reformats. For radiation dose reduction, the following was used: automated exposure control, adjustment of mA and/or kV according to patient size. COMPARISON: [facility], CT, CT HEAD/BRAIN WO CON, 05/18/2025, 14:59. FINDINGS: Image quality: Diagnostic. CSF spaces: Basal cisterns are patent. No extra-axial fluid collections. The ventricles are symmetric in size and shape. Brain: Unchanged findings from the recent prior study. No intracranial bleeds or mass effect. There is cerebral volume loss, with resultant ventricular and sulcal prominence. There are moderate to severe periventricular and deep white matter chronic small vessel ischemic changes. There is intracranial internal carotid artery atherosclerosis. Skull and face: Calvarium and visualized facial bones appear intact, without suspicious lesions. Sinuses: Visualized sinuses and mastoids are clear. IMPRESSION: No acute intracranial pathology. Dictated by: Jose Elias Lopez M.D. on 06/06/2025 at 12:36 Approved by: Jose Elias Lopez M.D. on 06/06/2025 at 12:38 MDM Narrative Medical decision making narrative: 89-year-old female with a past medical history of hypertension, hyperlipidemia, hearing loss who presents to the emergency department with her daughter for concern of elevated blood pressure today. Patient had stroke-like symptoms on Monday, came to the hospital and was admitted for CVA/hypertensive crisis. Differential diagnosis includes but is not limited to hypertensive urgency, emergency, UTI, electrolyte derangement, etc. On exam the patient is in no acute distress, nontoxic-appearing, all vital signs within normal limits except for elevated blood pressure, 213/80 in triage, down to 172/65 on my exam. Patient currently denies any symptoms, no chest pain shortness of breath dizziness lightheadedness or visual disturbance however her daughter reports that this morning she did seem slightly more confused and her mood is overall down. Patient was admitted for stroke-like symptoms and hypertensive encephalopathy and discharged 3 days ago on a new blood pressure regimen of losartan 100 mg once daily and amlodipine 10 mg once daily in addition to aspirin. We will obtain CT head, chest x-ray, cardiac workup. We will continue to monitor blood pressure at this time. Patient's blood pressure decreased into the 140s systolics without medication. Lab work reveals normal WBC count 6.8, hemoglobin 13.3, platelets 178, sodium 142, potassium 4.2, BUN 22 creatinine 0.91. Glucose 103. Undetectable troponin. BNP 190. Urinalysis negative. CT head reveals no acute intracranial pathology. Chest x-ray reveals no acute pulmonary process. Upon discussing all of the patient's imaging and lab work results with her and her family, her blood pressure did start to go back up with systolics in the 180s/190s. They are concerned with her elevated blood pressures and are interested in possible additional medication, while the patient denies any symptoms they do notice that she is not quite herself which seems to be related to the elevated blood pressures. I ended up calling and talking with Dr. Brambila who was the hospitalist physician that discharged her 3 days ago. After discussion with the patient's presentations and elevated blood pressures today, he recommended 25 mg of hydralazine t.i.d. One dose of 25 mg oral hydralazine given in the ED. Patient tolerated this medication well and did have improvement in her blood pressure. I discussed with the patient's 3 children, that she should continue taking her losartan and amlodipine as previously prescribed but I will prescribe her hydralazine 25 mg p.o. t.i.d. however I would like them to check her blood pressure before administering this medication and they should only administer this medication if her blood pressure is 140/90 or above. They feel comfortable with this plan and she does have a follow up appointment with her primary care doctor in 4 days to further address her blood pressure. Discussed strict ER return precautions and PCP follow up. Patient is ambulatory, verbalized understanding of all information and is stable for discharge home with her family. She will be living with her daughter. <Carmen Ohara, DO - Last Filed: 06/09/25 07:19> Lab Data Labs: Lab Results 06/06/25 Range/Units 11:30 WBC 6.8 (4.5-11.0) X10^3/uL RBC 4.52 (4.0-5.2) X10^6/uL Hgb 13.3 (12.0-16.0) g/dL Hct 39.9 (36-46) % MCV 88.1 (80-100) fL MCH 29.3 (26-34) PG MCHC 33.3 (30-36) % RDW 14.5 (11.6-14.8) % Plt Count 178 (150-400) X10^3/uL Neut % (Auto) 64.6 (50-75) % Lymph % (Auto) 22.0 L (25-40) % Piatt % (Auto) 10.9 (3-14) % Eos % (Auto) 2.0 (2-4) % Baso % (Auto) 0.5 (0-2) % Neut # (Auto) 4400 (0056-2926) /uL Lymph # (Auto) 1500 (5573-1816) /uL Piatt # (Auto) 700 (0-900) /uL Eos # (Auto) 100 (0-450) /uL Baso # (Auto) 0 (0-100) /uL PT 11.2 (9.4-12.5) SECONDS INR 1.0 (0.9-1.3) APTT 29 (25.1-36.5) SECONDS Sodium 142 (137-145) mmol/L Potassium 4.2 (3.4-5.1) mmol/L Chloride 109 H (98-107) mmol/L Carbon Dioxide 26 (22-32) mmol/L BUN 22 H (7-17) mg/dL Creatinine 0.91 (0.52-1.04) mg/dL Estimated GFR > 60 (>60) mL/min BUN/Creatinine Ratio 24.2 H (6-22) Glucose 103 H (70-99) mg/dL Calcium 9.3 (8.4-10.2) mg/dL Magnesium 1.9 (1.6-2.3) mg/dL Total Bilirubin 1.0 (0.2-1.3) mg/dL AST 21 (14-36) IU/L ALT 13 (<35) IU/L Alkaline Phosphatase 53 (38-126) U/L Total Creatine Kinase 32 (30-135) U/L Troponin I < 0.012 (0.01-0.034) ng/mL NT-Pro-B Natriuret Pep 190 (<450) pg/mL Total Protein 7.0 (6.3-8.2) g/dL Albumin 3.9 (3.5-5.0) g/dL Globulin 3.1 (1.7-4.1) g/dL Albumin/Globulin Ratio 1.3 (1.0-2.8) Lipase 82 (23-300) U/L Urine Dip Bedside Urine Glucose Negative Bedside Urine Bilirubin - Negative Bedside Urine Ketone - Negative Urine Specific [place] 1.010 Bedside Urine Occult Blood - Negative Bedside Urine pH 7.0 Bedside Urine Protein - Negative Bedside Urine Urobilinogen - Negative Bedside Urine Nitrite - Negative Bedside Urine Leukocytes - Negative Esterase Point of care testing: Urine Dip Bedside Urine Glucose Negative Bedside Urine Bilirubin - Negative Bedside Urine Ketone - Negative Urine Specific [place] 1.010 Bedside Urine Occult Blood - Negative Bedside Urine pH 7.0 Bedside Urine Protein - Negative Bedside Urine Urobilinogen - Negative Bedside Urine Nitrite - Negative Bedside Urine Leukocytes - Negative Esterase ECG Data Attestation: I personally reviewed and interpreted this ECG as follows: Prior ECG tracings: available for review Interpretation: Sinus rhythm rate of 73, LA 208 QRS 76 QTC of 423, no acute ST changes appreciated. Nonspecific change. Discharge Plan Departure Patient Disposition: Home Clinical Impression: Hypertension Qualifiers: Hypertension type: unspecified Qualified Code(s): I10 - Essential (primary) hypertension Instructions: DI for High Blood Pressure Activity Restrictions/Additional Instructions: Dear Ms. Dick, Thank you for coming to the emergency department. Today you were evaluated for elevated blood pressure. Your workup today was overall reassuring. We did discuss your elevated blood pressure with Dr. Brambila, and I am prescribing you a 3rd blood pressure medication called hydralazine. This medication can be given 3 times a day for elevated blood pressure along with your other normal morning medications. As we discussed, I do recommend that you check your blood pressure prior to taking this medicine, and do not take this medicine if your blood pressure is within the normal range or low such as below 140/90. Please return to the emergency department immediately if you develop chest pain, difficulty breathing, visual disturbances or any other concerns. Please follow up with your primary care doctor within the next 2-3 days for ER follow-up. (If you do not have a PCP you can call [phone]. ?to schedule an appointment with an [facility] Primary Care Provider) IF YOU DEVELOP ANY NEW OR WORSENING SYMPTOMS, RETURN TO THE ER! Please read the attached instructions, they highlight more specific treatments and interventions for you at home. Thank you for letting me participate in your care, Deborah Nettles PA-C Prescriptions: New hydralazine 25 mg tablet 25 mg PO TID 7 Days Qty: 21 0RF Rx Instructions: Please check blood pressure prior to administering No Action losartan 100 mg tablet 100 mg PO DAILY Qty: 90 1RF (DME) Disabled Parking Permit See Rx Instructions .Route .MEDSUPPLY Qty: 1 0RF Rx Instructions: I find this patient to be medically disabled and qualified for Disabled Parking as indicated, and signed, on the Accompanying Disabled Parking Application for Individuals. cholecalciferol (vitamin D3) 1,250 mcg (50,000 unit) capsule 1,250 mcg PO QWEEK Qty: 60 3RF atorvastatin 20 mg Tablet 80 mg PO BEDTIME Qty: 60 0RF amlodipine 5 mg Tablet 10 mg PO DAILY Qty: 60 0RF aspirin 325 mg Tablet,Delayed Release (Dr/Ec) 325 mg PO DAILY Qty: 30 0RF Referrals: Anuj Cochran DO [Primary Care Provider, Family Practice] Stand Alone Forms: Patient Portal/API ED Sign-out <Carmen Ohara DO - Last Filed: 06/09/25 07:19> Cosign ED Attending Cosignature Attestation: I was immediately available in the department for consultation.
--- NOTE | 2025-06-06 11:35 | PC.NURSE ---
Patient denies any pain anywhere, including chest pain. Reports some lightheadedness when turning her head side to side. Daughter at bedside and reports some vision changes earlier today like seeing colors on her walker and spots. Provider Mayda made aware.
[2025-06-06 11:41] LABS: Add Manual Diff / Slide Review NO; Hematocrit 39.9 % (36-46); Hemoglobin 13.3 g/dL (12.0-16.0); Lymphocytes Absolute Auto 1500 /uL (1100-4500); Mean Corpuscular HGB Conc 33.3 % (30-36); Mean Corpuscular Hemoglobin 29.3 PG (26-34); Mean Corpuscular Volume 88.1 fL (80-100); Platelet Count 178 X10^3/uL (150-400)
[2025-06-06 11:48] LABS: INR 1.0 (0.9-1.3); Prothrombin Time 11.2 SECONDS (9.4-12.5)
[2025-06-06 11:51] LABS: PTT Partial Thromboplastin Tim 29 SECONDS (25.1-36.5)
[2025-06-06 11:53] LABS: Alanine Aminotransferase 13 IU/L (<35); Albumin 3.9 g/dL (3.5-5.0); Albumin Globulin Ratio 1.3 (1.0-2.8); Alkaline Phosphatase 53 U/L (38-126); Blood Urea Nitrogen 22 mg/dL (7-17); Calcium 9.3 mg/dL (8.4-10.2); Carbon Dioxide 26 mmol/L (22-32); Chloride 109 mmol/L (98-107); Creatine Kinase 32 U/L (30-135); Estimated Glomerular Filt Rate > 60 mL/min (>60); Globulin 3.1 g/dL (1.7-4.1); Glucose 103 mg/dL (70-99); HEMOLYSIS < 15 (0-50); Lipase 82 U/L (23-300); Magnesium 1.9 mg/dL (1.6-2.3); Potassium 4.2 mmol/L (3.4-5.1); Sodium 142 mmol/L (137-145); Total Protein 7.0 g/dL (6.3-8.2)
[2025-06-06 12:04] LABS: NT-proBNP (BNP-Adult 18+) 190 pg/mL (<450); Troponin I < 0.012 ng/mL (0.01-0.034)
--- NOTE | 2025-06-06 12:16 | DI.CT.S_ITS ---
PROCEDURE: CT HEAD/BRAIN WO CON INDICATIONS: HTN; vague confusion this morning resolved TECHNIQUE: Noncontrast 4.5 mm thick angled axial sections acquired from the foramen magnum to the vertex, with coronal and sagittal reformats. For radiation dose reduction, the following was used: automated exposure control, adjustment of mA and/or kV according to patient size. COMPARISON: [facility], CT, CT HEAD/BRAIN WO CON, 05/18/2025, 14:59. FINDINGS: Image quality: Diagnostic. CSF spaces: Basal cisterns are patent. No extra-axial fluid collections. The ventricles are symmetric in size and shape. Brain: Unchanged findings from the recent prior study. No intracranial bleeds or mass effect. There is cerebral volume loss, with resultant ventricular and sulcal prominence. There are moderate to severe periventricular and deep white matter chronic small vessel ischemic changes. There is intracranial internal carotid artery atherosclerosis. Skull and face: Calvarium and visualized facial bones appear intact, without suspicious lesions. Sinuses: Visualized sinuses and mastoids are clear. IMPRESSION: No acute intracranial pathology. Dictated by: Jose Elias Lopez M.D. on 06/06/2025 at 12:36 Approved by: Jose Elias Lopez M.D. on 06/06/2025 at 12:38
== END 2025-06-06 17:45 | disposition home or self-care (01) ==
PROVIDERS: Emergency Medicine; Emergency Provider Physician Assistant; PCP Family Medicine
DX: I10 Essential (primary) hypertension (principal)
CPT/HCPCS: 36415; 70450; 71045; 80053; 81003; 82550; 83690; 83735; 83880; 84484; 85025; 85610; 85730; 93005; 99284